=== PATIENT | male | born 1950 | race Caucasian/White ===

== ENCOUNTER 2020-04-03 20:34 | Inpatient (IN) | payer OTHER, SELFPAY ==
[~2020-04-03] VITALS: Ht 160 cm; Wt 62.6 kg
--- NOTE | 2020-04-03 20:36 | NUR ---
Placed in room 08 . Placed on psychology department chair, blood pressure machine and pulse oximeter. To gown for exam. Side rails up. Report given to Jaleesa YBARRA
[2020-04-03 20:43] VITALS: BP_SYST 131
--- NOTE | 2020-04-03 20:50 | NUR ---
# 20 gauge angiocath placed to LAC. Use of asceptic technique. Opsite placed over site. Blood return noted. Blood for lab drawn from site. Flushed with 10 cc of normal saline. No evidence of infiltration noted. Patient tolerated well.
--- NOTE | 2020-04-03 20:55 | NUR ---
PT PLACED ON OXIMIZER @ 10L, PT TOLERATED WELL. O2 SAT 92%
--- NOTE | 2020-04-03 21:01 | NUR ---
ER Dr. Velazquez at bedside examining patient.
--- NOTE | 2020-04-03 21:17 | NUR ---
RT AT BEDSIDE FOR ABG
[2020-04-03 21:28] LABS: BASOPHILS % (AUTO) 0.2 % (0.0-2.0); HEMATOCRIT 44.6 % (36-54); HEMOGLOBIN 15.4 g/dL (14.0-18.0); LYMPHOCYTES # (AUTO) 0.4 K/uL (1.0-5.5); LYMPHOCYTES % (AUTO) 7.5 % (20.5-51.5); MEAN CORPUSCULAR HEMOGLOBIN 30 pg (27-31); MEAN CORPUSCULAR HGB CONC 35 % (32-36); MEAN CORPUSCULAR VOLUME 86 fL (79.0-98.0); MONOCYTES # (AUTO) 0.3 K/uL (0.0-1.0); MONOCYTES % (AUTO) 4.9 % (1.7-9.3); NEUTROPHILS # (AUTO) 4.9 K/uL (1.8-7.7); NEUTROPHILS % (AUTO) 87.4 % (40.0-70.0); PLATELET COUNT (AUTO) 218 K/uL (130-430); RED BLOOD CELL COUNT(AUTO) 5.19 MIL/uL (4.2-6.2); RED CELL DISTRIBUTION WIDTH 13.5 % (9.0-15.0); WHITE BLOOD COUNT (AUTO) 5.6 K/uL (4.8-10.8)
[2020-04-03 21:38] LABS: CALCIUM 8.3 mg/dL (8.4-11.0); CREATININE 0.9 mg/dL (0.55-1.30); POTASSIUM 3.4 mmol/L (3.5-5.1); PROTHROMBIN TIME 10.3 SECS (9.5-12.5)
[2020-04-03 21:44] LABS: TOTAL BILIRUBIN 1.3 mg/dL (0.0-1.0)
--- NOTE | 2020-04-03 21:50 | NUR ---
PT PRESENTS FROM HOME WITH C/O SOB X 1 WEEK. REPORTS THAT HE WAS [facility]ST W[facility] AND HAD DX OF PNA. REPORTS HOWEVER, THAT HE WAS NO GIVEN ABX. COVID TEST NEGATIVE AT THAT TIME. PRESENTS WITH O2 SAT AT 88-89, O2 NC STARTED AT 5L. O2 SAT INCREASED TO 92%. PT DENIES ANY CP, DIZZINESS, OR PAIN. AAOX4
[2020-04-03] MEDS ORDERED: MORPHINE 2 MG/ML INJ. SYRINGE IVP ONE (22:00)
--- NOTE | 2020-04-03 22:00 | NUR ---
TITRATED 02 DOWN TO 5L, CURRENT O2 SAT 92%. PT TOLERATED WELL
[2020-04-03] MEDS ORDERED: SYN75 PO (22:33)
[2020-04-03] MEDS ORDERED: ALBMDI INH (22:33)
[2020-04-03] MEDS ORDERED: AMOX500C2 PO (22:33)
[2020-04-03] MEDS ORDERED: TAMS-11 PO (22:33)
[2020-04-03 22:35] LABS: BILIRUBIN,URINE NEGATIVE (NEGATIVE); BLOOD, URINE 1+ (NEGATIVE); CLARITY/URINE CLEAR (CLEAR); COLOR,URINE YELLOW (YELLOW); GLUCOSE,URINE NEGATIVE (NEGATIVE); KETONES,URINE 1+ (NEGATIVE); LEUKOCYTE ESTERASE ,URINE NEGATIVE (NEGATIVE); NITRITE, URINE NEGATIVE (NEGATIVE); PROTEIN URINE 2+ (NEGATIVE)
[2020-04-03] MEDS ORDERED: cefTRIAXone 1 GM IVPB PREMIX 50 ML IV ONE (22:45)
[2020-04-03] MEDS ORDERED: ALBUTEROL MDI INHALATION 8 GM INH INH PRN (22:45)
--- NOTE | 2020-04-03 23:05 | NUR ---
Patient will be admitted to care of DR. IZQUIERDO. Admitted to TELE unit. Will go to room 122B. Belongings list completed. Complete and up to date summary report printed. SBAR report to be given at bedside with opportunity for questions.
[2020-04-03 23:18] LABS: BACTERIA,URINE FEW /HPF (None Seen); RBC,URINE 0-3 /HPF (0-3); WBC,URINE 0-3 /HPF (0-3)
[2020-04-03 23:19] LABS: MUCUS,URINE None Seen /LPF (None Seen)
--- NOTE | 2020-04-03 23:25 | NUR ---
ADMISSION NOTE Received patient from ER via jaqueline, received report from AMADA Brown. Patient admitted with diagnosis of PNA. Patient oriented to hospital routine, call light, toileting and safety-patient verbalized understanding.
[2020-04-03 23:32] VITALS: BP_SYST 119
[2020-04-03] MEDS ORDERED: FLU VACC QS2020-21(65UP)/PF 0.7 ML/SYRINGE I.M. PRN (23:45)
--- NOTE | 2020-04-03 23:48 | NUR ---
PHYSICIAN CALL SPOKE TO DR. IZQUIERDO REGARDING PT'S LOW OXYGEN SATURATION DESPITE BEING ON 10 L O2 VIA OXYMIZER. ORDER RECEIVED TO TRANSFER PT TO ICU. WILL CARRY OUT.
[2020-04-04] VITALS (24 sets, daily range): BP systolic 95–113
[2020-04-04] MEDS ORDERED: AZITHROMYCIN 500 MG in NS 250 ML IV SCH ×2
--- NOTE | 2020-04-04 00:10 | NUR ---
Transfer Patient is transferred from [facility] due to shortness of breath. Patient was on 5L NC and was increased to 7 L then 10 L on oximizer. Patient presents AAO x3, states no shortness of breath or distress. O2 saturation is 94 on the monitor. Patient verbalizes that he feels fine right now. Bed is locked in lowest position, call light within reach, and urinal is bedside within reach.
--- NOTE | 2020-04-04 00:26 | NUR ---
TRANSFERRED TO ICU PT TRANSFERRED TO ICU. REPORT GIVEN TO ICU NURSE FOR CONTINUITY OF CARE.
[2020-04-04] MEDS: DEXAMETHASONE SOD PHOSPHATE 10 MG/ML VIAL IVP SCH ×2 (00:51→23:43)
[2020-04-04] MEDS ORDERED: PIPERACILLIN/TAZO 3.375/DEX-IS 50 ML IV SCH (05:45)
[2020-04-04] MEDS: LEVOTHYROXINE SODIUM 0.075 MG TABLET PO SCH (07:22)
[2020-04-04] MEDS ORDERED: ALBUTEROL SULFATE 0.083% 2.5 MG/3 ML VIAL.NEB INH PRN (07:30)
--- NOTE | 2020-04-04 07:45 | NUR ---
Opening Notes Patient AOx4 with no signs of distress at this time. Patient connected to monitoring specialist with NSR. Patient placed on 40L oxygen, FiO2 80% high flow at this time, O2 saturation at 94%. Patient has a LAC 20 patent, flushing well, and saline locked. Patient uses urinal to void. Bedside commode at bedside. Use of call light reinforced. Safety precautions enforced.
[2020-04-04] MEDS: ENOXAPARIN SODIUM 40 MG/0.4 ML SYRINGE SUBCUT SCH ×3 (09:00→12:32)
[2020-04-04] MEDS ORDERED: cefTRIAXone 1 GM IVPB PREMIX 50 ML IV SCH (09:00)
--- NOTE | 2020-04-04 09:26 | NUR ---
Nutrition Update Cristhian Scale 17 noted. Pt admitted for pneumonia. Diet: regular BMI: 28.7 kg/m2 RD to follow per nutrition care standards.
[2020-04-04] MEDS: TAMSULOSIN HCL 0.4 MG CAP PO SCH (09:54)
--- NOTE | 2020-04-04 09:54 | NUR ---
CONSULT ID. CONSULTING MD: DR. HARRINGTON SPOKE TO: PEDRO DIALED: [phone] ORDERED BY: DR. IZQUIERDO
--- NOTE | 2020-04-04 10:00 | NUR ---
IV placement refusal Patient refused another IV insertion at this time.
--- NOTE | 2020-04-04 10:08 | NUR ---
0800 PT PLACED ON HI FLOW 40L 80% FIO2 PER DR MULLINS. AMADA AWARE. SAT 93% 72 HR 23 RR.WILL CONT TO MONITOR. Addendum: 04/04/20 at 1009 by Arianne Albarran RT Amended: Links added.
[2020-04-04] MEDS ORDERED: CHOLECALCIFEROL (VITAMIN D3) 2,000 UNIT TABLET PO ONE (11:45)
[2020-04-04] MEDS ORDERED: IVERMECTIN 3 MG TABLET PO ONE (11:45)
[2020-04-04] MEDS ORDERED: ASCORBIC ACID 500 MG TABLET PO ONE (11:45)
--- NOTE | 2020-04-04 12:01 | NUR ---
1130 FIO2 TO 90% FLOW 35L. SAT 92%. WILL CONT TO MONITOR. Addendum: 04/04/20 at 1201 by Arianne Albarran RT Amended: Links added.
--- NOTE | 2020-04-04 14:00 | NUR ---
RN Rounds Patient resting in bed at this time. Patient assisted to sit on the edge of the bed. Per patient, "it helps me breathe better." Patient provided with oral care kit and wipes material. Reinforced education regarding the use of call light. Safety precautions enforced.
--- NOTE | 2020-04-04 16:00 | NUR ---
RN Rounds Patient sleeping at this time with no signs of distress noted. Safety precautions enforced.
--- NOTE | 2020-04-04 19:23 | NUR ---
Closing Notes Endorsed patient to night warehouse manager RN using SBAR format. No signs of distress noted.
--- NOTE | 2020-04-04 19:25 | NUR ---
Opening Note Received report from AM nurse using SBAR approach.
[2020-04-04] MEDS: DOXYCYCLINE HYCLATE 100 MG CAPSULE PO SCH (20:16)
[2020-04-05] VITALS (19 sets, daily range): BP systolic 98–120
--- NOTE | 2020-04-05 01:00 | NUR ---
Patient refused CHG bath at this time. changed all linens and made patient comfortable. Stated he feels comfortable and wants to rest.
[2020-04-05] MEDS: LEVOTHYROXINE SODIUM 0.075 MG TABLET PO SCH (07:00)
--- NOTE | 2020-04-05 07:20 | NUR ---
MD Rounds Dr. Rosa at bedside for examination. No new orders received.
--- NOTE | 2020-04-05 07:30 | NUR ---
Opening Notes Patient received awake in bed, able to follow commands. Patient connected to public health dietitian with NSR. Patient on high flow, FiO2 increased to 100% and 40L oxygen. Patient with peripheral IV patent and saline-locked. Patient able to eat independently. Assisted patient with breakfast preparation. Patient able to use urinal. Safety precautions enforced. Use of call light reinforced.
--- NOTE | 2020-04-05 07:45 | NUR ---
RT NOTES FIO2 TO 0.100 and flow to 40L. will monitor pt
--- NOTE | 2020-04-05 08:40 | NUR ---
Patient requested to take his medications at a later time. Patient educated regarding medications. Patient verbalized understanding of education.
[2020-04-05] MEDS: ASCORBIC ACID 500 MG TABLET PO SCH ×2 (08:57→09:00)
[2020-04-05] MEDS: DOXYCYCLINE HYCLATE 100 MG CAPSULE PO SCH ×2 (08:57→20:56)
[2020-04-05] MEDS: TAMSULOSIN HCL 0.4 MG CAP PO SCH ×2 (08:57→09:00)
[2020-04-05] MEDS: CHOLECALCIFEROL (VITAMIN D3) 2,000 UNIT TABLET PO SCH ×2 (08:58→09:00)
--- NOTE | 2020-04-05 09:00 | NUR ---
RT NOTES Pt's current sat 93% no distress noted
[2020-04-05 09:25] LABS: POTASSIUM 3.4 mmol/L (3.5-5.1)
[2020-04-05 09:26] LABS: CALCIUM 8.2 mg/dL (8.4-11.0); CREATININE 0.88 mg/dL (0.55-1.30)
[2020-04-05 09:29] LABS: ALBUMIN 2.7 g/dL (3.4-4.8); TOTAL BILIRUBIN 1.3 mg/dL (0.0-1.0)
[2020-04-05 09:48] LABS: HEMOGLOBIN 14.5 g/dL (14.0-18.0); RED BLOOD CELL COUNT(AUTO) 4.87 MIL/uL (4.2-6.2); WHITE BLOOD COUNT (AUTO) 8.4 K/uL (4.8-10.8)
[2020-04-05 09:49] LABS: HEMATOCRIT 41.8 % (36-54); MEAN CORPUSCULAR HEMOGLOBIN 30 pg (27-31); MEAN CORPUSCULAR HGB CONC 35 % (32-36); MEAN CORPUSCULAR VOLUME 86 fL (79.0-98.0); PLATELET COUNT (AUTO) 279 K/uL (130-430); RED CELL DISTRIBUTION WIDTH 13.7 % (9.0-15.0)
[2020-04-05 09:50] LABS: BASOPHILS % (AUTO) 0.1 % (0.0-2.0); LYMPHOCYTES # (AUTO) 0.4 K/uL (1.0-5.5); LYMPHOCYTES % (AUTO) 4.4 % (20.5-51.5); MONOCYTES # (AUTO) 0.4 K/uL (0.0-1.0); MONOCYTES % (AUTO) 4.7 % (1.7-9.3); NEUTROPHILS # (AUTO) 7.6 K/uL (1.8-7.7); NEUTROPHILS % (AUTO) 90.8 % (40.0-70.0)
--- NOTE | 2020-04-05 10:31 | NUR ---
Dietitian Recommendations *Recommend continue Regular Diet *Recommend Ensure Enlive BID to provide additional 700 kcal, 40 g protein to promote PO intake Please see Nutrition Assessment for details. EP,RD
--- NOTE | 2020-04-05 12:00 | NUR ---
MD Rounds Dr. Hay at bedside for examination.
--- NOTE | 2020-04-05 12:00 | NUR ---
RN Rounds Patient able to use the commode at bedside with minimum assist. Patient placed back on bed and educated regarding relaxation techniques. Patient verbalized understanding of teaching. Ensured safety precautions in place. No signs of distress noted at this time.
--- NOTE | 2020-04-05 12:50 | NUR ---
MD Rounds Dr. Muse at bedside for examination.
--- NOTE | 2020-04-05 13:00 | NUR ---
MD Rounds Dr. Short at bedside for examination. No new orders received.
--- NOTE | 2020-04-05 13:30 | NUR ---
MD Rounds Dr. Blackburn at bedside for examination. No new orders received.
--- NOTE | 2020-04-05 19:30 | NUR ---
PM SHIFT ASSESSMENT Pt is alert and oriented. Pt is on high flow, RR even and unlabored. SR on monitor. Skin warm and dry. IVSL to LFA, no signs of infiltration. Safety precautions in place, call light within reach. Will continue to monitor.
--- NOTE | 2020-04-05 19:35 | NUR ---
Closing Notes Endorsed to vest busheler RN using SBAR format. No signs of distress noted at this time.
--- NOTE | 2020-04-05 20:15 | NUR ---
ASSISTED PATIENT TO WASH UP WITH WARM WATER AND TOWELS. CHG WIPES REFUSED. PATIENT EDUCATED ON CHG WIPE IMPORTANCE. WILL REATTEMPT BATH AT A LATER TIME.
[2020-04-05] MEDS: FAMOTIDINE PF 20 MG/2 ML VIAL IVP SCH (20:56)
[2020-04-06] VITALS (17 sets, daily range): BP systolic 109–124
[2020-04-06] MEDS: DEXAMETHASONE SOD PHOSPHATE 10 MG/ML VIAL IVP SCH (00:41)
[2020-04-06] MEDS: LEVOTHYROXINE SODIUM 0.075 MG TABLET PO SCH (07:03)
--- NOTE | 2020-04-06 07:10 | NUR ---
ENDORSEMENT Pt care endorsed to dayshift RN using nursing SBAR.
--- NOTE | 2020-04-06 08:00 | NUR ---
AM ASSESSMENT. PT ALERT, ON O2 HIGH FLOW, SITTING UP IN BED, TACHYPNEIC, AFEBRILE THIS AM, CHECKS HIS CELL PHONE FOR MESSAGES, BROUGHT IN HIS BREAKFAST TRAY, NEEDS ASSESSED AND ATTENDED, WILL CONTINUE TO MONITOR.
[2020-04-06] MEDS: TAMSULOSIN HCL 0.4 MG CAP PO SCH (08:32)
[2020-04-06] MEDS: FAMOTIDINE PF 20 MG/2 ML VIAL IVP SCH ×2 (08:32→21:01)
[2020-04-06] MEDS: DOXYCYCLINE HYCLATE 100 MG CAPSULE PO SCH ×2 (08:33→21:01)
[2020-04-06] MEDS: CHOLECALCIFEROL (VITAMIN D3) 2,000 UNIT TABLET PO SCH (08:33)
[2020-04-06] MEDS: ASCORBIC ACID 500 MG TABLET PO SCH (08:33)
[2020-04-06] MEDS: ENOXAPARIN SODIUM 40 MG/0.4 ML SYRINGE SUBCUT SCH (08:34)
[2020-04-06] MEDS ORDERED: IVERMECTIN 3 MG TABLET PO ONE (11:30)
[2020-04-06] MEDS ORDERED: TOCILIZUMAB 400 MG in NS 100 ML IV ONE (12:30)
--- NOTE | 2020-04-06 14:20 | NUR ---
PAI GOW DEALER. DR MULLINS CAME IN AND EXAMINED PT. EDUCATION ON PRONING GIVEN. PT UNDERSTANDS.
--- NOTE | 2020-04-06 16:05 | NUR ---
PRONING. DISCUSSED WITH PATIENT PLAN OF CARE, PILLOWS PROVIDED, DEMONSTRATION GIVEN AND PATIENT COOPERATED, HE TURNED AND LAYED HIS FACE DOWN, PILLOWS UNDER HIS CHEST, BOTH ARMS, LOWER ABDOMEN, KNEES AND FEET. CALL LIGHT PLACED IN REACH.
--- NOTE | 2020-04-06 16:18 | NUR ---
SATURATION. PT REMAINS ON THE SAME POSITION, O2 SAT 98%.
--- NOTE | 2020-04-06 16:42 | NUR ---
ACTIVITY. PT SEEN SITTING AT THE EDGE OF HIS BED, WILL CONTINUE TO MONITOR.
--- NOTE | 2020-04-06 17:45 | NUR ---
NURSING PT EXPRESSED WILLINGNESS TO DO PRONING LATER AFTER HIS DINNER, WILL CONTINUE TO MONITOR.
--- NOTE | 2020-04-06 20:45 | NUR ---
ASSISTED PATIENT TO WASH UP WITH WARM WATER AND TOWELS. PATIENT STATED HE WAS GOING TO BED. ALL NEEDS MET. SAFETY PRECAUTIONS IN PLACE, CALL LIGHT WITHIN REACH. WILL CONTINUE TO MONITOR.
[2020-04-06 21:10] LABS: MYCOPLASMA PNEUMONIAE IgM <770 U/mL (0-769)
[2020-04-07] VITALS (14 sets, daily range): BP systolic 101–154
--- NOTE | 2020-04-07 00:10 | NUR ---
PATIENT HAD PERIOD OF CONFUSION AND WAS ABLE TO GET OUT OF BED. PATIENT STATED, "I WOKE UP FROM A BAD DREAM AND I HAD TO USE THE RESTROOM." PATIENT EDUCATED AND ESCORTED BACK TO BED, RT AT BEDSIDE FOR ASSISTANCE. WILL CONTINUE TO MONITOR.
[2020-04-07] MEDS: DEXAMETHASONE SOD PHOSPHATE 10 MG/ML VIAL IVP SCH (00:15)
--- NOTE | 2020-04-07 00:30 | NUR ---
VSS, SPO2 88%. PATIENT IS ALERT AND ORIENTED, PT STATES HE WAS CONFUSED AND WAS NOT AWARE OF HIS ACTIONS. WILL CONTINUE TO MONITOR.
--- NOTE | 2020-04-07 01:25 | NUR ---
SPOKE TO DR. SUSANNA MD MADE AWARE THAT PATIENT HAD A PERIOD OF HYPOXEMIA AND DESATURATING TO LOW 80'S BUT CURRENT SATURATION IS 88%. NO NEW ORDERS GIVEN PER MD. WILL CONTINUE TO MONITOR.
--- NOTE | 2020-04-07 02:30 | NUR ---
ASKED PATIENT IF HE WOULD LIKE TO BE PRONED AT THIS TIME FOR RESPIRATORY BENEFITS. PATIENT REFUSED TREATMENT, PATIENT STATED, "IM TOO TIRED RIGHT NOW, NOT NOW." PATIENT EDUCATED ON POSITIVE EFFECTS PRONING CAN HAVE, PATIENT STILL REFUSED INTERVENTION. WILL REASSESS.
--- NOTE | 2020-04-07 04:25 | NUR ---
REATTEMPTED TO ASK PATIENT IF HE WOULD LIKE TO BE PRONED AT THIS TIME FOR RESPIRATORY BENEFITS. PATIENT REFUSED TREATMENT, PATIENT STATED, "IM STILL TOO TIRED RIGHT NOW." PATIENT EDUCATED ON POSITIVE EFFECTS PRONING CAN HAVE, PATIENT STILL REFUSED INTERVENTION. WILL REASSESS.
--- NOTE | 2020-04-07 07:14 | NUR ---
ENDORSEMENT Pt care endorsed to dayshift RN using nursing SBAR.
--- NOTE | 2020-04-07 07:50 | NUR ---
AM ASSESSMENT. APPROACHED PT, SITTING UP IN BED, LOOKING DEPRESSED, BROUGHT IN HIS BREAKFAST TRAY, NEEDS ASSESSED, HE SHOOK HIS HEAD, STATED "I'M STILL UPSET, TAKE MY BREAKFAST AWAY, I'M NOT GOING TO EAT", ENCOURAGED PT TO TAKE SOME SIPS OF ENSURE DRINK, HE SHOOK HIS HEAD, "MY BODY ACHES", HE STATED. WILL CONTINUE TO MONITOR.
[2020-04-07] MEDS: ASCORBIC ACID 500 MG TABLET PO SCH (09:08)
[2020-04-07] MEDS: FAMOTIDINE PF 20 MG/2 ML VIAL IVP SCH ×2 (09:08→21:56)
[2020-04-07] MEDS: CHOLECALCIFEROL (VITAMIN D3) 2,000 UNIT TABLET PO SCH (09:08)
[2020-04-07] MEDS: TAMSULOSIN HCL 0.4 MG CAP PO SCH (09:08)
[2020-04-07] MEDS: traMADol HCL HCL 50 MG TABLET (ULTRAM) PO PRN (09:09)
[2020-04-07] MEDS: DOXYCYCLINE HYCLATE 100 MG CAPSULE PO SCH ×2 (09:10→21:56)
[2020-04-07] MEDS: ENOXAPARIN SODIUM 40 MG/0.4 ML SYRINGE SUBCUT SCH (09:10)
--- NOTE | 2020-04-07 09:25 | NUR ---
LAB DRAW. CASING COOKER CAME IN WITH CHEERFUL WORDS, SHE EXPLAINED HER TASK TO DRAW BLOOD, PT SHOOK HIS HEAD, "NO, I DON'T LIKE YOU TO DO THAT", SHE SHOWED HIM THE VIALS, "I KNOW THIS IS FOR CBC", HE STATED. WE EXPLAINED THE LAB ORDERS HE IS ABOUT TO GET TESTED, HE THEN ALLOWED HER TO TAKE BLOOD SAMPLES.
[2020-04-07 09:54] LABS: BASOPHILS % (AUTO) 0.1 % (0.0-2.0); HEMATOCRIT 45.6 % (36-54); HEMOGLOBIN 15.1 g/dL (14.0-18.0); LYMPHOCYTES # (AUTO) 0.2 K/uL (1.0-5.5); LYMPHOCYTES % (AUTO) 1.8 % (20.5-51.5); MEAN CORPUSCULAR HEMOGLOBIN 29 pg (27-31); MEAN CORPUSCULAR HGB CONC 33 % (32-36); MEAN CORPUSCULAR VOLUME 87 fL (79.0-98.0); MONOCYTES # (AUTO) 0.2 K/uL (0.0-1.0); MONOCYTES % (AUTO) 1.6 % (1.7-9.3); NEUTROPHILS # (AUTO) 12.1 K/uL (1.8-7.7); NEUTROPHILS % (AUTO) 96.5 % (40.0-70.0); PLATELET COUNT (AUTO) 324 K/uL (130-430); RED BLOOD CELL COUNT(AUTO) 5.25 MIL/uL (4.2-6.2); RED CELL DISTRIBUTION WIDTH 13.2 % (9.0-15.0); WHITE BLOOD COUNT (AUTO) 12.6 K/uL (4.8-10.8)
[2020-04-07 10:07] LABS: ALBUMIN 2.7 g/dL (3.4-4.8); CALCIUM 7.9 mg/dL (8.4-11.0); CREATININE 0.77 mg/dL (0.55-1.30); POTASSIUM 3.4 mmol/L (3.5-5.1); TOTAL BILIRUBIN 1.3 mg/dL (0.0-1.0)
[2020-04-07 10:14] LABS: C-REACTIVE PROTEIN QUANT 3.5 mg/dL (0-0.5)
--- NOTE | 2020-04-07 13:25 | NUR ---
HAIRCUTTER DR MULLINS AT BEDSIDE, EXAMINING PATIENT.
--- NOTE | 2020-04-07 14:30 | NUR ---
ACTIVITY. PT SITTING AT THE SIDE OF HIS BED, STATED "I'VE BEEN SHIFTING MY POSITION FROM THIS BED TO THAT CHAIR", HELPING MYSELF BREATHE WHILE MY ARMS CLAMPED TO THE BACK OF THE CHAIR. ASSISTED PT TO A PRONING POSITION AT THIS HOUR, PILLOWS ON THE BED TO PROTECT BONY PROMINENCES FROM INJURY, WILL CONTINUE TO MONITOR.
[2020-04-07] MEDS ORDERED: POTASSIUM CHLORIDE 20 MEQ/PKT PACKET PO ONE (15:45)
[2020-04-07] MEDS ORDERED: FUROSEMIDE 20 MG/2 ML VIAL IVP ONE (15:45)
--- NOTE | 2020-04-07 16:10 | NUR ---
ACTIVITY. PT CALLED AND RESPONDED, HE STATED "I WANT TO SIT UP NOW", LED PT GENTLY TO A CHAIR, WITH HIGH FLOW O2, SKIN CHECKED AROUND HIS EARS, SKIN PURPLISH, NO OPENED SORES. DISCUSSED TO PATIENT PRONING TIMES, HE WILL TRY AGAIN AT ABOUT BEDTIME TONIGHT.
--- NOTE | 2020-04-07 18:00 | NUR ---
NURSING. WENT TO SPEAK TO PATIENT AGAIN, NEEDS ASSESSED, PT REFUSED TO HAVE DINNER, "I DON'T EAT IN THE EVENING" PT STATED.
--- NOTE | 2020-04-07 19:30 | NUR ---
Opening note Received report and assumed care. patient in isolation for PUI Covid19. High flow canula in place 100% FIO2 with low sats 87%. SOB with minimal exertion noted. Using urinal and reported lasix is making him restless due to frequency of urination. Cooperative with staff; self proning. will continue to monitor as per unit protocol.
--- NOTE | 2020-04-07 20:30 | NUR ---
Patient's assessment completed. Self prone position; tolerating well.
[2020-04-07] MEDS ORDERED: FUROSEMIDE 20 MG/2 ML VIAL IVP SCH (21:00)
--- NOTE | 2020-04-07 22:30 | NUR ---
Prone position for two hours. patient tolerated well.
--- NOTE | 2020-04-07 23:13 | NUR ---
Resting comfortably VSS. No signs of distress noted or reported. O2 sats 90%, RR 22
[2020-04-08] VITALS (11 sets, daily range): BP systolic 105–134
[2020-04-08] MEDS: DEXAMETHASONE SOD PHOSPHATE 10 MG/ML VIAL IVP SCH ×2 (00:32→23:01)
[2020-04-08] MEDS: LEVOTHYROXINE SODIUM 0.075 MG TABLET PO SCH (06:25)
--- NOTE | 2020-04-08 07:20 | NUR ---
CLOSING NOTE Endorsed SBAR report to oncoming RN for continuity of care.
--- NOTE | 2020-04-08 07:45 | NUR ---
Opening Notes Pt received from night RN using SBAR.
--- NOTE | 2020-04-08 08:20 | NUR ---
Right Upper Leg Pt has complaints of right upper leg pain, ice pack requested and provided to pt. Assisted pt with repositioning in bed and partial linen change provided.
[2020-04-08] MEDS: ASCORBIC ACID 500 MG TABLET PO SCH ×2 (08:23→09:20)
[2020-04-08] MEDS: TAMSULOSIN HCL 0.4 MG CAP PO SCH (08:23)
[2020-04-08] MEDS: POTASSIUM CHLORIDE 20 MEQ/PKT PACKET PO SCH (08:23)
[2020-04-08] MEDS: CHOLECALCIFEROL (VITAMIN D3) 2,000 UNIT TABLET PO SCH ×2 (08:23→09:20)
[2020-04-08] MEDS: FAMOTIDINE PF 20 MG/2 ML VIAL IVP SCH ×2 (08:24→20:31)
[2020-04-08] MEDS: ENOXAPARIN SODIUM 40 MG/0.4 ML SYRINGE SUBCUT SCH (08:24)
[2020-04-08] MEDS: DOXYCYCLINE HYCLATE 100 MG CAPSULE PO SCH ×2 (08:24→20:31)
--- NOTE | 2020-04-08 08:30 | NUR ---
Medication Refusal Pt refused Medication Vit C, Vit D-3, pt is aware of benefits and is refusing.
[2020-04-08] MEDS: traMADol HCL HCL 50 MG TABLET (ULTRAM) PO PRN (08:31)
--- NOTE | 2020-04-08 09:55 | NUR ---
Blood Pressure Pt refused blood pressure cuff at this time.
--- NOTE | 2020-04-08 10:08 | NUR ---
Resting Pt observed to be resting in bed with eyes closed. No complaints of pain at this moment.
--- NOTE | 2020-04-08 10:35 | NUR ---
Right Foot Pt is complaining of right toes "feeling cold". Upon palpation toes are cold to the touch, right great toe capillary refill <3 seconds, positive for normal pulse dorsalis pedis and popliteal. Pt requested a foot massage to generate circulation. Provided pt with massage, warmth has returned to toe, pt has no impairment to move extremity. Applied socks and provided blanket per pts request. Addendum: 04/08/20 at 1353 by Celestina Langford RN Pt denies any numbness or tingling at this time.
--- NOTE | 2020-04-08 12:15 | NUR ---
[employer] windshield technician at bedside with pt.
--- NOTE | 2020-04-08 13:40 | NUR ---
Chair Assisted pt to bedside chair, no complaints of pain or distress at this time. Pt was able to ambulate to chair. Pt provided call light and cell phone. Will continue to monitor. Pt confirms education provided to call to have stand by assistance from chair to bed.
--- NOTE | 2020-04-08 14:12 | NUR ---
BED Pt assisted back to bed from chair. Pt educated again about the benefits of prone position. Pt stated that he will do side laying position. Pt currently side laying on left side with an oxygen saturation of 91% on in room monitor. Will continue to monitor.
--- NOTE | 2020-04-08 16:14 | NUR ---
Resting Pt sleeping in side laying position on right side, max oxygen saturation 93%. Will continue to monitor.
--- NOTE | 2020-04-08 18:00 | NUR ---
Dinner Pt refused dinner tray stating "I don't eat at night", pt provided two jello's on bedside.
--- NOTE | 2020-04-08 19:11 | NUR ---
Closing Notes All needs meet through duration of shift. Pt endorsed to night RN using SBAR.
--- NOTE | 2020-04-08 19:15 | NUR ---
OPENING NOTE Received SBAR report from off coming RN for continuity of care.
[2020-04-08] MEDS: ENOXAPARIN SODIUM 80 MG/0.8 ML SYRINGE SUBCUT SCH (20:39)
--- NOTE | 2020-04-08 20:45 | NUR ---
Pt resting in bed, a/o x 4, able to follow commands and make needs known. Pt on 50 L O2 via high flow NC with 100% FiO2. Pt's oxygen saturations between 70's-80's. Pt refusing to wear blood pressure cuff all night, will go and check BP throughout the night without disturbance. Encouraged pt prone and turn on sides to help increase his O2 saturations and improve oxygenation, pt refusing at the moment. Assisted pt up to chair with standby assistance, pt ambulating well with steady gait. Provided partial linen change. PIV flushing well. Bed locked and in lowest position. Provided call light within reach. Will continue to monitor and assess.
[2020-04-09] VITALS (14 sets, daily range): BP systolic 109–131
[2020-04-09 07:20] LABS: ALBUMIN 3.1 g/dL (3.4-4.8); BILIRUBIN,DIRECT 0.3 mg/dL (0.0-0.3); TOTAL BILIRUBIN 1.3 mg/dL (0.0-1.0)
--- NOTE | 2020-04-09 07:20 | NUR ---
Received patient and endorsed report. Patient in bed sleeping with side rails x 3 up. Call light with in reach.
[2020-04-09 07:34] LABS: C-REACTIVE PROTEIN QUANT 1.3 mg/dL (0-0.5)
[2020-04-09] MEDS: LEVOTHYROXINE SODIUM 0.075 MG TABLET PO SCH (07:55)
--- NOTE | 2020-04-09 08:30 | NUR ---
MD Hay at bedside assessing patient.
[2020-04-09] MEDS: TAMSULOSIN HCL 0.4 MG CAP PO SCH (09:00)
--- NOTE | 2020-04-09 09:30 | NUR ---
Encouraged patient to prone and reminded MD Hay wants patient to prone for 18 hours, refused despite education and offering to assist to turn x 3.
[2020-04-09] MEDS: DOXYCYCLINE HYCLATE 100 MG CAPSULE PO SCH ×2 (09:50→20:44)
[2020-04-09] MEDS: ENOXAPARIN SODIUM 80 MG/0.8 ML SYRINGE SUBCUT SCH ×2 (09:51→20:45)
[2020-04-09] MEDS: FAMOTIDINE PF 20 MG/2 ML VIAL IVP SCH ×2 (09:53→20:44)
[2020-04-09] MEDS: POTASSIUM CHLORIDE 20 MEQ/PKT PACKET PO SCH (09:54)
--- NOTE | 2020-04-09 10:02 | NUR ---
0950 WATER BOTTLE CHANGED ON HIGH FLOW. WILL CONT. TO MONITOR Addendum: 04/09/20 at 1008 by Arianne Albarran RT Amended: Links added.
[2020-04-09 10:32] LABS: BASOPHILS # (AUTO) 0.1 K/uL (0.0-0.2); BASOPHILS % (AUTO) 0.6 % (0.0-2.0); EOSINOPHILS # (AUTO) 0.1 K/uL (0.0-0.4); EOSINOPHILS % (AUTO) 1.4 % (0.0-4.0); HEMATOCRIT 49.9 % (36-54); HEMOGLOBIN 17.1 g/dL (14.0-18.0); LYMPHOCYTES # (AUTO) 0.3 K/uL (1.0-5.5); LYMPHOCYTES % (AUTO) 2.7 % (20.5-51.5); MEAN CORPUSCULAR HEMOGLOBIN 30 pg (27-31); MEAN CORPUSCULAR HGB CONC 34 % (32-36); MEAN CORPUSCULAR VOLUME 88 fL (79.0-98.0); MONOCYTES # (AUTO) 0.2 K/uL (0.0-1.0); NEUTROPHILS # (AUTO) 9.4 K/uL (1.8-7.7); NEUTROPHILS % (AUTO) 93.3 % (40.0-70.0); PLATELET COUNT (AUTO) 234 K/uL (130-430); RED BLOOD CELL COUNT(AUTO) 5.69 MIL/uL (4.2-6.2); RED CELL DISTRIBUTION WIDTH 13.8 % (9.0-15.0); WHITE BLOOD COUNT (AUTO) 10.1 K/uL (4.8-10.8)
[2020-04-09 10:35] LABS: CALCIUM 8.5 mg/dL (8.4-11.0); CREATININE 1.22 mg/dL (0.55-1.30); POTASSIUM 4.5 mmol/L (3.5-5.1)
--- NOTE | 2020-04-09 13:35 | NUR ---
Prone Position Assisted pt to prone position, pt tolerated well. Pillows placed underneath all bony and weightbearing areas. Bed in lowest position and call light placed in pts hand. Will continue to monitor.
--- NOTE | 2020-04-09 15:10 | NUR ---
Patient request to lay back in bed semi-fowlers despite encouraging patient and education to stay prone.
--- NOTE | 2020-04-09 19:15 | NUR ---
change of shift.pt.presents isolation status;droplet;2/t covid 19;pui status.pt.presents o2-therapy via high flow intervention;flow rate=50% fio2%=100%.o2-sat%=82%.pt.capable to reposition self.pt.presents iv access lock location;lt.antecubital.pt.utilizing the urinal w/in access of the pt.general status stable.respiratory status labored.call light/telephone placed w/in access of the pt.
--- NOTE | 2020-04-09 19:25 | NUR ---
Endorsed patient and report to [facility] shift nurse. Patient sleeping in bed with side rails x 3 up. Call light with in reach.
--- NOTE | 2020-04-09 20:00 | NUR ---
pt.assessed.v/s assessed values w/in normal limits.o2-sat%=78%.pt.presents seated position;bed.re-iterated to the pt.that the prone position enables the pt.to breath w some more ease improving the o2-sat%.pt.refused to re-position to the prone position @this hour.i have apprised the pt.that i may provide snacks/beverages w/in the shift.diet status;regular;puree.pt.requested jellos/fresh water.i have provided the jellos/water.pt.capable to reposition self.no c/o pain,nausea.general status stable.call light/telephone w/in access of the pt.
--- NOTE | 2020-04-09 21:00 | NUR ---
2100pmedications administered.pt.capable to ingest po medications slight difficulty.2/t respiratory status labored. no requests posited@this hour.
--- NOTE | 2020-04-09 22:00 | NUR ---
pt.assessed.v/s assessed values w/in normal limits.no c/o pain,nausea.no requests posited@this hour.o2-sat%=82%.respiratory status labored.general status stable.i have attended to the urinal:measured/cleaned placed w/in access of the pt.
[2020-04-10] VITALS (18 sets, daily range): BP systolic 105–129
--- NOTE | 2020-04-10 | NUR ---
pt.assessed.v/s assessed values w/in normal limits.no c/o pain,nausea.pt.assisted to the prone position.o2-sat%=84%in prone position.pt.assistd per roxy rn/chg. i have administered decadron;6mg ivp via peripheral iv access.no requests posited.urinal w/in access of the pt.general status stable.respiratory status labored.call light/telephone w/in access of the pt.
[2020-04-10] MEDS: DEXAMETHASONE SOD PHOSPHATE 10 MG/ML VIAL IVP SCH (00:06)
--- NOTE | 2020-04-10 02:00 | NUR ---
pt.assessed.v/s assessed values w/in normal limits.per flacc pain mgx pt. absent facial grimaces/body posturing.o2 sat%=80%. seated position;bed.general status stable.respiratory status labored.i have attended to the urinal:measured/cleaned placed w/in access of the pt.call light/telephone w/in access of the pt.
--- NOTE | 2020-04-10 04:00 | NUR ---
pt.assessed.v/s assessed values w/in normal limits.pt.presents o2-sat%=80%per sitting position;bed.pt.capable to reposition self. i have attended to the urinal measured/cleaned placed w/in access of the pt.per flacc pain mgx pt.absent facial grimaces/body posturing.general status stable.respiratory status;labored.call light/telephone w/in reach of the pt.
[2020-04-10] MEDS: LEVOTHYROXINE SODIUM 0.075 MG TABLET PO SCH (06:02)
--- NOTE | 2020-04-10 06:16 | NUR ---
pt.assessed.v/s assessed.o2-sat%=82%.i have attended to the bed linen/gown changed.no c/o pain,nausea.i have set-up the pt. for oral care. no requests posited@this hour.general status stable.respiratory status labored.call light/telephone placed w/in access of the pt. pt.refused synthroid adminstration 0700a dose.
--- NOTE | 2020-04-10 07:00 | NUR ---
Opening note Received report from SANJUANA YBARRA.
[2020-04-10] MEDS: ASCORBIC ACID 500 MG TABLET PO SCH ×2 (08:16→09:00)
[2020-04-10] MEDS: TAMSULOSIN HCL 0.4 MG CAP PO SCH ×2 (08:16→08:56)
[2020-04-10] MEDS: POTASSIUM CHLORIDE 20 MEQ/PKT PACKET PO SCH ×2 (08:16→09:00)
[2020-04-10] MEDS: DOXYCYCLINE HYCLATE 100 MG CAPSULE PO SCH ×2 (08:16→21:00)
[2020-04-10] MEDS: FAMOTIDINE PF 20 MG/2 ML VIAL IVP SCH ×2 (08:16→21:16)
[2020-04-10] MEDS: CHOLECALCIFEROL (VITAMIN D3) 2,000 UNIT TABLET PO SCH ×2 (08:16→09:00)
[2020-04-10] MEDS: ENOXAPARIN SODIUM 80 MG/0.8 ML SYRINGE SUBCUT SCH ×2 (08:18→21:21)
[2020-04-10] MEDS: methylPREDNISolone SOD SUCC 40 MG/ML VIAL IVP SCH ×2 (08:20→21:16)
[2020-04-10 08:41] LABS: BASOPHILS % (AUTO) 0.4 % (0.0-2.0); EOSINOPHILS % (AUTO) 0.5 % (0.0-4.0); HEMATOCRIT 48.4 % (36-54); HEMOGLOBIN 16.7 g/dL (14.0-18.0); LYMPHOCYTES # (AUTO) 0.2 K/uL (1.0-5.5); LYMPHOCYTES % (AUTO) 2.6 % (20.5-51.5); MEAN CORPUSCULAR HEMOGLOBIN 30 pg (27-31); MEAN CORPUSCULAR HGB CONC 34 % (32-36); MEAN CORPUSCULAR VOLUME 88 fL (79.0-98.0); MONOCYTES # (AUTO) 0.2 K/uL (0.0-1.0); MONOCYTES % (AUTO) 1.9 % (1.7-9.3); NEUTROPHILS # (AUTO) 7.4 K/uL (1.8-7.7); NEUTROPHILS % (AUTO) 94.6 % (40.0-70.0); PLATELET COUNT (AUTO) 206 K/uL (130-430); RED BLOOD CELL COUNT(AUTO) 5.53 MIL/uL (4.2-6.2); RED CELL DISTRIBUTION WIDTH 13.5 % (9.0-15.0); WHITE BLOOD COUNT (AUTO) 7.8 K/uL (4.8-10.8)
--- NOTE | 2020-04-10 08:45 | NUR ---
Nursing rounds Pt room cleaned and bed made. Pt sitting in chair at bedside with call light in reach. Pt educated on IS and verbalized understanding.
[2020-04-10] MEDS: MICAFUNGIN SODIUM 100 MG in NS 100 ML IV SCH (09:04)
--- NOTE | 2020-04-10 09:10 | NUR ---
Nursing Rounds Pt ambulated back to bed.
--- NOTE | 2020-04-10 09:30 | NUR ---
at bedside Dr. Pineda at bedside.
[2020-04-10 10:30] LABS: CREATININE 1.17 mg/dL (0.55-1.30); POTASSIUM 4.9 mmol/L (3.5-5.1); TOTAL BILIRUBIN 1.2 mg/dL (0.0-1.0)
[2020-04-10 10:31] LABS: ALBUMIN 2.8 g/dL (3.4-4.8)
--- NOTE | 2020-04-10 10:47 | NUR ---
PICC Dr. Mancilla spoke to pt about getting a PICC line. Pt educated on a PICC. Pt refusing PICC line at this time.
--- NOTE | 2020-04-10 12:00 | NUR ---
Position Assisted pt with side laying position. Pt tolerated well will continue to monitor.
--- NOTE | 2020-04-10 13:08 | NUR ---
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 Subjective Information: Pt is in ICU and RD visit was deferred d/t COVID-19 Isolation per ID MD. Per EMR review, pt remians hypoxic and on HFNC. Clinically, pt remains compatible w/ COVID-19 although pt had tested negative several times. Per MD notes,pt is a/w IGM and IGG COVID-[address] s/w pt's RN in ICU and she reported that pt has been drinking 100% of Ensure, 0% of the pureed diet and is being offered w/ snacks in between meals like jello. PO intake w/ supplement alone provides <75% of est needs. Encourage pt to increase PO intake. PO intake records incomplete. Nursing staff to record PO intake religiously. Current Diet Order/Nutrition Support: Regular Pureed Diet Pertinent Medications: Zinc, VIT C, VIT D3, Synthroid, Lovenox, Solu-medrol, KCl packet Pertinent Labs 04/10 Na 134L, K 4.9 WNL, BUN 24H, CRE 1.17 WNL, BG 127H Current % PO Poor (26% average of 9 meals) ---Incomplete PO intake records. Estimated Energy Expenditure (kcals/day) 2405-2159 kcal/day (25-30 kcal/kg adj IBW for maintenance) Estimated Protein Required (g/day) 60-72 g pro/day (1.0-1.2 g pro/kg adj IBW for maintenance) Estimated Fluid Required (l/day) 4414-8086 ml/day (1 ml/kcal/day for maintenance) Problem/Etiology/Signs/Symptoms Inadequate oral/beverage intake r/t inadequate energy intake and decreased appetite AEB pt w/ no appetite and PO intake meets <75% of est needs x 4 days (*modified 04/10) Altered nutrition related labs r/t medication interaction AEB elevated BG and steroid therapy. (*new 04/10) Expected Outcomes/Goals -Will monitor diet tolerance and PO intake w/ goal of pt meeting at least 75% of estimated nutritional needs, labs trending WNL, normal GI function, skin integrity, and weight maintenance. Dietitian Recommendations *Recommend continue Regular pureed diet as ordered. *Supplement Ensure Enlive comes standard w/ diet and provides 1050 calories and 60gm protein daily. *Consider adding CCHO diet if BG continues to elevate. Mod Risk: F/U in 3-5 days
--- NOTE | 2020-04-10 13:20 | NUR ---
Dietitian Recommendations *Recommend continue Regular pureed diet as ordered. *Supplement Ensure Enlive comes standard w/ diet and provides 1050 calories and 60gm protein daily. *Consider adding CCHO diet if BG continues to elevate. Please see Nutrition F/U notes for details. UMM SALINAS
--- NOTE | 2020-04-10 17:15 | NUR ---
Nursing rounds Pt ambulated to bedside chair. Pt resting comfortably, call light in reach.
--- NOTE | 2020-04-10 18:15 | NUR ---
Nursing Rounds Dinner tray provided to patient. Patient states he is not too hungry today d/t respiratory fatigue. Provided patient with shower cap. Educated patient on importance of IS, verbalized understanding with return demonstration.
--- NOTE | 2020-04-10 19:20 | NUR ---
Opening note Received report and assumed care. Patient in isolation for PUI Covid19. Short of breath with minimal exertion; requires assistance for ADL's. Saline lock L arm continues to flush well; patient refuses to have it replaced. educated on use of IS; verbalized understanding. will continue to monitor patient as per unit protocol.
--- NOTE | 2020-04-10 20:20 | NUR ---
Patient sitting in chair. Bath given; linen changed and patient repositioned back in bed. Patient tolerated poorly; SOB with minimal exertion. Recuperation time to pre activity O2 Sats 85-87% 10-15 minutes. No signs of altered mental status. Tachypneic RR 35-40. will continue to monitor.
[2020-04-11] VITALS (22 sets, daily range): BP systolic 82–154
--- NOTE | 2020-04-11 01:05 | NUR ---
"I am ok with intubation" As per patient, "I am ok with intubation" statement has been the result of not being able to sleep, unable to lower respiratory rate and becoming SOB with minimal exertion along with episodes of low O2 saturations with simple tasks like using the urinal. After this nurse was checking on patient, he reported being ok with intubation and would like to speak to disc pad knockout worker for further information. Charge nurse was made aware.
--- NOTE | 2020-04-11 05:18 | NUR ---
AM LABS PT REFUSING TO HAVE BLOOD DRAWN AT THIS TIME FOR AM LABS. PER FOUNTAIN VENDING MECHANIC BENJY PT STATES "I'M FEELING BETTER, I'M GOING TO TALK TO MY DOCTORS, AND I DON'T NEED ANY BLOOD DRAWN RIGHT NOW". PT EDUCATED ON THE IMPORTANCE OF LAB WORK FOR PTS PLAN OF CARE. PT STILL REFUSES. WILL CONTINUE TO MONITOR.
[2020-04-11] MEDS: LEVOTHYROXINE SODIUM 0.075 MG TABLET PO SCH (06:13)
[2020-04-11] MEDS: DOXYCYCLINE HYCLATE 100 MG CAPSULE PO SCH (09:00)
[2020-04-11] MEDS: POTASSIUM CHLORIDE 20 MEQ/PKT PACKET PO SCH (09:00)
[2020-04-11] MEDS: TAMSULOSIN HCL 0.4 MG CAP PO SCH (09:00)
[2020-04-11] MEDS: CHOLECALCIFEROL (VITAMIN D3) 2,000 UNIT TABLET PO SCH (09:00)
[2020-04-11] MEDS: ASCORBIC ACID 500 MG TABLET PO SCH (09:00)
--- NOTE | 2020-04-11 09:00 | NUR ---
FAMILY. PT'S AT BEDSIDE, LORELEI, UPDATED ON PT'S STATUS. SHE STATED THAT HE ASKED HER TO COME IN SO HE CAN SIGN PERSONAL CHECKS.
[2020-04-11] MEDS: MICAFUNGIN SODIUM 100 MG in NS 100 ML IV SCH (09:14)
[2020-04-11] MEDS: FAMOTIDINE PF 20 MG/2 ML VIAL IVP SCH ×2 (09:16→22:11)
[2020-04-11] MEDS: methylPREDNISolone SOD SUCC 40 MG/ML VIAL IVP SCH ×2 (09:16→22:11)
--- NOTE | 2020-04-11 09:55 | NUR ---
RT NOTES Pt was intubated by dr Vigil with 7.5 ETT secured @25cm lipline. Bilateral b/s/ chest rise noted. Colorimetric changed to yellow. Placed on vent ac 16 450 +5 100, saturation did not improve, dr boykin order to change to PC 18 RR 20 i-time 1.1 peep 8 100%. Alarms are set and audible, saturation appears to be improving. will monitor pt. per dr vigil hold off on sputum collection, since pt is going to be bronch.
[2020-04-11] MEDS ORDERED: PROPOFOL DRIP 100 ML IV ONE (10:23)
--- NOTE | 2020-04-11 10:40 | NUR ---
RT NOTES Called to bedside for bronchoscopy, dr vigil collected sputum, instructed RN to pull ETT 1 cm out secured @ 24cm. no adverse reactions noted. will monitor pt.
[2020-04-11] MEDS ORDERED: MORPHINE I.V. DRIP 100 ML IV ONE (10:57)
[2020-04-11] MEDS ORDERED: fentaNYL CITRATE/PF 100 MCG/2 ML AMP ONE (10:59)
[2020-04-11] MEDS ORDERED: MIDAZOLAM HCL 5 MG/5 ML VIAL ONE (10:59)
[2020-04-11] MEDS ORDERED: LIDOCAINE 1%, 20 ML MDV 0 ML ONE (10:59)
[2020-04-11] MEDS ORDERED: LIDOCAINE 2% JELLY UROJECT 10 ML MM ONE (10:59)
[2020-04-11] MEDS ORDERED: TOCILIZUMAB 400 MG in NS 100 ML IV ONE (11:00)
--- NOTE | 2020-04-11 11:25 | NUR ---
CENTRAL LINE. DR HDEZ INSERTED TRIPLE CATHETER INTO RIGHT INTERNAL JUGULAR AREA. BIOPATCH PLACED ONTO THE SITE, TRANSPARENT DRESSING APPLIED TO COVER.
[2020-04-11] MEDS ORDERED: NALOXONE HCL 0.4 MG/ML AMP (NARCAN) IVP PRN (11:30)
[2020-04-11] MEDS ORDERED: NACL 0.9% 1,000 ML IV ONE (11:30)
--- NOTE | 2020-04-11 11:35 | NUR ---
OGT. ENID UPTON INSERTED ORALLY, MANY ATTEMPTS INTO BOTH NARES, PLACEMENT CHECKED THROUGH AUSCULTATION OVER ABDOMEN, GAS HEARD PASSING INTO THE STOMACH.
--- NOTE | 2020-04-11 11:40 | NUR ---
RT NOTES Vent settings to PC 18 RR 22 Peep 10 I-Time 1.[address] De León's order. Will monitor pt.
--- NOTE | 2020-04-11 11:50 | NUR ---
XRAY. TRUSS PULLER HELPER AT BEDSIDE, XRAY MACHINE BROUGHT INTO PT'S ROOM.
--- NOTE | 2020-04-11 12:00 | NUR ---
BELONGINGS. 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
[2020-04-11] MEDS ORDERED: ROCURONIUM BROMIDE 10 MG/ML (ZEMURON) IV ONE (12:04)
[2020-04-11] MEDS ORDERED: ETOMIDATE 20 MG/ 10 ML VIAL (AMIDATE) IVP ONE (12:04)
[2020-04-11] MEDS ORDERED: SUCCINYLCHOLINE CHLORIDE 20 MG/ML(QUELICIN) IVP ONE (12:04)
[2020-04-11] MEDS: MIDAZOLAM HCL IN 0.9 % NACL/PF 50 ML IV PRN (12:40)
[2020-04-11] MEDS: NACL 0.9% 1,000 ML IV SCH (12:45)
--- NOTE | 2020-04-11 13:30 | NUR ---
COUDET. ATTEMPTED TO INSERT ALVARADO CATHETER WITH DIFFICULTY. COUDET CATHETER USED INSTEAD, YELLOW URINE OBTAINED. SECUREMENT DEVICE ATTACHED TO PT'S THIGH.
[2020-04-11] MEDS: ENOXAPARIN SODIUM 80 MG/0.8 ML SYRINGE SUBCUT SCH ×2 (14:38→22:14)
[2020-04-11] MEDS: NOREPINEPHRINE BITARTRATE 4 MG in NS 246 ML IV PRN (14:40)
--- NOTE | 2020-04-11 14:40 | NUR ---
IV DRIPS. LEVOPHED DRIP INITIATED AT 0.1 MCG/KG/MIN, MAP 64, CONTINUE TO MONITOR PT.
--- NOTE | 2020-04-11 15:30 | NUR ---
TUBE FEEDING. STARTED OGT FEEDING AT 10 ML PER HR, HEAD OF BED ELEVATED TO PREVENT ASPIRATION. ORAL CARE DONE, SUCTIONED PT NEEDED.
[2020-04-11] MEDS: PROPOFOL DRIP 100 ML IV PRN (16:32)
--- NOTE | 2020-04-11 17:04 | NUR ---
ABG. PAGED DR HDEZ FOR LATEST ABG RESULT. NO NEW ORDERS RECEIVED.
[2020-04-11] MEDS: MORPHINE I.V. DRIP 100 ML IV PRN (18:16)
--- NOTE | 2020-04-11 19:30 | NUR ---
Opening note Received report and assumed care. Patient s/p intubation tolerating settings on Pressure control 18, Rate 22, FIO2 100%, Peep 10. I time 1.2 sec. Right IJ central line infusing Morphine drip, Versed drip, Diprivan drip and Levophed drip with VSS and sedated adequately. Tube feeding to OGT infusing Vital AF 1.2 at 10 cc/h and will increase until reaching goal of 30 cc/h. Patient will require to be positioned in prone position starting at 0200 and for next 18 hrs as tolerated. will continue to monitor patient as per unit protocol.
--- NOTE | 2020-04-11 20:00 | NUR ---
DIPRIVAN TITRATION COREY DAVILA RN TITRATE DIPRIVAN DRIP TO 40 MCG/KG/HR PER ORDERS. WILL CONTINUE TO MONITOR PT.
--- NOTE | 2020-04-11 20:00 | NUR ---
MORPHINE TITRATION COREY DAVILA RN TITRATE MORPHINE DRIP TO 10 MG/HR PER ORDERS. WILL CONTINUE TO MONITOR PT.
--- NOTE | 2020-04-11 21:30 | NUR ---
DIPRIVAN TITRATION COREY DAVILA RN TITRATE DIPRIVAN DRIP TO 35 MCG/KG/HR PER ORDERS. WILL CONTINUE TO MONITOR PT.
--- NOTE | 2020-04-11 23:30 | NUR ---
MORPHINE TITRATION COREY DAVILA RN TITRATE MORPHINE DRIP TO 8 MG/HR PER ORDERS. WILL CONTINUE TO MONITOR PT.
[2020-04-12] VITALS (36 sets, daily range): BP systolic 89–126
--- NOTE | 2020-04-12 00:30 | NUR ---
MORPHINE TITRATION COREY DAVILA RN TITRATE MORPHINE DRIP TO 6 MG/HR PER ORDERS. WILL CONTINUE TO MONITOR PT.
--- NOTE | 2020-04-12 00:30 | NUR ---
DIPRIVAN TITRATION COREY DAVILA RN TITRATE DIPRIVAN DRIP TO 30 MCG/KG/HR PER ORDERS. WILL CONTINUE TO MONITOR PT.
--- NOTE | 2020-04-12 02:30 | NUR ---
DIPRIVAN TITRATION COREY DAVILA RN TITRATE DIPRIVAN DRIP TO 25 MCG/KG/HR PER ORDERS. WILL CONTINUE TO MONITOR PT.
--- NOTE | 2020-04-12 02:30 | NUR ---
MORPHINE TITRATION COREY DAVILA RN TITRATE MORPHINE DRIP TO 5 MG/HR PER ORDERS. WILL CONTINUE TO MONITOR PT.
[2020-04-12] MEDS: LEVOTHYROXINE SODIUM 0.075 MG TABLET PO SCH (06:07)
[2020-04-12] MEDS: NOREPINEPHRINE BITARTRATE 4 MG in NS 246 ML IV PRN (06:09)
[2020-04-12] MEDS: PROPOFOL DRIP 100 ML IV PRN ×2 (06:19→16:12)
--- NOTE | 2020-04-12 08:00 | NUR ---
AM ASSESSMENT. PT SEDATED, MECHANICALLY INTUBATED, ORAL CARE DONE, GRIMACING, MOVED HIS MOUTH, LIKE COUGHING, OGT INTACT, FEEDING AT 30 ML PER HR, ABDOMEN SOFT ON PALPATION, NO GASTRIC RESIDUAL WHEN GTUBE ASPIRATED, URINARY CATHETER DRAINING WELL, JUSTYN URINE, WILL CONTINUE TO MONITOR PT.
[2020-04-12] MEDS: methylPREDNISolone SOD SUCC 40 MG/ML VIAL IVP SCH ×2 (08:43→20:52)
[2020-04-12] MEDS: FAMOTIDINE PF 20 MG/2 ML VIAL IVP SCH ×2 (08:43→20:52)
[2020-04-12] MEDS: MICAFUNGIN SODIUM 100 MG in NS 100 ML IV SCH (08:43)
[2020-04-12] MEDS: CHOLECALCIFEROL (VITAMIN D3) 2,000 UNIT TABLET PO SCH (08:59)
[2020-04-12] MEDS: POTASSIUM CHLORIDE 20 MEQ/PKT PACKET PO SCH (09:00)
[2020-04-12] MEDS: TAMSULOSIN HCL 0.4 MG CAP PO SCH (09:00)
[2020-04-12] MEDS: ASCORBIC ACID 500 MG TABLET PO SCH (09:00)
[2020-04-12] MEDS: ENOXAPARIN SODIUM 80 MG/0.8 ML SYRINGE SUBCUT SCH ×2 (10:08→20:52)
[2020-04-12] MEDS: MIDAZOLAM HCL IN 0.9 % NACL/PF 50 ML IV PRN (10:34)
[2020-04-12] MEDS: MORPHINE I.V. DRIP 100 ML IV PRN (10:35)
--- NOTE | 2020-04-12 11:30 | NUR ---
BLOOD AND SPUTUM COLLECTION. BLOOD SAMPLE TAKEN FROM [place] THRU CENTRAL LINE, FLUSHED LINE WITH 10 ML SALINE AFTER COLLECTION. R.T AT BEDSIDE, SPUTUM INDUCED THRU ET TUBE. ALL FLUID SAMPLE SENT TO LAB FOR TESTS.
[2020-04-12 11:45] LABS: BASOPHILS # (AUTO) 0.1 K/uL (0.0-0.2); BASOPHILS % (AUTO) 0.5 % (0.0-2.0); EOSINOPHILS % (AUTO) 0.2 % (0.0-4.0); HEMATOCRIT 45.2 % (36-54); HEMOGLOBIN 14.9 g/dL (14.0-18.0); LYMPHOCYTES # (AUTO) 0.3 K/uL (1.0-5.5); LYMPHOCYTES % (AUTO) 2.9 % (20.5-51.5); MEAN CORPUSCULAR HEMOGLOBIN 29 pg (27-31); MEAN CORPUSCULAR HGB CONC 33 % (32-36); MEAN CORPUSCULAR VOLUME 88 fL (79.0-98.0); MONOCYTES # (AUTO) 0.2 K/uL (0.0-1.0); MONOCYTES % (AUTO) 1.6 % (1.7-9.3); NEUTROPHILS # (AUTO) 9.4 K/uL (1.8-7.7); NEUTROPHILS % (AUTO) 94.8 % (40.0-70.0); PLATELET COUNT (AUTO) 198 K/uL (130-430); RED BLOOD CELL COUNT(AUTO) 5.12 MIL/uL (4.2-6.2); RED CELL DISTRIBUTION WIDTH 13.8 % (9.0-15.0)
[2020-04-12 12:03] LABS: ALBUMIN 2.7 g/dL (3.4-4.8); CALCIUM 7.8 mg/dL (8.4-11.0); CREATININE 0.85 mg/dL (0.55-1.30); POTASSIUM 4.8 mmol/L (3.5-5.1); TOTAL BILIRUBIN 0.7 mg/dL (0.0-1.0)
[2020-04-12] MEDS: PIPERACILLIN/TAZO 2.25G/DEX-IS 50 ML IV SCH ×3 (12:10→23:37)
--- NOTE | 2020-04-12 12:15 | NUR ---
. DR HDEZ WENT TO EXAMINE PT. SHE TURNED THE VENTILATOR TO 95% FIO2.
[2020-04-12] MEDS: NACL 0.9% 1,000 ML IV SCH (12:22)
--- NOTE | 2020-04-12 14:45 | NUR ---
ACTIVITY. TURNED PT CAREFULLY, STOMACH DOWN, ASSISTED BY 7 STAFF, SHEETS CHANGED, HEAD TURNED SIDEWAYS, ORAL CARE DONE, PILLOW UNDER HIS ARMS, STOMACH, LOWER LEGS. R.T CHANGED FIO2 TO 90%, PT SATURATION 96%.
--- NOTE | 2020-04-12 14:45 | NUR ---
PLACED PT PRONE POSITION. ABLE TO INSERT SUCTION CATHETER THROUGH ETT. TITRATED FIO2 DOWN TO 90%. SPO2 97%, HR 64.
--- NOTE | 2020-04-12 17:15 | NUR ---
REPOSITIONED PT. PT STAY PRONE POSITION. TURNED HEAD FROM RIGHT TO LEFT SIDE. ABLE TO INSERT SUCTION CATHETER THROUGH ETT. SPO2 96%, HR 80.
--- NOTE | 2020-04-12 18:18 | NUR ---
IV MED. 1ST DOSE REMDESIVIR PALMER. POSITIVE SARS COV ANTIBODIES.
--- NOTE | 2020-04-12 18:35 | NUR ---
FAMILY. CALL RECEIVED FROM PT'S SPOUSE LORELEI. UPDATE ON PT'S STATUS GIVEN.
--- NOTE | 2020-04-12 19:30 | NUR ---
Opening Note Received report from AM nurse using SBAR approach.
--- NOTE | 2020-04-12 20:00 | NUR ---
PM assessment Patient is sedated, proned, and mechanically intubated. OGT is intact with feeding at a rate of 30 ml per hour. No gastric residuals. Urinary catheter is draining via gravity. Bed is locked in lowest position, safety precautions in place. Will continue to monitor the patient.
--- NOTE | 2020-04-12 21:00 | NUR ---
Proned patient RT at bedside and another RN. Repositioned patient and turned patient's head from the left side to the right side. Switched patient's arm on opposite side. Patient tolerated well. Vital signs stable. No signs or symptoms of distress. Will continue to monitor.
[2020-04-13] VITALS (36 sets, daily range): BP systolic 86–152
[2020-04-13] MEDS: NOREPINEPHRINE BITARTRATE 4 MG in NS 246 ML IV PRN ×2 (00:08→18:13)
--- NOTE | 2020-04-13 02:00 | NUR ---
Central Dressing Changed Changed the central dressing on the patient's IJ. Sterile procedure performed. Dressing is dry clean and intact.
[2020-04-13] MEDS: PIPERACILLIN/TAZO 2.25G/DEX-IS 50 ML IV SCH ×4 (04:57→23:24)
[2020-04-13 05:37] LABS: BASOPHILS % (AUTO) 0.1 % (0.0-2.0); EOSINOPHILS % (AUTO) 0.3 % (0.0-4.0); HEMATOCRIT 42.4 % (36-54); HEMOGLOBIN 13.9 g/dL (14.0-18.0); LYMPHOCYTES # (AUTO) 0.2 K/uL (1.0-5.5); LYMPHOCYTES % (AUTO) 2.2 % (20.5-51.5); MEAN CORPUSCULAR HEMOGLOBIN 29 pg (27-31); MEAN CORPUSCULAR HGB CONC 33 % (32-36); MEAN CORPUSCULAR VOLUME 89 fL (79.0-98.0); MONOCYTES # (AUTO) 0.2 K/uL (0.0-1.0); NEUTROPHILS # (AUTO) 9.1 K/uL (1.8-7.7); NEUTROPHILS % (AUTO) 95.4 % (40.0-70.0); PLATELET COUNT (AUTO) 186 K/uL (130-430); RED BLOOD CELL COUNT(AUTO) 4.77 MIL/uL (4.2-6.2); RED CELL DISTRIBUTION WIDTH 13.6 % (9.0-15.0); WHITE BLOOD COUNT (AUTO) 9.6 K/uL (4.8-10.8)
[2020-04-13 05:59] LABS: ANION GAP 6 (5-15); CALCIUM 7.3 mg/dL (8.4-11.0); CHLORIDE 107 mmol/L (98-107); GLUCOSE 141 mg/dL (70-99); POTASSIUM 4.3 mmol/L (3.5-5.1); SODIUM SERUM 143 mmol/L (136-145); UREA NITROGEN, BLOOD 26 mg/dL (8-21)
[2020-04-13] MEDS: LEVOTHYROXINE SODIUM 0.075 MG TABLET PO SCH (06:32)
[2020-04-13 06:35] LABS: GFR AFRICAN AMERICAN 107 mL/min (>90)
--- NOTE | 2020-04-13 07:15 | NUR ---
Opening Note Patient report received via SBAR from endorsing RN
[2020-04-13] MEDS: MORPHINE I.V. DRIP 100 ML IV PRN (07:30)
[2020-04-13 08:12] LABS: ALBUMIN 2.5 g/dL (3.4-4.8); TOTAL BILIRUBIN 0.5 mg/dL (0.0-1.0)
--- NOTE | 2020-04-13 08:15 | NUR ---
ROUND Dr. De León in to see patient, prone position order clarified. Patient's position to be alternated between supine and prone every 12 hours. Patient should be in reverse Trendelenburg when in prone position, patient's TubeFeeding should run at 10mL/Hr when on prone position. New orders entered
[2020-04-13 08:20] LABS: CREATININE 0.9 mg/dL (0.55-1.30)
[2020-04-13 08:21] LABS: POTASSIUM 4.3 mmol/L (3.5-5.1)
[2020-04-13 08:23] LABS: CALCIUM 7.6 mg/dL (8.4-11.0)
[2020-04-13 08:28] LABS: C-REACTIVE PROTEIN QUANT < 0.2 mg/dL (0-0.5)
--- NOTE | 2020-04-13 08:45 | NUR ---
DECREASED FIO2 TO 70% PER ABG RESULT, PO2 125.4mmHg.
[2020-04-13] MEDS: TAMSULOSIN HCL 0.4 MG CAP PO SCH (08:55)
[2020-04-13] MEDS: FAMOTIDINE PF 20 MG/2 ML VIAL IVP SCH ×2 (08:55→21:08)
[2020-04-13] MEDS: ENOXAPARIN SODIUM 80 MG/0.8 ML SYRINGE SUBCUT SCH ×2 (08:55→21:11)
[2020-04-13] MEDS: methylPREDNISolone SOD SUCC 40 MG/ML VIAL IVP SCH ×2 (08:55→21:08)
[2020-04-13] MEDS: CHOLECALCIFEROL (VITAMIN D3) 2,000 UNIT TABLET PO SCH (08:55)
[2020-04-13] MEDS: ASCORBIC ACID 500 MG TABLET PO SCH (08:55)
[2020-04-13] MEDS: MICAFUNGIN SODIUM 100 MG in NS 100 ML IV SCH (08:59)
[2020-04-13] MEDS: POTASSIUM CHLORIDE 20 MEQ/PKT PACKET PO SCH (09:00)
--- NOTE | 2020-04-13 10:00 | NUR ---
Nursing Note Patient changed to Supine position with assistance from 3 RNs and 2 RTs. Patient pulled up in bed and repositioned. Patient's saturation at 91% on 70% FiO2, ET size 7.5, lip line 24
--- NOTE | 2020-04-13 10:10 | NUR ---
REPOSITIONED PT TO SUPINE POSITION. SECURED ETT 7.5/24CM AT LIP LINE WITH COLLEEN ANCHOR FAST. SPO2 92%, HR65.
--- NOTE | 2020-04-13 10:30 | NUR ---
Diprivan drip titrated to 20mcg/min. Witnessed IV drip titration.
[2020-04-13] MEDS: NACL 0.9% 1,000 ML IV SCH (10:40)
--- NOTE | 2020-04-13 11:00 | NUR ---
Diprivan drip titrated to 15 mcg/min. Morphine drip titrated to 4 mg/hr. Witnessed IV drip titration.
--- NOTE | 2020-04-13 11:20 | NUR ---
INCREASED FIO2 TO 80%. SPO2 93%, HR 70.
[2020-04-13] MEDS: PROPOFOL DRIP 100 ML IV PRN (11:55)
--- NOTE | 2020-04-13 15:45 | NUR ---
Central Dressing Changed The dressing on the patient's right IJ central line was changed using sterile technique, patient tolerated well
--- NOTE | 2020-04-13 18:00 | NUR ---
Nursing Note Patient cleaned and repositioned, patient tolerated well
--- NOTE | 2020-04-13 19:08 | NUR ---
Closing Note Patient report given to nightshift RN via SBAR
--- NOTE | 2020-04-13 19:23 | NUR ---
Opening Note: Received report from AM nurse using SBAR approach.
--- NOTE | 2020-04-13 21:00 | NUR ---
RN Rounds: Patient vitals stable, patient afebrile and vital stable, no acute distress noted. bed in lowest locked position, all safety checks in place.
--- NOTE | 2020-04-13 22:20 | NUR ---
PRONED: RT at bedside and additional RN's x4. Repositioned patient and turned patient's head to left side, Switched patient's arm on opposite side. New leads applied to posterior, SR noted. OG tube feed restarted at a rate of 10 ml/hr, Patient tolerated well. Vital signs stable. No signs or symptoms of distress. Will continue to monitor.
--- NOTE | 2020-04-13 23:41 | NUR ---
RN Rounds: Patient remains proned, tolerating well. Antibiotics running IVPB, no adverse effects noted. Mouth suctioned, airway remains patent. All safety measures in place. Monitoring at this time.
[2020-04-14] VITALS (33 sets, daily range): BP systolic 69–126
--- NOTE | 2020-04-14 01:30 | NUR ---
RN Rounds: Patient's head repositioned by RT, tolerated well. Vitals stable, patient afebrile, no acute distress noted. bed in lowest locked position, all safety checks in place.
[2020-04-14] MEDS: PROPOFOL DRIP 100 ML IV PRN (02:39)
--- NOTE | 2020-04-14 02:58 | NUR ---
RN Rounds: Patient vitals stable, patient afebrile, no acute distress noted. bed in lowest locked position, all safety checks in place.
--- NOTE | 2020-04-14 04:38 | NUR ---
RN Rounds: Patient remains proned, tolerating well with no adverse effects at this time. IV tubing changed and labeled. Patient remains sedated on Diprivan 15 mcg/kg/min. All safety precautions in place, bed in lowest locked position. Continuing to monitor at this time.
[2020-04-14] MEDS: PIPERACILLIN/TAZO 2.25G/DEX-IS 50 ML IV SCH ×4 (05:09→23:42)
[2020-04-14] MEDS: LEVOTHYROXINE SODIUM 0.075 MG TABLET PO SCH (06:00)
[2020-04-14 06:08] LABS: ALANINE AMINOTRANSFERASE 66 U/L (12-78); ALBUMIN 2.3 g/dL (3.4-4.8); ASPARTATE AMINOTRANSFERASE 55 U/L (10-37); BILIRUBIN,DIRECT 0.2 mg/dL (0.0-0.3); TOTAL BILIRUBIN 0.8 mg/dL (0.0-1.0)
--- NOTE | 2020-04-14 07:00 | NUR ---
Closing Note: Patient report given to AM RN via SBAR report.
[2020-04-14] MEDS: methylPREDNISolone SOD SUCC 40 MG/ML VIAL IVP SCH ×2 (09:12→21:00)
[2020-04-14] MEDS: ASCORBIC ACID 500 MG TABLET PO SCH (09:12)
[2020-04-14] MEDS: POTASSIUM CHLORIDE 20 MEQ/PKT PACKET PO SCH (09:12)
[2020-04-14] MEDS: FAMOTIDINE PF 20 MG/2 ML VIAL IVP SCH ×2 (09:12→21:01)
[2020-04-14] MEDS: TAMSULOSIN HCL 0.4 MG CAP PO SCH (09:12)
[2020-04-14] MEDS: CHOLECALCIFEROL (VITAMIN D3) 2,000 UNIT TABLET PO SCH (09:13)
[2020-04-14] MEDS: MICAFUNGIN SODIUM 100 MG in NS 100 ML IV SCH (09:14)
[2020-04-14] MEDS: ENOXAPARIN SODIUM 80 MG/0.8 ML SYRINGE SUBCUT SCH ×2 (09:14→21:00)
[2020-04-14 09:24] LABS: C-REACTIVE PROTEIN QUANT < 0.2 mg/dL (0-0.5)
--- NOTE | 2020-04-14 10:25 | NUR ---
RT NOTES Assisted in unproning pt, ETT remains secure. Soon after pt is supine, spo2 dropped to 87%. had to increase fio2 to 0.95 to maintain target saturation. rn made aware.
[2020-04-14] MEDS: NACL 0.9% 1,000 ML IV SCH (12:00)
[2020-04-14] MEDS: MORPHINE I.V. DRIP 100 ML IV PRN (13:30)
--- NOTE | 2020-04-14 15:30 | NUR ---
RT NOTES FIO2 to 0.80 per titration order, will monitor pt. rn made aware.
--- NOTE | 2020-04-14 15:42 | NUR ---
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 Pt was intubated and started on EN support 04/11. Per pt's RN yesterday, geologist petroleum would like for pt's TF rate to increase when pt is supine. Pt is in prone position for 12 hours/day per RN report. RD spoke w/ Dr. De León (geologist petroleum) via phone call this afternoon, who confirmed that pt should be in proning position 12 hours/day, and she stated that she would like to increase pt's TF to 50 ml/hr while supine. Pt's TF has been infusing at 10 ml/hr while pt is proned per RN report. Per EMR review, pt has been tolerating TF well -- confirmed by pharmacist in charge today. Last BM x2 04/[address] to implement new TF order per physician via TO/RB. Current Diet Order/Nutrition Support: Vital AF 1.2 Pertinent Medications: remdesivir, piperacillin/tazobactam IV, propofol at 6.613 ml/hr (175 kcal/day), solu-medrol, zinc sulfate, VIT C, VIT D3, synthroid Pertinent Labs: Na 143 WNL (improved), BUN 26 H, BG 141 H Current % PO N/A, now on EN support NEW Estimated Energy Expenditure (kcals/day) 8950-0399 kcal/day (15-20 kcal/kg adj IBWfor maintenance) Estimated Protein Required (g/day) 60-72 g pro/day (1.0-1.2 g pro/kg adj IBW for maintenance) Estimated Fluid Required (l/day) 5155-3606 ml/day (1 ml/kcal/day for maintenance) Problem/Etiology/Signs/Symptoms Inadequate oral/beverage intake r/t inadequate energy intake and decreased appetite AEB pt w/ no appetite and PO intake meets <75% of est needs x 4 days (*modified 04/10) Altered nutrition related labs r/t medication interaction AEB elevated BG and steroid therapy. (*new 04/10) Expected Outcomes/Goals -Will monitor diet tolerance and PO intake w/ goal of pt meeting at least 75% of estimated nutritional needs, labs trending WNL, normal GI function, skin integrity, and weight maintenance. Dietitian Recommendations *Recommend continue Regular pureed diet as ordered. *Supplement Ensure Enlive comes standard w/ diet and provides 1050 calories and 60gm protein daily. *Consider adding CCHO diet if BG continues to elevate. Mod Risk: F/U in 3-5 days Addendum: 04/14/20 at [address] PLEASE DISREGARD. ENTERED IN ERROR.
--- NOTE | 2020-04-14 15:55 | NUR ---
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 Pt was intubated and started on EN support 04/11. Per pt's RN yesterday, panel coverer would like for pt's TF rate to increase when pt is supine. Pt is in prone position for 12 hours/day per RN report. RD spoke w/ Dr. De León (panel coverer) via phone call this afternoon, who confirmed that pt should be in proning position 12 hours/day. She also stated that she would like to increase pt's TF to 50 ml/hr while supine (12 hours/day). Care Support Representative reported she may want to increase to 60 ml/hr if pt tolerates 50 ml/hr well. Pt's TF has been infusing at 10 ml/hr while pt is proned per RN report. Per EMR review, pt has been tolerating TF well -- confirmed by insulation cupola charger today. Last BM x2 04/[address] to implement new TF order per physician via TO/RB. Current Diet Order/Nutrition Support: Vital AF 1.2 Pertinent Medications: remdesivir, piperacillin/tazobactam IV, propofol at 6.613 ml/hr (175 kcal/day), solu-medrol, zinc sulfate, VIT C, VIT D3, synthroid Pertinent Labs: Na 143 WNL (improved), BUN 26 H, BG 141 H Current % PO N/A, now on EN support NEW Estimated Energy Expenditure (kcals/day) 2453-1130 kcal/day (15-20 kcal/kg CBW for COVID-19 Dz requiring ICU care per ASPEN/SCCM) NEW Estimated Protein Required (g/day) 89-148 gm pro/day (1.2-1 gm protein/kg CBW for COVID-19 Dz requiring ICU care per ASPEN/SCCM) NEW Estimated Fluid Required (l/day) 1.1-1.5 L/day (1 ml/kcal/day for maintenance) Problem/Etiology/Signs/Symptoms Inadequate oral/beverage intake r/t inadequate energy intake and decreased appetite AEB pt w/ no appetite and PO intake meets <75% of est needs x 4 days. *no longer applicable Altered nutrition related labs r/t medication interaction AEB elevated BG and steroid therapy. *ongoing Inadequate EN support related to metabolic demands as evidenced by estimated nutritional requirements for COVID-19 Dz requiring ICU care. Expected Outcomes/Goals -Will monitor diet tolerance and PO intake w/ goal of pt meeting at least 80% of estimated nutritional needs, labs trending WNL, normal GI function, skin integrity, and weight maintenance. Dietitian Recommendations * Recommend Vital AF 1.2 at 50 ml/hr (while supine), Prosource TD, Free Water Flush: 50 ml Q6h via OGT -- 12 hours/day Provides: 780 kcal/12 hours, 90 gm protein/day, and 1273 ml free water/day * Recommend Vital AF 1.2 at 10 ml/hr (while prone) via OGT -- 12 hours/day Provides: 144 kcal/12 hours, 9 gm protein/12 hours Total EN Support/Day Provides: 924 kcal/day, 99 gm protein/day, 1273 ml free water/day Meets: 84% of lower end of estimated caloric needs and 111% of lower end of estimated caloric needs High Risk: F/U in 2-3 days Addendum: 04/14/20 at [address] CORRECTION: Current Diet Order/Nutrition Support: Vital AF 1.2 at 30 ml/hr (max), Free Water Flush: 50 ml Q4H via OGT x3 days Dietitian Recommendations * Recommend Vital AF 1.2 at 50 ml/hr (while supine), Prosource TID, Free Water Flush: 50 ml Q6h via OGT -- 12 hours/day Provides: 780 kcal/12 hours, 90 gm protein/day, and 1273 ml free water/day * Recommend Vital AF 1.2 at 10 ml/hr (while prone) via OGT -- 12 hours/day Provides: 144 kcal/12 hours, 9 gm protein/12 hours Total EN Support/Day Provides: 924 kcal/day, 99 gm protein/day, 1273 ml free water/day Meets: 84% of lower end of estimated caloric needs and 111% of lower end of estimated caloric Addendum: 04/20/20 at [address] CORRECTION: NEW Estimated Protein Required (g/day) 89-148 gm pro/day (1.2-2 gm protein/kg CBW for COVID-19 Dz requiring ICU care per ASPEN/SCCM)
--- NOTE | 2020-04-14 16:09 | NUR ---
Dietitian Recommendations * Recommend Vital AF 1.2 at 50 ml/hr (while supine), Prosource TD, Free Water Flush: 50 ml Q6h via OGT -- 12 hours/day Provides: 780 kcal/12 hours, 90 gm protein/day, and 1273 ml free water/day * Recommend Vital AF 1.2 at 10 ml/hr (while prone) via OGT -- 12 hours/day Provides: 144 kcal/12 hours, 9 gm protein/12 hours Total EN Support/Day Provides: 924 kcal/day, 99 gm protein/day, 1273 ml free water/day Meets: 84% of lower end of estimated caloric needs and 111% of lower end of estimated caloric needs LP, RD Please refer to Nutrition F/U for details. Addendum: 04/14/20 at [address] CORRECTION: Prosandrésce TID Addendum: 04/14/20 at [address] [facility]/ allie YBARRA and relayed new TF orders
--- NOTE | 2020-04-14 19:20 | NUR ---
Endorsed patient and gave report to NOC. Side rails x 3 up. Call light with in reach.
--- NOTE | 2020-04-14 19:28 | NUR ---
Opening Note: Received report from AM nurse using SBAR approach.
--- NOTE | 2020-04-14 20:18 | NUR ---
Nsg Rounds: Patient repositioned for comfort, bed in lowest locked position. All safety precautions in place. IV lines patent and infusing appropriately. No acute distress and or discomfort noted. Patient will be placed into the Prone position at 2200, RT dept aware.
--- NOTE | 2020-04-14 21:30 | NUR ---
Central Dsg: Central Line Dsg soiled and partially dislodged, Dsg change completed using sterile technique. Patient tolerated well, dressing is clean dry and intact.
--- NOTE | 2020-04-14 22:00 | NUR ---
Prone: Patient proned per order, tolerated well. Optimal head placement preformed by RT, all leads applied and SR noted on screen. No acute distress noted at this time. Will monitor, all safety precautions in place.
[2020-04-15] VITALS (35 sets, daily range): BP systolic 80–121
--- NOTE | 2020-04-15 00:27 | NUR ---
RN Rounds: Patient vitals stable, patient afebrile, no acute distress noted. bed in lowest locked position, all safety checks in place.
--- NOTE | 2020-04-15 02:10 | NUR ---
RN Rounds: Patient vitals stable, patient afebrile, no acute distress noted. bed in lowest locked position, all safety checks in place.
[2020-04-15] MEDS: PIPERACILLIN/TAZO 2.25G/DEX-IS 50 ML IV SCH ×4 (05:04→23:31)
[2020-04-15 06:24] LABS: BASOPHILS % (AUTO) 0.1 % (0.0-2.0); EOSINOPHILS % (AUTO) 0.1 % (0.0-4.0); HEMATOCRIT 45.6 % (36-54); LYMPHOCYTES # (AUTO) 0.2 K/uL (1.0-5.5); LYMPHOCYTES % (AUTO) 2.1 % (20.5-51.5); MEAN CORPUSCULAR HEMOGLOBIN 29 pg (27-31); MEAN CORPUSCULAR HGB CONC 33 % (32-36); MEAN CORPUSCULAR VOLUME 90 fL (79.0-98.0); MONOCYTES # (AUTO) 0.1 K/uL (0.0-1.0); MONOCYTES % (AUTO) 1.2 % (1.7-9.3); NEUTROPHILS # (AUTO) 11.4 K/uL (1.8-7.7); NEUTROPHILS % (AUTO) 96.5 % (40.0-70.0); PLATELET COUNT (AUTO) 190 K/uL (130-430); RED BLOOD CELL COUNT(AUTO) 5.09 MIL/uL (4.2-6.2); RED CELL DISTRIBUTION WIDTH 14.3 % (9.0-15.0); WHITE BLOOD COUNT (AUTO) 11.8 K/uL (4.8-10.8)
[2020-04-15] MEDS: LEVOTHYROXINE SODIUM 0.075 MG TABLET PO SCH (06:44)
--- NOTE | 2020-04-15 06:50 | NUR ---
Closing Note: Patient report given to AM RN via SBAR report.
[2020-04-15 07:10] LABS: ALANINE AMINOTRANSFERASE 70 U/L (12-78); ALBUMIN 2.6 g/dL (3.4-4.8); ANION GAP 7 (5-15); ASPARTATE AMINOTRANSFERASE 60 U/L (10-37); BILIRUBIN,DIRECT 0.3 mg/dL (0.0-0.3); CALCIUM 7.5 mg/dL (8.4-11.0); CHLORIDE 105 mmol/L (98-107); CREATININE 0.71 mg/dL (0.55-1.30); GLUCOSE 132 mg/dL (70-99); POTASSIUM 4.5 mmol/L (3.5-5.1); SODIUM SERUM 141 mmol/L (136-145); TOTAL BILIRUBIN 0.8 mg/dL (0.0-1.0); UREA NITROGEN, BLOOD 26 mg/dL (8-21)
--- NOTE | 2020-04-15 07:30 | NUR ---
Opening Note Received plan of care via sbar from endorsing RN.
[2020-04-15 08:26] LABS: GFR AFRICAN AMERICAN 141 mL/min (>90)
[2020-04-15 08:27] LABS: C-REACTIVE PROTEIN QUANT < 0.2 mg/dL (0-0.5)
[2020-04-15] MEDS: POTASSIUM CHLORIDE 20 MEQ/PKT PACKET PO SCH (09:21)
[2020-04-15] MEDS: ASCORBIC ACID 500 MG TABLET PO SCH (09:21)
[2020-04-15] MEDS: MICAFUNGIN SODIUM 100 MG in NS 100 ML IV SCH (09:21)
[2020-04-15] MEDS: methylPREDNISolone SOD SUCC 40 MG/ML VIAL IVP SCH ×2 (09:22→20:35)
[2020-04-15] MEDS: TAMSULOSIN HCL 0.4 MG CAP PO SCH (09:22)
[2020-04-15] MEDS: FAMOTIDINE PF 20 MG/2 ML VIAL IVP SCH ×2 (09:22→20:35)
[2020-04-15] MEDS: CHOLECALCIFEROL (VITAMIN D3) 2,000 UNIT TABLET PO SCH (09:22)
[2020-04-15] MEDS: ENOXAPARIN SODIUM 80 MG/0.8 ML SYRINGE SUBCUT SCH ×2 (09:23→20:33)
--- NOTE | 2020-04-15 09:45 | NUR ---
RT NOTES Dr De León made aware of pt desaturating on supine position. Ordered to do ABG 1 hour post supine placement. @0950 Dr De León changd fio2 to 0.75. Will monitor pt.
--- NOTE | 2020-04-15 10:00 | NUR ---
Dr. De León at bedside. Provided patient update. No new orders.
--- NOTE | 2020-04-15 10:50 | NUR ---
RT NOTES Assisted in unproning pt. ETT remains secure/patent. Will monitor pt. Will draw ABG 1 hour on supine position.
[2020-04-15] MEDS: NACL 0.9% 1,000 ML IV SCH (12:28)
--- NOTE | 2020-04-15 12:44 | NUR ---
Called Dr. De León and reported ABGs. Received orders to increase rate to 24 and FIO2 to 80%.
--- NOTE | 2020-04-15 13:25 | NUR ---
RT NOTES VENT SETTINGS TO RR [address] HDEZ'S ORDER
[2020-04-15] MEDS: MORPHINE I.V. DRIP 100 ML IV PRN (16:56)
[2020-04-15] MEDS: PROPOFOL DRIP 100 ML IV PRN (17:00)
--- NOTE | 2020-04-15 19:25 | NUR ---
Opening note: Rc'vd report from AM nurse, patient in bed with optimal HOB placement, bed in lowest locked position with all safety precautions in place. All IV lines patent and infusing.
--- NOTE | 2020-04-15 19:30 | NUR ---
Closing Note Provided plan of care via sbar to receiving RN.
--- NOTE | 2020-04-15 21:00 | NUR ---
RN Rounds: Patient remains proned, tolerating well. Mouth suctioned, airway remains patent. All safety measures in place. Monitoring at this time. Addendum: 04/15/20 at 2307 by Deann Moffett RN Proned at 2200 per MD order
[2020-04-15] MEDS: NOREPINEPHRINE BITARTRATE 4 MG in NS 246 ML IV PRN (23:37)
[2020-04-16] VITALS (34 sets, daily range): BP systolic 92–122
--- NOTE | 2020-04-16 | NUR ---
Witnessed Deann RN titrate versed to 1 mcg/kg/min.
--- NOTE | 2020-04-16 | NUR ---
Witnessed Deann RN titrate morphine to 4 mg/hr.
--- NOTE | 2020-04-16 00:51 | NUR ---
RN Rounds: Patient vitals stable, patient afebrile, no acute distress noted. Bed in lowest locked position, all safety checks in place. Patient remains in Proned position with good tolerance, oxygen saturation 97% via monitor.
[2020-04-16] MEDS: MIDAZOLAM HCL IN 0.9 % NACL/PF 50 ML IV PRN (01:46)
--- NOTE | 2020-04-16 02:20 | NUR ---
RN Rounds: Patient vitals stable, patient afebrile, no acute distress noted. bed in lowest locked position, all safety checks in place.
[2020-04-16] MEDS: PIPERACILLIN/TAZO 2.25G/DEX-IS 50 ML IV SCH ×4 (05:10→23:10)
[2020-04-16] MEDS: LEVOTHYROXINE SODIUM 0.075 MG TABLET PO SCH (06:04)
--- NOTE | 2020-04-16 06:33 | NUR ---
RN Rounds: Patient's head repositioned by RT, tolerated well. Vitals stable, patient afebrile, no acute distress noted. Bed in lowest locked position, all safety checks in place.
--- NOTE | 2020-04-16 06:54 | NUR ---
Closing Note: Patient report given to AM RN via SBAR report.
--- NOTE | 2020-04-16 07:21 | NUR ---
Opening Note Received plan of care via sbar from endorsing RN.
[2020-04-16] MEDS: MICAFUNGIN SODIUM 100 MG in NS 100 ML IV SCH (08:36)
[2020-04-16] MEDS: FAMOTIDINE PF 20 MG/2 ML VIAL IVP SCH ×2 (08:37→20:10)
[2020-04-16] MEDS: POTASSIUM CHLORIDE 20 MEQ/PKT PACKET PO SCH (08:37)
[2020-04-16] MEDS: ENOXAPARIN SODIUM 80 MG/0.8 ML SYRINGE SUBCUT SCH ×2 (08:38→20:10)
[2020-04-16] MEDS: TAMSULOSIN HCL 0.4 MG CAP PO SCH (08:38)
[2020-04-16] MEDS: CHOLECALCIFEROL (VITAMIN D3) 2,000 UNIT TABLET PO SCH (08:38)
[2020-04-16] MEDS: ASCORBIC ACID 500 MG TABLET PO SCH (08:38)
[2020-04-16 08:39] LABS: BASOPHILS # (AUTO) 0.2 K/uL (0.0-0.2); BASOPHILS % (AUTO) 1.5 % (0.0-2.0); EOSINOPHILS # (AUTO) 0.1 K/uL (0.0-0.4); EOSINOPHILS % (AUTO) 0.5 % (0.0-4.0); HEMATOCRIT 45.1 % (36-54); LYMPHOCYTES # (AUTO) 0.3 K/uL (1.0-5.5); MEAN CORPUSCULAR HEMOGLOBIN 30 pg (27-31); MEAN CORPUSCULAR HGB CONC 33 % (32-36); MEAN CORPUSCULAR VOLUME 90 fL (79.0-98.0); MONOCYTES # (AUTO) 0.1 K/uL (0.0-1.0); PLATELET COUNT (AUTO) 183 K/uL (130-430); RED BLOOD CELL COUNT(AUTO) 5.03 MIL/uL (4.2-6.2); RED CELL DISTRIBUTION WIDTH 14.2 % (9.0-15.0); WHITE BLOOD COUNT (AUTO) 10.7 K/uL (4.8-10.8)
--- NOTE | 2020-04-16 09:00 | NUR ---
Dr. De León at bedside. Provided patient update. No new orders.
[2020-04-16] MEDS: methylPREDNISolone SOD SUCC 40 MG/ML VIAL IVP SCH ×2 (09:03→20:10)
[2020-04-16 09:22] LABS: ALBUMIN 2.5 g/dL (3.4-4.8); CALCIUM 7.6 mg/dL (8.4-11.0); CREATININE 0.69 mg/dL (0.55-1.30); POTASSIUM 4.2 mmol/L (3.5-5.1)
[2020-04-16] MEDS: PROPOFOL DRIP 100 ML IV PRN (10:46)
--- NOTE | 2020-04-16 10:50 | NUR ---
Dr. Adams at bedside. Provided patient update. to place orders.
--- NOTE | 2020-04-16 11:25 | NUR ---
RT NOTES Assisted in unproning pt, ETT remains secure/patent. @1205 saturation remains lower than target, increased FIO2 to 0.90, saturation improved 91-92%. will monitor pt.
[2020-04-16] MEDS: NACL 0.9% 1,000 ML IV SCH (12:23)
[2020-04-16] MEDS: MORPHINE I.V. DRIP 100 ML IV PRN (16:11)
--- NOTE | 2020-04-16 19:15 | NUR ---
PM SHIFT ASSESSMENT Pt is sedated on the vent, tolerating current vent settings. SR on monitor. Skin warm and dry. IVF infusing, no signs of infiltration noted. Ferrara catheter in place, draining to gravity. Tubefeeding infusing. Safety precautions in place, call light within reach. Will continue to monitor.
--- NOTE | 2020-04-16 22:05 | NUR ---
rt notes 2205 pt was proned. followed by putting pt on trendelenberg position. ETT secured/patent. pt was sxn'd prior to proning. pt saturation increased to 96%. will try to titrate fio2. will turn head at 0200am. will continue to monitor pt.
--- NOTE | 2020-04-16 22:05 | NUR ---
PRONE Pt placed in prone position per MD order. ETT in place and secured. VSS. Pt tolerated intervention well. Will continue to monitor.
[2020-04-16] MEDS: NOREPINEPHRINE BITARTRATE 4 MG in NS 246 ML IV PRN (23:11)
[2020-04-17] VITALS (30 sets, daily range): BP systolic 92–123
--- NOTE | 2020-04-17 01:03 | NUR ---
rt notes 0103 titrated fio2 to 80% saturation 96%. rn aden aware. will continue to monitor pt. no resp distress noted.
[2020-04-17] MEDS: PIPERACILLIN/TAZO 2.25G/DEX-IS 50 ML IV SCH ×4 (05:12→23:01)
[2020-04-17] MEDS: PROPOFOL DRIP 100 ML IV PRN ×3 (05:13→22:58)
[2020-04-17 06:08] LABS: BASOPHILS % (AUTO) 0.2 % (0.0-2.0); EOSINOPHILS % (AUTO) 0.1 % (0.0-4.0); HEMATOCRIT 46.4 % (36-54); HEMOGLOBIN 15.1 g/dL (14.0-18.0); LYMPHOCYTES # (AUTO) 0.2 K/uL (1.0-5.5); LYMPHOCYTES % (AUTO) 1.7 % (20.5-51.5); MEAN CORPUSCULAR HEMOGLOBIN 29 pg (27-31); MEAN CORPUSCULAR HGB CONC 33 % (32-36); MEAN CORPUSCULAR VOLUME 90 fL (79.0-98.0); MONOCYTES # (AUTO) 0.1 K/uL (0.0-1.0); MONOCYTES % (AUTO) 0.9 % (1.7-9.3); NEUTROPHILS # (AUTO) 12.5 K/uL (1.8-7.7); NEUTROPHILS % (AUTO) 97.1 % (40.0-70.0); PLATELET COUNT (AUTO) 184 K/uL (130-430); RED BLOOD CELL COUNT(AUTO) 5.15 MIL/uL (4.2-6.2); RED CELL DISTRIBUTION WIDTH 14.1 % (9.0-15.0); WHITE BLOOD COUNT (AUTO) 12.9 K/uL (4.8-10.8)
[2020-04-17] MEDS: LEVOTHYROXINE SODIUM 0.075 MG TABLET PO SCH (06:20)
[2020-04-17 06:34] LABS: ALBUMIN 2.6 g/dL (3.4-4.8); CALCIUM 7.4 mg/dL (8.4-11.0); CREATININE 0.59 mg/dL (0.55-1.30); POTASSIUM 4.2 mmol/L (3.5-5.1)
--- NOTE | 2020-04-17 07:00 | NUR ---
Opening Note Received report from SANJUANA YBARRA.
--- NOTE | 2020-04-17 07:28 | NUR ---
ENDORSEMENT Pt care endorsed to dayshift RN using nursing SBAR.
[2020-04-17] MEDS: ENOXAPARIN SODIUM 80 MG/0.8 ML SYRINGE SUBCUT SCH ×2 (08:04→20:53)
[2020-04-17] MEDS: methylPREDNISolone SOD SUCC 40 MG/ML VIAL IVP SCH ×2 (08:04→20:53)
[2020-04-17] MEDS: ASCORBIC ACID 500 MG TABLET PO SCH (08:05)
[2020-04-17] MEDS: CHOLECALCIFEROL (VITAMIN D3) 2,000 UNIT TABLET PO SCH (08:05)
[2020-04-17] MEDS: FAMOTIDINE PF 20 MG/2 ML VIAL IVP SCH ×2 (08:05→20:53)
[2020-04-17] MEDS: TAMSULOSIN HCL 0.4 MG CAP PO SCH (08:05)
[2020-04-17] MEDS: POTASSIUM CHLORIDE 20 MEQ/PKT PACKET PO SCH (08:05)
[2020-04-17] MEDS: MICAFUNGIN SODIUM 100 MG in NS 100 ML IV SCH (08:08)
--- NOTE | 2020-04-17 09:15 | NUR ---
MD Rounds Dr. Pineda at bedside- updated on patient. No new orders received.
--- NOTE | 2020-04-17 10:35 | NUR ---
MD Rounds Dr. Ling at bedside- updated on patient. No new orders received.
--- NOTE | 2020-04-17 10:45 | NUR ---
Supine Patient turned in supine position with RT at the head of the bed and RNs. Patient tolerated well. Patient suctioned orally. Saturations greater than 92%. Safety precautions enforced.
[2020-04-17] MEDS: NACL 0.9% 1,000 ML IV SCH (11:34)
--- NOTE | 2020-04-17 12:00 | NUR ---
RN Rounds Patient remains sedated in bed with no signs of active distress noted. VSS. Safety precautions enforced.
--- NOTE | 2020-04-17 12:17 | NUR ---
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 RD s/w AMADA Dunne who reported that EN has been well tolerated and that EN has been infusing as ordered for the supine and prone position. During ICU visit, pt was seen through window and RD noted that pt was on prone position. RD notified RN that last BM was 4 days ago, RN to ask MD for stool regimen. Current Diet Order/Nutrition Support: Vital AF 1.2 at 50 ml/hr (while supine), Prosource TID, Free Water Flush: 50 ml Q6h via OGT -- 12 hours/day Vital AF 1.2 at 10 ml/hr (while prone) via OGT -- 12 hours/day Pertinent Medications: remdesivir IV, piperacillin/tazobactam IV, propofol at 15 mcg/kg/min (173 kcal/day), solu-medrol, zinc sulfate, VIT C, VIT D3, synthroid Pertinent Labs: 04/17 Na 140WNL, K 4.2WNL, BG 126H, BUN 24H, CRE 0.59WNL Current % PO N/A, now on EN support Estimated Energy Expenditure (kcals/day) 6981-0949 kcal/day (15-20 kcal/kg CBW for COVID-19 Dz requiring ICU care per ASPEN/SCCM) Estimated Protein Required (g/day) 89-148 gm pro/day (1.2-1 gm protein/kg CBW for COVID-19 Dz requiring ICU care per ASPEN/SCCM) Estimated Fluid Required (l/day) 1.1-1.5 L/day (1 ml/kcal/day for maintenance) Problem/Etiology/Signs/Symptoms Inadequate oral/beverage intake r/t inadequate energy intake and decreased appetite AEB pt w/ no appetite and PO intake meets <75% of est needs x 4 days. *no longer applicable Altered nutrition related labs r/t medication interaction AEB elevated BG and steroid therapy. *ongoing Inadequate EN support related to metabolic demands as evidenced by estimated nutritional requirements for COVID-19 Dz requiring ICU care. (*ongoing) Expected Outcomes/Goals -Will monitor EN toleance and intake w/ goal of pt meeting at least 80% of estimated nutritional needs, labs trending WNL, normal GI function, skin integrity, and weight maintenance. Dietitian Recommendations * Recommend: continue: Vital AF 1.2 at 50 ml/hr (while supine), Prosource TID, Free Water Flush: 50 ml Q6h via OGT -- 12 hours/day Provides: 780 kcal/12 hours, 90 gm protein/day, and 1273 ml free water/day * Recommend continue Vital AF 1.2 at 10 ml/hr (while prone) via OGT -- 12 hours/day Provides: 144 kcal/12 hours, 9 gm protein/12 hours Total EN Support/Day Provides: 924 kcal/day, 99 gm protein/day, 1273 ml free water/day Meets: 84% of lower end of estimated caloric needs and 111% of lower end of estimated caloric High Risk: F/U in 2-3 days Addendum: 04/20/20 at [address] CORRECTION: Estimated Protein Required (g/day) 89-148 gm pro/day (1.2-2 gm protein/kg CBW for COVID-19 Dz requiring ICU care per ASPEN/SCCM)
--- NOTE | 2020-04-17 12:24 | NUR ---
Dietitian Recommendations * Recommend: continue: Vital AF 1.2 at 50 ml/hr (while supine), Prosource TID, Free Water Flush: 50 ml Q6h via OGT -- 12 hours/day Provides: 780 kcal/12 hours, 90 gm protein/day, and 1273 ml free water/day * Recommend continue Vital AF 1.2 at 10 ml/hr (while prone) via OGT -- 12 hours/day Provides: 144 kcal/12 hours, 9 gm protein/12 hours Total EN Support/Day Provides: 924 kcal/day, 99 gm protein/day, 1273 ml free water/day Meets: 84% of lower end of estimated caloric needs and 111% of lower end of estimated caloric Please see Nutrition F/U note for details. RITA, RD
--- NOTE | 2020-04-17 16:00 | NUR ---
RN Rounds Patient still being sedated at this time, no signs of distress noted. Patient turned and repositioned. Patient tolerated well. Safety precautions enforced.
--- NOTE | 2020-04-17 16:00 | NUR ---
RN rounds Oral/jamee care done. Changed PIV dressing, +biopatch.
[2020-04-17] MEDS: MIDAZOLAM HCL IN 0.9 % NACL/PF 50 ML IV PRN (18:24)
[2020-04-17] MEDS: MORPHINE I.V. DRIP 100 ML IV PRN (18:26)
--- NOTE | 2020-04-17 19:00 | NUR ---
closing note Report given to SANJUANA YBARRA
--- NOTE | 2020-04-17 19:05 | NUR ---
Closing Notes Endorsed patient to supervisor cigar making machine RN using SBAR. Patient in no signs of distress. Safety precautions enforced.
--- NOTE | 2020-04-17 19:17 | NUR ---
Opening Note Received plan of care via sbar from endorsing RN.
--- NOTE | 2020-04-17 21:20 | NUR ---
PRONE: Patient placed to prone position, patient tolerated well in no acute distress and or discomfort. Will monitor, RT at bedside performing vent check.
[2020-04-17] MEDS: NOREPINEPHRINE BITARTRATE 4 MG in NS 246 ML IV PRN (22:59)
[2020-04-18] VITALS (30 sets, daily range): BP systolic 90–121
--- NOTE | 2020-04-18 00:04 | NUR ---
RN Rounds Patient remains sedated in bed with no signs of active distress noted. VSS. Safety precautions enforced. Bed in lowest locked position for safety.
--- NOTE | 2020-04-18 01:00 | NUR ---
RN Rounds: Patient's head repositioned by RT, denuded redness noted to left ear lobe, area cleansed with NS, dry dressing applied, will notify wound nurse, charge aware. Vitals stable, patient afebrile, no acute distress noted. Bed in lowest locked position, all safety checks in place.
--- NOTE | 2020-04-18 02:25 | NUR ---
Wound Consult: Wound consult order placed for ear lobe breakdown, will endorse to AM nurse.
--- NOTE | 2020-04-18 03:00 | NUR ---
Earlobe : Photos taken of Left Earlobe, Optifoam dressing applied. Pending wound consult to assess site.
--- NOTE | 2020-04-18 03:55 | NUR ---
RT NOTES [id number] PT WAS PRONE & REVERSE TRENDELENBURG. SATURATION 96%. ETT STILL AT 23 LIP LINE. SXN'D ORAL/ ETT PRIOR PRONING. NO RESP DISTRESS NOTED. 04-18-20114 PT HEAD TURN TO LEFT SIDE. NO RESP DISTRESS NOTED. SATURATION 95%. PT TOLERATING PRONE POS. WILL Q4 TURN PT HEAD AT 5AM. WILL CONTINUE TO MONITOR PT.
--- NOTE | 2020-04-18 05:02 | NUR ---
WITNESS Witnessed Jordyn, RN titrate Levophed Drip to 0.01mcg/kg/min.
[2020-04-18] MEDS: PIPERACILLIN/TAZO 2.25G/DEX-IS 50 ML IV SCH ×4 (05:21→23:10)
--- NOTE | 2020-04-18 05:56 | NUR ---
RN Rounds: Patient's head repositioned by RT, Vitals stable, patient afebrile, no acute distress noted. Bed in lowest locked position, all safety checks in place.
--- NOTE | 2020-04-18 07:15 | NUR ---
Opening Notes Patient received in bed sedated at this time. Patient connected to night monitor with NSR. Patient orally intubated with settings PC 18, rate 24, FiO2 80%, PEEP 5, breathing evenly and unlabored. Patient with central line receiving NS at 30 ml/hr, versed at 1 mg/hr, diprivan at 15 mcg/kg/min, morphine at 4 mg/hr, and levophed at 0.01 mcg/kg/hr. Patient with OGT receiving Vital AF 10 ml/hr. Patient has a villalpando catheter draining dark-colored urine. Safety precautions enforced.
[2020-04-18 07:56] LABS: ALBUMIN 2.4 g/dL (3.4-4.8); CALCIUM 7.7 mg/dL (8.4-11.0); CREATININE 0.63 mg/dL (0.55-1.30)
[2020-04-18] MEDS: POTASSIUM CHLORIDE 20 MEQ/PKT PACKET PO SCH (08:05)
[2020-04-18] MEDS: TAMSULOSIN HCL 0.4 MG CAP PO SCH (08:06)
[2020-04-18] MEDS: ASCORBIC ACID 500 MG TABLET PO SCH (08:06)
[2020-04-18] MEDS: methylPREDNISolone SOD SUCC 40 MG/ML VIAL IVP SCH ×2 (08:06→20:08)
[2020-04-18] MEDS: CHOLECALCIFEROL (VITAMIN D3) 2,000 UNIT TABLET PO SCH (08:06)
[2020-04-18] MEDS: FAMOTIDINE PF 20 MG/2 ML VIAL IVP SCH ×2 (08:06→20:08)
[2020-04-18] MEDS: LEVOTHYROXINE SODIUM 0.075 MG TABLET PO SCH (08:07)
[2020-04-18] MEDS: ENOXAPARIN SODIUM 80 MG/0.8 ML SYRINGE SUBCUT SCH ×2 (08:08→20:07)
[2020-04-18] MEDS: MICAFUNGIN SODIUM 100 MG in NS 100 ML IV SCH (09:30)
--- NOTE | 2020-04-18 10:00 | NUR ---
Repositioning Assisted RT with turning patient's head while proned. Patient tolerated well.
[2020-04-18] MEDS: NACL 0.9% 1,000 ML IV SCH (12:00)
--- NOTE | 2020-04-18 12:00 | NUR ---
RN Rounds Patient still proned at this time, no signs of distress noted. Patient remains to be on multiple drips. Safety precautions enforced.
--- NOTE | 2020-04-18 15:09 | NUR ---
1345 PT TURNED TO SUPINE. 3CC AIR ADDED TO CUFF FOR LEAK. 1440 ORDERED ET TUBE TO BE PUSHED DOWN 2 CM. ETT AT 26CM LL. WILL CONT TO MONITOR. Addendum: 04/18/20 at 1514 by Arianne Albarran RT Amended: Links added.
--- NOTE | 2020-04-18 15:20 | NUR ---
NGT insertion OG TUBE PLACEMENT: # 16 FR NG tube placed orally. Placement checked by auscultation of instilled air into stomach and aspiration of gastric contents. Tubing taped in place to prevent dislodging. Patient tolerated well.
--- NOTE | 2020-04-18 15:25 | NUR ---
Central line dressing change Right IJ central line dressing changed using aseptic technique. Patient tolerated well.
[2020-04-18] MEDS: MORPHINE I.V. DRIP 100 ML IV PRN (15:31)
--- NOTE | 2020-04-18 19:05 | NUR ---
Closing Notes Endorsed to machinist 2nd shift RN using SBAR format. No signs of distress noted.
--- NOTE | 2020-04-18 19:22 | NUR ---
Opening Note Received plan of care via sbar from endorsing RN.
--- NOTE | 2020-04-18 21:30 | NUR ---
PRONE: Patient placed to prone position, patient tolerated well in no acute distress and or discomfort. Will monitor, RT at bedside performing vent check.
--- NOTE | 2020-04-18 22:20 | NUR ---
RN Rounds: Patient vitals stable, patient afebrile, no acute distress noted. bed in lowest locked position, all safety checks in place.
[2020-04-18] MEDS: MIDAZOLAM HCL IN 0.9 % NACL/PF 50 ML IV PRN (23:12)
--- NOTE | 2020-04-18 23:30 | NUR ---
FiO2 Increase: FiO2 increased to 95% by RT, monitoring.
[2020-04-19] VITALS (34 sets, daily range): BP systolic 91–149
--- NOTE | 2020-04-19 00:19 | NUR ---
CHG: CHG bath given, all linens changed, jamee-care / villalpando catheter care preformed. Patient tolerated well. Urine noted to be dark lazaro in color with sediment, MD aware from AM shift, pending UA results at this time. Patient afebrile and VSS. Will continue to monitor output.
--- NOTE | 2020-04-19 01:00 | NUR ---
FiO2 Taper: FiO2 tapered to 90% by RT, monitoring patient tolerating with Oxygen saturation at 97% on Monitor.
--- NOTE | 2020-04-19 01:30 | NUR ---
RN Rounds: Patient's head repositioned by RT, Vitals stable, patient afebrile, no acute distress noted. Bed in lowest locked position, all safety checks in place.
--- NOTE | 2020-04-19 03:37 | NUR ---
FiO2 Taper: FiO2 tapered to 80% by RT, monitoring patient tolerating with Oxygen saturation at 98% on Monitor.
--- NOTE | 2020-04-19 04:18 | NUR ---
RN Rounds: Patient vitals stable, patient afebrile, no acute distress noted. bed in lowest locked position, all safety checks in place.
[2020-04-19] MEDS: PIPERACILLIN/TAZO 2.25G/DEX-IS 50 ML IV SCH ×4 (05:07→23:10)
[2020-04-19] MEDS: PROPOFOL DRIP 100 ML IV PRN ×2 (05:09→17:31)
--- NOTE | 2020-04-19 05:42 | NUR ---
IJ Line: Went to room with RT to turn patients head while patient remained prone, assisted RT with head placement, RT noted bleeding to IJ Site, upon assessment bleeding noted to site. Pressure applied and dressing removed, catheter hub intact, catheter noted to had broken off at hub site. IV Drip lines stopped, Diprivan line attached to Left 20G at a rate of 15 mcg/kg/min to maintain sedation. Charge and nursing supervisor fur dressing assessed site. ED Physician came to room assessed patient, STAT Cxr ordered to determine placement. Patient in no acute distress remained stable throughout, RT and Primary RN remained at bedside.
--- NOTE | 2020-04-19 06:10 | NUR ---
X-ray X-ray at bedside with ED MD
--- NOTE | 2020-04-19 06:22 | NUR ---
Per MD: Per ED Physician catheter noted near insertion site on x-ray, stated to contact attending MD Dr. Pineda .
--- NOTE | 2020-04-19 06:25 | NUR ---
Dr. Pineda Spoke with Primary MD, STAT orders rc'vd fro CBC, PT/INR/ PTT. orders transcribed, Dr. Pineda stated to notify MD who inserted IJ central line.
--- NOTE | 2020-04-19 06:31 | NUR ---
Gilmar NYE: Dr. Pineda pending return call.
[2020-04-19] MEDS: LEVOTHYROXINE SODIUM 0.075 MG TABLET PO SCH (06:33)
--- NOTE | 2020-04-19 06:41 | NUR ---
LAB: Lab at bedside, patient remains stable in no acute distress. VSS. IJ Insertion site shows no signs of bleeding, sterile dressing remains in place and intact. Monitoring, pending return call from Dr. Pineda at this time.
--- NOTE | 2020-04-19 06:49 | NUR ---
Dr. Pineda: Spoke with Dr. Pineda, he stated he is on his way to hospital to assess patient. Dr. Pineda stated to keep patient sedated.
[2020-04-19 07:10] LABS: EOSINOPHILS # (AUTO) 0.1 K/uL (0.0-0.4); LYMPHOCYTES # (AUTO) 0.2 K/uL (1.0-5.5); LYMPHOCYTES % (AUTO) 1.6 % (20.5-51.5); MEAN CORPUSCULAR HGB CONC 33 % (32-36)
--- NOTE | 2020-04-19 07:11 | NUR ---
Closing note: SBAR report given to AM nurse, all cares assumed by AM nurse. Patient Stable, VSS, in no acute distress.
[2020-04-19 07:18] LABS: ALBUMIN 2.6 g/dL (3.4-4.8); CALCIUM 7.6 mg/dL (8.4-11.0); CREATININE 0.59 mg/dL (0.55-1.30); POTASSIUM 3.8 mmol/L (3.5-5.1); TOTAL BILIRUBIN 1.2 mg/dL (0.0-1.0)
[2020-04-19 07:20] LABS: INR 1.1 (0.80-1.20); PROTHROMBIN TIME 11.6 SECS (9.5-12.5)
--- NOTE | 2020-04-19 07:30 | NUR ---
Opening Note Received plan of care via sbar from endorsing RN.
[2020-04-19 07:46] LABS: BASOPHILS % (AUTO) 0.1 % (0.0-2.0); EOSINOPHILS % (AUTO) 0.6 % (0.0-4.0); HEMATOCRIT 45.8 % (36-54); MEAN CORPUSCULAR HEMOGLOBIN 30 pg (27-31); MEAN CORPUSCULAR VOLUME 91 fL (79.0-98.0); MONOCYTES # (AUTO) 0.2 K/uL (0.0-1.0); MONOCYTES % (AUTO) 1.6 % (1.7-9.3); NEUTROPHILS # (AUTO) 11.1 K/uL (1.8-7.7); NEUTROPHILS % (AUTO) 96.1 % (40.0-70.0); PLATELET COUNT (AUTO) 149 K/uL (130-430); RED BLOOD CELL COUNT(AUTO) 5.04 MIL/uL (4.2-6.2); RED CELL DISTRIBUTION WIDTH 14.3 % (9.0-15.0); WHITE BLOOD COUNT (AUTO) 11.6 K/uL (4.8-10.8)
--- NOTE | 2020-04-19 07:50 | NUR ---
Dr. Pineda at bedside examining right IJ. Determined that catheter is still intact. sutured catheter and Central Line dressing change complete. Ordered chest xray and to monitor. Okay to use and start NS 30cc/hr, versed, and morphine drip.
--- NOTE | 2020-04-19 08:00 | NUR ---
Witnessed IV drip titration: Morphine drip @ 2 mg/hr. / Versed drip @ 1 mg/hr
--- NOTE | 2020-04-19 08:15 | NUR ---
Dr. Pineda at bedside. No new orders.
[2020-04-19] MEDS: CHOLECALCIFEROL (VITAMIN D3) 2,000 UNIT TABLET PO SCH (08:17)
[2020-04-19] MEDS: TAMSULOSIN HCL 0.4 MG CAP PO SCH (08:18)
[2020-04-19] MEDS: POTASSIUM CHLORIDE 20 MEQ/PKT PACKET PO SCH (08:18)
[2020-04-19] MEDS: methylPREDNISolone SOD SUCC 40 MG/ML VIAL IVP SCH ×2 (08:18→20:18)
[2020-04-19] MEDS: ASCORBIC ACID 500 MG TABLET PO SCH (08:18)
[2020-04-19] MEDS: FAMOTIDINE PF 20 MG/2 ML VIAL IVP SCH ×2 (08:18→20:17)
[2020-04-19] MEDS: MICAFUNGIN SODIUM 100 MG in NS 100 ML IV SCH (08:19)
[2020-04-19] MEDS: ENOXAPARIN SODIUM 80 MG/0.8 ML SYRINGE SUBCUT SCH ×2 (08:19→20:18)
--- NOTE | 2020-04-19 10:00 | NUR ---
Witnessed IV drip titration: Morphine drip @ 4 mg/hr / Versed drip @ 2 mg/hr / Propofol drip @ 20 mcg/min.
--- NOTE | 2020-04-19 10:30 | NUR ---
Witnessed IV drip titration: Propofol drip titrated to 15 mcg/min.
--- NOTE | 2020-04-19 11:00 | NUR ---
Wound Evaluation: Wound Consult ordered for Low Cristhian Score. Patient evaluated for a low Cristhian score of an 11. Patient was obtunded and received in a [place] Bed with an Isoflex MARGAUX mattress with low air loss therapy initiated. Patient needs to be turned in bed. Skin assessment: 1. Left Ear Concord: Scar tissue. No odor, no drainage. 2. Left Ear Lobule: Scar tissue. No odor, no drainage. Recommend: Cleanse involved areas with mild soap and water. Pat dry. Apply moisture barrier cream to involved areas. Cover entire ear with foam dressing cut to size for protection. Secure with OpSite. 3. Right Ear: Blanchable red erythema. No odor, no drainage. Recommend: Cover entire ear with foam dressing cut to size for protection. Secure with OpSite. Patient tends to lie in a position where his ears are always on the bed. Try the following to project the ears: Placed towel folded into thirds underneath the patient's head. Fold another towel lengthwise into a thin band and slide underneath tri-folded towel and wrap around patient's head. Tape towel on the forehead to itself (do not apply tape to patient's skin). Adjust towel as needed to keep ears off of bed or other surfaces, and floating at all times. Recommend reposition patient every 2 hours with pillow support. Elevate, off-load and float bilateral heels with one pillow lengthwise under each extremity at all times. Offload pressure areas with pillows for pressure re-distribution. Perform skin care and monitor skin integrity Q shift. Use moisture barrier cream on moisture susceptible areas QID and PRN for soiling. Maintain patient on a low air-loss mattress. Addendum: 04/19/20 at 1413 by Saulo Anderson RN Addendum: Concord area scar tissue site measures 0.3 cm x 0.3 cm. Lobule area scar tissue site measures 0.5 cm x 0.3 cm.
--- NOTE | 2020-04-19 11:03 | NUR ---
Wound Care Consult. Saulo at bedside completing assessment and treatment of bilateral ears.
[2020-04-19] MEDS: NACL 0.9% 1,000 ML IV SCH (12:51)
--- NOTE | 2020-04-19 19:18 | NUR ---
Closing Note Provided plan of care via sbar to receiving RN.
--- NOTE | 2020-04-19 19:20 | NUR ---
Opening Note Received plan of care via sbar from endorsing RN.
--- NOTE | 2020-04-19 20:00 | NUR ---
Oral Care: Oral care provided, patient tolerated well. Mouth suctioned, ET tube repositioned by RT.
--- NOTE | 2020-04-19 20:10 | NUR ---
Nsg Round: Patient in bed with HOB elevated 30 degrees, OG tube in place, Vital AF running at 50 ml/hr. Patient remains on vent PC with FIO2 of 100%, saturation reading 95% via monitor. Equal chest rise and fall with no acute distress present, ETT 7.5, 25cm at the lip line. Patient SR, with BP stable, levophed off at this time MAP>65. IJ triple lumen Central line infusing Diprivan at 15 mcg, Versed at 1mg, and Morphine at 4mg. Ferrara catheter in place draining below the level of the bladder, urine dark lazaro with sediment noted, MD aware. Site clean dry and dressing intact. Patient will be placed to prone position as ordered by MD for 12 hours at 2200. All safety precautions in place, bed in lowest locked position.
--- NOTE | 2020-04-19 21:45 | NUR ---
CHG: CHG bath given, all linens changed, new gown placed onto patient, tolerated well. Skin remains intact, jamee-area clean and dry with no redness noted to coccyx/sacrum. Will continue with positioning to maintain skin integrity.
--- NOTE | 2020-04-19 22:00 | NUR ---
PRONE: Patient placed to prone position, patient tolerated well in no acute distress and or discomfort. Pressure areas relieved with pillows and head roll.
[2020-04-19] MEDS: MORPHINE I.V. DRIP 100 ML IV PRN (22:31)
[2020-04-20] VITALS (34 sets, daily range): BP systolic 93–155
--- NOTE | 2020-04-20 01:17 | NUR ---
RN Rounds: Patient vitals stable, patient afebrile, no acute distress noted. Patient remains on FIO2 of 100% at this time, bed in lowest locked position, all safety checks in place. All needs met at this time, will monitor for changes.
--- NOTE | 2020-04-20 02:06 | NUR ---
RN Rounds: Patient's head repositioned by RT and primary RN, Vitals stable, no acute distress noted. Bed in lowest locked position, all safety checks in place.
--- NOTE | 2020-04-20 03:16 | NUR ---
VERSED DRIP I witnessed Deann YBARRA decrease Versed to 1 mg.
[2020-04-20] MEDS: PROPOFOL DRIP 100 ML IV PRN ×2 (04:21→13:08)
--- NOTE | 2020-04-20 04:45 | NUR ---
RN Rounds: Patient vitals stable, patient afebrile, no acute distress noted. bed in lowest locked position, all safety checks in place.
[2020-04-20] MEDS: PIPERACILLIN/TAZO 2.25G/DEX-IS 50 ML IV SCH ×3 (05:42→17:59)
--- NOTE | 2020-04-20 05:45 | NUR ---
RN Rounds: Patient's head repositioned by RT and primary RN, Vitals stable, no acute distress noted. Bed in lowest locked position, all safety checks in place.
--- NOTE | 2020-04-20 07:05 | NUR ---
Closing Notes Endorsed to AM shift RN using SBAR format. No signs of distress noted.
[2020-04-20 07:53] LABS: ALBUMIN 2.8 g/dL (3.4-4.8); CALCIUM 7.6 mg/dL (8.4-11.0); CREATININE 0.55 mg/dL (0.55-1.30); POTASSIUM 3.7 mmol/L (3.5-5.1); TOTAL BILIRUBIN 1.3 mg/dL (0.0-1.0)
--- NOTE | 2020-04-20 08:00 | NUR ---
AM ASSESSMENT. PT RECEIVING PROPOFOL DRIP AT 15 MCG/KG/MIN, VERSED AT 1 MG , MORPHINE DRIP AT 4 MG THRU RIGHT INTERNAL JUGULAR LINE, ADULT SECONDARY EDUCATION INSTRUCTOR ON NSR, PERIPHERAL PULSES GOOD, NON PITTING EDEMA TO LOWER EXTREMITIES, PT PRONED AND FACED TURNED TO SIDE WITH CUSHION TO PROTECT SKIN, LEFT EAR NOTED WITH ERYTHEMA, SCANT BLEEDING, MOISTENED WOUND WITH SALINE, PAT DRY, FOAM DRESSING TO COVER.
[2020-04-20] MEDS: FAMOTIDINE PF 20 MG/2 ML VIAL IVP SCH ×2 (08:11→21:25)
[2020-04-20] MEDS: TAMSULOSIN HCL 0.4 MG CAP PO SCH (08:11)
[2020-04-20] MEDS: ASCORBIC ACID 500 MG TABLET PO SCH (08:11)
[2020-04-20] MEDS: POTASSIUM CHLORIDE 20 MEQ/PKT PACKET PO SCH (08:11)
[2020-04-20] MEDS: methylPREDNISolone SOD SUCC 40 MG/ML VIAL IVP SCH ×2 (08:11→21:25)
[2020-04-20] MEDS: CHOLECALCIFEROL (VITAMIN D3) 2,000 UNIT TABLET PO SCH (08:11)
[2020-04-20] MEDS: MICAFUNGIN SODIUM 100 MG in NS 100 ML IV SCH (08:13)
[2020-04-20] MEDS: ENOXAPARIN SODIUM 80 MG/0.8 ML SYRINGE SUBCUT SCH ×2 (08:16→21:26)
--- NOTE | 2020-04-20 10:00 | NUR ---
RT NOTES Changed head position from right to left with RN's assistance. ETT remains secure. No resistance noted when sxn catheter was advanced. Bilateral b/s/chest rise noted. Will monitor pt.
[2020-04-20] MEDS: MIDAZOLAM HCL IN 0.9 % NACL/PF 50 ML IV PRN (10:06)
--- NOTE | 2020-04-20 10:20 | NUR ---
FAMILY. PT'S LORELEI CALLED, AND UPDATED HER ON PT'S STATUS.
[2020-04-20] MEDS: NACL 0.9% 1,000 ML IV SCH (11:41)
--- NOTE | 2020-04-20 13:15 | NUR ---
Nutrition F/U Admitting Diagnosis: Pneumonia Medical History Comment: PMH: BPH, hypothyroidism, s/p cholecystectomy Pt also found w/ 3 negative test for COVID-19 PCR as an outpatient [employer] per previous physician notes Per EMR review 04/14, pt tested positive for COVID w/ bronchoscopy PCR Subjective Information: RD visit deferred d/t isolation precautions and PPE conservation efforts. RD spoke w/ pt's primary RN who verified pt's TF regimen. She reported that pt has been tolerating TF well, no residuals -- confirmed via EMR review. RD asked RN to weigh and document next time she is in pt's room to get a more accurate representation of pt's CBW. Current TF regimen remains adequate/appropriate at this time. Current Diet Order/Nutrition Support: Vital AF 1.2 at 50 ml/hr (while supine), Prosource TID, Free Water Flush: 50 ml Q6h via OGT -- 12 hours/day & Vital AF 1.2 at 10 ml/hr (while prone) via OGT -- 12 hours/day x6 days Pertinent Medications: remdesivir IV, piperacillin/tazobactam IV, propofol at 8.818 ml/hr (233 kcal/day), solu-medrol, zinc sulfate, VIT C, VIT D3, synthroid Pertinent Labs: BG 117 H, BUN 22 H, WBC 11.6 H, AST 42 H, ALT 80 H, ALB 2.8 L Current % PO N/A, now on EN support Estimated Energy Expenditure (kcals/day) 5470-7493 kcal/day (15-20 kcal/kg CBW for COVID-19 Dz requiring ICU care per ASPEN/SCCM) Estimated Protein Required (g/day) 89-148 gm pro/day (1.2-2 gm protein/kg CBW for COVID-19 Dz requiring ICU care per ASPEN/SCCM) Estimated Fluid Required (l/day) 1.1-1.5 L/day (1 ml/kcal/day for maintenance) Problem/Etiology/Signs/Symptoms Inadequate oral/beverage intake r/t inadequate energy intake and decreased appetite AEB pt w/ no appetite and PO intake meets <75% of est needs x 4 days. *no longer applicable Altered nutrition related labs r/t medication interaction AEB elevated BG and steroid therapy. *ongoing Inadequate EN support related to metabolic demands as evidenced by estimated nutritional requirements for COVID-19 Dz requiring ICU care. (*ongoing) Expected Outcomes/Goals -Will monitor EN toleance and intake w/ goal of pt meeting at least 80% of estimated nutritional needs, labs trending WNL, normal GI function, skin integrity, and weight maintenance. Dietitian Recommendations * Recommend: continue: Vital AF 1.2 at 50 ml/hr (while supine), Prosource TID, Free Water Flush: 50 ml Q6h via OGT -- 12 hours/day Provides: 780 kcal/12 hours, 90 gm protein/day, and 1273 ml free water/day * Recommend continue Vital AF 1.2 at 10 ml/hr (while prone) via OGT -- 12 hours/day Provides: 144 kcal/12 hours, 9 gm protein/12 hours Total EN Support/Day Provides: 924 kcal/day, 99 gm protein/day, 1273 ml free water/day Meets: 84% of lower end of estimated caloric needs and 111% of lower end of estimated caloric High Risk: F/U in 2-3 days Addendum: 04/20/20 at [address] Nutrition Consult received for Cristhian Score 11/immobile.
--- NOTE | 2020-04-20 13:25 | NUR ---
Dietitian Recommendations * Recommend: continue: Vital AF 1.2 at 50 ml/hr (while supine), Prosource TID, Free Water Flush: 50 ml Q6h via OGT -- 12 hours/day Provides: 780 kcal/12 hours, 90 gm protein/day, and 1273 ml free water/day * Recommend continue Vital AF 1.2 at 10 ml/hr (while prone) via OGT -- 12 hours/day Provides: 144 kcal/12 hours, 9 gm protein/12 hours Total EN Support/Day Provides: 924 kcal/day, 99 gm protein/day, 1273 ml free water/day Meets: 84% of lower end of estimated caloric needs and 111% of lower end of estimated protein needs LP, RD Please refer to Nutrition F/U for details.
[2020-04-20] MEDS ORDERED: COMMUNICATION ORDER XX ONE ×2 (13:45)
--- NOTE | 2020-04-20 14:10 | NUR ---
RT NOTES Assisted in unproning pt, ETT remained secure/patent. bilat. b/s/chest rise noted @[address] order PEEP to 9. will monitor pt.
--- NOTE | 2020-04-20 14:30 | NUR ---
CENTRAL LINE. TRANSPARENT DRESSING REMOVED BY CHARGE NURSE, DRESSING ALMOST OFF THE SKIN, WITH SOME BLOODY STAIN. CLEANSED SITE WITH CHG STICKS, BIOPATCH TO SITE, AND COVERED WITH TRANSPARENT DRESSING.
--- NOTE | 2020-04-20 18:30 | NUR ---
NURSING. PT COMFORTABLE AT THIS HOUR, FEEDING VIA OGT AT 50 ML PER HR, HEAD OF BED ELEVATED.
--- NOTE | 2020-04-20 19:25 | NUR ---
OPENING NOTE: Received SBAR report from off coming RN for continuity of care. Pt supine in bed, no s/s of acute distress noted. Pt remains sedated and intubated and on ventilator. Morphine gtt infusing @ 4mg/hr, Versed gtt infusing @ 1 mg/hr, Diprivan gtt infusing @ 15 mcg/kg/min. NS infusing @ 30 ml/hr. Ferrara catheter infusing and draining to gravity, laazro urine output noted. Bed locked and in lowest position, safety precautions in place.
--- NOTE | 2020-04-20 21:00 | NUR ---
Pt laying in bed, sedated. Pt intubated and on ventilator, pressure control 8, rate of 24, FiO2 80%, PEEP 9. Tube feeding infusing @ 50 ml/hr (while pt supine). R) IJ CVC in place with Diprivan gtt infusing @ 15 mcg/kg/min, Versed gtt infusing @ 1 mg/hr, Morphine gtt infusing @ 4 mg/hr. Ferrara catheter in place and draining to gravity. Turned and repositioned pt, pt tolerated well. Will continue to monitor and assess.
--- NOTE | 2020-04-20 22:15 | NUR ---
PRONING Pt proned @ 2200 per orders. Pt tolerated repositioning well. Will continue to monitor and assess.
[2020-04-21] VITALS (35 sets, daily range): BP systolic 93–149
[2020-04-21] MEDS: PIPERACILLIN/TAZO 2.25G/DEX-IS 50 ML IV SCH ×5 (00:32→23:03)
[2020-04-21] MEDS: MORPHINE I.V. DRIP 100 ML IV PRN (00:35)
--- NOTE | 2020-04-21 01:30 | NUR ---
VERSED TITRATION WITNESSED RHIANNON YBARRA TITRATE VERSED DRIP TO 2 MG/HR PER ORDERS. WILL CONTINUE TO MONITOR PT.
--- NOTE | 2020-04-21 04:30 | NUR ---
CHG/DRESSING CHANGE CHG bath done, pt tolerated well. Applied new foam dressing to L) ear, provided care per EMAR.
[2020-04-21] MEDS: PROPOFOL DRIP 100 ML IV PRN ×2 (04:34→17:26)
[2020-04-21] MEDS: LEVOTHYROXINE SODIUM 0.075 MG TABLET PO SCH (06:19)
[2020-04-21 07:18] LABS: ALBUMIN 2.3 g/dL (3.4-4.8); CALCIUM 7.2 mg/dL (8.4-11.0); CREATININE 0.48 mg/dL (0.55-1.30); POTASSIUM 3.7 mmol/L (3.5-5.1); TOTAL BILIRUBIN 1.2 mg/dL (0.0-1.0)
--- NOTE | 2020-04-21 07:27 | NUR ---
CLOSING NOTE Endorsed SBAR report to oncoming RN for continuity of care.
--- NOTE | 2020-04-21 08:00 | NUR ---
AM ASSESSMENT. PT LYING ON HIS STOMACH, OGT FEEDING IN PROGRESS, PROPOFOL DRIP AT 15 MCG/KG/MIN, VERSED DRIP AT 2 MG/HR, MORPHINE DRIP AT 4 MG/HR, MECHANICALLY INTUBATED, URINARY CATHETER DRAINING JUSTYN COLOR URINE.
[2020-04-21] MEDS: POTASSIUM CHLORIDE 20 MEQ/PKT PACKET PO SCH (08:50)
[2020-04-21] MEDS: ASCORBIC ACID 500 MG TABLET PO SCH (08:50)
[2020-04-21] MEDS: CHOLECALCIFEROL (VITAMIN D3) 2,000 UNIT TABLET PO SCH (08:50)
[2020-04-21] MEDS: TAMSULOSIN HCL 0.4 MG CAP PO SCH (08:50)
[2020-04-21] MEDS: FAMOTIDINE PF 20 MG/2 ML VIAL IVP SCH ×2 (08:51→21:52)
[2020-04-21] MEDS: MICAFUNGIN SODIUM 100 MG in NS 100 ML IV SCH (08:51)
[2020-04-21] MEDS: methylPREDNISolone SOD SUCC 40 MG/ML VIAL IVP SCH ×2 (08:51→21:52)
[2020-04-21] MEDS: ENOXAPARIN SODIUM 80 MG/0.8 ML SYRINGE SUBCUT SCH ×2 (08:53→21:55)
[2020-04-21] MEDS ORDERED: FUROSEMIDE 20 MG/2 ML VIAL IVP ONE (09:45)
[2020-04-21] MEDS: NACL 0.9% 1,000 ML IV SCH (12:11)
--- NOTE | 2020-04-21 14:00 | NUR ---
REPOSITIONED PT TO SUPINE POSITION. 1525 TITRATED FIO2 DOWN TO 75%. 1550 PUSHED ETT DOWN 2cm, 28cm AT LIP LINE. SPO2 92%, HR 91.
--- NOTE | 2020-04-21 14:05 | NUR ---
NURSING. POSITIONED PATIENT TO HIS BACK, BLEEDING NOTED FROM RIGHT IJ, PRESSURE DRESSING APPLIED, CLEANSED SITE WITH ANTISEPTIC APPLICATOR, BIOPATCH TO SITE, TRANSPARENT DRESSING. DR FINN (E.R. PHYSICIAN) WAS CALLED AND HE CAME TO EVALUATE PATIENT, TO GET CHEST XRAY FOR CORRECT POSITION OF ETT.
--- NOTE | 2020-04-21 18:30 | NUR ---
NURSING. PT CALM, REMAINS ON DIPRIVAN DRIP AT 15 MCG/KG/MIN, TURNED AND REPOSITIONED TO HIS SIDE, PILLOW PLACED UNDER HIS LEGS, AND HIS BACK.
--- NOTE | 2020-04-21 19:30 | NUR ---
OPENING NOTE: Received SBAR report from off coming RN for continuity of care. Pt laying in bed in supine position and sedated. No s/s of acute distress noted. Pt on ventilator with O2 saturations above 90%. Diprivan gtt infusing @ 15 mcg/kg/min, Versed gtt infusing @ 2 mg/hr, Morphine gtt infusing @ 4 mg/hr. Ferrara catheter in place and draining to gravity, lazaro urine output noted. Will continue to monitor and assess.
--- NOTE | 2020-04-21 21:30 | NUR ---
Pt laying in bed, sedated in supine position. Pt intubated on ventilator on pressure control 8, FiO2 75%, rate 24, PEEP 9, oxygen saturations above 90%. Provided PO care and suctioning, pt tolerated well. OGT in place with Vital AF infusing @ 50 ml/hr, pt tolerating well. R) IJ CVC in place with Diprivan gtt infusing @ 15 mcg/kg/min, Versed gtt infusing @ 2mg/hr, Morphine gtt infusing @ 4 mg/hr, NS infusing @ 30 ml/hr. Two PIVs in place, they are patent and saline locked (left AC and right AC). Ferrara catheter in place and draining to gravity, lazaro urine output noted. Turned and repositioned pt, pt tolerated well. Elevated heels with pillow. Bed locked and in lowest position, safety precautions in place. Will continue to monitor and assess.
--- NOTE | 2020-04-21 22:30 | NUR ---
PRONING: Pt placed in prone position per orders. Pt tolerated well. Will continue to monitor.
--- NOTE | 2020-04-21 23:00 | NUR ---
CHG/BM CHG bath done, pt tolerated well. Full linen change done. Pt had small loose BM, provided jamee care and applied barrier cream to bottom.
[2020-04-22] VITALS (37 sets, daily range): BP systolic 98–148
--- NOTE | 2020-04-22 03:30 | NUR ---
MORPHINE DRIP TITRATION WITNESSED RHIANNON YBARRA TITRATE MORPHINE DRIP TO 5 MG/HR PER ORDERS. WILL CONTINUE TO MONITOR PT.
[2020-04-22] MEDS: LEVOTHYROXINE SODIUM 0.075 MG TABLET PO SCH (06:12)
[2020-04-22] MEDS: PIPERACILLIN/TAZO 2.25G/DEX-IS 50 ML IV SCH ×3 (06:12→17:56)
[2020-04-22] MEDS: PROPOFOL DRIP 100 ML IV PRN ×2 (06:19→21:02)
--- NOTE | 2020-04-22 07:00 | NUR ---
MORPHINE DRIP TITRATION WITNESSED RHIANNON YBARRA TITRATE MORPHINE DRIP TO 6 MG/HR PER ORDERS. WILL CONTINUE TO MONITOR PT.
--- NOTE | 2020-04-22 07:30 | NUR ---
CLOSING NOTE: Endorsed SBAR report to oncoming RN for continuity of care.
--- NOTE | 2020-04-22 07:34 | NUR ---
Opening Note Received plan of care via sbar from endorsing RN.
[2020-04-22 07:42] LABS: BASOPHILS # (AUTO) 0.1 K/uL (0.0-0.2); BASOPHILS % (AUTO) 0.8 % (0.0-2.0); EOSINOPHILS # (AUTO) 0.1 K/uL (0.0-0.4); EOSINOPHILS % (AUTO) 0.6 % (0.0-4.0); HEMATOCRIT 41.9 % (36-54); HEMOGLOBIN 13.8 g/dL (14.0-18.0); LYMPHOCYTES # (AUTO) 0.2 K/uL (1.0-5.5); LYMPHOCYTES % (AUTO) 1.7 % (20.5-51.5); MEAN CORPUSCULAR HEMOGLOBIN 30 pg (27-31); MEAN CORPUSCULAR HGB CONC 33 % (32-36); MEAN CORPUSCULAR VOLUME 90 fL (79.0-98.0); MONOCYTES % (AUTO) 0.1 % (1.7-9.3); NEUTROPHILS # (AUTO) 14.3 K/uL (1.8-7.7); NEUTROPHILS % (AUTO) 96.8 % (40.0-70.0); PLATELET COUNT (AUTO) 141 K/uL (130-430); RED BLOOD CELL COUNT(AUTO) 4.64 MIL/uL (4.2-6.2); RED CELL DISTRIBUTION WIDTH 15.2 % (9.0-15.0); WHITE BLOOD COUNT (AUTO) 14.8 K/uL (4.8-10.8)
[2020-04-22 08:05] LABS: ALANINE AMINOTRANSFERASE 66 U/L (12-78); ALBUMIN 2.5 g/dL (3.4-4.8); ASPARTATE AMINOTRANSFERASE 35 U/L (10-37); BILIRUBIN,DIRECT 0.3 mg/dL (0.0-0.3); TOTAL BILIRUBIN 1.2 mg/dL (0.0-1.0)
[2020-04-22 08:07] LABS: C-REACTIVE PROTEIN QUANT < 0.2 mg/dL (0-0.5)
[2020-04-22] MEDS: CHOLECALCIFEROL (VITAMIN D3) 2,000 UNIT TABLET PO SCH (08:21)
[2020-04-22] MEDS: TAMSULOSIN HCL 0.4 MG CAP PO SCH (08:21)
[2020-04-22] MEDS: methylPREDNISolone SOD SUCC 40 MG/ML VIAL IVP SCH ×2 (08:21→20:53)
[2020-04-22] MEDS: ASCORBIC ACID 500 MG TABLET PO SCH (08:21)
[2020-04-22] MEDS: FAMOTIDINE PF 20 MG/2 ML VIAL IVP SCH ×2 (08:21→20:54)
[2020-04-22] MEDS: POTASSIUM CHLORIDE 20 MEQ/PKT PACKET PO SCH (08:22)
[2020-04-22] MEDS: ENOXAPARIN SODIUM 80 MG/0.8 ML SYRINGE SUBCUT SCH ×2 (08:24→21:02)
[2020-04-22] MEDS: MICAFUNGIN SODIUM 100 MG in NS 100 ML IV SCH (08:24)
--- NOTE | 2020-04-22 09:15 | NUR ---
TITRATED FIO2 DOWN TO 60%. PT PRONE POSITION AT THIS TIME. SPO2 95%, HR 79. PT TOLERATING WELL. WILL CONTINUE TO MONITOR PT.
--- NOTE | 2020-04-22 10:00 | NUR ---
Dr. Pineda at bedside. No new orders received.
[2020-04-22] MEDS: NACL 0.9% 1,000 ML IV SCH (11:41)
--- NOTE | 2020-04-22 14:12 | NUR ---
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 RD spoke w/ pt's primary RN who verified pt's TF regimen. RN reported that pt has been tolerating TF well while both in prone/supine positions. He also reported that pt is now prone for 16 hours/day and supine for 8 hours/day, instead of 12 hours/day for each, respectively -- which may have initiated within the past couple of days per RN report. RN also stated that pt had 2 BMs last night, and 1 BM this morning (loose). Pt is still receiving Prosource TID. RD paged Dr. De León to inquire about increasing TF rate while pt is supine; awaiting call back. Pt is not meeting optimal nutritional needs w/ current TF prescription. Current Diet Order/Nutrition Support: Vital AF 1.2 at 50 ml/hr (while supine), Prosource TID, Free Water Flush: 50 ml Q6h via OGT -- 8 hours/day & Vital AF 1.2 at 10 ml/hr (while prone) via OGT -- 16 hours/day x8 days Provides: 670 kcal/day, 87 gm protein/day, and 654 ml free water/day Meets: 61% of lower end of estimated caloric needs and 98% of lower end of estimated protein needs Pertinent Medications: piperacillin/tazobactam IV, propofol at 6.613 ml/hr (175 kcal/day), solu-medrol, zinc sulfate, VIT C, VIT D3, synthroid Pertinent Labs: BG 122 H, BUN 22 H, WBC 14.8 H, AST 35 H, ALT 66 WNL (improved), ALB 2.5 L Skin Integrity: Cristhian Scale: 12; per Emergency Medical Technician note 04/19: 1. Left Ear [place]: Scar tissue. No odor, no drainage. 2. Left Ear Lobule: Scar tissue. No odor, no drainage. 3. Right Ear: Blanchable red erythema. No odor, no drainage. Current % PO N/A, now on EN support Estimated Energy Expenditure (kcals/day) 3997-3787 kcal/day (15-20 kcal/kg CBW for COVID-19 Dz requiring ICU care per ASPEN/SCCM) Estimated Protein Required (g/day) 89-148 gm pro/day (1.2-2 gm protein/kg CBW for COVID-19 Dz requiring ICU care per ASPEN/SCCM) Estimated Fluid Required (l/day) 1.1-1.5 L/day (1 ml/kcal/day for maintenance) Problem/Etiology/Signs/Symptoms Inadequate oral/beverage intake r/t inadequate energy intake and decreased appetite AEB pt w/ no appetite and PO intake meets <75% of est needs x 4 days. *no longer applicable Altered nutrition related labs r/t medication interaction AEB elevated BG and steroid therapy. *ongoing Inadequate EN support related to metabolic demands as evidenced by estimated nutritional requirements for COVID-19 Dz requiring ICU care. (*ongoing) Expected Outcomes/Goals -Will monitor EN toleance and intake w/ goal of pt meeting at least 80% of estimated nutritional needs, labs trending WNL, normal GI function, skin integrity, and weight maintenance. Dietitian Recommendations * Recommend Vital AF 1.2 at 80 ml/hr (while supine), Prosource TID, Free Water Flush: 50 ml Q6h via OGT -- 8 hours/day Provides: 768 kcal/8 hours, 93 gm protein/8 hours, and 719 ml free water/8 hours * Recommend continue Vital AF 1.2 at 10 ml/hr (while prone) via OGT -- 16 hours/day Provides: 192 kcal/16 hours, 12 gm protein/16 hours, and 130 ml free water/16 hours Total EN Support/Day Provides: 960 kcal/day, 105 gm protein/day, 849 ml free water/day Meets: 87% of lower end of estimated caloric needs and 118% of lower end of estimated caloric High Risk: F/U in 2-3 days Addendum: 04/22/20 at [address] CORRECTION: Dietitian Recommendations * Recommend Vital AF 1.2 at 80 ml/hr (while supine), Prosource TID, Free Water Flush: 50 ml Q6h via OGT -- 8 hours/day Provides: 768 kcal/8 hours, 93 gm protein/8 hours, and 719 ml free water/8 hours * Recommend continue Vital AF 1.2 at 10 ml/hr (while prone) via OGT -- 16 hours/day Provides: 192 kcal/16 hours, 12 gm protein/16 hours, and 130 ml free water/16 hours Total EN Support/Day Provides: 960 kcal/day, 105 gm protein/day, 849 ml free water/day Meets: 87% of lower end of estimated caloric needs and 118% of lower end of estimated protein needs Addendum: 04/22/20 at 14[address] Dr. De León returned call -- she stated to speak w/ Dr. Pineda for orders as he is the tree marker rounding today. Addendum: 04/22/20 at [address] [facility]MM Pineda -- awaiting call back for orders. Addendum: 04/22/20 at [address] Noted 8# unintentional wt loss since RD initial Nutrition Assessment 04/05/20, at which time, wt was noted: 162#/73 kg. Last documented wt: 154#/70 kg (04/20). Addendum: 04/22/20 at [address] RD spoke w/ Dr. Pineda (tree marker) via phone call regarding RD rec for increasing pt's TF to Vital AF 1.2 at 80 ml/hr (while supine x8 hours/day), and physician was agreeable w/ RD rec. UMM spoke w/ ICU inorganic chemical technician via phone call who stated she would relay message to pt's primary RN who was fully gowned up in pt's room at time of phone call. RD to modify TF order via [employer] as a TO/RB order.
--- NOTE | 2020-04-22 14:26 | NUR ---
Dietitian Recommendations * Recommend Vital AF 1.2 at 80 ml/hr (while supine), Prosource TID, Free Water Flush: 50 ml Q6h via OGT -- 8 hours/day Provides: 768 kcal/8 hours, 93 gm protein/8 hours, and 719 ml free water/8 hours * Recommend continue Vital AF 1.2 at 10 ml/hr (while prone) via OGT -- 16 hours/day Provides: 192 kcal/16 hours, 12 gm protein/16 hours, and 130 ml free water/16 hours Total EN Support/Day Provides: 960 kcal/day, 105 gm protein/day, 849 ml free water/day Meets: 87% of lower end of estimated caloric needs and 118% of lower end of estimated protein needs [facility] Please refer to Nutrition F/U for details. Addendum: 04/22/20 at [address] UMM spoke w/ Dr. Pineda (juke box servicer) via phone call regarding RD rec for increasing pt's TF to Vital AF 1.2 at 80 ml/hr (while supine x8 hours/day), and physician was agreeable w/ UMM rec. UMM spoke w/ ICU monitor technician via phone call who stated she would relay message to pt's primary RN who was fully gowned up in pt's room at time of phone call. UMM to modify TF order via [id number] as a TO/RB order.
--- NOTE | 2020-04-22 14:45 | NUR ---
REPOSITIONED PT TO SUPINE POSITION. CHANGED PEEP +8. 1535 INCREASED FIO2 90% DUE TO PT DESAT. SPO2 93%, HR 78. WILL CONTINUE TO MONITOR PT.
--- NOTE | 2020-04-22 19:02 | NUR ---
Closing Note Provided plan of care via sbar to receiving RN.
--- NOTE | 2020-04-22 19:20 | NUR ---
OPENING NOTE: Received SBAR report from off coming RN for continuity of care. Pt laying in bed in supine position and sedated. No s/s of acute distress noted. Pt on ventilator with O2 saturations above 90%. Diprivan gtt infusing @ 15 mcg/kg/min, Versed gtt infusing @ 2 mg/hr, Morphine gtt infusing @ 6mg/hr, NS infusing @ 30 ml/hr. Ferrara catheter in place and draining to gravity, lazaro urine output noted. Will continue to monitor and assess.
--- NOTE | 2020-04-22 21:00 | NUR ---
Pt laying in bed, sedated in supine position. Pt intubated on ventilator on pressure control 8, FiO2 90%, rate 24, PEEP 8, oxygen saturations above 90%. Provided PO care and suctioning, pt tolerated well. OGT in place with Vital AF infusing @ 80 ml/hr, pt tolerating well. R) IJ CVC in place with Diprivan gtt infusing @ 15 mcg/kg/min, Versed gtt infusing @ 2mg/hr, Morphine gtt infusing @ 6 mg/hr, NS infusing @ 30 ml/hr. PIV in place to L) AC, patent and saline locked. Ferrara catheter in place and draining to gravity, lazaro urine output noted. Turned and repositioned pt, pt tolerated well. Elevated heels with pillow. Bed locked and in lowest position, safety precautions in place. Will continue to monitor and assess.
[2020-04-22] MEDS: MORPHINE I.V. DRIP 100 ML IV PRN (21:02)
--- NOTE | 2020-04-22 21:30 | NUR ---
CHG: CHG bath given, pt tolerated well. Full linen change provided.
--- NOTE | 2020-04-22 21:30 | NUR ---
VERSED DRIP TITRATION WITNESSED RHIANNON YBARRA TITRATE VERSED DRIP TO 3 MG/HR PER ORDERS. WILL CONTINUE TO MONITOR PT.
--- NOTE | 2020-04-22 21:45 | NUR ---
CVC DRESSING CHANGE: R) IJ CVC dressing soiled, provided dressing change using sterile technique. Pt tolerated well.
--- NOTE | 2020-04-22 21:45 | NUR ---
MORPHINE DRIP TITRATION WITNESSED RHIANNON YBARRA TITRATE MORPHINE DRIP TO 6.5 MG/HR PER ORDERS. WILL CONTINUE TO MONITOR PT.
--- NOTE | 2020-04-22 22:00 | NUR ---
PRONING: Pt placed in prone position per orders. Pt tolerated well. Will continue to monitor.
[2020-04-23] VITALS (34 sets, daily range): BP systolic 92–137
[2020-04-23] MEDS: PIPERACILLIN/TAZO 2.25G/DEX-IS 50 ML IV SCH ×4 (00:03→17:57)
[2020-04-23] MEDS: MIDAZOLAM HCL IN 0.9 % NACL/PF 50 ML IV PRN ×2 (05:18→12:38)
[2020-04-23] MEDS: LEVOTHYROXINE SODIUM 0.075 MG TABLET PO SCH (06:00)
--- NOTE | 2020-04-23 07:15 | NUR ---
Received patient and endorsed report. Patient in prone position in bed with side rails x 3 up. Call light with in reach.
--- NOTE | 2020-04-23 07:20 | NUR ---
CLOSING NOTE: Endorsed SBAR report to oncoming RN for continuity of care.
--- NOTE | 2020-04-23 07:40 | NUR ---
TITRATED FIO2 DOWN TO 70%. SPO2 96%, HR 74.
[2020-04-23] MEDS: methylPREDNISolone SOD SUCC 40 MG/ML VIAL IVP SCH ×2 (08:18→21:22)
[2020-04-23] MEDS: CHOLECALCIFEROL (VITAMIN D3) 2,000 UNIT TABLET PO SCH (08:18)
[2020-04-23] MEDS: ASCORBIC ACID 500 MG TABLET PO SCH (08:18)
[2020-04-23] MEDS: POTASSIUM CHLORIDE 20 MEQ/PKT PACKET PO SCH (08:19)
[2020-04-23] MEDS: TAMSULOSIN HCL 0.4 MG CAP PO SCH (08:20)
[2020-04-23] MEDS: FAMOTIDINE PF 20 MG/2 ML VIAL IVP SCH ×2 (08:20→21:22)
[2020-04-23] MEDS: ENOXAPARIN SODIUM 80 MG/0.8 ML SYRINGE SUBCUT SCH (08:21)
[2020-04-23 09:10] LABS: CALCIUM 7.4 mg/dL (8.4-11.0); CREATININE 0.52 mg/dL (0.55-1.30); POTASSIUM 3.7 mmol/L (3.5-5.1)
[2020-04-23] MEDS: MICAFUNGIN SODIUM 100 MG in NS 100 ML IV SCH (09:22)
[2020-04-23 09:29] LABS: BASOPHILS % (AUTO) 0.1 % (0.0-2.0); EOSINOPHILS # (AUTO) 0.1 K/uL (0.0-0.4); EOSINOPHILS % (AUTO) 0.8 % (0.0-4.0); HEMATOCRIT 39.7 % (36-54); HEMOGLOBIN 12.9 g/dL (14.0-18.0); LYMPHOCYTES # (AUTO) 0.2 K/uL (1.0-5.5); LYMPHOCYTES % (AUTO) 1.4 % (20.5-51.5); MEAN CORPUSCULAR HEMOGLOBIN 30 pg (27-31); MEAN CORPUSCULAR HGB CONC 33 % (32-36); MEAN CORPUSCULAR VOLUME 91 fL (79.0-98.0); MONOCYTES # (AUTO) 0.2 K/uL (0.0-1.0); MONOCYTES % (AUTO) 1.6 % (1.7-9.3); NEUTROPHILS % (AUTO) 96.1 % (40.0-70.0); PLATELET COUNT (AUTO) 116 K/uL (130-430); RED BLOOD CELL COUNT(AUTO) 4.37 MIL/uL (4.2-6.2); RED CELL DISTRIBUTION WIDTH 15.3 % (9.0-15.0); WHITE BLOOD COUNT (AUTO) 11.4 K/uL (4.8-10.8)
--- NOTE | 2020-04-23 10:00 | NUR ---
PROSOURCE GIVEN THROUGH OGT.
--- NOTE | 2020-04-23 10:12 | NUR ---
MD IZQUIERDO AT BEDSIDE ASSESSING PATIENT.
--- NOTE | 2020-04-23 11:10 | NUR ---
MD SCHILLING AT BEDSIDE ASSESSING PATIENT.
[2020-04-23] MEDS ORDERED: FUROSEMIDE 20 MG/2 ML VIAL IVP ONE (11:15)
--- NOTE | 2020-04-23 12:30 | NUR ---
MD NATION AT BEDSIDE ASSESSING PATIENT.
[2020-04-23] MEDS: PROPOFOL DRIP 100 ML IV PRN (12:33)
[2020-04-23] MEDS: MORPHINE I.V. DRIP 100 ML IV PRN (12:35)
--- NOTE | 2020-04-23 14:50 | NUR ---
REPOSITIONED PT TO SUPINE POSITION. INCREASED FIO2 TO 100% WHILE RN ESTEPHANIA CLEANING PT, SPO2 94%. 1600 TITRATED FIO2 DOWN TO 65%. SPO2 94%, HR 88.
--- NOTE | 2020-04-23 17:30 | NUR ---
PROSOURCE GIVEN THROUGH OGT.
--- NOTE | 2020-04-23 18:42 | NUR ---
Paged Dr. Pineda for orders, spoke with exchange.
--- NOTE | 2020-04-23 19:05 | NUR ---
Reported to respiratory therapist 02 saturation of patient range in the mid to high 80s, increased FI02 to 80%.
--- NOTE | 2020-04-23 19:11 | NUR ---
MD Pineda called back, informed right IJ CVC dressing was changed after blood soiled through dressing which made the blood leak even more, approximately 10 cc. Placed gauze and pressure on site, 5 pound sandbag also added to site. new order to discontinue lovenox and STAT CBC, orders placed.
--- NOTE | 2020-04-23 19:15 | NUR ---
Endorsed patient and report to NOC shift nurse. Patient in bed with side rails x 3 up. Call light with in reach.
--- NOTE | 2020-04-23 19:30 | NUR ---
Opening note: Report received from previous RN. Assuming care now.
--- NOTE | 2020-04-23 19:35 | NUR ---
As reported by previous RN, patient continues to bleed from IJ TLC. IVF moved to PIV in left arm for now while continuing to assess.
[2020-04-23 19:43] LABS: BASOPHILS % (AUTO) 0.1 % (0.0-2.0); EOSINOPHILS # (AUTO) 0.2 K/uL (0.0-0.4); EOSINOPHILS % (AUTO) 1.4 % (0.0-4.0); HEMOGLOBIN 12.8 g/dL (14.0-18.0); LYMPHOCYTES # (AUTO) 0.2 K/uL (1.0-5.5); LYMPHOCYTES % (AUTO) 1.8 % (20.5-51.5); MEAN CORPUSCULAR HEMOGLOBIN 30 pg (27-31); MEAN CORPUSCULAR HGB CONC 33 % (32-36); MEAN CORPUSCULAR VOLUME 90 fL (79.0-98.0); MONOCYTES # (AUTO) 0.2 K/uL (0.0-1.0); MONOCYTES % (AUTO) 1.9 % (1.7-9.3); NEUTROPHILS # (AUTO) 10.5 K/uL (1.8-7.7); NEUTROPHILS % (AUTO) 94.8 % (40.0-70.0); PLATELET COUNT (AUTO) 114 K/uL (130-430); RED BLOOD CELL COUNT(AUTO) 4.32 MIL/uL (4.2-6.2); RED CELL DISTRIBUTION WIDTH 15.1 % (9.0-15.0); WHITE BLOOD COUNT (AUTO) 11.1 K/uL (4.8-10.8)
--- NOTE | 2020-04-23 20:00 | NUR ---
WITNESSED LÁZARO RN DECREASE DIPRIVAN DRIP FROM 20 MCG/KG/MIN TO 15 MCG/KG/MIN, VERSED DRIP FROM 3 MG/HR TO 2 MG/HR AND MORPHINE DRIP FROM 6.5 MG/HR TO 5 MG/HR.
--- NOTE | 2020-04-23 22:00 | NUR ---
Patient proned with RN/RT support without incident, undersigned being mindful of IJ position as it continues to bleed, dressing changed now.
[2020-04-24] VITALS (34 sets, daily range): BP systolic 79–153
--- NOTE | 2020-04-24 00:30 | NUR ---
While assessed, patient continues to bleed from IJ and prone position appears to be making it worse. RT in room and increased PEEP to 10 and fio2 to 100% as patient began to desaturate to 70% suring assessment of ETT and IJ line.
[2020-04-24] MEDS: PIPERACILLIN/TAZO 2.25G/DEX-IS 50 ML IV SCH ×4 (00:45→17:46)
--- NOTE | 2020-04-24 00:50 | NUR ---
Dr De León returned call and ordered titration of fio2 when tolerated and okayed IJ to be removed as well as patient returned to supine position PRN until IJ can be removed and adequate pressure applied to clot.
[2020-04-24] MEDS ORDERED: COMMUNICATION ORDER XX ONE (00:51)
--- NOTE | 2020-04-24 02:20 | NUR ---
IJ catheter removed without incident, pressure applied for 10 minutes and dressing applied directly after.
[2020-04-24] MEDS: PROPOFOL DRIP 100 ML IV PRN ×2 (02:33→18:12)
[2020-04-24] MEDS: NACL 0.9% 1,000 ML IV SCH ×3 (02:38→18:04)
--- NOTE | 2020-04-24 07:15 | NUR ---
Opening note Received report from outgoing RN.
[2020-04-24 08:22] LABS: BASOPHILS # (AUTO) 0.2 K/uL (0.0-0.2); BASOPHILS % (AUTO) 1.1 % (0.0-2.0); EOSINOPHILS # (AUTO) 0.1 K/uL (0.0-0.4); EOSINOPHILS % (AUTO) 0.8 % (0.0-4.0); HEMATOCRIT 41.8 % (36-54); HEMOGLOBIN 13.7 g/dL (14.0-18.0); LYMPHOCYTES # (AUTO) 0.4 K/uL (1.0-5.5); LYMPHOCYTES % (AUTO) 2.9 % (20.5-51.5); MEAN CORPUSCULAR HEMOGLOBIN 30 pg (27-31); MEAN CORPUSCULAR HGB CONC 33 % (32-36); MEAN CORPUSCULAR VOLUME 91 fL (79.0-98.0); MONOCYTES # (AUTO) 0.1 K/uL (0.0-1.0); MONOCYTES % (AUTO) 0.8 % (1.7-9.3); NEUTROPHILS % (AUTO) 94.4 % (40.0-70.0); PLATELET COUNT (AUTO) 125 K/uL (130-430); RED CELL DISTRIBUTION WIDTH 15.1 % (9.0-15.0); WHITE BLOOD COUNT (AUTO) 13.8 K/uL (4.8-10.8)
[2020-04-24] MEDS: MICAFUNGIN SODIUM 100 MG in NS 100 ML IV SCH (08:44)
[2020-04-24] MEDS: ASCORBIC ACID 500 MG TABLET PO SCH (08:45)
[2020-04-24] MEDS: methylPREDNISolone SOD SUCC 40 MG/ML VIAL IVP SCH ×2 (08:45→20:44)
[2020-04-24] MEDS: POTASSIUM CHLORIDE 20 MEQ/PKT PACKET PO SCH (08:45)
[2020-04-24] MEDS: CHOLECALCIFEROL (VITAMIN D3) 2,000 UNIT TABLET PO SCH (08:45)
[2020-04-24] MEDS: FAMOTIDINE PF 20 MG/2 ML VIAL IVP SCH ×2 (08:46→20:44)
[2020-04-24] MEDS: TAMSULOSIN HCL 0.4 MG CAP PO SCH (08:46)
[2020-04-24 08:49] LABS: CALCIUM 7.9 mg/dL (8.4-11.0); CREATININE 0.44 mg/dL (0.55-1.30); POTASSIUM 3.4 mmol/L (3.5-5.1)
[2020-04-24 09:06] LABS: ALBUMIN 2.6 g/dL (3.4-4.8); TOTAL BILIRUBIN 1.1 mg/dL (0.0-1.0)
--- NOTE | 2020-04-24 09:35 | NUR ---
RT at bedside RT increased FiO2 to 100% d/t pt desaturating.
--- NOTE | 2020-04-24 09:35 | NUR ---
INCREASED FIO2 100% DUE TO PT DESAT 84-88%. WILL CONTINUE TO MONITOR PT.
[2020-04-24 13:13] LABS: PROTHROMBIN TIME 9.9 SECS (9.5-12.5)
--- NOTE | 2020-04-24 13:21 | NUR ---
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 Pt is on vent, last BM 04/24. RD s/w pt's primary RN in unit who reported tolerance to EN, no residual. Prosource was delivered w/ EN formula this morning but has not been administered yet at time of RD visit. RN to administer later today. Current Diet Order/Nutrition Support: Vital AF 1.2 at 80 ml/hr (while supine), Prosource TID, Free Water Flush: 50 ml Q6h via OGT -- 8 hours/day & Vital AF 1.2 at 10 ml/hr (while prone) via OGT -- 16 hours/day x2 days Provides: 1080 kcal/day, 90 gm protein/day, and 1009 ml free water/day Meets: 98% of lower end of estimated caloric needs and 101% of lower end of estimated protein needs Pertinent Medications: piperacillin/tazobactam IV, propofol at 15 ml/hr (396 kcal/day), solu-medrol, zinc sulfate, VIT C, VIT D3, synthroid, KCl packet Pertinent Labs: 04/24 BG 146 H, BUN 18 WNL, CRE 0.44L, Na 136WNL, K 3.4L Skin Integrity: Cristhian Scale: 11; per Lpn Or Medical Assistant note 04/19: 1. Left Ear [place]: Scar tissue. No odor, no drainage. 2. Left Ear Lobule: Scar tissue. No odor, no drainage. 3. Right Ear: Blanchable red erythema. No odor, no drainage. Current % PO N/A, now on EN support Estimated Energy Expenditure (kcals/day) 5676-1779 kcal/day (15-20 kcal/kg CBW for COVID-19 Dz requiring ICU care per ASPEN/SCCM) Estimated Protein Required (g/day) 89-148 gm pro/day (1.2-2 gm protein/kg CBW for COVID-19 Dz requiring ICU care per ASPEN/SCCM) Estimated Fluid Required (l/day) 1.1-1.5 L/day (1 ml/kcal/day for maintenance) Problem/Etiology/Signs/Symptoms Inadequate oral/beverage intake r/t inadequate energy intake and decreased appetite AEB pt w/ no appetite and PO intake meets <75% of est needs x 4 days. *no longer applicable Altered nutrition related labs r/t medication interaction AEB elevated BG and steroid therapy. *ongoing Inadequate EN support related to metabolic demands as evidenced by estimated nutritional requirements for COVID-19 Dz requiring ICU care. (*ongoing) Expected Outcomes/Goals -Will monitor EN tolerance and intake w/ goal of pt meeting at least 80% of estimated nutritional needs, labs trending WNL, normal GI function, skin integrity, and weight maintenance. Dietitian Recommendations * Recommend continue: Vital AF 1.2 at 80 ml/hr (while supine), Prosource TID, Free Water Flush: 50 ml Q6h via OGT -- 8 hours/day * Recommend continue Vital AF 1.2 at 10 ml/hr (while prone) via OGT -- 16 hours/day Total EN Support/Day Provides: 1080 kcal/day, 90 gm protein/day, 1009 ml free water/day Meets: 98% of lower end of estimated caloric needs and 101% of lower end of estimated protein needs. High Risk: F/U in 2-3 days
--- NOTE | 2020-04-24 13:31 | NUR ---
Dietitian Recommendations * Recommend continue: Vital AF 1.2 at 80 ml/hr (while supine), Prosource TID, Free Water Flush: 50 ml Q6h via OGT -- 8 hours/day * Recommend continue Vital AF 1.2 at 10 ml/hr (while prone) via OGT -- 16 hours/day Total EN Support/Day Provides: 1080 kcal/day, 90 gm protein/day, 1009 ml free water/day Meets: 98% of lower end of estimated caloric needs and 101% of lower end of estimated protein needs. Please see Nutrition F/U note for details. RITA, RD
--- NOTE | 2020-04-24 16:10 | NUR ---
TITRATED FIO2 DOWN TO 90%. SPO2 93%, HR 96.
[2020-04-24] MEDS: MIDAZOLAM HCL IN 0.9 % NACL/PF 50 ML IV PRN (18:08)
[2020-04-24] MEDS: MORPHINE I.V. DRIP 100 ML IV PRN (18:10)
--- NOTE | 2020-04-24 18:50 | NUR ---
Witness Witnessed Nabor YBARRA titrate Diprivan to 25 mcg/kg/min
--- NOTE | 2020-04-24 19:04 | NUR ---
WITNESS Witnessed Celestina RN titrate Versed to 5mg/hr and morphine to 7 mg/hr.
--- NOTE | 2020-04-24 19:20 | NUR ---
Closing note Report given to oncoming RN.
--- NOTE | 2020-04-24 21:30 | NUR ---
DRIP TITRATIONS WITNESSED MELISSA RN TITRATE MORPHINE DRIP TO 6 MG/HR AND VERSED DRIP TO 4 MG/HR PER ORDERS. WILL CONTINUE TO MONITOR PT.
--- NOTE | 2020-04-24 22:00 | NUR ---
Pt placed in prone position. Will be proned for 16hrs and placed supine at 1400. Pt tolerated well. Maximal oxygenation provided. All IV lines and tubing readjusted and are away from skin. Pt EKg patches removed from chest and placed to back. Pillows provided for support to chest, pelvis and below knees. C-spine precautions taken. VSS. Will continue to monitor.
[2020-04-25] VITALS (34 sets, daily range): BP systolic 95–154
[2020-04-25] MEDS: PIPERACILLIN/TAZO 2.25G/DEX-IS 50 ML IV SCH ×2 (00:25→06:09)
[2020-04-25] MEDS ORDERED: MIDAZOLAM HCL 5 MG/5 ML VIAL ONE ×3 (01:22→01:29)
[2020-04-25] MEDS: MIDAZOLAM HCL IN 0.9 % NACL/PF 50 ML IV PRN (01:58)
--- NOTE | 2020-04-25 02:00 | NUR ---
MORPHINE DRIP TITRATION WITNESSED MELISSA YBARRA TITRATE MORPHINE DRIP TO 5 MG/HR PER ORDERS. WILL CONTINUE TO MONITOR PT.
--- NOTE | 2020-04-25 05:00 | NUR ---
MORPHINE DRIP TITRATION WITNESSED MELISSA YBARRA TITRATE MORPHINE DRIP TO 4 MG/HR PER ORDERS. WILL CONTINUE TO MONITOR PT.
[2020-04-25 06:04] LABS: EOSINOPHILS % (AUTO) 0.2 % (0.0-4.0); HEMOGLOBIN 10.7 g/dL (14.0-18.0); LYMPHOCYTES # (AUTO) 0.1 K/uL (1.0-5.5); MONOCYTES # (AUTO) 0.1 K/uL (0.0-1.0); RED CELL DISTRIBUTION WIDTH 15.3 % (9.0-15.0)
[2020-04-25] MEDS: LEVOTHYROXINE SODIUM 0.075 MG TABLET PO SCH (06:09)
[2020-04-25 06:15] LABS: BASOPHILS % (AUTO) 0.3 % (0.0-2.0); HEMATOCRIT 32.2 % (36-54); LYMPHOCYTES % (AUTO) 1.2 % (20.5-51.5); MEAN CORPUSCULAR HEMOGLOBIN 30 pg (27-31); MEAN CORPUSCULAR HGB CONC 33 % (32-36); MEAN CORPUSCULAR VOLUME 91 fL (79.0-98.0); NEUTROPHILS # (AUTO) 11.7 K/uL (1.8-7.7); NEUTROPHILS % (AUTO) 97.3 % (40.0-70.0); RED BLOOD CELL COUNT(AUTO) 3.55 MIL/uL (4.2-6.2)
[2020-04-25 06:19] LABS: PLATELET COUNT (AUTO) 93 K/uL (130-430)
[2020-04-25 06:37] LABS: ALBUMIN 2.1 g/dL (3.4-4.8); CALCIUM 7.2 mg/dL (8.4-11.0); CREATININE 0.34 mg/dL (0.55-1.30); POTASSIUM 3.5 mmol/L (3.5-5.1); TOTAL BILIRUBIN 0.8 mg/dL (0.0-1.0)
--- NOTE | 2020-04-25 07:19 | NUR ---
Endorsement Report given to oncoming RN at bedside via SBAR approach.
--- NOTE | 2020-04-25 08:00 | NUR ---
AM ASSESSMENT PATIENT ON PRONE POSITION, ON VENTILATOR, SATURATION 97% TO 98%, FIO2 70%, OGT FEEDING AT 10 ML PER HR, PROPOFOL DRIP AT 25 MCG/KG/MIN, MORPHINE DRIP AT 4 MG/HR, VERSED DRIP AT 4 MG/HR, THRU PICC PORTS.
[2020-04-25] MEDS: MICAFUNGIN SODIUM 100 MG in NS 100 ML IV SCH (08:35)
[2020-04-25] MEDS: TAMSULOSIN HCL 0.4 MG CAP PO SCH (08:36)
[2020-04-25] MEDS: ASCORBIC ACID 500 MG TABLET PO SCH (08:36)
[2020-04-25] MEDS: POTASSIUM CHLORIDE 20 MEQ/PKT PACKET PO SCH (08:36)
[2020-04-25] MEDS: methylPREDNISolone SOD SUCC 40 MG/ML VIAL IVP SCH ×2 (08:36→20:47)
[2020-04-25] MEDS: FAMOTIDINE PF 20 MG/2 ML VIAL IVP SCH ×2 (08:36→20:47)
[2020-04-25] MEDS: CHOLECALCIFEROL (VITAMIN D3) 2,000 UNIT TABLET PO SCH (08:36)
--- NOTE | 2020-04-25 10:00 | NUR ---
RT NOTES With RN, repositioned pt's head. ETT remains secure. No resistance noted when advancing sxn catheter.
[2020-04-25] MEDS: PROPOFOL DRIP 100 ML IV PRN ×2 (14:29→23:14)
[2020-04-25] MEDS: MORPHINE I.V. DRIP 100 ML IV PRN (14:30)
--- NOTE | 2020-04-25 14:45 | NUR ---
RT NOTES Assisted in unproning pt. ETT remains secure/patent. Pt appears restless and feels warm to the touch before putting on supine position, rn aware. FIO2 to 0.100, saturation improved to 92%
--- NOTE | 2020-04-25 14:50 | NUR ---
HYGIENE. PT LAYING ON HIS BACK, TEMP 100, LINEN CHANGED, COLD PACKS TO EXTREMITIES APPLIED, BLANKETS OFF FOR PT'S COMFORT.
--- NOTE | 2020-04-25 18:15 | NUR ---
NURSING. PT MADE COMFORTABLE, TURNED TO HIS SIDE, PILLOW SUPPORTING HIS BACK, TEMP IN NORMAL RANGE.
--- NOTE | 2020-04-25 19:15 | NUR ---
OPENING NOTE: Received SBAR report from off coming RN for continuity of care. Pt laying in bed in supine position and sedated. No s/s of acute distress noted. Pt on ventilator with O2 saturations above 90%. Diprivan gtt infusing @ 25 mcg/kg/min, Versed gtt infusing @ 4 mg/hr, Morphine gtt infusing @ 4mg/hr, NS infusing @ 30 ml/hr. Ferrara catheter in place and draining to gravity, lazaro urine output noted. Will continue to monitor and assess.
[2020-04-25] MEDS: CEFEPIME 0.5 GM in D5W 50 ML IV SCH (20:47)
--- NOTE | 2020-04-25 21:16 | NUR ---
CHG: CHG bath given, pt tolerated well. Full linen change provided.
--- NOTE | 2020-04-25 21:17 | NUR ---
DRIP TITRATIONS WITNESSED TALON YBARRA TITRATE VERSED DRIP TO 3 MG/HR MORPHINE DRIP TO 3 MG/HR DIPRIVAN DRIP TO 20 MCG/KG/MIN PER ORDERS. WILL CONTINUE TO MONITOR PTS.
--- NOTE | 2020-04-25 22:52 | NUR ---
PRONE: PATIENT PLACED TO PRONE POSITION, TOLERATED WELL WITH NO ADVERSE EFFECTS. ALL SAFETY PRECAUTIONS IN PLACE, BED LOW AND LOCKED. MONITORING AT THIS TIME.
--- NOTE | 2020-04-25 23:00 | NUR ---
MORPHINE GTT WITNESSED TALON RN TITRATE MORPHINE DRIP TO 4 MG/HR PER ORDERS. WILL CONTINUE TO MONITOR PT.
--- NOTE | 2020-04-25 23:50 | NUR ---
GTT TITRATIONS WITNESSED TALON RN TITRATE VERSED DRIP TO 4 MG/HR MORPHINE DRIP TO 5 MG/HR DIPRIVAN DRIP TO 25 MCG/KG/MIN PER ORDERS. WILL CONTINUE TO MONITOR PT.
[2020-04-26] VITALS (35 sets, daily range): BP systolic 82–161
--- NOTE | 2020-04-26 00:23 | NUR ---
GTT TITRATION WITNESSED TALON YBARRA TITRATE MORPHINE DRIP TO 6 MG/HR VERSED DRIP TO 5 MG/HR PER ORDERS. WILL CONTINUE TO MONITOR PT.
--- NOTE | 2020-04-26 00:26 | NUR ---
RN ROUNDS: PATIENT TACHYPNEIC WITH A RATE OF 35-40, HR SINUS TACH 125-130S, VERSED TITRATED, MORPHINE TITRATED. BP 150/97, PATIENT REMAINS PRONED, ETT SUCTIONED COPIOUS AMOUNT OF THICK SECRETIONS NOTED.
--- NOTE | 2020-04-26 01:18 | NUR ---
GTT TITRATIONS WITNESSED TALON YBARRA TITRATE MORPHINE DRIP TO 7 MG/HR VERSED DRIP TO 6 MG/HR PER ORDERS. WILL CONTINUE TO MONITOR PT.
--- NOTE | 2020-04-26 02:17 | NUR ---
RN Rounds: Patient's head repositioned by RT and primary RN, Vitals stable, no acute distress noted. Bed in lowest locked position, all safety checks in place.
--- NOTE | 2020-04-26 03:37 | NUR ---
RN Rounds: Patient positioned for comfort, Vitals stable, no acute distress noted. Bed in lowest locked position, all safety checks in place.
--- NOTE | 2020-04-26 05:18 | NUR ---
DRIP TITRATIONS WITNESSED TALON YBARRA TITRATE VERSED DRIP TO 3 MG/HR MORPHINE DRIP TO 3 MG/HR DIPRIVAN DRIP TO 20 MCG/KG/MIN PER ORDERS. WILL CONTINUE TO MONITOR PTS. Addendum: 04/26/20 at 0520 by Kyung Santos RN ENTERED FOR WRONG TIME.
--- NOTE | 2020-04-26 05:21 | NUR ---
RN Rounds: Patient positioned for comfort, Vitals stable, no acute distress noted. Bed in lowest locked position, all safety checks in place.
[2020-04-26] MEDS: LEVOTHYROXINE SODIUM 0.075 MG TABLET PO SCH (06:10)
--- NOTE | 2020-04-26 07:03 | NUR ---
Closing note Report given to oncoming RN.
--- NOTE | 2020-04-26 07:30 | NUR ---
RT NOTES FIO2 to 0.80. will monitor pt.
--- NOTE | 2020-04-26 07:30 | NUR ---
Opening Notes Patient received in prone position, connected to hall monitor with NSR. Patient orally intubated with settings pressure control rate 24, FiO2 100%, PEEP 8, no signs of distress noted. Patient with ISRAEL PICC receiving NS at 30 ml/hr, diprivan at 25 mcg/kg/min, versed at 6 mg/hr, and morphine at 7 mg/hr. Patient with OGT receiving Vital AF at 10 ml/hr. Patient with villalpando catheter draining urine. Safety precautions enforced.
[2020-04-26] MEDS: MICAFUNGIN SODIUM 100 MG in NS 100 ML IV SCH (08:10)
[2020-04-26] MEDS: methylPREDNISolone SOD SUCC 40 MG/ML VIAL IVP SCH ×2 (08:10→21:44)
[2020-04-26] MEDS: FAMOTIDINE PF 20 MG/2 ML VIAL IVP SCH ×2 (08:10→21:44)
[2020-04-26] MEDS: POTASSIUM CHLORIDE 20 MEQ/PKT PACKET PO SCH (08:10)
[2020-04-26] MEDS: ASCORBIC ACID 500 MG TABLET PO SCH (08:10)
[2020-04-26] MEDS: TAMSULOSIN HCL 0.4 MG CAP PO SCH (08:11)
[2020-04-26] MEDS: CHOLECALCIFEROL (VITAMIN D3) 2,000 UNIT TABLET PO SCH (08:11)
[2020-04-26 08:24] LABS: CREATININE 0.32 mg/dL (0.55-1.30); POTASSIUM 4.3 mmol/L (3.5-5.1)
[2020-04-26 08:30] LABS: ALBUMIN 2.2 g/dL (3.4-4.8); TOTAL BILIRUBIN 0.8 mg/dL (0.0-1.0)
[2020-04-26] MEDS: PROPOFOL DRIP 100 ML IV PRN (08:40)
[2020-04-26 09:08] LABS: BASOPHILS # (AUTO) 0.1 K/uL (0.0-0.2); BASOPHILS % (AUTO) 0.9 % (0.0-2.0); EOSINOPHILS % (AUTO) 0.3 % (0.0-4.0); HEMATOCRIT 39.2 % (36-54); HEMOGLOBIN 12.8 g/dL (14.0-18.0); LYMPHOCYTES # (AUTO) 0.5 K/uL (1.0-5.5); LYMPHOCYTES % (AUTO) 3.5 % (20.5-51.5); MEAN CORPUSCULAR HEMOGLOBIN 30 pg (27-31); MEAN CORPUSCULAR HGB CONC 33 % (32-36); MEAN CORPUSCULAR VOLUME 91 fL (79.0-98.0); MONOCYTES # (AUTO) 0.2 K/uL (0.0-1.0); MONOCYTES % (AUTO) 1.6 % (1.7-9.3); NEUTROPHILS # (AUTO) 13.3 K/uL (1.8-7.7); NEUTROPHILS % (AUTO) 93.7 % (40.0-70.0); PLATELET COUNT (AUTO) 107 K/uL (130-430); RED BLOOD CELL COUNT(AUTO) 4.29 MIL/uL (4.2-6.2); RED CELL DISTRIBUTION WIDTH 16.4 % (9.0-15.0); WHITE BLOOD COUNT (AUTO) 14.1 K/uL (4.8-10.8)
[2020-04-26] MEDS: CEFEPIME 0.5 GM in D5W 50 ML IV SCH ×2 (09:43→21:44)
--- NOTE | 2020-04-26 10:00 | NUR ---
RN Rounds Patient remains to be sedated at this time. No signs of distress noted. Safety precautions enforced.
[2020-04-26] MEDS: MORPHINE I.V. DRIP 100 ML IV PRN (11:36)
[2020-04-26] MEDS: NACL 0.9% 1,000 ML IV SCH (12:00)
--- NOTE | 2020-04-26 12:00 | NUR ---
RN Rounds Patient in prone position, no signs of distress noted. Safety precautions enforced.
[2020-04-26] MEDS: MIDAZOLAM HCL IN 0.9 % NACL/PF 50 ML IV PRN (13:53)
--- NOTE | 2020-04-26 14:18 | NUR ---
MD Rounds Dr. Wilson at bedside for examination. No new orders received. Provided Dr. Wilson with 's phone number for updates.
[2020-04-26] MEDS ORDERED: APIXABAN 2.5 MG TABLET PO ONE (14:45)
--- NOTE | 2020-04-26 15:30 | NUR ---
Supine Patient turned on supine position per MD order. Patient tolerated well. No signs of distress noted.
--- NOTE | 2020-04-26 15:30 | NUR ---
RT NOTES Assisted in unproning pt. ETT remains secure/patent. @1540 FIO2 to 0.90 due to low saturation
--- NOTE | 2020-04-26 16:00 | NUR ---
RN Rounds Patient in no signs of distress at this time. Oral care provided. Patient turned and repositioned. Safety precautions enforced.
--- NOTE | 2020-04-26 19:32 | NUR ---
Closing Notes Patient endorsed to slot shift manager RN using SBAR format. No signs of distress at this time.
--- NOTE | 2020-04-26 19:40 | NUR ---
Opening note Received report and assumed care. Patient resting in bed; sedated; no signs of distress noted, VSS. Isolation precautions in place for droplets. Vent to ETT in place tolerating settings Pressure control 18 rate 24, FIO2 90%. ISRAEL picc in place; patent. IV drips infusing as per MD orders. Ferrara catheter in place and draining urine to gravity. will continue to monitor patien as per unit protocol.
[2020-04-26] MEDS: APIXABAN 2.5 MG TABLET PO SCH (21:44)
[2020-04-26] MEDS ORDERED: MIDAZOLAM HCL 5 MG/5 ML VIAL ONE ×3 (22:22→22:34)
--- NOTE | 2020-04-26 22:30 | NUR ---
Prone Position As per MD orders and following guidelines, patient was placed in prone position. tolerating well.
[2020-04-27] VITALS (33 sets, daily range): BP systolic 93–164
--- NOTE | 2020-04-27 00:30 | NUR ---
Assessment completed and repositioned for comfort as patient continues in prone position.
[2020-04-27] MEDS: PROPOFOL DRIP 100 ML IV PRN ×2 (04:02→16:26)
[2020-04-27] MEDS: MORPHINE I.V. DRIP 100 ML IV PRN (06:09)
[2020-04-27] MEDS: LEVOTHYROXINE SODIUM 0.075 MG TABLET PO SCH (06:11)
--- NOTE | 2020-04-27 07:15 | NUR ---
Opening note Received report from Bright YBARRA.
[2020-04-27 08:01] LABS: BASOPHILS # (AUTO) 0.1 K/uL (0.0-0.2); BASOPHILS % (AUTO) 0.4 % (0.0-2.0); EOSINOPHILS # (AUTO) 0.4 K/uL (0.0-0.4); EOSINOPHILS % (AUTO) 2.5 % (0.0-4.0); HEMATOCRIT 40.2 % (36-54); HEMOGLOBIN 13.2 g/dL (14.0-18.0); LYMPHOCYTES # (AUTO) 0.5 K/uL (1.0-5.5); LYMPHOCYTES % (AUTO) 2.8 % (20.5-51.5); MEAN CORPUSCULAR HEMOGLOBIN 30 pg (27-31); MEAN CORPUSCULAR HGB CONC 33 % (32-36); MEAN CORPUSCULAR VOLUME 91 fL (79.0-98.0); MONOCYTES # (AUTO) 0.2 K/uL (0.0-1.0); MONOCYTES % (AUTO) 1.2 % (1.7-9.3); NEUTROPHILS # (AUTO) 15.7 K/uL (1.8-7.7); NEUTROPHILS % (AUTO) 93.1 % (40.0-70.0); PLATELET COUNT (AUTO) 114 K/uL (130-430); RED BLOOD CELL COUNT(AUTO) 4.43 MIL/uL (4.2-6.2); RED CELL DISTRIBUTION WIDTH 16.5 % (9.0-15.0); WHITE BLOOD COUNT (AUTO) 16.8 K/uL (4.8-10.8)
[2020-04-27 08:18] LABS: CALCIUM 8.3 mg/dL (8.4-11.0); CREATININE 0.49 mg/dL (0.55-1.30); POTASSIUM 3.4 mmol/L (3.5-5.1)
[2020-04-27 08:29] LABS: ALBUMIN 2.5 g/dL (3.4-4.8)
[2020-04-27 08:34] LABS: TOTAL BILIRUBIN 1.5 mg/dL (0.0-1.0)
--- NOTE | 2020-04-27 09:20 | NUR ---
MD Rounds Dr. Wilson at bedside- updated on patient.
[2020-04-27] MEDS: CEFEPIME 0.5 GM in D5W 50 ML IV SCH ×2 (09:46→22:03)
[2020-04-27] MEDS: MICAFUNGIN SODIUM 100 MG in NS 100 ML IV SCH (09:46)
[2020-04-27] MEDS: methylPREDNISolone SOD SUCC 40 MG/ML VIAL IVP SCH ×2 (09:46→22:03)
[2020-04-27] MEDS: NACL 0.9% 1,000 ML IV SCH (09:46)
[2020-04-27] MEDS: ASCORBIC ACID 500 MG TABLET PO SCH (09:47)
[2020-04-27] MEDS: FAMOTIDINE PF 20 MG/2 ML VIAL IVP SCH ×2 (09:47→22:03)
[2020-04-27] MEDS: APIXABAN 2.5 MG TABLET PO SCH ×2 (09:48→22:05)
[2020-04-27] MEDS: CHOLECALCIFEROL (VITAMIN D3) 2,000 UNIT TABLET PO SCH (09:48)
[2020-04-27] MEDS: POTASSIUM CHLORIDE 20 MEQ/PKT PACKET PO SCH (09:48)
[2020-04-27] MEDS: TAMSULOSIN HCL 0.4 MG CAP PO SCH (09:49)
--- NOTE | 2020-04-27 10:00 | NUR ---
MD Rounds Dr. Pineda at bedside.
--- NOTE | 2020-04-27 12:40 | NUR ---
MD Rounds Dr. Ling at bedside- updated on patient. No new orders.
--- NOTE | 2020-04-27 14:37 | NUR ---
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 RN reported that pt has been tolerating TF well, no residual today. BM x2 noted 04/26; no BM yet today per RN report. RN stated that pt has no pending plans/procedures; anticipating physician to speak w/ pt's family about possible trach placement. Pt has been intubated since 04/11 -- 15 days w/ ETT to vent. Current TF regimen remains adequate/appropriate. Current Diet Order/Nutrition Support: Vital AF 1.2 at 80 ml/hr (while supine), Prosource TID, Free Water Flush: 50 ml Q6h via OGT -- 8 hours/day & Vital AF 1.2 at 10 ml/hr (while prone) via OGT -- 16 hours/day x5 days Provides: 1080 kcal/day, 90 gm protein/day, and 1009 ml free water/day Meets: 98% of lower end of estimated caloric needs and 101% of lower end of estimated protein needs Pertinent Medications: propofol at 15 ml/hr (396 kcal/day), solu-medrol, zinc sulfate, VIT C, VIT D3, synthroid, KCl packet Pertinent Labs: BG 88 WNL (improved), CRE 0.49 L, Na 135 L, K 3.4 L Skin Integrity: Cristhian Scale: 12; per Color Worker note 04/19: 1. Left Ear [place]: Scar tissue. No odor, no drainage. 2. Left Ear Lobule: Scar tissue. No odor, no drainage. 3. Right Ear: Blanchable red erythema. No odor, no drainage. Current % PO N/A, now on EN support Estimated Energy Expenditure (kcals/day) 4635-8267 kcal/day (15-20 kcal/kg CBW for COVID-19 Dz requiring ICU care per ASPEN/SCCM) Estimated Protein Required (g/day) 89-148 gm pro/day (1.2-2 gm protein/kg CBW for COVID-19 Dz requiring ICU care per ASPEN/SCCM) Estimated Fluid Required (l/day) 1.1-1.5 L/day (1 ml/kcal/day for maintenance) Problem/Etiology/Signs/Symptoms Inadequate oral/beverage intake r/t inadequate energy intake and decreased appetite AEB pt w/ no appetite and PO intake meets <75% of est needs x 4 days. *no longer applicable Altered nutrition related labs r/t medication interaction AEB elevated BG and steroid therapy. *ongoing Inadequate EN support related to metabolic demands as evidenced by estimated nutritional requirements for COVID-19 Dz requiring ICU care. (*ongoing) Expected Outcomes/Goals -Will monitor EN tolerance and intake w/ goal of pt meeting at least 80% of estimated nutritional needs, labs trending WNL, normal GI function, skin integrity, and weight maintenance. Dietitian Recommendations * Recommend continuing Vital AF 1.2 at 80 ml/hr (while supine), Prosource TID, Free Water Flush: 50 ml Q6h via OGT -- 8 hours/day * Recommend continuing Vital AF 1.2 at 10 ml/hr (while prone) via OGT -- 16 hours/day Total EN Support/Day Provides: 1080 kcal/day, 90 gm protein/day, 1009 ml free water/day Meets: 98% of lower end of estimated caloric needs and 101% of lower end of estimated protein needs. High Risk: F/U in 2-3 days
--- NOTE | 2020-04-27 14:48 | NUR ---
Dietitian Recommendations * Recommend continuing Vital AF 1.2 at 80 ml/hr (while supine), Prosource TID, Free Water Flush: 50 ml Q6h via OGT -- 8 hours/day * Recommend continuing Vital AF 1.2 at 10 ml/hr (while prone) via OGT -- 16 hours/day Total EN Support/Day Provides: 1080 kcal/day, 90 gm protein/day, 1009 ml free water/day Meets: 98% of lower end of estimated caloric needs and 101% of lower end of estimated protein needs. LP, RD Please refer to Nutrition F/U for details.
--- NOTE | 2020-04-27 15:30 | NUR ---
Witness Witness Nabor RN titrate Propofol to 25 mcg/kg/min.
[2020-04-27] MEDS: MIDAZOLAM HCL IN 0.9 % NACL/PF 50 ML IV PRN (16:24)
--- NOTE | 2020-04-27 16:29 | NUR ---
1550 ET TUBE PUSHED DOWN TO 25CM LL POST SUPINE PLACEMENT. SAT 92% VOLUMES ACHIEVED WILL CONT TO MONITOR. Addendum: 04/27/20 at 1631 by Arianne Albarran RT Amended: Links added.
--- NOTE | 2020-04-27 17:51 | NUR ---
1740 ETT PUSHED DOWN TO 28CM LL. SAT 94% VOLUMES ACHIEVED. WILL CONT TO MONITOR.
--- NOTE | 2020-04-27 18:00 | NUR ---
Witness Witness Nabor RN taper Propofol to 20 mcg/kg/min.
--- NOTE | 2020-04-27 19:30 | NUR ---
Opening note Received report and assumed care. Patient resting in bed on supine position. Isolation for droplet in place. Vent to ETT tolerating settings. Ferrara catheter draining urine to gravity. ISRAEL picc line patent. will continue to monitor as per unit protocol.
--- NOTE | 2020-04-27 19:36 | NUR ---
Closing note Report given to Bright YBARRA
--- NOTE | 2020-04-27 22:30 | NUR ---
Patient was placed on prone position following protocol and precautions. Karina RT at bedside for procedure. Patient tolerated well.
[2020-04-28] VITALS (36 sets, daily range): BP systolic 93–136
[2020-04-28 05:30] LABS: BASOPHILS % (AUTO) 0.2 % (0.0-2.0); EOSINOPHILS # (AUTO) 0.3 K/uL (0.0-0.4); EOSINOPHILS % (AUTO) 2.4 % (0.0-4.0); LYMPHOCYTES # (AUTO) 0.4 K/uL (1.0-5.5); LYMPHOCYTES % (AUTO) 2.6 % (20.5-51.5); MEAN CORPUSCULAR HEMOGLOBIN 31 pg (27-31); MEAN CORPUSCULAR HGB CONC 33 % (32-36); MEAN CORPUSCULAR VOLUME 91 fL (79.0-98.0); MONOCYTES # (AUTO) 0.2 K/uL (0.0-1.0); MONOCYTES % (AUTO) 1.2 % (1.7-9.3); NEUTROPHILS # (AUTO) 12.5 K/uL (1.8-7.7); NEUTROPHILS % (AUTO) 93.6 % (40.0-70.0); PLATELET COUNT (AUTO) 108 K/uL (130-430); RED BLOOD CELL COUNT(AUTO) 3.29 MIL/uL (4.2-6.2); RED CELL DISTRIBUTION WIDTH 16.4 % (9.0-15.0); WHITE BLOOD COUNT (AUTO) 13.3 K/uL (4.8-10.8)
[2020-04-28 05:52] LABS: ALBUMIN 1.9 g/dL (3.4-4.8); CREATININE 0.39 mg/dL (0.55-1.30); POTASSIUM 3.2 mmol/L (3.5-5.1)
[2020-04-28] MEDS: LEVOTHYROXINE SODIUM 0.075 MG TABLET PO SCH (06:25)
--- NOTE | 2020-04-28 07:20 | NUR ---
Opening note Received report from Bright YBARRA.
--- NOTE | 2020-04-28 07:27 | NUR ---
Received patient and endorsed report from [facility] shift nurse. Side rails x 3 up. Patient currently in prone position. Call light with in reach.
[2020-04-28] MEDS: methylPREDNISolone SOD SUCC 40 MG/ML VIAL IVP SCH ×2 (08:34→21:05)
[2020-04-28] MEDS: CEFEPIME 0.5 GM in D5W 50 ML IV SCH (08:35)
[2020-04-28] MEDS: POTASSIUM CHLORIDE 20 MEQ/PKT PACKET PO SCH (08:35)
[2020-04-28] MEDS: MICAFUNGIN SODIUM 100 MG in NS 100 ML IV SCH (08:35)
[2020-04-28] MEDS: APIXABAN 2.5 MG TABLET PO SCH ×2 (08:36→21:06)
[2020-04-28] MEDS: MIDAZOLAM HCL IN 0.9 % NACL/PF 50 ML IV PRN ×2 (08:37→15:05)
[2020-04-28] MEDS: TAMSULOSIN HCL 0.4 MG CAP PO SCH (08:37)
[2020-04-28] MEDS: CHOLECALCIFEROL (VITAMIN D3) 2,000 UNIT TABLET PO SCH (08:37)
[2020-04-28] MEDS: ASCORBIC ACID 500 MG TABLET PO SCH (08:37)
[2020-04-28] MEDS: FAMOTIDINE PF 20 MG/2 ML VIAL IVP SCH ×2 (08:38→21:05)
--- NOTE | 2020-04-28 09:40 | NUR ---
MD Rounds Dr. Pineda at bedside- updated on patient.
[2020-04-28] MEDS ORDERED: POTASSIUM CHLORIDE 40 MEQ in NS 250 ML IV ONE (09:45)
--- NOTE | 2020-04-28 09:46 | NUR ---
Informed MD Pineda potassium from morning labs 3.2, new order k-rider 40 mEq. Orders placed.
[2020-04-28] MEDS: cefTRIAXone 1 GM in D5W 50 ML IV SCH (10:08)
[2020-04-28] MEDS: NACL 0.9% 1,000 ML IV SCH (12:00)
--- NOTE | 2020-04-28 15:29 | NUR ---
Wound Re-Evaluation: Late note for 04/28/20 at 1529 secondary to patient care. Wound Consult ordered for Low Cristhian Score. Patient re-evaluated for a low Cristhian score of an 11. Patient was obtunded and received in a Lucas Bed with an Isoflex MARGAUX mattress with low air loss therapy initiated. Patient needs to be turned in bed. Skin assessment: 1. Left Ear [place]: Scab, 100% brown. No odor, no drainage. Scab measures 0.2 cm x 0.2 cm. 2. Left Ear Lobule: Scar tissue. No odor, no drainage. site measures 0.5 cm x 0.3 cm Recommend: Cover entire ear with foam dressing cut to size for protection. Secure with OpSite. Offload sites at all times with towel rolls. 3. Right Ear: Blanchable pink erythema. No odor, no drainage. Recommend continue: Cover entire ear with foam dressing cut to size for protection. Secure with OpSite. Patient tends to lie in a position where his ears are always on the bed. Try the following to project the ears: Placed towel folded into thirds underneath the patient's head. Fold another towel lengthwise into a thin band and slide underneath tri-folded towel and wrap around patient's head. Tape towel on the forehead to itself (do not apply tape to patient's skin). Adjust towel as needed to keep ears off of bed or other surfaces, and floating at all times. 4. Anterior Chest Ecchymosis. No odor, no drainage. 5. Anterior Right Lateral Neck and Right Pectoral areas: Ecchymosis. Dry abrasion with red tissue. No odor, no drainage. Recommend: No dressings needed. Continue to monitor sites qshift. Recommend reposition patient every 2 hours with pillow support. Elevate, off-load and float bilateral heels with one pillow lengthwise under each extremity at all times. Offload pressure areas with pillows for pressure re-distribution. Perform skin care and monitor skin integrity Q shift. Use moisture barrier cream on moisture susceptible areas QID and PRN for soiling. Maintain patient on a low air-loss mattress.
--- NOTE | 2020-04-28 15:57 | NUR ---
Witness nurse titrate Diprivan to 15 mcg/kg/min.
--- NOTE | 2020-04-28 16:00 | NUR ---
MD Rounds Dr. Wilson at bedside- updated on patient.
--- NOTE | 2020-04-28 16:31 | NUR ---
Witness nurse titrate Diprivan to 15 mcg/kg/min. Addendum: 04/28/20 at 1639 by Patt Ward RN incorrect time
--- NOTE | 2020-04-28 18:23 | NUR ---
Second witness nurse titrate drip to versed 4 mg/hr.
--- NOTE | 2020-04-28 19:13 | NUR ---
OPENING NOTE: RC'VD REPORT FROM AM RN VIA SBAR FORMAT, PATIENT IN BED IN NO ACUTE DISTRESS AND OR DISCOMFORT.
--- NOTE | 2020-04-28 19:17 | NUR ---
Closing Note Report given to Deann YBARRA.
[2020-04-28] MEDS: PROPOFOL DRIP 100 ML IV PRN (21:27)
--- NOTE | 2020-04-28 21:50 | NUR ---
RN Rounds: Patient remains to be sedated at this time. No signs of distress noted. Safety precautions enforced.
--- NOTE | 2020-04-28 22:30 | NUR ---
PRONE: PATIENT PRONED, TOLERATED WELL WITH NO ADVERSE EFFECT.
--- NOTE | 2020-04-28 22:53 | NUR ---
WITNESS Witnessed Jordyn, RN titrate Diprivan Drip to 20mcg/kg/min and Versed Drip to 5mg/hr.
--- NOTE | 2020-04-28 23:37 | NUR ---
RN Rounds: Patient in prone position, no signs of distress noted. Safety precautions enforced.
[2020-04-29] VITALS (33 sets, daily range): BP systolic 85–136
--- NOTE | 2020-04-29 01:18 | NUR ---
RN Rounds: Patient remains in prone position, no signs of acute distress and or discomfort noted. Bed in lowest locked position for safety, all safety precautions in place. Will continue to monitor at this time. RT at bedside performing vent check, patient continues on 90% FIO2 with saturation of 92% via monitor.
--- NOTE | 2020-04-29 03:12 | NUR ---
LOC: Patient is in bed with eyes closed, no response to voice, no spontaneous eye opening, withdraws to pain. No apparent distress present, all safety precautions in place.
[2020-04-29] MEDS: MIDAZOLAM HCL IN 0.9 % NACL/PF 50 ML IV PRN ×3 (03:42→23:13)
[2020-04-29] MEDS: MORPHINE I.V. DRIP 100 ML IV PRN ×2 (03:43→22:01)
--- NOTE | 2020-04-29 05:40 | NUR ---
RN ROUNDS: HEAD REPOSITIONED BY RT AND PRIMARY RN, BODY PLACED INTO PROPER ALIGNMENT, PT TOLERATED WELL WITH NO ACUTE DISTRESS AND DISCOMFORT NOTED.
[2020-04-29] MEDS: LEVOTHYROXINE SODIUM 0.075 MG TABLET PO SCH (06:21)
--- NOTE | 2020-04-29 06:37 | NUR ---
RN Rounds: Patient remains in prone position, no signs of distress noted, jamee-care performed, large loose BM, skin clean dry and intact, Safety precautions enforced.
--- NOTE | 2020-04-29 06:56 | NUR ---
Closing Notes Patient endorsed to AM shift RN using SBAR format. No signs of distress at this time.
--- NOTE | 2020-04-29 08:00 | NUR ---
AM ASSESSMENT. PT FACING SIDE , ON HIS STOMACH, VENTILATED, OGT TO FEEDING AT 10 ML PER HR, COVID 19, AFEBRILE, DIPRIVAN DRIP AT 20 MCG/KG/MIN, VERSED AT 5 MG PER HR, MORPHINE DRIP AT 5 MG PER HR. PLAYED HIS TAPE RECORDER CLOSE TO HIS EAR REQUESTED BY HIS FAMILY.
[2020-04-29] MEDS: FAMOTIDINE PF 20 MG/2 ML VIAL IVP SCH ×2 (08:18→20:13)
[2020-04-29] MEDS: CHOLECALCIFEROL (VITAMIN D3) 2,000 UNIT TABLET PO SCH (08:18)
[2020-04-29] MEDS: methylPREDNISolone SOD SUCC 40 MG/ML VIAL IVP SCH ×2 (08:18→20:13)
[2020-04-29] MEDS: ASCORBIC ACID 500 MG TABLET PO SCH (08:18)
[2020-04-29] MEDS: POTASSIUM CHLORIDE 20 MEQ/PKT PACKET PO SCH (08:19)
[2020-04-29] MEDS: TAMSULOSIN HCL 0.4 MG CAP PO SCH (08:19)
[2020-04-29] MEDS: APIXABAN 2.5 MG TABLET PO SCH ×2 (08:19→20:14)
[2020-04-29] MEDS: cefTRIAXone 1 GM in D5W 50 ML IV SCH (09:46)
[2020-04-29] MEDS: PROPOFOL DRIP 100 ML IV PRN ×2 (09:48→20:42)
[2020-04-29 10:05] LABS: BASOPHILS % (AUTO) 0.2 % (0.0-2.0); EOSINOPHILS % (AUTO) 0.1 % (0.0-4.0); HEMATOCRIT 33.6 % (36-54); HEMOGLOBIN 11.2 g/dL (14.0-18.0); LYMPHOCYTES # (AUTO) 0.4 K/uL (1.0-5.5); LYMPHOCYTES % (AUTO) 2.8 % (20.5-51.5); MEAN CORPUSCULAR HEMOGLOBIN 30 pg (27-31); MEAN CORPUSCULAR HGB CONC 33 % (32-36); MEAN CORPUSCULAR VOLUME 91 fL (79.0-98.0); MONOCYTES # (AUTO) 0.3 K/uL (0.0-1.0); MONOCYTES % (AUTO) 2.1 % (1.7-9.3); NEUTROPHILS # (AUTO) 14.2 K/uL (1.8-7.7); NEUTROPHILS % (AUTO) 94.8 % (40.0-70.0); PLATELET COUNT (AUTO) 154 K/uL (130-430); RED BLOOD CELL COUNT(AUTO) 3.69 MIL/uL (4.2-6.2); RED CELL DISTRIBUTION WIDTH 16.5 % (9.0-15.0)
[2020-04-29 10:28] LABS: ALBUMIN 2.1 g/dL (3.4-4.8); CALCIUM 8.3 mg/dL (8.4-11.0); CREATININE 0.35 mg/dL (0.55-1.30); POTASSIUM 4.4 mmol/L (3.5-5.1); TOTAL BILIRUBIN 0.9 mg/dL (0.0-1.0)
[2020-04-29 10:50] LABS: C-REACTIVE PROTEIN QUANT 17.3 mg/dL (0-0.5)
[2020-04-29] MEDS: NACL 0.9% 1,000 ML IV SCH (13:11)
[2020-04-29] MEDS ORDERED: COMMUNICATION ORDER XX ONE (14:15)
--- NOTE | 2020-04-29 14:30 | NUR ---
HYGIENE. PT HAD A LOOSE BOWEL MOVEMENT, GOOD PERINEAL CARE DONE, SHEETS CHANGED. MORE ICU STAFF CAME TO HELP IN TURNING AND BRINGING PATIENT TO HIS BACK, PILLOW PLACED TO SUPPORT HIS BACK AMD LEGS.
--- NOTE | 2020-04-29 14:52 | NUR ---
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 RD bedside visit was deferred d/t isolation precautions and PPE conservation efforts. RD spoke w/ pt's primary RN via phone call this afternoon -- RN reported that pt has been tolerating TF well, no residuals. She also confirmed administration of Prosource during her shift; RD verified that order is for Prosource TID. RN also confirmed water flush order of 50 ml Q6h. RN stated that pt has been having loose stools, however, she stated that she does not feel pt would benefit from Banatrol at this time as it is too thick to mix and pour into thin tubing. Pt may benefit from Timothy for lean muscle mass preservation. Note: pt has been intubated since 04/11 -- 17 days w/ ETT to vent -- trach may be done soon as per physician notes. Current TF regimen remains adequate/appropriate. Last recorded wt: 154#/70 kg (04/20) -- RD asked primary RN to weigh pt sometime today when convenient -- RN stated she would try to remember. Current Diet Order/Nutrition Support: Vital AF 1.2 at 80 ml/hr (while supine), Prosource TID, Free Water Flush: 50 ml Q6h via OGT -- 8 hours/day & Vital AF 1.2 at 10 ml/hr (while prone) via OGT -- 16 hours/day x7 days Provides: 1080 kcal/day, 90 gm protein/day, and 1009 ml free water/day Meets: 98% of lower end of estimated caloric needs and 101% of lower end of estimated protein needs Pertinent Medications: propofol at 8.818 ml/hr (233 kcal/day), solu-medrol, zinc sulfate, VIT C, VIT D3, synthroid, KCl packet Pertinent Labs: BG 118 H, CRE 0.35 L, Na 139 WNL (improved), K 4.4 L, WBC 15 H, CRP 17.3 H, ALB 2.1 L Skin Integrity: Cristhian Scale: 11; per [facility] note 04/19: 1. Left Ear [place]: Scar tissue. No odor, no drainage. 2. Left Ear Lobule: Scar tissue. No odor, no drainage. 3. Right Ear: Blanchable red erythema. No odor, no drainage. Current % PO N/A, now on EN support Estimated Energy Expenditure (kcals/day) 0524-2418 kcal/day (15-20 kcal/kg CBW for COVID-19 Dz requiring ICU care per ASPEN/SCCM) Estimated Protein Required (g/day) 89-148 gm pro/day (1.2-2 gm protein/kg CBW for COVID-19 Dz requiring ICU care per ASPEN/SCCM) Estimated Fluid Required (l/day) 1.1-1.5 L/day (1 ml/kcal/day for maintenance) Problem/Etiology/Signs/Symptoms Inadequate oral/beverage intake r/t inadequate energy intake and decreased appetite AEB pt w/ no appetite and PO intake meets <75% of est needs x 4 days. *no longer applicable Altered nutrition related labs r/t medication interaction AEB elevated BG and steroid therapy. *ongoing Inadequate EN support related to metabolic demands as evidenced by estimated nutritional requirements for COVID-19 Dz requiring ICU care. (*ongoing) Expected Outcomes/Goals -Will monitor EN tolerance and intake w/ goal of pt meeting at least 80% of estimated nutritional needs, labs trending WNL, normal GI function, skin integrity, and weight maintenance. Dietitian Recommendations * RecommendVital AF 1.2 at 80 ml/hr (while supine), Prosource TID, Timothy BID, Free Water Flush: 50 ml Q6h via OGT -- 8 hours/day * Recommend continuing Vital AF 1.2 at 10 ml/hr (while prone) via OGT -- 16 hours/day Total EN Support/Day Provides: 1240 kcal/day, 95 gm protein/day, 1009 ml free water/day Meets: 85% of upper end of estimated caloric needs and 107% of lower end of estimated protein needs High Risk: F/U in 2-3 days
--- NOTE | 2020-04-29 15:10 | NUR ---
Dietitian Recommendations * Recommend Vital AF 1.2 at 80 ml/hr (while supine), Prosource TID, Timothy BID, Free Water Flush: 50 ml Q6h via OGT -- 8 hours/day * Recommend continuing Vital AF 1.2 at 10 ml/hr (while prone) via OGT -- 16 hours/day Total EN Support/Day Provides: 1240 kcal/day, 95 gm protein/day, 1009 ml free water/day Meets: 85% of upper end of estimated caloric needs and 107% of lower end of estimated protein needs LP, RD Please refer to Nutrition F/U for details.
--- NOTE | 2020-04-29 16:24 | NUR ---
Case mgt: Remains intubated on mechanical vent w/FIO2 at 90%--per pulm notes, plan is recommending tracheostomy once FIO2 improves. ELIESER YBARRA
--- NOTE | 2020-04-29 17:00 | NUR ---
FAMILY. PT'S DAUGHTER AND HIS CAME IN. UPDATE GIVEN ON HIS CURRENT STATUS. TOOK THE TAPE RECORDER HOME TO RECORD NEW MESSAGES.
--- NOTE | 2020-04-29 19:24 | NUR ---
OPENING NOTE: REPORT RC'VD FROM AM RN USING SBAR FORMAT, PATIENT IN BED WITH NO SIGNS OF ACUTE DISTRESS PRESENT. ALL SAFETY PRECAUTIONS IN PLACE.
--- NOTE | 2020-04-29 22:30 | NUR ---
PRONED: Patient placed into prone position, no signs of acute distress and or discomfort noted. Bed in lowest locked position for safety, all safety precautions in place. Will continue to monitor at this time. RT at bedside performing vent check, patient continues on 90% FIO2 with saturation of 92% via monitor.
[2020-04-30] VITALS (35 sets, daily range): BP systolic 13–144
--- NOTE | 2020-04-30 01:15 | NUR ---
RN Rounds: Patient remains in prone position, no signs of acute distress and or discomfort noted. Bed in lowest locked position for safety, all safety precautions in place. Will continue to monitor at this time.
--- NOTE | 2020-04-30 03:28 | NUR ---
RN ROUNDS: HEAD REPOSITIONED BY PRIMARY RN, BODY PLACED INTO PROPER ALIGNMENT, PT TOLERATED WELL WITH NO ACUTE DISTRESS AND DISCOMFORT NOTED.
[2020-04-30] MEDS: LEVOTHYROXINE SODIUM 0.075 MG TABLET PO SCH (06:06)
--- NOTE | 2020-04-30 07:06 | NUR ---
Closing Notes Patient endorsed to AM shift RN using SBAR format. No signs of distress at this time.
--- NOTE | 2020-04-30 08:00 | NUR ---
AM ASSESSMENT. PT INTUBATED, PROPOFOL DRIP AT 20 MCG/KG/MIN, VERSED AND MORPHINE DRIP INFUSING, FACE TURNED TO THE SIDE, ETT AND OGT IN PLACE, FEEDING VIA GTUBE AT 10 ML PER HR, TOLERATING WELL, WILL CONTINUE TO MONITOR PT.
[2020-04-30] MEDS: FAMOTIDINE PF 20 MG/2 ML VIAL IVP SCH ×2 (09:04→20:24)
[2020-04-30] MEDS: POTASSIUM CHLORIDE 20 MEQ/PKT PACKET PO SCH (09:04)
[2020-04-30] MEDS: ASCORBIC ACID 500 MG TABLET PO SCH (09:04)
[2020-04-30] MEDS: methylPREDNISolone SOD SUCC 40 MG/ML VIAL IVP SCH ×2 (09:04→20:24)
[2020-04-30] MEDS: TAMSULOSIN HCL 0.4 MG CAP PO SCH (09:04)
[2020-04-30] MEDS: APIXABAN 2.5 MG TABLET PO SCH ×2 (09:08→20:24)
[2020-04-30] MEDS: CHOLECALCIFEROL (VITAMIN D3) 2,000 UNIT TABLET PO SCH (09:09)
[2020-04-30] MEDS: cefTRIAXone 1 GM in D5W 50 ML IV SCH (09:23)
--- NOTE | 2020-04-30 09:40 | NUR ---
HYGIENE. PT INCONTINENT OF BOWEL MOVEMENT, LOOSE STOOL, CLEANSED BUTTOCKS/RECTAL AREA WITH WET WIPES, MADE PT CLEAN.
--- NOTE | 2020-04-30 09:55 | NUR ---
RT NOTES With RN, repositioned pt's head, which he tolerated well. ETT remains secure, no resistance noted when sxn catheter was advanced. will monitor pt.
[2020-04-30] MEDS: MIDAZOLAM HCL IN 0.9 % NACL/PF 50 ML IV PRN (11:19)
[2020-04-30] MEDS: PROPOFOL DRIP 100 ML IV PRN (11:21)
[2020-04-30] MEDS: NACL 0.9% 1,000 ML IV SCH (13:37)
--- NOTE | 2020-04-30 14:10 | NUR ---
RT NOTES Assisted in unproning pt, ETT remains secure. FIO2 to .100 due to low saturation, improvement noted.
--- NOTE | 2020-04-30 14:15 | NUR ---
NURSING. CAREFULLY TURNED PATIENT TO HIS BACK, FACING SIDE, PILLOW UNDER UPPER AND LOWER EXTREMITIES AND TO HIS BACK, HEAD OF BED AT 35 DEGREE ANGLE, FEEDING INCREASED TO 80 ML PER HR, ABDOMEN NON DISTENDED, URINARY CATHETER DRAINING ADEQUATE AMOUNT OF URINE.
--- NOTE | 2020-04-30 16:15 | NUR ---
RT NOTES Pt's saturation 97%, FIO2 to 0.90. will monitor pt.
--- NOTE | 2020-04-30 18:19 | NUR ---
NURSING ROUNDS. REPOSITIONED PT, PROPOFOL DRIP AT 20 MCG/KG/MIN, VERSED AT 5 MG PER HR, MORPHINE DRIP AT 5 MG/HR, PICC INTACT TO RIGHT UPPER ARM.
--- NOTE | 2020-04-30 19:02 | NUR ---
OPENING NOTE: REPORT RC'VD FROM AM RN USING SBAR FORMAT, PATIENT IN BED WITH NO SIGNS OF ACUTE DISTRESS PRESENT. ALL SAFETY PRECAUTIONS IN PLACE.
--- NOTE | 2020-04-30 20:37 | NUR ---
RN ROUNDS: REPOSITIONED PT, PROPOFOL DRIP AT 20 MCG/KG/MIN, VERSED AT 5 MG PER HR, MORPHINE DRIP AT 5 MG/HR, ALL IV LINES CHANGED, PICC INTACT TO RIGHT UPPER ARM, DRESSING CLEAN DRY AND INTACT.
--- NOTE | 2020-04-30 22:00 | NUR ---
PRONING: PATIENT WAS PRONED BY RT AND 5 RN'S, RIGHT SHOULDER NOTED TO HAVE DECREASED ROM, UNABLE TO EXTEND ARM ABOVE HEAD WITH PRONING, HR TACHY 130-140S, RESP 26, OXYGEN SATURATION 90%, FIO2 ON 100%. PATIENT PLACED BACK INTO SUPINE POSITION. MD DR. IZQUIERDO PAGED R/T SHOULDER, PENDING RETURN CALL AT THIS TIME, CHARGE AWARE.
--- NOTE | 2020-04-30 22:15 | NUR ---
rt notes 2215 wasnt able to prone pt due to probable right shoulder dislocation. HR was at 130's and saturation at 88-89%. increased fio2 to 100%, sat still fluctuating. ett patent/secured. will continue to monitor pt. jacinta valle at bedside.
--- NOTE | 2020-04-30 22:34 | NUR ---
Witnessed RN change Diprivan gtt to 25 mcg/kg/min, Versed 6mg/hr, and Morphine 6mg/hr.
--- NOTE | 2020-04-30 22:48 | NUR ---
MD: NO RETURN CALL AT THIS TIME FROM DR. IZQUIERDO, PATIENT STABLE WITH HR 86 RRR, O2 92%, RESP 26. MONITORING AT THIS TIME, WILL KEEP PATIENT IN SUPINE AT THIS TIME.
[2020-05-01] VITALS (31 sets, daily range): BP systolic 91–138
--- NOTE | 2020-05-01 00:12 | NUR ---
RN ROUNDS: REPOSITIONED BY PRIMARY RN, BODY PLACED INTO PROPER ALIGNMENT, PT TOLERATED WELL WITH NO ACUTE DISTRESS AND DISCOMFORT NOTED.
--- NOTE | 2020-05-01 02:00 | NUR ---
RN Rounds: Repositioned for comfort, small loose BM noted, jamee-care preformed, pt tolerated well. All safety measures in place, bed in lowest locked position.
--- NOTE | 2020-05-01 03:30 | NUR ---
rt notes 0330 pt still on supine pos. titrated fio2 to 90%. saturaton 94%. pt tolerating well. no resp distress noted. rn leonard aware. will continue to monitor pt.
--- NOTE | 2020-05-01 04:58 | NUR ---
RN Rounds: No signs of acute distress and or discomfort noted. Bed in lowest locked position for safety, all safety precautions in place. Will continue to monitor at this time. RT at bedside performing vent check, patient continues on 90% FIO2 with saturation of 94% via monitor.
[2020-05-01] MEDS: MIDAZOLAM HCL IN 0.9 % NACL/PF 50 ML IV PRN ×3 (05:39→22:29)
[2020-05-01] MEDS: PROPOFOL DRIP 100 ML IV PRN ×2 (05:40→14:09)
[2020-05-01] MEDS: MORPHINE I.V. DRIP 100 ML IV PRN (05:40)
--- NOTE | 2020-05-01 05:44 | NUR ---
Witnessed RN change Diprivan gtt to 20mcg/kg/min, Versed to 5mg/hr, Morphine 5mg/hr.
--- NOTE | 2020-05-01 06:24 | NUR ---
RN Rounds: Oral care provided, patient repositioned for comfort, all safety checks in place bed in lowest locked position, patient stable at this time in no acute distress and or discomfort.
[2020-05-01] MEDS: LEVOTHYROXINE SODIUM 0.075 MG TABLET PO SCH (06:37)
--- NOTE | 2020-05-01 06:57 | NUR ---
Closing Notes: Patient endorsed to AM shift RN using SBAR format. No signs of distress at this time.
--- NOTE | 2020-05-01 07:15 | NUR ---
Opening note Received report from Tonja YBARRA. Pt remains intubated 7.5 ETT, 28 @lip, Pressure control FiO2 @90%, PEEP @8. Pt on Propofol, morphine, versed and NS.
--- NOTE | 2020-05-01 08:00 | NUR ---
MD Rounds Dr. Lopez at bedside- updated on patient.
[2020-05-01 08:58] LABS: BASOPHILS % (AUTO) 0.4 % (0.0-2.0); EOSINOPHILS # (AUTO) 0.1 K/uL (0.0-0.4); EOSINOPHILS % (AUTO) 0.8 % (0.0-4.0); HEMATOCRIT 32.7 % (36-54); HEMOGLOBIN 11.2 g/dL (14.0-18.0); LYMPHOCYTES # (AUTO) 0.4 K/uL (1.0-5.5); LYMPHOCYTES % (AUTO) 3.3 % (20.5-51.5); MEAN CORPUSCULAR HEMOGLOBIN 31 pg (27-31); MEAN CORPUSCULAR HGB CONC 34 % (32-36); MEAN CORPUSCULAR VOLUME 90 fL (79.0-98.0); MONOCYTES # (AUTO) 0.4 K/uL (0.0-1.0); MONOCYTES % (AUTO) 2.9 % (1.7-9.3); NEUTROPHILS # (AUTO) 11.5 K/uL (1.8-7.7); PLATELET COUNT (AUTO) 176 K/uL (130-430); RED BLOOD CELL COUNT(AUTO) 3.63 MIL/uL (4.2-6.2); RED CELL DISTRIBUTION WIDTH 15.8 % (9.0-15.0); WHITE BLOOD COUNT (AUTO) 12.4 K/uL (4.8-10.8)
[2020-05-01 09:14] LABS: CREATININE 0.39 mg/dL (0.55-1.30); POTASSIUM 3.3 mmol/L (3.5-5.1)
[2020-05-01 09:19] LABS: ALBUMIN 2.1 g/dL (3.4-4.8); TOTAL BILIRUBIN 0.6 mg/dL (0.0-1.0)
--- NOTE | 2020-05-01 09:30 | NUR ---
MD Rounds Dr. Pineda at bedside.
[2020-05-01] MEDS: cefTRIAXone 1 GM in D5W 50 ML IV SCH (09:54)
[2020-05-01] MEDS: methylPREDNISolone SOD SUCC 40 MG/ML VIAL IVP SCH ×2 (09:54→21:18)
[2020-05-01] MEDS: FAMOTIDINE PF 20 MG/2 ML VIAL IVP SCH ×2 (09:54→21:18)
[2020-05-01] MEDS: POTASSIUM CHLORIDE 20 MEQ/PKT PACKET PO SCH (09:54)
[2020-05-01] MEDS: CHOLECALCIFEROL (VITAMIN D3) 2,000 UNIT TABLET PO SCH (09:55)
[2020-05-01] MEDS: ASCORBIC ACID 500 MG TABLET PO SCH (09:55)
[2020-05-01] MEDS: TAMSULOSIN HCL 0.4 MG CAP PO SCH (09:55)
[2020-05-01] MEDS: APIXABAN 2.5 MG TABLET PO SCH ×2 (09:56→21:21)
--- NOTE | 2020-05-01 10:30 | NUR ---
Witness Witness Nabor RN titrate Propofol to 25 mcg/kg/min
--- NOTE | 2020-05-01 11:09 | NUR ---
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 RD spoke w/ pt's primary RN Nabor who reported that EN has been tolerated well, Prosource has been administered this morning and RN to administer Timothy at a later time. Propofol infusing at 30mcg/kg/min. Per EMR review, noted plan for trach placement once pt's FiO2 improves. Last BM was today x2. Current Diet Order/Nutrition Support: Vital AF 1.2 at 80 ml/hr (while supine), Prosource TID, Timothy BID Free Water Flush: 50 ml Q6h via OGT -- 8 hours/day & Vital AF 1.2 at 10 ml/hr (while prone) via OGT -- 16 hours/day x7 days Provides: 1300 kcal/day, 110 gm protein/day, and 939 ml free water/day Meets: 88% of upper end of estimated caloric needs and 74% of upper end of estimated protein needs Pertinent Medications: propofol at 12.6 ml/hr, solu-medrol, zinc sulfate, VIT C, VIT D3, synthroid, KCl packet, Eliquis Pertinent Labs: BG 118 H, CRE 0.35 L, Na 139 WNL (improved), K 4.4 L, WBC 15 H, CRP 17.3 H, ALB 2.1 L ---No new labs. Skin Integrity: Cristhian Scale: 11; per Ic Designer Gate Arrays note 04/19: 1. Left Ear [place]: Scar tissue. No odor, no drainage. 2. Left Ear [place]ob[place]: Scar tissue. No odor, no drainage. 3. Right Ear: Blanchable red erythema. No odor, no drainage. Current % PO N/A, now on EN support Estimated Energy Expenditure (kcals/day) 8983-0698 kcal/day (15-20 kcal/kg CBW for COVID-19 Dz requiring ICU care per ASPEN/SCCM) Estimated Protein Required (g/day) 89-148 gm pro/day (1.2-2 gm protein/kg CBW for COVID-19 Dz requiring ICU care per ASPEN/SCCM) Estimated Fluid Required (l/day) 1.1-1.5 L/day (1 ml/kcal/day for maintenance) Problem/Etiology/Signs/Symptoms Inadequate oral/beverage intake r/t inadequate energy intake and decreased appetite AEB pt w/ no appetite and PO intake meets <75% of est needs x 4 days. *no longer applicable Altered nutrition related labs r/t medication interaction AEB elevated BG and steroid therapy. *ongoing Inadequate EN support related to metabolic demands as evidenced by estimated nutritional requirements for COVID-19 Dz requiring ICU care. (*ongoing) Expected Outcomes/Goals -Will monitor EN tolerance and intake w/ goal of pt meeting at least 80% of estimated nutritional needs, labs trending WNL, normal GI function, skin integrity, and weight maintenance. Dietitian Recommendations * Recommend: continue: Vital AF 1.2 at 80 ml/hr (while supine), Prosource TID, Timothy BID, Free Water Flush: 50 ml Q6h via OGT -- 8 hours/day * Recommend continuing Vital AF 1.2 at 10 ml/hr (while prone) via OGT -- 16 hours/day Total EN Support/Day Provides: 1300 kcal/day, 110 gm protein/day, 939 ml free water/day Meets: 88% of upper end of estimated caloric needs and 74% of upper end of estimated protein needs High Risk: F/U in 2-3 days
--- NOTE | 2020-05-01 11:20 | NUR ---
Dietitian Recommendations * Recommend: continue: Vital AF 1.2 at 80 ml/hr (while supine), Prosource TID, Timothy BID, Free Water Flush: 50 ml Q6h via OGT -- 8 hours/day * Recommend continuing Vital AF 1.2 at 10 ml/hr (while prone) via OGT -- 16 hours/day Total EN Support/Day Provides: 1300 kcal/day, 110 gm protein/day, 939 ml free water/day Meets: 88% of upper end of estimated caloric needs and 74% of upper end of estimated protein needs Please see Nutrition F/U SHELTER, RD
[2020-05-01] MEDS: NACL 0.9% 1,000 ML IV SCH (12:00)
[2020-05-01 12:12] LABS: NEUTROPHILS % (AUTO) 92.6 % (40.0-70.0)
--- NOTE | 2020-05-01 13:40 | NUR ---
Witness Witness Nabor RN titrate Propofol to 30 mcg/kg/min.
[2020-05-01] MEDS: FLUCONAZOLE 200 mg/ NS 100 ML IV SCH (14:15)
--- NOTE | 2020-05-01 14:24 | NUR ---
P.T. NOTES P.T. EVAL COMPLETED; REFER TO EVAL FOR DETAILS.
[2020-05-01 17:10] LABS: BASOPHILS # (AUTO) 0.2 K/uL (0.0-0.2); BASOPHILS % (AUTO) 1.1 % (0.0-2.0); EOSINOPHILS % (AUTO) 0.4 % (0.0-4.0); HEMATOCRIT 32.1 % (36-54); HEMOGLOBIN 10.6 g/dL (14.0-18.0); LYMPHOCYTES # (AUTO) 0.2 K/uL (1.0-5.5); LYMPHOCYTES % (AUTO) 1.5 % (20.5-51.5); MEAN CORPUSCULAR HEMOGLOBIN 31 pg (27-31); MEAN CORPUSCULAR HGB CONC 33 % (32-36); MEAN CORPUSCULAR VOLUME 92 fL (79.0-98.0); MONOCYTES # (AUTO) 0.2 K/uL (0.0-1.0); MONOCYTES % (AUTO) 1.2 % (1.7-9.3); NEUTROPHILS # (AUTO) 12.7 K/uL (1.8-7.7); NEUTROPHILS % (AUTO) 95.8 % (40.0-70.0); PLATELET COUNT (AUTO) 173 K/uL (130-430); RED BLOOD CELL COUNT(AUTO) 3.49 MIL/uL (4.2-6.2); RED CELL DISTRIBUTION WIDTH 16.2 % (9.0-15.0); WHITE BLOOD COUNT (AUTO) 13.3 K/uL (4.8-10.8)
[2020-05-01 18:06] LABS: CALCIUM 7.8 mg/dL (8.4-11.0); CREATININE 0.47 mg/dL (0.55-1.30); POTASSIUM 3.9 mmol/L (3.5-5.1); TOTAL BILIRUBIN 0.4 mg/dL (0.0-1.0)
--- NOTE | 2020-05-01 19:12 | NUR ---
Closing note Report given to Morteza YBARRA.
--- NOTE | 2020-05-01 19:30 | NUR ---
Opening note: Report received from day RN. Assuming care now.
--- NOTE | 2020-05-01 22:00 | NUR ---
Patient placed in prone position. No incidents.
[2020-05-02] VITALS (32 sets, daily range): BP systolic 82–132
[2020-05-02] MEDS: MORPHINE I.V. DRIP 100 ML IV PRN ×2 (02:19→16:00)
--- NOTE | 2020-05-02 07:20 | NUR ---
Opening Received report from endorsing RN. Pt intubated on ventilator, currently prone position. Pt sedated with diprivan, morphine, and versed drips, unable to follow commands. No signs of pain or distress noted currently. Saturating in 90s with fiO2 90%. Noted ecchymosis on right neck and right shoulder. Ferrara draining yellow urine to gravity. Afebrile.
[2020-05-02] MEDS: cefTRIAXone 1 GM in D5W 50 ML IV SCH (08:04)
[2020-05-02] MEDS: APIXABAN 2.5 MG TABLET PO SCH ×2 (08:04→20:16)
[2020-05-02] MEDS: FAMOTIDINE PF 20 MG/2 ML VIAL IVP SCH ×2 (08:04→20:14)
[2020-05-02] MEDS: methylPREDNISolone SOD SUCC 40 MG/ML VIAL IVP SCH ×2 (08:04→20:14)
[2020-05-02] MEDS: ASCORBIC ACID 500 MG TABLET PO SCH (08:05)
[2020-05-02] MEDS: TAMSULOSIN HCL 0.4 MG CAP PO SCH (08:05)
[2020-05-02] MEDS: POTASSIUM CHLORIDE 20 MEQ/PKT PACKET PO SCH (08:06)
[2020-05-02] MEDS: CHOLECALCIFEROL (VITAMIN D3) 2,000 UNIT TABLET PO SCH (08:06)
[2020-05-02] MEDS: PROPOFOL DRIP 100 ML IV PRN ×2 (08:09→16:36)
--- NOTE | 2020-05-02 10:00 | NUR ---
Witnessed Diprivan titration to 30 mcgs/kgs/min on pump.
[2020-05-02] MEDS: MIDAZOLAM HCL IN 0.9 % NACL/PF 50 ML IV PRN ×3 (10:28→20:13)
[2020-05-02] MEDS: LEVOTHYROXINE SODIUM 0.075 MG TABLET PO SCH (11:29)
[2020-05-02] MEDS: NACL 0.9% 1,000 ML IV SCH (11:34)
--- NOTE | 2020-05-02 12:54 | NUR ---
1152 titrated fi02 to 80%. turned pt head to face rght. ett secure and patent. volumes achieved, will cont to monitor. Addendum: 05/02/20 at 1318 by Arianne Albarran RT Amended: Links added.
[2020-05-02] MEDS: FLUCONAZOLE 200 mg/ NS 100 ML IV SCH (14:00)
--- NOTE | 2020-05-02 14:30 | NUR ---
Patient placed in supine position from prone with respiratory and RN team. Tolerated well. Also performed jamee care.
--- NOTE | 2020-05-02 16:00 | NUR ---
Witnessed Diprivan titration to 25 mcgs/kgs/min on pump.
--- NOTE | 2020-05-02 16:00 | NUR ---
Witnessed versed infusing at 5mg/hr on the pump.
--- NOTE | 2020-05-02 16:00 | NUR ---
Witnessed Morphine titrated to 6mg/hr on pump.
--- NOTE | 2020-05-02 16:27 | NUR ---
1440 pt turned supine. air added to cuff. et tube retaped at 28cm ll. secure and patent. volumes achieved. Addendum: 05/02/20 at 1629 by Arianne Albarran RT Amended: Links added.
--- NOTE | 2020-05-02 18:13 | NUR ---
Witnessed diprivan infusing at 30 mcgs/kg/min , Morphine at 7 mg/hr and versed infusing at 6 mg/hr.
--- NOTE | 2020-05-02 18:13 | NUR ---
Closing/Titrate FiO2 Pt noted with fluctuating O2 saturation from between 78-90%. Titrated fiO2 to 95% as well as drips. Informed RT of change.
--- NOTE | 2020-05-02 19:30 | NUR ---
Opening note Received report and assumed care. Isolation for Covid19 in [address]. Vent to ETT tolerating settings on Pressure control. Patient sedated. ISRAEL picc in place and patent. Ferrara catheter draining to gravity. will continue to monitor as per unit protocol.
--- NOTE | 2020-05-02 22:15 | NUR ---
Proned Patient was placed in prone position following guidelines and precautions. RT at bedside. patient tolerated well.
[2020-05-03] VITALS (28 sets, daily range): BP systolic 87–135
--- NOTE | 2020-05-03 05:00 | NUR ---
FIO2 reduced to 80% by RT. Patient's O2 saturations 100% with previous settings.
[2020-05-03] MEDS: MIDAZOLAM HCL IN 0.9 % NACL/PF 50 ML IV PRN ×2 (05:03→14:52)
[2020-05-03] MEDS: LEVOTHYROXINE SODIUM 0.075 MG TABLET PO SCH (06:45)
--- NOTE | 2020-05-03 08:20 | NUR ---
RT NOTES Per RN, Dr De León changed FIO2 to 0.70
[2020-05-03] MEDS ORDERED: methylPREDNISolone SOD SUCC/PF 62.5 MG/ML VIAL IVP ONE (08:30)
--- NOTE | 2020-05-03 08:30 | NUR ---
Opening note: Received report and assumed care. Isolation for Covid19 in [address]. Vent to ETT 7.5 ssize, lipline 24.tolerating settings on Pressure control. 70% fio2 MD vigil changed setting earlier.Patient sedated. ISRAEL picc in place and patent. IVF and drips infusing. ogt vital AF @ 10ml/hr while prone position. q 4 hrs water flush. no residual noted. Ferrara catheter draining to gravity.yellow with sediment noted 250ml emptied. small pasty bm yellow/brownish noted.good pericare provided. will continue to monitor as per unit protocol.
[2020-05-03] MEDS: cefTRIAXone 1 GM in D5W 50 ML IV SCH (09:10)
[2020-05-03] MEDS: MORPHINE I.V. DRIP 100 ML IV PRN (09:10)
[2020-05-03] MEDS: ASCORBIC ACID 500 MG TABLET PO SCH (09:10)
[2020-05-03] MEDS: APIXABAN 2.5 MG TABLET PO SCH ×2 (09:10→21:00)
[2020-05-03] MEDS: CHOLECALCIFEROL (VITAMIN D3) 2,000 UNIT TABLET PO SCH (09:11)
[2020-05-03] MEDS: TAMSULOSIN HCL 0.4 MG CAP PO SCH (09:11)
[2020-05-03] MEDS: POTASSIUM CHLORIDE 20 MEQ/PKT PACKET PO SCH (09:11)
[2020-05-03] MEDS: FAMOTIDINE PF 20 MG/2 ML VIAL IVP SCH ×2 (09:11→21:00)
--- NOTE | 2020-05-03 10:05 | NUR ---
RT NOTES Assisted in repositioning pt's head. Ett remains secure, no resistance noted when sxn catheter was advanced.
[2020-05-03] MEDS: NACL 0.9% 1,000 ML IV SCH (11:55)
--- NOTE | 2020-05-03 14:05 | NUR ---
RT NOTES Assisted in unproning pt. ETt remains secure. FIO2 to .90 due to low saturation. Improvement noted.
--- NOTE | 2020-05-03 14:20 | NUR ---
Turn and reposition: Patient placed in supine position from prone with respiratory and RN team. Tolerated well. Also performed jamee care.
[2020-05-03] MEDS: methylPREDNISolone SOD SUCC/PF 62.5 MG/ML VIAL IVP SCH ×2 (14:48→22:00)
[2020-05-03] MEDS: FLUCONAZOLE 200 mg/ NS 100 ML IV SCH (14:48)
[2020-05-03] MEDS: PROPOFOL DRIP 100 ML IV PRN (14:51)
--- NOTE | 2020-05-03 15:45 | NUR ---
RT NOTES FIO2 to 0.70 per titration order. will monitor pt.
--- NOTE | 2020-05-03 16:30 | NUR ---
bladder scanner done. 625ml of urine noted. will informed MD. Addendum: 05/03/20 at 1727 by Regan Cat RN please disregard wrong entry to wrong patient.
--- NOTE | 2020-05-03 18:42 | NUR ---
notes: all needs mets, vss, afebrile. no s/s of distress,ivf and drips infusing. picc line patent, no swelling or infiltration. will endorsed to incoming nurse.
--- NOTE | 2020-05-03 19:00 | NUR ---
Opening note: Report received from day RN via SBAR format.
[2020-05-03] MEDS: metroNIDAZOLE 500 mg/NS 100 ML IV SCH (21:00)
[2020-05-04] VITALS (24 sets, daily range): BP systolic 83–144
--- NOTE | 2020-05-04 05:29 | NUR ---
APPLICATION SPEC DOWN: PAPER CHARTING COMPLETED AND PLACED INTO CHART
[2020-05-04] MEDS: methylPREDNISolone SOD SUCC/PF 62.5 MG/ML VIAL IVP SCH ×3 (05:33→20:56)
--- NOTE | 2020-05-04 05:42 | NUR ---
STOOL: STOOL SAMPLE COLLECTED AND SENT TO LAB
[2020-05-04] MEDS: LEVOTHYROXINE SODIUM 0.075 MG TABLET PO SCH (06:08)
[2020-05-04 06:44] LABS: BASOPHILS % (AUTO) 0.2 % (0.0-2.0); EOSINOPHILS % (AUTO) 0.2 % (0.0-4.0); HEMATOCRIT 36.2 % (36-54); HEMOGLOBIN 11.9 g/dL (14.0-18.0); LYMPHOCYTES # (AUTO) 0.5 K/uL (1.0-5.5); LYMPHOCYTES % (AUTO) 3.1 % (20.5-51.5); MEAN CORPUSCULAR HEMOGLOBIN 30 pg (27-31); MEAN CORPUSCULAR HGB CONC 33 % (32-36); MEAN CORPUSCULAR VOLUME 92 fL (79.0-98.0); MONOCYTES # (AUTO) 0.2 K/uL (0.0-1.0); MONOCYTES % (AUTO) 1.4 % (1.7-9.3); NEUTROPHILS # (AUTO) 14.5 K/uL (1.8-7.7); NEUTROPHILS % (AUTO) 95.1 % (40.0-70.0); PLATELET COUNT (AUTO) 256 K/uL (130-430); RED BLOOD CELL COUNT(AUTO) 3.94 MIL/uL (4.2-6.2); RED CELL DISTRIBUTION WIDTH 16.7 % (9.0-15.0); WHITE BLOOD COUNT (AUTO) 15.3 K/uL (4.8-10.8)
--- NOTE | 2020-05-04 07:28 | NUR ---
Opening Note Received plan of care via sbar from endorsing RN.
--- NOTE | 2020-05-04 08:15 | NUR ---
Dr. De León at bedside. Provided patient update. No new orders. Requested to speak to ID to see when isolation can be removed.
[2020-05-04] MEDS: ASCORBIC ACID 500 MG TABLET PO SCH (08:31)
[2020-05-04] MEDS: FAMOTIDINE PF 20 MG/2 ML VIAL IVP SCH ×2 (08:31→20:56)
[2020-05-04] MEDS: POTASSIUM CHLORIDE 20 MEQ/PKT PACKET PO SCH (08:31)
[2020-05-04] MEDS: TAMSULOSIN HCL 0.4 MG CAP PO SCH (08:31)
[2020-05-04] MEDS: metroNIDAZOLE 500 mg/NS 100 ML IV SCH ×2 (08:31→20:56)
[2020-05-04] MEDS: APIXABAN 2.5 MG TABLET PO SCH ×2 (08:32→20:53)
[2020-05-04] MEDS: CHOLECALCIFEROL (VITAMIN D3) 2,000 UNIT TABLET PO SCH (08:32)
[2020-05-04] MEDS: MIDAZOLAM HCL IN 0.9 % NACL/PF 50 ML IV PRN ×2 (08:52→17:58)
--- NOTE | 2020-05-04 10:40 | NUR ---
RT NOTES Repositioned pt's head w/ rn's help. ETT remains secure. No resistance noted when sxn catheter was advanced.
[2020-05-04] MEDS: cefTRIAXone 1 GM in D5W 50 ML IV SCH (10:56)
--- NOTE | 2020-05-04 11:49 | NUR ---
Dr. Ling at bedside. Discussed removal of droplet isolation. Per MD isolation is still required because patient is still symptomatic.
[2020-05-04] MEDS: NACL 0.9% 1,000 ML IV SCH (12:06)
--- NOTE | 2020-05-04 13:30 | NUR ---
Witnessed IV drip titration: Propofol drip titrated to 20 mc/kg/min.
--- NOTE | 2020-05-04 14:00 | NUR ---
Witnessed IV drip titration: Propofol drip titrated to 15 mcg/kg/min.
--- NOTE | 2020-05-04 14:00 | NUR ---
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 RD called and spoke w/ pt's primary RN. RN reported that pt is currently in supine position, receiving Vital AF at 80 ml/hr -- he reported pt has been tolerating TF well, and has received Prosource supplement, and pending Timothy supplement later today. He also confirmed pt's water flush order. RD asked RN to weigh pt for more current weight status; RN stated bedscale read 138.4# -- which is 15.6# less than last previously documented wt of 154# on 04/20. RD to update pt's wt via EMR. RN stated pt also had a BM today. RN stated pt is in the pre-planning stages for trach/PEG. Current TF regimen continues adequate/appropriate. Current Diet Order/Nutrition Support: Vital AF 1.2 at 80 ml/hr (while supine), Prosource TID, Timothy BID Free Water Flush: 50 ml Q6h via OGT -- 8 hours/day & Vital AF 1.2 at 10 ml/hr (while prone) via OGT -- 16 hours/day x5 days Provides: 1300 kcal/day, 110 gm protein/day, and 949 ml free water/day Meets: 88% of upper end of estimated caloric needs and 74% of upper end of estimated protein needs Pertinent Medications: propofol at 2.204 ml/hr (58 kcal/day), solu-medrol, zinc sulfate, VIT C, VIT D3, synthroid, KCl packet, Eliquis Pertinent Labs: 05/01: BG 151 H, CRE 0.47 L, K 3.9 WNL (improved), WBC 15.3 H, CRP 5.9 H, ALB 2 L Skin Integrity: Cristhian Scale: 13; per Safety Equipment Tester note 04/28: 1. Left Ear [place]: Scab, 100% brown. No odor, no drainage. 2. Left Ear [place]ob[place]: Scar tissue. 3. Right Ear: Blanchable pink erythema. No odor, no drainage. 4. Anterior Chest Ecchymosis. No odor, no drainage. Current % PO N/A, now on EN support Estimated Energy Expenditure (kcals/day) 0912-7543 kcal/day (15-20 kcal/kg CBW for COVID-19 Dz requiring ICU care per ASPEN/SCCM) Estimated Protein Required (g/day) 89-148 gm pro/day (1.2-2 gm protein/kg CBW for COVID-19 Dz requiring ICU care per ASPEN/SCCM) Estimated Fluid Required (l/day) 1.1-1.5 L/day (1 ml/kcal/day for maintenance) Problem/Etiology/Signs/Symptoms Inadequate oral/beverage intake r/t inadequate energy intake and decreased appetite AEB pt w/ no appetite and PO intake meets <75% of est needs x 4 days. *no longer applicable Altered nutrition related labs r/t medication interaction AEB elevated BG and steroid therapy. *ongoing Inadequate EN support related to metabolic demands as evidenced by estimated nutritional requirements for COVID-19 Dz requiring ICU care. (*ongoing) Expected Outcomes/Goals -Will monitor EN tolerance and intake w/ goal of pt meeting at least 80% of estimated nutritional needs, labs trending WNL, normal GI function, skin integrity, and weight maintenance. Dietitian Recommendations * Recommend: continue: Vital AF 1.2 at 80 ml/hr (while supine), Prosource TID, Timothy BID, Free Water Flush: 50 ml Q6h via OGT -- 8 hours/day * Recommend continuing Vital AF 1.2 at 10 ml/hr (while prone) via OGT -- 16 hours/day Total EN Support/Day Provides: 1300 kcal/day, 110 gm protein/day, 949 ml free water/day Meets: 88% of upper end of estimated caloric needs and 74% of upper end of estimated protein needs High Risk: F/U in 2-3 days Addendum: 05/04/20 at [address] *NOTE: 10% wt change within 2 weeks
--- NOTE | 2020-05-04 14:10 | NUR ---
Dietitian Recommendations * Recommend: continue: Vital AF 1.2 at 80 ml/hr (while supine), Prosource TID, Timothy BID, Free Water Flush: 50 ml Q6h via OGT -- 8 hours/day * Recommend continuing Vital AF 1.2 at 10 ml/hr (while prone) via OGT -- 16 hours/day Total EN Support/Day Provides: 1300 kcal/day, 110 gm protein/day, 949 ml free water/day Meets: 88% of upper end of estimated caloric needs and 74% of upper end of estimated protein needs LP, RD Please refer to Nutrition F/U for details.
[2020-05-04] MEDS: FLUCONAZOLE 200 mg/ NS 100 ML IV SCH (14:55)
[2020-05-04] MEDS: MORPHINE I.V. DRIP 100 ML IV PRN (17:35)
[2020-05-04] MEDS: PROPOFOL DRIP 100 ML IV PRN (17:37)
--- NOTE | 2020-05-04 19:26 | NUR ---
oPENING NOTE: Report received from previous nurse. Assuming care now.
--- NOTE | 2020-05-04 19:34 | NUR ---
Closing Note Provided plan of care via sbar from endorsing RN.
--- NOTE | 2020-05-04 22:00 | NUR ---
Patient proned without incident. RT here to support.
[2020-05-05] VITALS (30 sets, daily range): BP systolic 96–153
[2020-05-05] MEDS: MIDAZOLAM HCL IN 0.9 % NACL/PF 50 ML IV PRN ×3 (04:25→22:10)
[2020-05-05] MEDS: PROPOFOL DRIP 100 ML IV PRN ×2 (04:26→21:19)
[2020-05-05] MEDS: methylPREDNISolone SOD SUCC/PF 62.5 MG/ML VIAL IVP SCH ×3 (06:30→21:15)
--- NOTE | 2020-05-05 07:15 | NUR ---
OPENING NOTE SBAR REPORT RECEIVED FROM ALBAN YBARRA. CARE ASSUMED. PT LAYING IN BED. PT SEDATED AND INTUBATED. ETT SIZE 7.5 LIP LINE 26. VENT SETTINGS PRESSURE CONTROL 18, PEEP 8, FIO2 100%. PT SINUS RHYTHM ON MONITOR. PT HAS RUE PICC LINE RUNNING DIPRIVAN @ 15 MCG/KG/MIN, MORPHINE 5 MG/HR, VERSED @ 5 MG/HR AND NS @ 30 ML/HR. RADIAL AND PEDAL PULSES PRESENT. NO EDEMA NOTED. OG TUBE IN PLACE RUNNING VITAL AF @ 80 ML/HR. NO RESIDUAL NOTED. ABDOMEN SOFT NON DISTENDED. ALVARADO CATHETER IN PLACE FLOWING TO GRAVITY. CLEAR YELLOW URINE PRESENT IN ALVARADO BAG. BLEEDING TO UPPER LIP NOTED. BILATERAL HEEL BOOTS IN PLACE. DIFFUSE ECCHYMOSIS TO RIGHT AC. BED LOCKED IN LOWEST POSITION. CALL LIGHT WITHIN REACH. SAFETY PRECAUTIONS IN PLACE. WILL CONTINUE TO MONITOR.
--- NOTE | 2020-05-05 07:15 | NUR ---
Opening note Received report from Morteza YBARRA
[2020-05-05] MEDS: LEVOTHYROXINE SODIUM 0.075 MG TABLET PO SCH (07:28)
--- NOTE | 2020-05-05 08:00 | NUR ---
MD Regina De León at bedside- updated on patient. plan to do bronchoscopy today. Addendum: 05/05/20 at 1601 by Nabor Angelo RN Dr. De León titrated FiO2 to 80%
[2020-05-05] MEDS: CHOLECALCIFEROL (VITAMIN D3) 2,000 UNIT TABLET PO SCH (08:55)
[2020-05-05] MEDS: metroNIDAZOLE 500 mg/NS 100 ML IV SCH ×2 (08:55→21:13)
[2020-05-05] MEDS: POTASSIUM CHLORIDE 20 MEQ/PKT PACKET PO SCH (08:55)
[2020-05-05] MEDS: ASCORBIC ACID 500 MG TABLET PO SCH (08:56)
[2020-05-05] MEDS: TAMSULOSIN HCL 0.4 MG CAP PO SCH (08:56)
[2020-05-05] MEDS: FAMOTIDINE PF 20 MG/2 ML VIAL IVP SCH ×2 (08:56→21:14)
[2020-05-05] MEDS: APIXABAN 2.5 MG TABLET PO SCH ×2 (08:57→21:14)
--- NOTE | 2020-05-05 09:40 | NUR ---
RN Rounds RT at bedside to titrate FiO2 per Dr. De León order- FiO2 now 75%
--- NOTE | 2020-05-05 10:12 | NUR ---
MD Rounds Dr. Pineda at bedside- updated on patient and plan for bronchoscopy. No orders received.
[2020-05-05] MEDS: MORPHINE I.V. DRIP 100 ML IV PRN (11:02)
[2020-05-05] MEDS: NACL 0.9% 1,000 ML IV SCH (12:00)
[2020-05-05] MEDS: FLUCONAZOLE 200 mg/ NS 100 ML IV SCH (14:21)
--- NOTE | 2020-05-05 14:30 | NUR ---
RN Rounds Pt supined- RT at bedside for assistance.
[2020-05-05] MEDS ORDERED: ACETYLCYSTEINE 20% 4 ML VIAL (RT) INH ONE (15:00)
--- NOTE | 2020-05-05 15:00 | NUR ---
Procedure Dr. De León at bedside for bronchoscopy, pt FiO2 titrated to 100%. Per Dr. De León- remove ETT 1 cm. ETT now 27 @lip. Received order for stat CXR and Symbicort.
[2020-05-05] MEDS ORDERED: ACETYLCYSTEINE 20% 4 ML VIAL (RT) ONE (15:12)
--- NOTE | 2020-05-05 15:20 | NUR ---
Witness Witnessed Nabor titrate Propofol to 20 mcg/kg/min.
--- NOTE | 2020-05-05 16:00 | NUR ---
Wound Re-Evaluation: Late note for 05/05/20 at 1600 secondary to patient care. Patient is in a Bronchoscopy procedure. Integumentary assessment provided by AMADA Oscar. Patient re-evaluated for a low Cristhian score of an 11. Patient was obtunded and received in a Bond Bed with an Isoflex MARGAUX mattress with low air loss therapy initiated. Patient needs to be turned in bed. Skin assessment: 1. Left Ear [place]: Scab, 100% brown. No odor, no drainage. 2. Left Ear [place]: Scar tissue. No odor, no drainage. Recommend continue: Cover entire ear with foam dressing cut to size for protection. Secure with OpSite. Offload sites at all times with towel rolls. 3. Right Ear: Blanchable pink erythema. No odor, no drainage. Recommend continue: Cover entire ear with foam dressing cut to size for protection. Secure with OpSite. Patient tends to lie in a position where his ears are always on the bed. Try the following to project the ears: Placed towel folded into thirds underneath the patient's head. Fold another towel lengthwise into a thin band and slide underneath tri-folded towel and wrap around patient's head. Tape towel on the forehead to itself (do not apply tape to patient's skin). Adjust towel as needed to keep ears off of bed or other surfaces, and floating at all times. 4. Anterior Chest Ecchymosis. No odor, no drainage. 5. Anterior Right Lateral Neck and Right Pectoral areas: Ecchymosis. Dry abrasion with red tissue. No odor, no drainage. Recommend continue: No dressings needed. Continue to monitor sites qshift. Recommend continue: Reposition patient every 2 hours with pillow support. Elevate, off-load and float bilateral heels with one pillow lengthwise under each extremity at all times. Offload pressure areas with pillows for pressure re-distribution. Perform skin care and monitor skin integrity Q shift. Use moisture barrier cream on moisture susceptible areas QID and PRN for soiling. Maintain patient on a low air-loss mattress.
--- NOTE | 2020-05-05 16:40 | NUR ---
Witness Witness Nabor adjusting propofol to 15 mcg/kg/min and Versed to 5 mg/hr.
--- NOTE | 2020-05-05 18:45 | NUR ---
Witness Witness Nabor RN change Morphine to 5mg/hr
[2020-05-05] MEDS ORDERED: ALBUTEROL SULFATE 0.083% 2.5 MG/3 ML VIAL.NEB INH SCH (19:00)
--- NOTE | 2020-05-05 19:20 | NUR ---
Closing note Report given to Hina YBARRA.
[2020-05-05] MEDS ORDERED: BUDESONIDE/FORMOTEROL 160-4.5 mCg, 6 GM INHALER INH SCH (21:00)
[2020-05-05] MEDS: ALBUTEROL MDI INHALATION 8 GM INH INH SCH (21:14)
--- NOTE | 2020-05-05 22:50 | NUR ---
RN UPDATE PT UNSTABLE UNABLE TO PRONE. PT TACHYPNEIC AND TACHYCARDIC. WILL ATTEMPT TO PRONE AGAIN AT 0200. WILL CONTINUE TO MONITOR.
[2020-05-06] VITALS (36 sets, daily range): BP systolic 91–199
[2020-05-06] MEDS: MORPHINE I.V. DRIP 100 ML IV PRN ×2 (01:00→18:38)
[2020-05-06] MEDS: MIDAZOLAM HCL IN 0.9 % NACL/PF 50 ML IV PRN ×3 (02:05→22:30)
[2020-05-06 05:35] LABS: CALCIUM 7.9 mg/dL (8.4-11.0); CREATININE 0.41 mg/dL (0.55-1.30); POTASSIUM 4.2 mmol/L (3.5-5.1); TOTAL BILIRUBIN 0.5 mg/dL (0.0-1.0)
[2020-05-06 05:46] LABS: BASOPHILS % (AUTO) 0.2 % (0.0-2.0); HEMATOCRIT 36.8 % (36-54); HEMOGLOBIN 12.3 g/dL (14.0-18.0); LYMPHOCYTES # (AUTO) 0.4 K/uL (1.0-5.5); LYMPHOCYTES % (AUTO) 2.5 % (20.5-51.5); MEAN CORPUSCULAR HEMOGLOBIN 30 pg (27-31); MEAN CORPUSCULAR HGB CONC 33 % (32-36); MEAN CORPUSCULAR VOLUME 91 fL (79.0-98.0); MONOCYTES # (AUTO) 0.2 K/uL (0.0-1.0); MONOCYTES % (AUTO) 1.6 % (1.7-9.3); NEUTROPHILS # (AUTO) 15.2 K/uL (1.8-7.7); NEUTROPHILS % (AUTO) 95.7 % (40.0-70.0); PLATELET COUNT (AUTO) 290 K/uL (130-430); RED BLOOD CELL COUNT(AUTO) 4.03 MIL/uL (4.2-6.2); RED CELL DISTRIBUTION WIDTH 16.1 % (9.0-15.0); WHITE BLOOD COUNT (AUTO) 15.8 K/uL (4.8-10.8)
[2020-05-06] MEDS: LEVOTHYROXINE SODIUM 0.075 MG TABLET PO SCH (06:06)
[2020-05-06] MEDS: methylPREDNISolone SOD SUCC/PF 62.5 MG/ML VIAL IVP SCH ×2 (06:07→13:56)
--- NOTE | 2020-05-06 07:15 | NUR ---
Opening note Received report from Jesica YBARRA.
--- NOTE | 2020-05-06 07:40 | NUR ---
CLOSING NOTE PT IN PRONE POSITION. NO SIGNS OR SYMPTOMS OF DISTRESS NOTED. SBAR REPORT GIVEN TO ALBAN YBARRA. CARE ENDORSED
--- NOTE | 2020-05-06 07:50 | NUR ---
MD Rounds Dr. De León at bedside- updated on patient. Notified her of vomiting last night when proning patient. verbal order to restart tubefeeding and change positioning to prone for 12 hours and supine 12 hours.
--- NOTE | 2020-05-06 07:55 | NUR ---
TITRATED FIO2 DOWN TO 80%. SPO2 96%, HR 68.
[2020-05-06] MEDS: POTASSIUM CHLORIDE 20 MEQ/PKT PACKET PO SCH (08:25)
[2020-05-06] MEDS: metroNIDAZOLE 500 mg/NS 100 ML IV SCH ×2 (08:25→22:00)
[2020-05-06] MEDS: CHOLECALCIFEROL (VITAMIN D3) 2,000 UNIT TABLET PO SCH (08:26)
[2020-05-06] MEDS: FAMOTIDINE PF 20 MG/2 ML VIAL IVP SCH ×2 (08:26→22:00)
[2020-05-06] MEDS: APIXABAN 2.5 MG TABLET PO SCH ×2 (08:26→22:01)
[2020-05-06] MEDS: TAMSULOSIN HCL 0.4 MG CAP PO SCH (08:26)
[2020-05-06] MEDS: ASCORBIC ACID 500 MG TABLET PO SCH (08:26)
[2020-05-06] MEDS: ALBUTEROL MDI INHALATION 8 GM INH INH SCH ×3 (09:00→20:07)
--- NOTE | 2020-05-06 10:02 | NUR ---
MD Rounds Dr. Pineda at bedside- updated on patient. Notified him of coffee ground drainage from NGT. No new orders at this time.
--- NOTE | 2020-05-06 11:30 | NUR ---
TITRATED FIO2 DOWN TO 70%. SPO2 93%, HR 59.
--- NOTE | 2020-05-06 11:54 | NUR ---
DIANE HDEZ Addendum: 05/06/20 at 1154 by Pamela Gaston NE/
--- NOTE | 2020-05-06 11:56 | NUR ---
MD Communication Received call from Dr. De León- notified of ABG results. No new orders.
[2020-05-06] MEDS: NACL 0.9% 1,000 ML IV SCH (12:00)
[2020-05-06] MEDS: FLUCONAZOLE 200 mg/ NS 100 ML IV SCH (13:56)
--- NOTE | 2020-05-06 14:25 | NUR ---
HIGH ALERT NOTE: Called Dr. De León back, identified within the medical roster to verify physician authenticity.
[2020-05-06] MEDS ORDERED: ALBUTEROL MDI INHALATION 8 GM INH INH SCH (15:30)
--- NOTE | 2020-05-06 16:40 | NUR ---
RN Rounds Pt desaturating to 87%- RT titrating FiO2 to 90%. Pt now with SpO2 93%.
--- NOTE | 2020-05-06 18:00 | NUR ---
Witness Witness Nabor RN titrate Versed to 4mg/hr.
--- NOTE | 2020-05-06 18:30 | NUR ---
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 RD spoke w/ pt's primary RN in ICU nursing station. RN reported that pt had some coffee-ground emesis from NGT, and that pt had a lot of BM last night. Per EMR review, plans for bronchoscopy to r/o mucus plugging per consulting manager; TF Intakes: 230 ml 05/06; GRV: 35 ml 05/06; abd is soft and non-distended w/ active bowel sounds; last BM x1 05/06. RN also reported that consulting manager would like for pt to be supine/prone 12 hours/day each to increase pt's nutrition, therefore, TF will be running at 80 ml/hr x12 hours and 10 ml/hr x12 hours starting today. RD input most recent bedscale wt that was taken by bedside RN on 05/04: 138#/63 kg. Current TF regimen continues adequate/appropriate. Current Diet Order/Nutrition Support: Vital AF 1.2 at 80 ml/hr (while supine), Prosource TID, Timothy BID Free Water Flush: 50 ml Q6h via OGT -- 8 hours/day & Vital AF 1.2 at 10 ml/hr (while prone) via OGT -- 16 hours/day x7 days Provides: 1300 kcal/day, 110 gm protein/day, and 949 ml free water/day Meets: 88% of upper end of estimated caloric needs and 74% of upper end of estimated protein needs Pertinent Medications: propofol, solu-medrol, zinc sulfate, VIT C, VIT D3, eliquis, pepcid Pertinent Labs: BG 135 H, CRE 0.41 L, WBC 15.8 H, CRP 5.9 H, ALB 2 L Skin Integrity: Cristhian Scale: 11; per Spar Finisher note 05/05: 1. Left Ear [place]: Scab, 100% brown. 2. Left Ear [place]: Scar tissue. No odor, no drainage. 3. Right Ear: Blanchable pink erythema. No odor, no drainage. 4. Anterior Chest Ecchymosis. No odor, no drainage. 5. Anterior Right Lateral Neck and Right Pectoral areas: Ecchymosis. Current % PO N/A, now on EN support Estimated Energy Expenditure (kcals/day) 7055-7491 kcal/day (15-20 kcal/kg CBW for COVID-19 Dz requiring ICU care per ASPEN/SCCM) Estimated Protein Required (g/day) 89-148 gm pro/day (1.2-2 gm protein/kg CBW for COVID-19 Dz requiring ICU care per ASPEN/SCCM) Estimated Fluid Required (l/day) 1.1-1.5 L/day (1 ml/kcal/day for maintenance) Problem/Etiology/Signs/Symptoms Inadequate oral/beverage intake r/t inadequate energy intake and decreased appetite AEB pt w/ no appetite and PO intake meets <75% of est needs x 4 days. *no longer applicable Altered nutrition related labs r/t medication interaction AEB elevated BG and steroid therapy. *ongoing Inadequate EN support related to metabolic demands as evidenced by estimated nutritional requirements for COVID-19 Dz requiring ICU care. (*ongoing) Expected Outcomes/Goals -Will monitor EN tolerance and intake w/ goal of pt meeting at least 80% of estimated nutritional needs, labs trending WNL, normal GI function, skin integrity, and weight maintenance. Dietitian Recommendations * Recommend Vital AF 1.2 at 80 ml/hr (while supine), Prosource TID, Timothy BID, Free Water Flush: 50 ml Q6h via OGT -- 12 hours/day * Recommend Vital AF 1.2 at 10 ml/hr (while prone) via OGT -- 12 hours/day Total EN Support/Day Provides: 1636 kcal/day, 131 gm protein/day, 1176 ml free water/day Meets: 111% of upper end of estimated caloric needs and 89% of upper end of estimated protein needs High Risk: F/U in 2-3 days Addendum: 05/06/20 at [address] RN verified supplements/modulars and water flush orders. Pt was seen through glass window receiving Vital AF 1.2 at 10 ml/hr while prone.
--- NOTE | 2020-05-06 18:37 | NUR ---
Dietitian Recommendations * Recommend Vital AF 1.2 at 80 ml/hr (while supine), Prosource TID, Timothy BID, Free Water Flush: 50 ml Q6h via OGT -- 12 hours/day * Recommend Vital AF 1.2 at 10 ml/hr (while prone) via OGT -- 12 hours/day Total EN Support/Day Provides: 1636 kcal/day, 131 gm protein/day, 1176 ml free water/day Meets: 111% of upper end of estimated caloric needs and 89% of upper end of estimated protein needs LP, RD Please refer to Nutrition F/U for details.
--- NOTE | 2020-05-06 19:20 | NUR ---
OPENING NOTE SBAR REPORT RECEIVED FROM ALBAN YBARRA. CARE ASSUMED. PT LAYING IN BED. PT SEDATED AND INTUBATED. ETT SIZE 7.5 LIP LINE 26. VENT SETTINGS PRESSURE CONTROL 18, PEEP 8, FIO2 90%. PT SINUS RHYTHM ON MONITOR. PT HAS RUE PICC LINE RUNNING DIPRIVAN @ 15 MCG/KG/MIN, MORPHINE 5 MG/HR, VERSED @ 5 MG/HR AND NS @ 30 ML/HR. RADIAL AND PEDAL PULSES PRESENT. NO EDEMA NOTED. OG TUBE IN PLACE RUNNING VITAL AF @ 80 ML/HR. NO RESIDUAL NOTED. ABDOMEN SOFT NON DISTENDED. ALVARADO CATHETER IN PLACE FLOWING TO GRAVITY. CLEAR YELLOW URINE PRESENT IN ALVARADO BAG. BLEEDING TO UPPER LIP NOTED. BILATERAL HEEL BOOTS IN PLACE. DIFFUSE ECCHYMOSIS TO RIGHT AC. BED LOCKED IN LOWEST POSITION. CALL LIGHT WITHIN REACH. SAFETY PRECAUTIONS IN PLACE. WILL CONTINUE TO MONITOR. Addendum: 05/06/20 at 2007 by Celina Guerin RN PT COVID (+). ISOLATION PRECAUTIONS INITIATED.
--- NOTE | 2020-05-06 19:24 | NUR ---
Closing note Report given to Jesica YBARRA.
[2020-05-06] MEDS: BUDESONIDE 0.5 MG/2 ML AMPUL.NEB INH SCH (20:06)
[2020-05-06] MEDS ORDERED: methylPREDNISolone SOD SUCC/PF 62.5 MG/ML VIAL IVP SCH (21:00)
[2020-05-07] VITALS (32 sets, daily range): BP systolic 83–112
[2020-05-07] MEDS: ALBUTEROL MDI INHALATION 8 GM INH INH SCH ×3 (01:40→19:38)
--- NOTE | 2020-05-07 02:00 | NUR ---
RN UPDATE PT PLACED IN PRONE POSITION. PT TOLERATED PROCEDURE WELL. WILL CONTINUE TO MONITOR.
[2020-05-07] MEDS ORDERED: MIDAZOLAM HCL IN 0.9 % NACL/PF 50 ML IV ONE (04:57)
[2020-05-07] MEDS: MIDAZOLAM HCL IN 0.9 % NACL/PF 50 ML IV PRN ×3 (05:00→19:59)
[2020-05-07] MEDS: LEVOTHYROXINE SODIUM 0.075 MG TABLET PO SCH (06:43)
--- NOTE | 2020-05-07 07:15 | NUR ---
Opening note Received report from Jesica YBARRA. Pt is proned, FiO2 @100%, SpO2 @100%
--- NOTE | 2020-05-07 07:16 | NUR ---
CLOSING NOTE PT PRONE. NO SIGNS OR SYMPTOMS OF DISTRESS NOTED. SBAR REPORT GIVEN TO ALBAN YBARRA. CARE ENDORSED.
--- NOTE | 2020-05-07 07:50 | NUR ---
MD Rounds Dr. De Lóen at bedside- updated on patient. Verbal orders received for daily CBC, CMP, CXR (supined) as needed.
--- NOTE | 2020-05-07 08:00 | NUR ---
RN Rounds RT at bedside for breathing tx. FiO2 titrated down to 75%. SpO2 now 93%.
[2020-05-07] MEDS: POTASSIUM CHLORIDE 20 MEQ/PKT PACKET PO SCH (09:06)
[2020-05-07] MEDS: CHOLECALCIFEROL (VITAMIN D3) 2,000 UNIT TABLET PO SCH (09:07)
[2020-05-07] MEDS: ASCORBIC ACID 500 MG TABLET PO SCH (09:16)
[2020-05-07] MEDS: TAMSULOSIN HCL 0.4 MG CAP PO SCH (09:16)
[2020-05-07] MEDS: FAMOTIDINE PF 20 MG/2 ML VIAL IVP SCH ×2 (09:16→20:05)
[2020-05-07] MEDS: metroNIDAZOLE 500 mg/NS 100 ML IV SCH ×2 (09:17→21:41)
[2020-05-07] MEDS: APIXABAN 2.5 MG TABLET PO SCH ×2 (09:18→20:06)
[2020-05-07] MEDS: PROPOFOL DRIP 100 ML IV PRN ×2 (09:19→19:56)
[2020-05-07] MEDS: MORPHINE I.V. DRIP 100 ML IV PRN ×2 (09:21→19:56)
[2020-05-07] MEDS ORDERED: methylPREDNISolone SOD SUCC 40 MG/ML VIAL IVP ONE (09:30)
[2020-05-07] MEDS: BUDESONIDE 0.5 MG/2 ML AMPUL.NEB INH SCH ×2 (10:00→19:39)
[2020-05-07 10:47] LABS: BASOPHILS % (AUTO) 0.1 % (0.0-2.0); EOSINOPHILS % (AUTO) 0.2 % (0.0-4.0); HEMATOCRIT 37.6 % (36-54); HEMOGLOBIN 12.3 g/dL (14.0-18.0); LYMPHOCYTES # (AUTO) 0.5 K/uL (1.0-5.5); LYMPHOCYTES % (AUTO) 2.3 % (20.5-51.5); MEAN CORPUSCULAR HEMOGLOBIN 30 pg (27-31); MEAN CORPUSCULAR HGB CONC 33 % (32-36); MEAN CORPUSCULAR VOLUME 91 fL (79.0-98.0); MONOCYTES # (AUTO) 0.1 K/uL (0.0-1.0); MONOCYTES % (AUTO) 0.7 % (1.7-9.3); NEUTROPHILS # (AUTO) 19.4 K/uL (1.8-7.7); NEUTROPHILS % (AUTO) 96.7 % (40.0-70.0); PLATELET COUNT (AUTO) 277 K/uL (130-430); RED BLOOD CELL COUNT(AUTO) 4.11 MIL/uL (4.2-6.2); RED CELL DISTRIBUTION WIDTH 16.4 % (9.0-15.0)
[2020-05-07 10:56] LABS: ALBUMIN 2.1 g/dL (3.4-4.8); CALCIUM 7.7 mg/dL (8.4-11.0); CREATININE 0.39 mg/dL (0.55-1.30); PHOSPHORUS 2.3 mg/dL (2.7-4.5); TOTAL BILIRUBIN 0.7 mg/dL (0.0-1.0)
[2020-05-07] MEDS: NACL 0.9% 1,000 ML IV SCH (12:08)
[2020-05-07] MEDS: FLUCONAZOLE 200 mg/ NS 100 ML IV SCH (14:00)
--- NOTE | 2020-05-07 14:10 | NUR ---
Witness Witness Nabor RN titrate Propofol to 15 mcg/kg/min.
--- NOTE | 2020-05-07 16:11 | NUR ---
PAGED PAGED EREN CHAN AT [phone] SPOKE WITH PONCE.
[2020-05-07] MEDS ORDERED: POTASSIUM CHLORIDE 40 MEQ in NS 250 ML IV ONE (16:15)
--- NOTE | 2020-05-07 16:15 | NUR ---
HIGH ALERT NOTE: Called Dr. Pineda back, identified within the medical roster to verify physician authenticity. Received order by [facility]OR[facility] for 40 mEq k-rider.
--- NOTE | 2020-05-07 19:12 | NUR ---
Closing note Report given to Paulo YBARRA.
--- NOTE | 2020-05-07 20:00 | NUR ---
Opening Note: Pt report received. Pt supine, sedated, with mechanical ventilations in progress. ETT 7.5 at 26 to lip line. Vent Settings: Pressure Control, 18, FiO2 90%, PEEP 8. OGT secure with Vital A/F 1.2 mL/Hr at 80 mL/hr, but turned off r/t residual of 350 mL partially digested stomach contents. RUE PICC patent and secure with Morphine and Versed both infusing at 6 mg/hr and Propofol at 15 mcg/kg/min. Potassium Chloride 40 mEq continues to infuse from previous shift with primary IVFs of NS at 30 mL/hr. F/C draining yellow and turbid urine. Eccymosis noted to upper chest. Cap refil < 3 sec to nail beds of all extremities. Bilatateral heel boots in place with pillow support. Addendum: 05/07/20 at 2236 by Paulo Wilhelm RN Vent settings: Rate 24.
[2020-05-07] MEDS: methylPREDNISolone SOD SUCC 40 MG/ML VIAL IVP SCH (20:04)
--- NOTE | 2020-05-07 20:10 | NUR ---
Pt coughing and moving extremities. Propofol increased to 20 mcg/kg/min. Pt becomes calm.
--- NOTE | 2020-05-07 20:15 | NUR ---
Pt coughing and moving extremities. Propofol increased to 25 mcg/kg/min. Pt becomes calm.
--- NOTE | 2020-05-07 20:30 | NUR ---
Pt desaturated to low 80s with reposition attempt. Pt coughing, no secretions suctioned per ETT. FiO2 increased to 100%, then SPO2 increases to 94%. RT aware. Propofol titrated to 30 mcg/kg/min. Pt now calm with NAD.
[2020-05-07] MEDS ORDERED: methylPREDNISolone SOD SUCC 40 MG/ML VIAL IVP SCH (21:00)
--- NOTE | 2020-05-07 21:30 | NUR ---
Pt resting comfortably. Propofol titrated to 25 mcg/kg/min. Titrated FiO2 to 98%, maintaining SPO2 at 91%. RT aware.
--- NOTE | 2020-05-07 22:00 | NUR ---
Tube feeding remains off r/t no change in residual amount of 350 mL.
[2020-05-08] VITALS (34 sets, daily range): BP systolic 83–127
[2020-05-08] MEDS: PROPOFOL DRIP 100 ML IV PRN ×2 (00:46→09:29)
[2020-05-08] MEDS: ALBUTEROL MDI INHALATION 8 GM INH INH SCH ×4 (01:08→19:43)
--- NOTE | 2020-05-08 02:30 | NUR ---
Small brown and mushy BM. Pt cleaned and CHG given. Dsg to sacrum clean, dry, intact. Clean gown, chucks, and linens placed. Pt tolerated well.
--- NOTE | 2020-05-08 02:40 | NUR ---
Pt to Prone position, tolerated well. Improvement noted to SPO2. OGT residual 20 mL digested stomach contents. H2O 50 mL flush given and OGT feedings of Vital A/F 1.2 now at 10 mL/hr.
--- NOTE | 2020-05-08 02:50 | NUR ---
FiO2 decreased to 80% per RT. SPO2 at 95%. VSS, NAD.
[2020-05-08] MEDS: MIDAZOLAM HCL IN 0.9 % NACL/PF 50 ML IV PRN ×4 (03:51→18:33)
[2020-05-08] MEDS: MORPHINE I.V. DRIP 100 ML IV PRN (03:53)
--- NOTE | 2020-05-08 04:50 | NUR ---
B/P 98/63, P 65. Pt resting calmly. Propofol decreased to 20 mcg/kg/min.
[2020-05-08] MEDS: LEVOTHYROXINE SODIUM 0.075 MG TABLET PO SCH (06:18)
--- NOTE | 2020-05-08 06:20 | NUR ---
B/P 83/53, HR 64, SPO2 93%. Pt resting calmly. Propofol decreased to 15 mcg/kg/min.
[2020-05-08 06:46] LABS: BASOPHILS # (AUTO) 0.1 K/uL (0.0-0.2); BASOPHILS % (AUTO) 0.4 % (0.0-2.0); HEMATOCRIT 35.1 % (36-54); HEMOGLOBIN 11.4 g/dL (14.0-18.0); LYMPHOCYTES # (AUTO) 0.3 K/uL (1.0-5.5); LYMPHOCYTES % (AUTO) 1.5 % (20.5-51.5); MEAN CORPUSCULAR HEMOGLOBIN 30 pg (27-31); MEAN CORPUSCULAR HGB CONC 33 % (32-36); MEAN CORPUSCULAR VOLUME 92 fL (79.0-98.0); MONOCYTES # (AUTO) 0.2 K/uL (0.0-1.0); MONOCYTES % (AUTO) 1.1 % (1.7-9.3); NEUTROPHILS # (AUTO) 18.8 K/uL (1.8-7.7); PLATELET COUNT (AUTO) 255 K/uL (130-430); RED BLOOD CELL COUNT(AUTO) 3.82 MIL/uL (4.2-6.2); RED CELL DISTRIBUTION WIDTH 16.6 % (9.0-15.0); WHITE BLOOD COUNT (AUTO) 19.4 K/uL (4.8-10.8)
[2020-05-08 07:02] LABS: ALBUMIN 1.8 g/dL (3.4-4.8); CALCIUM 7.8 mg/dL (8.4-11.0); CREATININE 0.33 mg/dL (0.55-1.30); POTASSIUM 3.8 mmol/L (3.5-5.1); TOTAL BILIRUBIN 0.6 mg/dL (0.0-1.0)
[2020-05-08] MEDS: BUDESONIDE 0.5 MG/2 ML AMPUL.NEB INH SCH ×2 (07:20→19:43)
--- NOTE | 2020-05-08 07:30 | NUR ---
Received report to assume care of the patient. Pt is currently in the prone position. VSS. 02 sats 96%. SR/SB on monitor. Pt has an ET taped at 26cm lip line. No distress on PC 24/Rate 18 80% p5. No secretions suctioned from ET. Unable to hear breath sounds due to PAPR. Morphine at 6 mg/hr, Versed at 6 mg/hr, NS at 30cc/hr and Diprivan at 15 mcgs/kg/min. Sedated to a Mcwilliams scale of 4 and a RASS -3. Pt coughs with suctioned on vent. Head turned to left side at this time. No residual from tube feeding, infusing at 10cc/hr. Ferrara cath in place with lazaro urine in bag. Right upper arm PICC line in place. Pt is trendelenburg position.
--- NOTE | 2020-05-08 07:30 | NUR ---
Closing Note: Pt report given to AMADA Salgado. Pt resting quietly and tolerating prone position well with improvement noted in SPO2. No further changes in vent settings. OGT Vital A/F 1.2 continues at 10 mL/hr without difficulty. Morphine and Versed continue to infuse at 6 mg/hr with Propofol at 15 mcg/kg/min to RUE PICC. F/C draining turbid yellow urine with total U/O 700 mL this shift.
[2020-05-08] MEDS: metroNIDAZOLE 500 mg/NS 100 ML IV SCH ×2 (09:26→21:36)
[2020-05-08] MEDS: POTASSIUM CHLORIDE 20 MEQ/PKT PACKET PO SCH (09:27)
[2020-05-08] MEDS: FAMOTIDINE PF 20 MG/2 ML VIAL IVP SCH ×2 (09:27→21:36)
[2020-05-08] MEDS: ASCORBIC ACID 500 MG TABLET PO SCH (09:27)
[2020-05-08] MEDS: TAMSULOSIN HCL 0.4 MG CAP PO SCH (09:27)
[2020-05-08] MEDS: CHOLECALCIFEROL (VITAMIN D3) 2,000 UNIT TABLET PO SCH (09:27)
[2020-05-08] MEDS: APIXABAN 2.5 MG TABLET PO SCH ×2 (09:28→21:37)
[2020-05-08] MEDS: methylPREDNISolone SOD SUCC 40 MG/ML VIAL IVP SCH ×2 (09:30→21:36)
[2020-05-08] MEDS: NACL 0.9% 1,000 ML IV SCH (11:56)
--- NOTE | 2020-05-08 12:30 | NUR ---
Wound Evaluation: Wound Consult received for low Cristhian score. Patient re-evaluated for a low Cristhian score of an 11. Patient was obtunded and received in a Keene Bed with an Isoflex MARGAUX mattress. Patient needs to be turned in bed. Skin assessment: 1. Left Ear [place]: Scab, 100% brown. No odor, no drainage. 2. Left Ear Lobule: Scar tissue. No odor, no drainage. Recommend continue: Cover entire ear with foam dressing cut to size for protection. Secure with OpSite. Offload sites at all times with towel rolls. 3. Right Ear: Blanchable pink erythema. No odor, no drainage. Recommend continue: Cover entire ear with foam dressing cut to size for protection. Secure with OpSite. Patient tends to lie in a position where his ears are always on the bed. Try the following to project the ears: Placed towel folded into thirds underneath the patient's head. Fold another towel lengthwise into a thin band and slide underneath tri-folded towel and wrap around patient's head. Tape towel on the forehead to itself (do not apply tape to patient's skin). Adjust towel as needed to keep ears off of bed or other surfaces, and floating at all times. 4. Anterior Chest Ecchymosis. No odor, no drainage. 5. Anterior Right Lateral Neck and Right Pectoral areas: Ecchymosis. Dry abrasion with red tissue. No odor, no drainage. Recommend continue: No dressings needed. Continue to monitor sites qshift. Recommend continue: Reposition patient every 2 hours with pillow support. Elevate, off-load and float bilateral heels with one pillow lengthwise under each extremity at all times. Offload pressure areas with pillows for pressure re-distribution. Perform skin care and monitor skin integrity Q shift. Use moisture barrier cream on moisture susceptible areas QID and PRN for soiling. Maintain patient on low air-loss therapy.
--- NOTE | 2020-05-08 14:13 | NUR ---
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 RD spoke w/ pt's primary RN in ICU nursing station. RN reported that pt w/ high residuals reported last night after feeding while in supine position. RD reminded RN to administer prosource as it was reported by sign out clerk that a pile stock of prosource was seen at formula cabinet after delivery of EN supplies this morning. RN stated that she will administer prosource. RN also rec to provide a more calorie dense formula. RD rec for lowering down infusion rate while in supine position. Current EN regimen is exceeding nutrient needs. If pt still w/ high residuals, then RD to make necessary changes in formula. Current Diet Order/Nutrition Support: Vital AF 1.2 at 80 ml/hr (while supine), Prosource TID, Timothy BID Free Water Flush: 50 ml Q6h via OGT -- 12 hours/day & Vital AF 1.2 at 10 ml/hr (while prone) via OGT -- 12 hours/day x 3 days Provides: 1636 kcal/day, 131 gm protein/day, and 1166 ml free water/day Meets: 111% of upper end of estimated caloric needs and 89% of upper end of estimated protein needs ---excessive Pertinent Medications: propofol, solu-medrol, zinc sulfate, VIT C, VIT D3, eliquis, pepcid Pertinent Labs: 05/08 BG 123 H, BUN 23H, CRE 0.33 L, WBC 19.4 H Skin Integrity: Cristhian Scale: 11; per Risk Management Director note 05/05: 1. Left Ear [place]: Scab, 100% brown. 2. Left Ear Lobule: Scar tissue. No odor, no drainage. 3. Right Ear: Blanchable pink erythema. No odor, no drainage. 4. Anterior Chest Ecchymosis. No odor, no drainage. 5. Anterior Right Lateral Neck and Right Pectoral areas: Ecchymosis. Current % PO N/A, now on EN support Estimated Energy Expenditure (kcals/day) 5008-6827 kcal/day (15-20 kcal/kg CBW for COVID-19 Dz requiring ICU care per ASPEN/SCCM) Estimated Protein Required (g/day) 89-148 gm pro/day (1.2-2 gm protein/kg CBW for COVID-19 Dz requiring ICU care per ASPEN/SCCM) Estimated Fluid Required (l/day) 1.1-1.5 L/day (1 ml/kcal/day for maintenance) Problem/Etiology/Signs/Symptoms Inadequate oral/beverage intake r/t inadequate energy intake and decreased appetite AEB pt w/ no appetite and PO intake meets <75% of est needs x 4 days. *no longer applicable Altered nutrition related labs r/t medication interaction AEB elevated BG and steroid therapy. *ongoing Inadequate EN support related to metabolic demands as evidenced by estimated nutritional requirements for COVID-19 Dz requiring ICU care. (*ongoing) Expected Outcomes/Goals -Will monitor EN tolerance and intake w/ goal of pt meeting at least 80% of estimated nutritional needs, labs trending WNL, normal GI function, skin integrity, and weight maintenance. Dietitian Recommendations * Recommend Vital AF 1.2 at 60 ml/hr(new goal 05/08) (while supine), Prosource TID, Timothy BID, Free Water Flush: 50 ml Q6h via OGT -- 12 hours/day * Recommend Vital AF 1.2 at 10 ml/hr (while prone) via OGT -- 12 hours/day Total EN Support/Day Provides: 1348 kcal/day, 113 gm protein/day, 971 ml free water/day Meets: 91% of upper end of estimated caloric needs and 76% of upper end of estimated protein needs High Risk: F/U in 2 days
--- NOTE | 2020-05-08 14:27 | NUR ---
Dietitian Recommendations * Recommend Vital AF 1.2 at 60 ml/hr(new goal 05/08) (while supine), Prosource TID, Timothy BID, Free Water Flush: 50 ml Q6h via OGT -- 12 hours/day * Recommend Vital AF 1.2 at 10 ml/hr (while prone) via OGT -- 12 hours/day Total EN Support/Day Provides: 1348 kcal/day, 113 gm protein/day, 971 ml free water/day Meets: 91% of upper end of estimated caloric needs and 76% of upper end of estimated protein needs Please see Nutrition F/U note for details. RITA, RD
--- NOTE | 2020-05-08 14:45 | NUR ---
Pt placed in supine position and ETT retaped. Pt noted jesus have a purple arabella on upper lip from ETT. Unable to get photo at this time as unprepared with camera and measuring tool. Only place to secure ET is to upper lip area. Will endorse to next shift both nursing and RT shifts that photos need to be take with next ET tube reposition. No tube feed residual at this time. Tube feeding continues at RT's recommended rate. 02 increased to 90% on vent for sats 86% during turining.
--- NOTE | 2020-05-08 15:43 | NUR ---
Tube feed decreased to 60c/hr per electronics technology department chair recommendations.
[2020-05-08] MEDS: FLUCONAZOLE 200 mg/ NS 100 ML IV SCH (16:20)
--- NOTE | 2020-05-08 18:30 | NUR ---
Versed decreased to 5mg/hr and morphine decreased to 5 mg/hr and diprivan at 15 mcg.kg.min.
[2020-05-08] MEDS: cefTRIAXone 1 GM in D5W 50 ML IV SCH (18:35)
--- NOTE | 2020-05-08 19:30 | NUR ---
Report given to oncoming staff to assume care of pt.
[2020-05-09] VITALS (36 sets, daily range): BP systolic 90–142
[2020-05-09] MEDS: ALBUTEROL MDI INHALATION 8 GM INH INH SCH ×4 (01:33→20:09)
[2020-05-09] MEDS: MORPHINE I.V. DRIP 100 ML IV PRN ×2 (01:46→14:07)
--- NOTE | 2020-05-09 02:00 | NUR ---
PRONE Pt in prone position per MD order for 12 hours. Will continue to monitor.
[2020-05-09] MEDS: PROPOFOL DRIP 100 ML IV PRN ×2 (05:59→14:20)
[2020-05-09] MEDS: LEVOTHYROXINE SODIUM 0.075 MG TABLET PO SCH (06:05)
[2020-05-09 06:26] LABS: HEMATOCRIT 33.5 % (36-54); HEMOGLOBIN 11.6 g/dL (14.0-18.0); MEAN CORPUSCULAR HEMOGLOBIN 31 pg (27-31); MEAN CORPUSCULAR HGB CONC 35 % (32-36); MEAN CORPUSCULAR VOLUME 90 fL (79.0-98.0); PLATELET COUNT (AUTO) 371 K/uL (130-430); RED BLOOD CELL COUNT(AUTO) 3.72 MIL/uL (4.2-6.2); RED CELL DISTRIBUTION WIDTH 16.4 % (9.0-15.0); WHITE BLOOD COUNT (AUTO) 23.4 K/uL (4.8-10.8)
[2020-05-09] MEDS: MIDAZOLAM HCL IN 0.9 % NACL/PF 50 ML IV PRN ×3 (06:44→16:44)
[2020-05-09] MEDS: NACL 0.9% 1,000 ML IV SCH (06:44)
[2020-05-09 06:47] LABS: ALBUMIN 1.9 g/dL (3.4-4.8); CALCIUM 7.9 mg/dL (8.4-11.0); CREATININE 0.32 mg/dL (0.55-1.30); POTASSIUM 3.6 mmol/L (3.5-5.1); TOTAL BILIRUBIN 0.5 mg/dL (0.0-1.0)
--- NOTE | 2020-05-09 07:15 | NUR ---
Opening note Received report from Juju YBARRA.
--- NOTE | 2020-05-09 07:25 | NUR ---
RT NOTES DR MULLINS CHANGED VENT SETTINGS AC 16 500
--- NOTE | 2020-05-09 07:26 | NUR ---
ENDORSEMENT Pt care endorsed to AMADA haile using nursing sbar.
--- NOTE | 2020-05-09 07:26 | NUR ---
MD Rounds Dr. Hay at bedside- updated on patient.
[2020-05-09] MEDS: metroNIDAZOLE 500 mg/NS 100 ML IV SCH ×2 (08:15→21:07)
[2020-05-09] MEDS: FAMOTIDINE PF 20 MG/2 ML VIAL IVP SCH ×2 (08:16→21:06)
[2020-05-09] MEDS: methylPREDNISolone SOD SUCC 40 MG/ML VIAL IVP SCH ×2 (08:16→21:06)
[2020-05-09] MEDS: ASCORBIC ACID 500 MG TABLET PO SCH (08:16)
[2020-05-09] MEDS: POTASSIUM CHLORIDE 20 MEQ/PKT PACKET PO SCH (08:16)
[2020-05-09] MEDS: CHOLECALCIFEROL (VITAMIN D3) 2,000 UNIT TABLET PO SCH (08:17)
[2020-05-09] MEDS: TAMSULOSIN HCL 0.4 MG CAP PO SCH (08:17)
[2020-05-09] MEDS: BUDESONIDE 0.5 MG/2 ML AMPUL.NEB INH SCH ×2 (08:18→20:10)
[2020-05-09] MEDS: APIXABAN 2.5 MG TABLET PO SCH ×2 (08:18→21:07)
--- NOTE | 2020-05-09 08:30 | NUR ---
Witness Witness Nabor RN titrate Morphine to 8mg/hr.
--- NOTE | 2020-05-09 08:30 | NUR ---
RN rounds Dr. Hay requested pt morphine drip to be increased. Morphine titrated to 8mg/hr
--- NOTE | 2020-05-09 09:40 | NUR ---
RT NOTES WITH ANOTHER RT REPOSITIONED HEAD. ETT REMAINS SECURED PATENT NO RESISTANCE NOTED WHEN SUCTION CATHETER WAS ADVANCED.
--- NOTE | 2020-05-09 09:45 | NUR ---
MD Rounds Dr. Pineda at bedside- updated on patient. No new orders.
--- NOTE | 2020-05-09 10:00 | NUR ---
Propofol Witness Nabor RN titrate Propofol to 20 mcg/kg/min
[2020-05-09 10:03] LABS: BAND % (MANUAL) 9 % (0-6); BASOPHILS % (MANUAL) 0 % (0-2); EOSINOPHILS % (MANUAL) 0 % (0-7); LYMPHOCYTES % (MANUAL) 1 % (20-46); MONOCYTES % (MANUAL) 1 % (0-11)
--- NOTE | 2020-05-09 10:06 | NUR ---
MD Rounds Dr. Hay at bedside- verbal order to titrate FiO2.
--- NOTE | 2020-05-09 12:14 | NUR ---
PATIENT IS UNABLE TO ACTIVELY PARTICIPATE IN TREATMENT DUE TO HIS CURRENT MEDICAL CONDITION. NURSING STAFF CONTINUE TO PERFORM PROM AND FREQUENT/SCHEDULED POSITIONING CHANGES. FURTHER PHYSICAL THERAPY, AT THIS TIME, WILL NOT BE BENEFICIAL. PLAN: RESUME PHYSICAL THERAPY, WITH NEW ORDER, WHEN THE PATIENT'S MEDICAL CONDITION IMPROVES.
--- NOTE | 2020-05-09 14:00 | NUR ---
RT NOTES Assisted in unproning pt. ETT remains secure. will monitor pt.
[2020-05-09] MEDS: FLUCONAZOLE 200 mg/ NS 100 ML IV SCH (14:08)
--- NOTE | 2020-05-09 14:45 | NUR ---
Witness Witness Nabor RN change Morphine to 10 mg/hr
[2020-05-09] MEDS: cefTRIAXone 1 GM in D5W 50 ML IV SCH (16:43)
--- NOTE | 2020-05-09 17:00 | NUR ---
Witness Witness Nabor RN titrating Propofol to 30 mcg/kg/min. Witness Nabor RN titrating Versed to 8mg/hr.
--- NOTE | 2020-05-09 19:18 | NUR ---
Closing note Report given to Juju YBARRA
[2020-05-09] MEDS ORDERED: methylPREDNISolone SOD SUCC 40 MG/ML VIAL ONE (21:05)
[2020-05-10] VITALS (34 sets, daily range): BP systolic 86–115
[2020-05-10] MEDS: MIDAZOLAM HCL IN 0.9 % NACL/PF 50 ML IV PRN ×5 (00:13→21:22)
[2020-05-10] MEDS: PROPOFOL DRIP 100 ML IV PRN ×3 (00:13→17:02)
[2020-05-10] MEDS: ALBUTEROL MDI INHALATION 8 GM INH INH SCH ×4 (01:21→19:30)
--- NOTE | 2020-05-10 02:05 | NUR ---
PRONE Pt in prone position per MD order for 12 hours. Will continue to monitor.
[2020-05-10] MEDS: MORPHINE I.V. DRIP 100 ML IV PRN ×2 (02:17→14:31)
--- NOTE | 2020-05-10 03:00 | NUR ---
DIPRIVAN TITRATION WITNESSED DENA YBARRA TITRATE DIPRIVAN DRIP FROM 30 MCG/KG/HR TO 20 MCG/KG/HR PER ORDERS. WILL CONTINUE TO MONITOR PT.
[2020-05-10 05:53] LABS: BASOPHILS # (AUTO) 0.1 K/uL (0.0-0.2); BASOPHILS % (AUTO) 0.4 % (0.0-2.0); HEMATOCRIT 33.3 % (36-54); LYMPHOCYTES # (AUTO) 0.2 K/uL (1.0-5.5); LYMPHOCYTES % (AUTO) 1.9 % (20.5-51.5); MEAN CORPUSCULAR HEMOGLOBIN 30 pg (27-31); MEAN CORPUSCULAR HGB CONC 33 % (32-36); MEAN CORPUSCULAR VOLUME 91 fL (79.0-98.0); MONOCYTES # (AUTO) 0.2 K/uL (0.0-1.0); MONOCYTES % (AUTO) 1.5 % (1.7-9.3); NEUTROPHILS # (AUTO) 12.4 K/uL (1.8-7.7); NEUTROPHILS % (AUTO) 96.2 % (40.0-70.0); PLATELET COUNT (AUTO) 255 K/uL (130-430); RED BLOOD CELL COUNT(AUTO) 3.66 MIL/uL (4.2-6.2); RED CELL DISTRIBUTION WIDTH 16.4 % (9.0-15.0); WHITE BLOOD COUNT (AUTO) 12.9 K/uL (4.8-10.8)
[2020-05-10 06:53] LABS: ALBUMIN 1.8 g/dL (3.4-4.8); CALCIUM 7.7 mg/dL (8.4-11.0); CREATININE 0.32 mg/dL (0.55-1.30); POTASSIUM 3.9 mmol/L (3.5-5.1); TOTAL BILIRUBIN 0.4 mg/dL (0.0-1.0)
[2020-05-10] MEDS: BUDESONIDE 0.5 MG/2 ML AMPUL.NEB INH SCH (07:18)
[2020-05-10] MEDS: LEVOTHYROXINE SODIUM 0.075 MG TABLET PO SCH (07:18)
--- NOTE | 2020-05-10 07:18 | NUR ---
RN Rounds RT at bedside- FiO2 titrated to 80%
--- NOTE | 2020-05-10 07:18 | NUR ---
RT NOTES FIO2 to .080 @0755 to 0.70 will monitor pt. RN made aware
--- NOTE | 2020-05-10 07:20 | NUR ---
Opening note Received report from Juju YBARRA.
--- NOTE | 2020-05-10 07:27 | NUR ---
ENDORSEMENT Pt care endorsed to AMADA haile using nursing sbar.
--- NOTE | 2020-05-10 07:55 | NUR ---
RN Rounds RT at bedside FiO2 titrated to 70%
[2020-05-10] MEDS ORDERED: methylPREDNISolone SOD SUCC 40 MG/ML VIAL ONE ×2 (08:16→21:27)
[2020-05-10] MEDS: methylPREDNISolone SOD SUCC 40 MG/ML VIAL IVP SCH ×2 (08:18→21:29)
[2020-05-10] MEDS: CHOLECALCIFEROL (VITAMIN D3) 2,000 UNIT TABLET PO SCH (08:18)
[2020-05-10] MEDS: POTASSIUM CHLORIDE 20 MEQ/PKT PACKET PO SCH (08:18)
[2020-05-10] MEDS: ASCORBIC ACID 500 MG TABLET PO SCH (08:18)
[2020-05-10] MEDS: FAMOTIDINE PF 20 MG/2 ML VIAL IVP SCH ×2 (08:18→21:28)
[2020-05-10] MEDS: TAMSULOSIN HCL 0.4 MG CAP PO SCH (08:19)
[2020-05-10] MEDS: APIXABAN 2.5 MG TABLET PO SCH (08:20)
--- NOTE | 2020-05-10 09:46 | NUR ---
RT NOTES Assisted in repositioning pt's head, ETT remains secure. no resistance noted when sxn catheter was advanced.
--- NOTE | 2020-05-10 10:00 | NUR ---
MD Rounds Dr. Hay at bedside- updated on patient. FiO2 titrated to 60% by
[2020-05-10] MEDS: NACL 0.9% 1,000 ML IV SCH (12:00)
--- NOTE | 2020-05-10 12:00 | NUR ---
RN Rounds RT at bedside FiO2 titrated to 80%
--- NOTE | 2020-05-10 12:30 | NUR ---
RN Rounds RT at bedside FiO2 titrated to 90%
--- NOTE | 2020-05-10 13:45 | NUR ---
RT NOTES Assisted in unproning pt, ETT remains secure. FIO2 TO 0.90 per low saturation. improved to 92%
[2020-05-10] MEDS: FLUCONAZOLE 200 mg/ NS 100 ML IV SCH (13:48)
--- NOTE | 2020-05-10 15:00 | NUR ---
Family update s/w patient's daughter Aurora for update.
--- NOTE | 2020-05-10 15:10 | NUR ---
RN Rounds RT at bedside FiO2 titrated to 100%, pt FiO2 86%
--- NOTE | 2020-05-10 16:04 | NUR ---
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 RD spoke w/ pt's primary RN via phone. RN reported pt vomited this morning and now TF has been on hold. RN reported pt is s/p KUB and is a/w for results. Noted propofol infusing at 11.267 ml/hr (297 kcal). If/when medically feasible, resume Vital AF 1.2 at 60 ml/hr (while supine), Prosource TID, Timothy BID. FWF 50 ml q6h via OGT x 12 hrs/day; Vital AF 1.2 at 10 ml/hr (while prone) via OGT x 12 hrs/day. RD will made adjustment to TF accordingly. Current Diet Order/Nutrition Support: NPO, TF on hold per RN Pertinent Medications: propofol, solu-medrol, zinc sulfate, VIT C, VIT D3, eliquis, pepcid Pertinent Labs: 05/10 BG 127 H, BUN 24H, CRE 0.32 L, WBC 12.9 H (trending down) Skin Integrity: Cristhian Scale: 12; reviewed Senior Net Web Developer note 05/08. Please refer to note for details. Current % PO N/A, TF on hold Estimated Energy Expenditure (kcals/day) 3749-4345 kcal/day (15-20 kcal/kg CBW for COVID-19 Dz requiring ICU care per ASPEN/SCCM) Estimated Protein Required (g/day) 89-148 gm pro/day (1.2-2 gm protein/kg CBW for COVID-19 Dz requiring ICU care per ASPEN/SCCM) Estimated Fluid Required (l/day) 1.1-1.5 L/day (1 ml/kcal/day for maintenance) Problem/Etiology/Signs/Symptoms Inadequate oral/beverage intake r/t inadequate energy intake and decreased appetite AEB pt w/ no appetite and PO intake meets <75% of est needs x 4 days. *no longer applicable Altered nutrition related labs r/t medication interaction AEB elevated BG and steroid therapy. *ongoing Inadequate EN support related to metabolic demands as evidenced by estimated nutritional requirements for COVID-19 Dz requiring ICU care. (*ongoing) Expected Outcomes/Goals -Will monitor EN re-initiation and tolerance and intake w/ goal of pt meeting at least 75% of estimated nutritional needs, labs trending WNL, normal GI function, skin integrity, and weight maintenance. Dietitian Recommendations * Recommend continue NPO for now. * If/when medically feasible, resume Vital AF 1.2 at 60 ml/hr(new goal 05/08) (while supine), Prosource TID, Timothy BID, Free Water Flush: 50 ml Q6h via OGT -- 12 hours/day * Recommend Vital AF 1.2 at 10 ml/hr (while prone) via OGT -- 12 hours/day Total EN Support/Day Provides: 1348 kcal/day, 113 gm protein/day, 971 ml free water/day Meets: 91% of upper end of estimated caloric needs and 76% of upper end of estimated protein needs High Risk: F/U in 2-3 days
--- NOTE | 2020-05-10 16:28 | NUR ---
Family update pt Raiza at bedside- updated on patient. She requested to be called by MD tomorrow.
[2020-05-10] MEDS: cefTRIAXone 1 GM in D5W 50 ML IV SCH (16:30)
--- NOTE | 2020-05-10 17:30 | NUR ---
Witnessed diprivan drip titrated to 15 mcg/kg/min.
--- NOTE | 2020-05-10 17:30 | NUR ---
RN Rounds witnessed patient attempting to vomit, gurgling heard. Attempted to suction orally and endotracheally with no significant result. Paged Dr. Hay for orders.
--- NOTE | 2020-05-10 17:40 | NUR ---
MD Communication S/w Dr. Hay- updated on patient condition and results of KUB-new orders to stop eliquis as patient now has coffee ground colored emesis, and Reglan 10 mg IVP Q6 scheduled. Addendum: 05/10/20 at 1916 by Nabor Angelo RN Per Dr. Hay- skip proning tonight, hold feeding. He Will reassess in the morning.
[2020-05-10] MEDS ORDERED: METOCLOPRAMIDE HCL 10 MG/2 ML VIAL IVP SCH (17:45)
[2020-05-10] MEDS: METOCLOPRAMIDE HCL 10 MG/2 ML VIAL IVP SCH ×2 (18:00→23:33)
--- NOTE | 2020-05-10 19:16 | NUR ---
Closing note Report given to Srinivasan YBARRA.
--- NOTE | 2020-05-10 20:00 | NUR ---
ORALLY INTUBATED SUCTIONED ETT WITH COPIOUS AMOUNTS OF THIN YELLOW MUCUS OBTAINED. SEDATED WITH PROPOFOL DRIP @ 15 MCG/KG/MIN, VERSED DRIP @ 8 MG/HR , AND MORPHINE DRIP @ 10 MG/HR. NGT CLAMPED. ISRAEL PICC LINE LAURA D/I. ALVARADO CATH PATENT DRAINING CLEAR YELLOW URINE WITH SEDIMENTS. SR.
--- NOTE | 2020-05-10 20:01 | NUR ---
MORPHINE DRIP DECREASED TO 8 MG/HR FOR LOW BP 87/51.
--- NOTE | 2020-05-10 23:30 | NUR ---
VERSED DRIP TITRATED DOWN TO 6 MG/HR AND MORPHINE DRIP TO 6 MG/HR BECAUSE OF LOW BP 88/56.
[2020-05-11] VITALS (31 sets, daily range): BP systolic 82–148
--- NOTE | 2020-05-11 | NUR ---
SUCTIONED. ORAL CARE GIVEN. TURNED.
--- NOTE | 2020-05-11 02:00 | NUR ---
REPOSITIONED. SUCTIONED.
--- NOTE | 2020-05-11 04:00 | NUR ---
ONE SMEAR OF SOFT BROWN STOOL DEFECATED. LEANDRO-CARE GIVEN. ORAL CARE DONE. CHG BATH RENDERED. BACK CARE, ALVARADO CARE, SKIN CARE DONE. COMPLETE LINEN CHANGE GIVEN. DOES NOT ASSIST WITH TURNING. TOLERATED PROCEDURE WELL.
[2020-05-11] MEDS: METOCLOPRAMIDE HCL 10 MG/2 ML VIAL IVP SCH ×3 (05:26→17:17)
[2020-05-11] MEDS: MORPHINE I.V. DRIP 100 ML IV PRN ×2 (05:27→21:27)
[2020-05-11] MEDS: MIDAZOLAM HCL IN 0.9 % NACL/PF 50 ML IV PRN ×3 (05:30→21:37)
[2020-05-11] MEDS: PROPOFOL DRIP 100 ML IV PRN ×3 (05:32→20:34)
--- NOTE | 2020-05-11 06:00 | NUR ---
SUCTIONED AND TURNED Q2 HRS AND PRN. UO GOOD. PROPOFOL AT 15 MCG/KG/MIN, VERSED AT 6 MG/HR, MORPHINE AT 6 MG/HR. REMAINS IN GUARDED CONDITION.
[2020-05-11 06:10] LABS: BASOPHILS # (AUTO) 0.1 K/uL (0.0-0.2); BASOPHILS % (AUTO) 0.5 % (0.0-2.0); HEMATOCRIT 37.9 % (36-54); HEMOGLOBIN 12.3 g/dL (14.0-18.0); LYMPHOCYTES # (AUTO) 0.4 K/uL (1.0-5.5); LYMPHOCYTES % (AUTO) 2.5 % (20.5-51.5); MEAN CORPUSCULAR HEMOGLOBIN 30 pg (27-31); MEAN CORPUSCULAR HGB CONC 32 % (32-36); MEAN CORPUSCULAR VOLUME 91 fL (79.0-98.0); MONOCYTES # (AUTO) 0.3 K/uL (0.0-1.0); MONOCYTES % (AUTO) 1.7 % (1.7-9.3); NEUTROPHILS # (AUTO) 13.9 K/uL (1.8-7.7); PLATELET COUNT (AUTO) 260 K/uL (130-430); RED BLOOD CELL COUNT(AUTO) 4.14 MIL/uL (4.2-6.2); RED CELL DISTRIBUTION WIDTH 16.2 % (9.0-15.0); WHITE BLOOD COUNT (AUTO) 14.6 K/uL (4.8-10.8)
[2020-05-11] MEDS: LEVOTHYROXINE SODIUM 0.075 MG TABLET PO SCH (06:30)
[2020-05-11 06:43] LABS: ALANINE AMINOTRANSFERASE 49 U/L (12-78); ALBUMIN 1.9 g/dL (3.4-4.8); ASPARTATE AMINOTRANSFERASE 26 U/L (10-37); CALCIUM 7.8 mg/dL (8.4-11.0); CREATININE 0.33 mg/dL (0.55-1.30); GLUCOSE 108 mg/dL (70-99); TOTAL BILIRUBIN 0.5 mg/dL (0.0-1.0); UREA NITROGEN, BLOOD 14 mg/dL (8-21)
[2020-05-11 06:59] LABS: CHLORIDE 98 mmol/L (98-107); POTASSIUM 3.8 mmol/L (3.5-5.1); SODIUM SERUM 136 mmol/L (136-145)
[2020-05-11 07:06] LABS: GFR AFRICAN AMERICAN 341 mL/min (>90)
[2020-05-11 07:07] LABS: ANION GAP < 3 (5-15)
[2020-05-11 07:53] LABS: NEUTROPHILS % (AUTO) 95.3 % (40.0-70.0)
--- NOTE | 2020-05-11 08:00 | NUR ---
AM ASSESSMENT. PT ON PROPOFOL DRIP AT 15 MCG/KG/MIN, VERSED DRIP AT 6 MG PER HR AND MORPHINE DRIP AT 6 MG/HR, FIO2 80% VIA VENTILATOR, OGT INTACT, DRY SCAB TO UPPER LIP, OGT INTACT, THICK ORAL SECRETIONS, DROOLS TO SIDE OF HIS MOUTH, ABDOMEN SOFT, EDEMA TO ARMS AND LEGS, HEELIFT BOOT IN USE.
[2020-05-11] MEDS: TAMSULOSIN HCL 0.4 MG CAP PO SCH (09:02)
[2020-05-11] MEDS: FAMOTIDINE PF 20 MG/2 ML VIAL IVP SCH ×2 (09:02→20:29)
[2020-05-11] MEDS: CHOLECALCIFEROL (VITAMIN D3) 2,000 UNIT TABLET PO SCH (09:02)
[2020-05-11] MEDS: ASCORBIC ACID 500 MG TABLET PO SCH (09:02)
[2020-05-11] MEDS: POTASSIUM CHLORIDE 20 MEQ/PKT PACKET PO SCH (09:02)
[2020-05-11] MEDS: methylPREDNISolone SOD SUCC 40 MG/ML VIAL IVP SCH (09:16)
--- NOTE | 2020-05-11 10:00 | NUR ---
HYGIENE. SKIN WARM TO FOREHEAD AND NECK, ARMS AND LEGS COOL TO THE TOUCH, TEMP 100, REPOSITIONED IN BED, SEDATED, ORAL CARE AND FACE AND EXTREMITIES GENTLY RUBBED WITH COLD TOWEL, WET TOWEL PLACED ON THE TOP OF HIS HEAD TO BRING TEMP DOWN, TOP SHEET REMOVED, HEELIFT BOOT OFF AND ON, SKIN INTACT, ALVARADO CATHETER DRAINING.
[2020-05-11] MEDS: NACL 0.9% 1,000 ML IV SCH (11:49)
--- NOTE | 2020-05-11 12:00 | NUR ---
O2 SAT LOW. SUCTIONED PT VIA ETT, HYPER OXYGENATED PRIOR TO SUCTIONING, SATURATION SEEN WITH 82% TO 86%, FIO2 CHANGED TO 90%, R.T. CAME IN TO REASSESS PT.
--- NOTE | 2020-05-11 12:10 | NUR ---
ELEV TEMP. PT'S TEMP 100, RUBBED COLD TOWEL TO PT'S FACE, NECK, CHEST AND EXTREMITIES, PLACED WET WASH CLOTH TO THE TOP OF HIS FOREHEAD TO BRING DOWN FEVER.
[2020-05-11] MEDS: BUDESONIDE 0.5 MG/2 ML AMPUL.NEB INH SCH ×2 (12:48→19:00)
[2020-05-11] MEDS: ALBUTEROL MDI INHALATION 8 GM INH INH SCH ×3 (12:49→19:00)
--- NOTE | 2020-05-11 13:00 | NUR ---
O2 SAT LOW. VENT FIO2 CHANGED TO 100%, O2 SATURATION 82%.
[2020-05-11] MEDS ORDERED: fentaNYL CITRATE/PF 100 MCG/2 ML AMP ONE (13:12)
[2020-05-11] MEDS: FLUCONAZOLE 200 mg/ NS 100 ML IV SCH (13:18)
[2020-05-11] MEDS ORDERED: MIDAZOLAM HCL 5 MG/5 ML VIAL IVP ONE ×2 (13:45)
[2020-05-11] MEDS ORDERED: fentaNYL CITRATE/PF 100 MCG/2 ML AMP IVP ONE ×2 (13:45)
--- NOTE | 2020-05-11 13:45 | NUR ---
LIBRARY PARAPROFESSIONAL. DR MULLINS ON HIS ROUNDS, MADE AWARE OF PT'S LOW O2 SAT, AND TACHYPNEA. NEW ORDERS RECEIVED. MEDICATED WITH FENTANYL 100 MCG SLOW IVP AND VERSED 4 MG SLOW IVP.
--- NOTE | 2020-05-11 14:00 | NUR ---
RE-ASSESSMENT. PT NOW CALM, DIPRIVAN DRIP AT 20 MCG/KG/MIN, VERSED DRIP AT 6 MG PER HR, MORPHINE DRIP AT 6 MG PER HR, COLD TOWEL TO TOP OF HIS HEAD, WILL CONTINUE TO MONITOR.
--- NOTE | 2020-05-11 18:30 | NUR ---
NURSING. PT'S TEMP 100, CONTINUE COOLING MEASURES. ORAL SUCTIONING DONE, TUBE FEEDING STARTED AT 60 ML PER HR ORDERED. HEAD OF BED ELEVATED TO PREVENT ASPIRATION.
--- NOTE | 2020-05-11 19:25 | NUR ---
OPENING NOTE: SBAR REPORT RECEIVED FROM AM RN. CARE ASSUMED. PT LAYING IN BED. PT SEDATED AND INTUBATED. ETT SIZE 7.5 LIP LINE 26. RT AT BEDSIDE PERFORMING VENT CHECKS. RIGHT UPPER LIP NOTED TO HAVE SCABBING, CHARGE AWARE. ALL SAFETY PRECAUTIONS IN PLACE BED IN LOWEST LOCKED POSITION. MONITORING FOR CHANGES.
--- NOTE | 2020-05-11 19:30 | NUR ---
DRIPS I witnessed Deann YBARRA change Diprivan drip to 20mcg/Kg/min I witnessed Deann YBARRA change Versed drip to 5mg/hr
--- NOTE | 2020-05-11 20:00 | NUR ---
DRIPS I witnessed Deann RN change Diprivan drip to 25mcg/Kg/min I witnessed Deann YBARRA change Morphine drip to 7mg/HR
[2020-05-11] MEDS: metroNIDAZOLE 500 mg/NS 100 ML IV SCH (20:30)
--- NOTE | 2020-05-11 20:30 | NUR ---
DRIPS I witnessed Deann YBARRA change Diprivan drip to 30mcg/Kg/min I witnessed Deann YBARRA change Versed drip to 6mg/HR
[2020-05-11] MEDS ORDERED: CEFEPIME 1 GM in D5W 50 ML IV SCH (21:00)
--- NOTE | 2020-05-11 21:00 | NUR ---
DRIPS I witnessed Deann YBARRA change Diprivan drip to 35mcg/Kg/min I witnessed Deann YBARRA change Morphine drip to 8mg/HR
--- NOTE | 2020-05-11 21:30 | NUR ---
DRIPS I witnessed Deann RN change Diprivan drip to 40mcg/Kg/min I witnessed Deann YBARRA change Versed drip to 7mg/HR
--- NOTE | 2020-05-11 22:00 | NUR ---
DRIPS I witnessed Deann YBARRA change Diprivan drip to 45mcg/Kg/min
[2020-05-12] VITALS (31 sets, daily range): BP systolic 60–145
--- NOTE | 2020-05-12 | NUR ---
DRIPS I witnessed Deann RN change Diprivan drip to 50mcg/Kg/min I witnessed Deann YBARRA change Versed drip to 8mg/HR
[2020-05-12] MEDS: METOCLOPRAMIDE HCL 10 MG/2 ML VIAL IVP SCH ×5 (00:26→23:20)
--- NOTE | 2020-05-12 00:30 | NUR ---
DRIPS I witnessed Deann YBARRA change Diprivan drip to 45mcg/Kg/min
--- NOTE | 2020-05-12 00:54 | NUR ---
RN ROUNDS: PATIENT REPOSITIONED FOR COMFORT, RT AT BEDSIDE PATIENT NOTED WITH UN-SYNCHRONIZED BREATHING, RT SUCTIONING PATIENT, MILDLY EFFECTIVE, OXYGEN SATURATION 79% ON FIO2 OF 100%.
--- NOTE | 2020-05-12 01:15 | NUR ---
PAGED DR. SUSANNA WILDER DIVIDER OPERATOR PAGER [phone]
--- NOTE | 2020-05-12 01:16 | NUR ---
DE-SATURATING: PATIENT NOTED WITH OXYGEN SATURATION OF 76%, RT AT BEDSIDE. MD DR. MEÑO CONTRERAS, PENDING RETURN CALL.
--- NOTE | 2020-05-12 01:17 | NUR ---
DRIPS I witnessed Deann RN change Diprivan drip to 40mcg/Kg/min I witnessed Deann RN change Morphine drip to 8mg/HR I witnessed Deann RN change Versed drip to 9mg/HR
--- NOTE | 2020-05-12 01:26 | NUR ---
DR. WILDER: RETURNED CALL, NEW ORDERS RC'VD, RT NOTIFIED AND ALSO RC'VD VENT ORDERS. CHARGE AWARE.
[2020-05-12] MEDS ORDERED: ROCURONIUM BROMIDE 10 MG/ML (ZEMURON) IV PRN (01:30)
--- NOTE | 2020-05-12 01:32 | NUR ---
DR MEÑO Rojo notified regarding desaturation, elevated HR. Orders received. 1.Change vent settings to AC 24, Peep 12 2.Give Rocuronium 50mg IVP Q6H PRN for respirations greater than 30. Order for Rocuronium was double checked with Dr Rojo for dose and indication.
--- NOTE | 2020-05-12 01:57 | NUR ---
ROCURONIUM 50MG: MEDICATION GIVEN IVP, RT AND PRIMARY NURSE AT BEDSIDE MONITORING PATIENT. CHARGE AWARE.
[2020-05-12] MEDS ORDERED: NOREPINEPHRINE 4 MG/4 ML VIAL IV ONE ×2 (02:00→06:13)
--- NOTE | 2020-05-12 02:05 | NUR ---
DRIPS I witnessed Deann YBARRA change Morphine drip to 9mg/HR
[2020-05-12] MEDS: NOREPINEPHRINE BITARTRATE 4 MG in NS 246 ML IV PRN ×2 (02:15→06:22)
--- NOTE | 2020-05-12 02:15 | NUR ---
DRIPS I witnessed Deann YBARRA change Diprivan drip to 45mcg/Kg/min
--- NOTE | 2020-05-12 02:42 | NUR ---
OXYGEN SATURATION: OXYGEN SATURATION CONTINUES TO DECREASE, CURRENT READING 76%, FIO2 AT 100% RATE OF 24 ON THE VENT, RT MADE AWARE. HOB REMAINS AT OPTIMAL PLACEMENT, ETT SUCTIONED, MINIMAL SECRETIONS. SHALLOW RESPIRATIONS NOTED WITH RATE OF 18.
--- NOTE | 2020-05-12 02:57 | NUR ---
DRIPS I witnessed Deann YBARRA change Diprivan drip to 50mcg/Kg/min I witnessed Deann YBARRA change Morphine drip to 10mg/HR
--- NOTE | 2020-05-12 03:07 | NUR ---
DRIPS I witnessed Deann YBARRA change Morphine drip to 11mg/HR.
--- NOTE | 2020-05-12 04:05 | NUR ---
TEMPERATURE: 100.8 TEMP, COOLING MEASURES IMPLEMENTED.
--- NOTE | 2020-05-12 04:05 | NUR ---
DRIPS I witnessed Deann YBARRA change Morphine drip to 12mg/HR
--- NOTE | 2020-05-12 04:47 | NUR ---
PAGED DR. OHARA [phone] SPOKE WITH STEWARD
--- NOTE | 2020-05-12 05:07 | NUR ---
DR. OHARA: PENDING RETURN CALL AT THIS TIME, CHARGE AWARE AND UPDATED ON PATIENT STATUS
--- NOTE | 2020-05-12 05:37 | NUR ---
PAGED DR. OHARA [phone] SPOKE WITH STEWARD
--- NOTE | 2020-05-12 05:42 | NUR ---
DR. OHARA: RETURNED CALL NEW ORDERS RC'VD FOR BLOOD CULTURES, AND START ZOSYN 4.5 GM Q 8 HOURS. CHARGE AWARE OF NEW ORDERS, TRANSCRIBED AND CARRIED OUT.
[2020-05-12] MEDS ORDERED: PIPERACILLIN/TAZOBACTAM 4.5 GM/VIAL (ZOSYN) IV ONE (06:00)
[2020-05-12] MEDS: LEVOTHYROXINE SODIUM 0.075 MG TABLET PO SCH (06:01)
[2020-05-12] MEDS: PIPERACILLIN/TAZO 4.5GM/DEX-IS 100 ML IV SCH ×3 (06:02→22:12)
[2020-05-12] MEDS: MORPHINE I.V. DRIP 100 ML IV PRN ×2 (06:05→22:14)
[2020-05-12 06:47] LABS: ALBUMIN 2.1 g/dL (3.4-4.8); CALCIUM 8.1 mg/dL (8.4-11.0); CREATININE 0.72 mg/dL (0.55-1.30); POTASSIUM 3.7 mmol/L (3.5-5.1)
[2020-05-12 06:48] LABS: HEMATOCRIT 38.4 % (36-54); HEMOGLOBIN 12.6 g/dL (14.0-18.0); MEAN CORPUSCULAR HEMOGLOBIN 30 pg (27-31); MEAN CORPUSCULAR HGB CONC 33 % (32-36); MEAN CORPUSCULAR VOLUME 92 fL (79.0-98.0); PLATELET COUNT (AUTO) 392 K/uL (130-430); RED BLOOD CELL COUNT(AUTO) 4.17 MIL/uL (4.2-6.2); RED CELL DISTRIBUTION WIDTH 16.5 % (9.0-15.0)
--- NOTE | 2020-05-12 07:02 | NUR ---
CLOSING NOTE: SBAR REPORT GIVEN TO AM RN, ALL CARE MET. ALL SAFETY PRECAUTIONS IN PLACE.
[2020-05-12 07:13] LABS: WHITE BLOOD COUNT (AUTO) 32.2 K/uL (4.8-10.8)
--- NOTE | 2020-05-12 07:14 | NUR ---
CRITICAL LAB: PAGED DR. OHRAA FOR CRITICAL LAB OF WBC 32.2, PENDING RETURN CALL.
--- NOTE | 2020-05-12 07:30 | NUR ---
Opening Received report from endorsing RN. Pt sedated and intubated, unstable vitals on diprivan, morphine, versed, and levophed. Per RN, no urine output for the last 2 hours. Pt in no signs of pain or distress at this time. Afebrile.
[2020-05-12 08:13] LABS: ATYPICAL LYMPHOCYTES % 0 % (0-0); BAND % (MANUAL) 37 % (0-6); LYMPHOCYTES % (MANUAL) 4 % (20-46)
[2020-05-12 08:14] LABS: BASOPHILS % (MANUAL) 0 % (0-2); EOSINOPHILS % (MANUAL) 0 % (0-7); MONOCYTES % (MANUAL) 1 % (0-11)
--- NOTE | 2020-05-12 08:14 | NUR ---
Witnessed IV drip titration: Morphine drip titrated to 8 mg/hr. Versed drip @ 8 mg/hr.
--- NOTE | 2020-05-12 08:14 | NUR ---
Witnessed IV drip titration: Diprivan drip titrated to 45 mcg/kg/min.
--- NOTE | 2020-05-12 08:26 | NUR ---
Dr. Ling called unit and updated on pt including pt's WBC and unstable vitals. Dr. Ling states OK to discontinue covid 19 isolation.
--- NOTE | 2020-05-12 08:40 | NUR ---
Witnessed IV drip titration Diprivan drip @ 50 mcg/kg/min. Morphine drip @ 6 mg/hr Versed drip @ 6 mg/hr
[2020-05-12] MEDS: CHOLECALCIFEROL (VITAMIN D3) 2,000 UNIT TABLET PO SCH (09:00)
[2020-05-12] MEDS ORDERED: MIDAZOLAM HCL 5 MG/5 ML VIAL ONE (09:28)
[2020-05-12] MEDS: PROPOFOL DRIP 100 ML IV PRN (09:38)
[2020-05-12] MEDS: ASCORBIC ACID 500 MG TABLET PO SCH (09:39)
[2020-05-12] MEDS: POTASSIUM CHLORIDE 20 MEQ/PKT PACKET PO SCH (09:39)
[2020-05-12] MEDS: MICAFUNGIN SODIUM 100 MG in NS 100 ML IV SCH (09:39)
[2020-05-12] MEDS: TAMSULOSIN HCL 0.4 MG CAP PO SCH (09:39)
[2020-05-12] MEDS: FAMOTIDINE PF 20 MG/2 ML VIAL IVP SCH ×2 (09:40→20:16)
[2020-05-12] MEDS: methylPREDNISolone SOD SUCC 40 MG/ML VIAL IVP SCH (09:40)
[2020-05-12] MEDS: metroNIDAZOLE 500 mg/NS 100 ML IV SCH ×2 (10:00→20:16)
--- NOTE | 2020-05-12 10:00 | NUR ---
Updates Noted pt with vitals stabilizing. Also noted no residual in OGT, started tube feeding at 15 ml/hr. No distress noted, tolerating well.
--- NOTE | 2020-05-12 10:00 | NUR ---
Witnessed IV drip titration Diprivan drip @ 45 mcg/kg/min Versed drip @ 4 mg/hr
--- NOTE | 2020-05-12 10:05 | NUR ---
Witnessed IV drip titration Diprivan drip @ 40 cg/kg/min
--- NOTE | 2020-05-12 10:15 | NUR ---
Witnessed IV drip titration Diprivan drip @ 35 mcg/kg/min
[2020-05-12] MEDS: NOREPINEPHRINE BITARTRATE 16 MG in NS 234 ML IV PRN ×2 (10:50→22:38)
[2020-05-12] MEDS: MIDAZOLAM HCL IN 0.9 % NACL/PF 50 ML IV PRN (11:00)
--- NOTE | 2020-05-12 12:00 | NUR ---
Witnessed IV drip titration Diprivan drip @ 30 mcg/kg/min Versed drip @ 3 mcg/kg/min
--- NOTE | 2020-05-12 12:00 | NUR ---
Increased tube feeding rate to 20 ml/hr. Administered Timothy. Tolerated well. Vitals stable with drips, afebrile.
[2020-05-12] MEDS: NACL 0.9% 1,000 ML IV SCH (12:58)
--- NOTE | 2020-05-12 14:00 | NUR ---
Witnessed IV drip titration Versed drip @ 2 mg/hr
[2020-05-12] MEDS: FLUCONAZOLE 200 mg/ NS 100 ML IV SCH (14:03)
--- NOTE | 2020-05-12 14:15 | NUR ---
Witnessed IV drip titration Morphine drip @ 4 mg/hr
--- NOTE | 2020-05-12 14:22 | NUR ---
Witnessed IV drip titration Diprivan drip @ 25 mcg/kg/min
--- NOTE | 2020-05-12 16:30 | NUR ---
Dr. Hay rounding on pt. Pt's also present and updated regarding pt's status. Vent settings changed by Dr. Hay to AC 18 and FiO2 90%. Pt tolerating well.
[2020-05-12 17:28] LABS: BILIRUBIN,URINE NEGATIVE (NEGATIVE); BLOOD, URINE 3+ (NEGATIVE); CLARITY/URINE CLOUDY (CLEAR); COLOR,URINE YELLOW (YELLOW); GLUCOSE,URINE NEGATIVE (NEGATIVE); KETONES,URINE NEGATIVE (NEGATIVE); LEUKOCYTE ESTERASE ,URINE 2+ (NEGATIVE); NITRITE, URINE POSITIVE (NEGATIVE); PH,URINE 5.5 (5.0-8.0); PROTEIN URINE TRACE (NEGATIVE); UROBILINOGEN,URINE 0.2 (0.2-1.0)
[2020-05-12 17:38] LABS: BACTERIA,URINE MODERATE /HPF (None Seen); MUCUS,URINE None Seen /LPF (None Seen); WBC,URINE 20-50 /HPF (0-3)
[2020-05-12] MEDS: VASOPRESSIN 20 UNITS in NS 99 ML IV PRN (18:07)
--- NOTE | 2020-05-12 19:22 | NUR ---
Closing Pt in no signs of distress, vitals stable. Started vasopressin drip. Endorsed plan of care to RN.
--- NOTE | 2020-05-12 19:25 | NUR ---
OPENING NOTE: SBAR REPORT RC'VD FROM AM NURSE, PATIENT IN BED WITH HOB IN OPTIMAL PLACEMENT. BED IN LOWEST LOCKED POSITION.
[2020-05-12] MEDS: BUDESONIDE 0.5 MG/2 ML AMPUL.NEB INH SCH (20:21)
[2020-05-12] MEDS: ALBUTEROL MDI INHALATION 8 GM INH INH SCH (20:21)
--- NOTE | 2020-05-12 21:30 | NUR ---
RN ROUNDS: CARES PROVIDED, ORAL CARE, FACE CLEANSED, LIP MOISTURIZER APPLIED. PATIENT TOLERATED WELL, TURN AND REPOSITIONED FOR COMFORT. BED IN LOWEST LOCKED POSITION, ALL SAFETY PRECAUTIONS IN PLACE. PATIENT SHOWING NO SIGNS OF DISTRESS AND OR DISCOMFORT AT THIS TIME, MAINTAINING DRIPS AT CURRENT RATES.
--- NOTE | 2020-05-12 23:26 | NUR ---
RN ROUNDS: TURN AND REPOSITIONED FOR COMFORT. BED IN LOWEST LOCKED POSITION, ALL SAFETY PRECAUTIONS IN PLACE. PATIENT SHOWING NO SIGNS OF DISTRESS AND OR DISCOMFORT AT THIS TIME.
[2020-05-13] VITALS (35 sets, daily range): BP systolic 104–147
[2020-05-13] MEDS: PROPOFOL DRIP 100 ML IV PRN ×3 (01:42→22:28)
--- NOTE | 2020-05-13 01:58 | NUR ---
RN ROUNDS: PATIENT IN BED EYES CLOSED WITH RT AT BEDSIDE, ALL CARES MET. REPOSITIONED FOR COMFORT, NO ACUTE DISTRESS NOTED. ALL SAFETY PRECAUTIONS IN PLACE.
[2020-05-13] MEDS: ALBUTEROL MDI INHALATION 8 GM INH INH SCH ×4 (02:12→19:52)
[2020-05-13] MEDS: METOCLOPRAMIDE HCL 10 MG/2 ML VIAL IVP SCH ×4 (05:23→23:08)
[2020-05-13] MEDS: PIPERACILLIN/TAZO 4.5GM/DEX-IS 100 ML IV SCH ×3 (05:23→21:13)
[2020-05-13] MEDS: LEVOTHYROXINE SODIUM 0.075 MG TABLET PO SCH (06:13)
[2020-05-13 07:01] LABS: BASOPHILS # (AUTO) 0.2 K/uL (0.0-0.2); BASOPHILS % (AUTO) 0.7 % (0.0-2.0); EOSINOPHILS # (AUTO) 0.1 K/uL (0.0-0.4); EOSINOPHILS % (AUTO) 0.6 % (0.0-4.0); HEMATOCRIT 35.3 % (36-54); HEMOGLOBIN 11.8 g/dL (14.0-18.0); LYMPHOCYTES # (AUTO) 0.5 K/uL (1.0-5.5); LYMPHOCYTES % (AUTO) 2.3 % (20.5-51.5); MEAN CORPUSCULAR HEMOGLOBIN 31 pg (27-31); MEAN CORPUSCULAR HGB CONC 34 % (32-36); MEAN CORPUSCULAR VOLUME 91 fL (79.0-98.0); MONOCYTES # (AUTO) 0.2 K/uL (0.0-1.0); MONOCYTES % (AUTO) 0.7 % (1.7-9.3); NEUTROPHILS # (AUTO) 22.8 K/uL (1.8-7.7); NEUTROPHILS % (AUTO) 95.7 % (40.0-70.0); PLATELET COUNT (AUTO) 268 K/uL (130-430); RED BLOOD CELL COUNT(AUTO) 3.89 MIL/uL (4.2-6.2); RED CELL DISTRIBUTION WIDTH 16.3 % (9.0-15.0); WHITE BLOOD COUNT (AUTO) 23.9 K/uL (4.8-10.8)
--- NOTE | 2020-05-13 07:30 | NUR ---
Opening Note Received plan of care via sbar from endorsing RN.
[2020-05-13 07:36] LABS: ALBUMIN 1.5 g/dL (3.4-4.8); CALCIUM 8.2 mg/dL (8.4-11.0); CREATININE 0.77 mg/dL (0.55-1.30); POTASSIUM 3.2 mmol/L (3.5-5.1); TOTAL BILIRUBIN 0.5 mg/dL (0.0-1.0)
--- NOTE | 2020-05-13 07:44 | NUR ---
Dr. Hay at bedside. Provided patient update. Received orders to proceed giving eliquis again, titrate up on the tubefeeding, increase Vasotec to 0.03 and titrate down on the Levophed. Addendum: 05/13/20 at 1417 by Regan Cha RN Vasopressin not Vasotec
--- NOTE | 2020-05-13 08:05 | NUR ---
Spoke to Dr. Hay and reported K of 3.2. Received order of 40 MEQ K PO once.
[2020-05-13] MEDS: BUDESONIDE 0.5 MG/2 ML AMPUL.NEB INH SCH ×3 (08:37→19:52)
[2020-05-13] MEDS ORDERED: POTASSIUM CHLORIDE 20 MEQ/PKT PACKET PO ONE (08:45)
--- NOTE | 2020-05-13 09:00 | NUR ---
Second nurse witness Diprivan drip decreased to 20 mcg/kg/min.
[2020-05-13] MEDS ORDERED: POTASSIUM CHLORIDE 20 MEQ/PKT PACKET ONE (09:13)
[2020-05-13] MEDS: methylPREDNISolone SOD SUCC 40 MG/ML VIAL IVP SCH (09:22)
[2020-05-13] MEDS: POTASSIUM CHLORIDE 20 MEQ/PKT PACKET PO SCH (09:22)
[2020-05-13] MEDS: TAMSULOSIN HCL 0.4 MG CAP PO SCH (09:23)
[2020-05-13] MEDS: metroNIDAZOLE 500 mg/NS 100 ML IV SCH ×2 (09:23→20:36)
[2020-05-13] MEDS: ASCORBIC ACID 500 MG TABLET PO SCH (09:23)
[2020-05-13] MEDS: FAMOTIDINE PF 20 MG/2 ML VIAL IVP SCH ×2 (09:24→20:36)
[2020-05-13] MEDS: MIDAZOLAM HCL IN 0.9 % NACL/PF 50 ML IV PRN (09:31)
[2020-05-13] MEDS: CHOLECALCIFEROL (VITAMIN D3) 2,000 UNIT TABLET PO SCH (09:54)
[2020-05-13] MEDS: MICAFUNGIN SODIUM 100 MG in NS 100 ML IV SCH (10:27)
[2020-05-13] MEDS: NACL 0.9% 1,000 ML IV SCH (12:50)
[2020-05-13] MEDS: NOREPINEPHRINE BITARTRATE 16 MG in NS 234 ML IV PRN (12:53)
[2020-05-13] MEDS: FLUCONAZOLE 200 mg/ NS 100 ML IV SCH (14:13)
--- NOTE | 2020-05-13 16:14 | NUR ---
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 RD spoke w/ pt's primary RN via phone call. RN reported that pt's TF of Vital AF 1.2 was reduced to 20 ml/hr since yesterday d/t concern for aspiration, however, pt's ET cuff may not have been in a proper position, and that may have caused confusion about gurgling sounds upon auscultation. RN stated that pt is no longer being proned since likely yesterday as well. He stated that he recently increased pt's TF to 40 ml/hr, and the plan is to increase to goal of 60 ml/hr per physician order. RN stated that pt is currently on 2 vasopressors, with no plans for trach/PEG at this time. Current Diet Order/Nutrition Support: Vital AF 1.2 at 10 ml/hr (while prone) x12 hours/day, 60 ml/hr (while supine) x12 hours/day, Prosource TID, Timothy BID, Free Water Flush: 50 ml Q4h via OGT x5 days Pertinent Medications: propofol, solu-medrol, zinc sulfate, VIT C, VIT D3, pepcid, reglan Pertinent Labs: BG 165 H, BUN 29 H, CRE 0.77 WNL (improved), WBC 23.9 H Skin Integrity: Cristhian Scale: 11; reviewed Wound/Ostomy Nurse note 05/08. Please refer to note for details. NEW Estimated Energy Expenditure (kcals/day) 8210-9557 kcal/day (30-35 kcal/kg CBW for acute state, catabolic illness) Estimated Protein Required (g/day) 89-148 gm pro/day (1.2-2 gm protein/kg CBW for COVID-19 Dz requiring ICU care per ASPEN/SCCM) Estimated Fluid Required (l/day) 1.1-1.5 L/day (1 ml/kcal/day for maintenance) Problem/Etiology/Signs/Symptoms Inadequate oral/beverage intake r/t inadequate energy intake and decreased appetite AEB pt w/ no appetite and PO intake meets <75% of est needs x 4 days. *no longer applicable Altered nutrition related labs r/t medication interaction AEB elevated BG and steroid therapy. *ongoing Inadequate EN support related to metabolic demands as evidenced by estimated nutritional requirements for COVID-19 Dz requiring ICU care. (*ongoing) Expected Outcomes/Goals -Will monitor EN re-initiation and tolerance and intake w/ goal of pt meeting at least 75% of estimated nutritional needs, labs trending WNL, normal GI function, skin integrity, and weight maintenance. Dietitian Recommendations * Recommend continuing Vital AF 1.2 at 60 ml/hr (goal rate), Prosource TID, Timothy BID, Free Water Flush: 50 ml Q4h via OGT Provides: 2068 kcal/day, 158 gm protein/day, 1468 ml free water/day Meets: 94% of upper end of estimated caloric needs and 108% of upper end of estimated protein needs High Risk: F/U in 2-3 days Addendum: 05/13/20 at [address] CORRECTION: Pertinent Medications: propofol at 7.512 ml/hr (198 kcal/day), solu-medrol, zinc sulfate, VIT C, VIT D3, pepcid, reglan
--- NOTE | 2020-05-13 16:27 | NUR ---
Dietitian Recommendations * Recommend continuing Vital AF 1.2 at 60 ml/hr (goal rate), Prosource TID, Timothy BID, Free Water Flush: 50 ml Q4h via OGT Provides: 2068 kcal/day, 158 gm protein/day, 1468 ml free water/day Meets: 94% of upper end of estimated caloric needs and 108% of upper end of estimated protein needs LP, RD Please refer to Nutrition F/U for details.
--- NOTE | 2020-05-13 18:04 | NUR ---
Spoke to Dr. Ling and reported Urine and Sputum culture. to review Antibiotics.
--- NOTE | 2020-05-13 19:10 | NUR ---
OPENING NOTE: SBAR REPORT RC'VD FROM AM NURSE, PATIENT IN BED WITH HOB IN OPTIMAL PLACEMENT. BED IN LOWEST LOCKED POSITION.
--- NOTE | 2020-05-13 20:00 | NUR ---
Witnessed RN increase Diprivan to 25mcg/kg/min.
--- NOTE | 2020-05-13 20:55 | NUR ---
FIO2: FIO2 INCREASED TO 80 % BY RT
--- NOTE | 2020-05-13 22:07 | NUR ---
RN ROUNDS: CARES PROVIDED, PATIENT TOLERATED WELL, TURN AND REPOSITIONED FOR COMFORT, NEW LINENS PROVIDED, BED IN LOWEST LOCKED POSITION, ALL SAFETY PRECAUTIONS IN PLACE. PATIENT SHOWING NO SIGNS OF DISTRESS AND OR DISCOMFORT AT THIS TIME, MAINTAINING DRIPS AT CURRENT RATES.
--- NOTE | 2020-05-13 22:10 | NUR ---
Witnessed RN increase Diprivan to 30mcg/kg/min.
[2020-05-13] MEDS: VASOPRESSIN 20 UNITS in NS 99 ML IV PRN (22:27)
--- NOTE | 2020-05-13 23:00 | NUR ---
Mitchel Evangelista RN titrate diprivan to 25 mcg/kg/min.
--- NOTE | 2020-05-13 23:33 | NUR ---
LEVOPHED: WEANING LEVOPHED TOLERATED, PATIENT BP REMAINS STABLE WITH MAP>65 AT THIS TIME. VASOPRESSIN INCREASED TO 0.02 UNITS/HR.
[2020-05-14] VITALS (34 sets, daily range): BP systolic 90–113
--- NOTE | 2020-05-14 01:27 | NUR ---
RN ROUNDS: CARES PROVIDED, PATIENT TOLERATED WELL, TURN AND REPOSITIONED FOR COMFORT, BED IN LOWEST LOCKED POSITION, ALL SAFETY PRECAUTIONS IN PLACE. PATIENT SHOWING NO SIGNS OF DISTRESS AND OR DISCOMFORT AT THIS TIME.
--- NOTE | 2020-05-14 02:14 | NUR ---
Mitchel Evangelista RN titrate diprivan to 20 mcg/kg/min.
--- NOTE | 2020-05-14 04:23 | NUR ---
RN ROUNDS: ORAL CARE PROVIDED, PATIENT REPOSITIONED WITH PILLOWS FOR COMFORT. HOB IN OPTIMAL PLACEMENT, NG TUBE INFUSING FEEDING AT 20ML/HR WITH NO RESIDUALS. TOLERATING FEEDING WELL AT THIS TIME, ALL SAFETY PRECAUTIONS IN PLACE, BED IN LOWEST LOCKED POSITION.
[2020-05-14] MEDS: METOCLOPRAMIDE HCL 10 MG/2 ML VIAL IVP SCH ×4 (05:07→23:50)
[2020-05-14] MEDS: PIPERACILLIN/TAZO 4.5GM/DEX-IS 100 ML IV SCH ×3 (05:07→23:00)
[2020-05-14] MEDS: LEVOTHYROXINE SODIUM 0.075 MG TABLET PO SCH (06:05)
--- NOTE | 2020-05-14 06:58 | NUR ---
CLOSING NOTE: SBAR REPORT GIVEN TO AM RN, ALL CARES MET. ALL SAFETY PRECAUTIONS IN PLACE.
--- NOTE | 2020-05-14 07:30 | NUR ---
Opening Note Received plan of care via sbar from endorsing RN.
[2020-05-14] MEDS: ALBUTEROL MDI INHALATION 8 GM INH INH SCH ×3 (07:40→19:56)
--- NOTE | 2020-05-14 08:25 | NUR ---
Morphine increased to 4mg/hr per Dr. Hay. Bedside RN aware.
--- NOTE | 2020-05-14 08:25 | NUR ---
Dr. Hay at bedside. Provided patient update. Received orders for Lovenox BID sub Q scheduled, CBC, CMP, and D-dimer the following AM.
[2020-05-14 09:16] LABS: BASOPHILS % (AUTO) 0.2 % (0.0-2.0); EOSINOPHILS % (AUTO) 0.3 % (0.0-4.0); HEMATOCRIT 31.5 % (36-54); HEMOGLOBIN 10.4 g/dL (14.0-18.0); LYMPHOCYTES # (AUTO) 0.4 K/uL (1.0-5.5); MEAN CORPUSCULAR HEMOGLOBIN 30 pg (27-31); MEAN CORPUSCULAR HGB CONC 33 % (32-36); MEAN CORPUSCULAR VOLUME 90 fL (79.0-98.0); MONOCYTES # (AUTO) 0.1 K/uL (0.0-1.0); MONOCYTES % (AUTO) 0.8 % (1.7-9.3); NEUTROPHILS % (AUTO) 95.7 % (40.0-70.0); PLATELET COUNT (AUTO) 156 K/uL (130-430); RED BLOOD CELL COUNT(AUTO) 3.49 MIL/uL (4.2-6.2); RED CELL DISTRIBUTION WIDTH 16.3 % (9.0-15.0); WHITE BLOOD COUNT (AUTO) 14.7 K/uL (4.8-10.8)
[2020-05-14] MEDS: metroNIDAZOLE 500 mg/NS 100 ML IV SCH ×2 (09:26→21:00)
[2020-05-14] MEDS: ENOXAPARIN SODIUM 40 MG/0.4 ML SYRINGE SUBCUT SCH ×2 (09:26→21:00)
[2020-05-14] MEDS: POTASSIUM CHLORIDE 20 MEQ/PKT PACKET PO SCH (09:26)
[2020-05-14] MEDS: methylPREDNISolone SOD SUCC 40 MG/ML VIAL IVP SCH (09:27)
[2020-05-14] MEDS: FAMOTIDINE PF 20 MG/2 ML VIAL IVP SCH ×2 (09:27→21:00)
[2020-05-14] MEDS: ASCORBIC ACID 500 MG TABLET PO SCH (09:27)
[2020-05-14] MEDS: TAMSULOSIN HCL 0.4 MG CAP PO SCH (09:27)
[2020-05-14 09:37] LABS: ALBUMIN 1.4 g/dL (3.4-4.8); CALCIUM 8.4 mg/dL (8.4-11.0); CREATININE 0.59 mg/dL (0.55-1.30); TOTAL BILIRUBIN 0.4 mg/dL (0.0-1.0)
[2020-05-14] MEDS: CHOLECALCIFEROL (VITAMIN D3) 2,000 UNIT TABLET PO SCH (10:27)
[2020-05-14] MEDS: MICAFUNGIN SODIUM 100 MG in NS 100 ML IV SCH (10:29)
[2020-05-14] MEDS: VASOPRESSIN 20 UNITS in NS 99 ML IV PRN (11:30)
--- NOTE | 2020-05-14 11:34 | NUR ---
Morhpine increased to 6 mg/hr for asynchronous breathing. 02 sats 82% and Fi02 increased from 80% to 100%. RT made aware.
[2020-05-14] MEDS: NACL 0.9% 1,000 ML IV SCH (12:02)
[2020-05-14] MEDS: MORPHINE I.V. DRIP 100 ML IV PRN (12:11)
[2020-05-14] MEDS: MIDAZOLAM HCL IN 0.9 % NACL/PF 50 ML IV PRN (12:12)
--- NOTE | 2020-05-14 12:41 | NUR ---
Paged Dr. Hay to provide update on labs.
--- NOTE | 2020-05-14 12:57 | NUR ---
Received call back from Dr. Hay. Provided update labs. Received order for 40 MEQ Potassium Packet PO x 2. Confirmed with pharmacy to dose 40 MEQ four hours apart.
[2020-05-14] MEDS ORDERED: POTASSIUM CHLORIDE 20 MEQ/PKT PACKET PO ONE ×2 (13:45→18:00)
[2020-05-14] MEDS: PROPOFOL DRIP 100 ML IV PRN (17:37)
--- NOTE | 2020-05-14 19:18 | NUR ---
Closing Note Provided plan of care via sbar from endorsing RN.
--- NOTE | 2020-05-14 19:30 | NUR ---
Opening note Received report and assumed care. Patient sedated; on vent tolerating settings AC 18 TV 500 FIO2 100% peep 12 +. ISRAEL picc patent and infusing IV drips as per AUG. Ferrara catheter in place and draining to gravity. will continue to monitor patient as per unit protocol.
[2020-05-14] MEDS: BUDESONIDE 0.5 MG/2 ML AMPUL.NEB INH SCH (19:56)
--- NOTE | 2020-05-14 20:30 | NUR ---
Assessment completed; repositioned for comfort. continue to monitor.
[2020-05-15] VITALS (31 sets, daily range): BP systolic 86–159
--- NOTE | 2020-05-15 | NUR ---
Assessment completed. No signs of distress noted. reposition for comfort.
[2020-05-15] MEDS: ALBUTEROL MDI INHALATION 8 GM INH INH SCH ×4 (02:23→19:47)
--- NOTE | 2020-05-15 04:32 | NUR ---
Morning care provided; patient tolerated well.
[2020-05-15] MEDS: MORPHINE I.V. DRIP 100 ML IV PRN ×2 (05:29→21:39)
[2020-05-15] MEDS: PIPERACILLIN/TAZO 4.5GM/DEX-IS 100 ML IV SCH (06:14)
[2020-05-15] MEDS: LEVOTHYROXINE SODIUM 0.075 MG TABLET PO SCH (06:16)
[2020-05-15] MEDS: METOCLOPRAMIDE HCL 10 MG/2 ML VIAL IVP SCH ×4 (06:16→23:20)
[2020-05-15 06:46] LABS: BASOPHILS # (AUTO) 0.1 K/uL (0.0-0.2); BASOPHILS % (AUTO) 0.4 % (0.0-2.0); EOSINOPHILS % (AUTO) 0.1 % (0.0-4.0); HEMOGLOBIN 10.2 g/dL (14.0-18.0); LYMPHOCYTES # (AUTO) 0.2 K/uL (1.0-5.5); LYMPHOCYTES % (AUTO) 0.7 % (20.5-51.5); MEAN CORPUSCULAR HEMOGLOBIN 30 pg (27-31); MEAN CORPUSCULAR HGB CONC 33 % (32-36); MEAN CORPUSCULAR VOLUME 91 fL (79.0-98.0); MONOCYTES # (AUTO) 0.1 K/uL (0.0-1.0); MONOCYTES % (AUTO) 0.5 % (1.7-9.3); NEUTROPHILS # (AUTO) 27.8 K/uL (1.8-7.7); NEUTROPHILS % (AUTO) 98.3 % (40.0-70.0); PLATELET COUNT (AUTO) 105 K/uL (130-430); RED CELL DISTRIBUTION WIDTH 16.6 % (9.0-15.0); WHITE BLOOD COUNT (AUTO) 28.3 K/uL (4.8-10.8)
--- NOTE | 2020-05-15 07:19 | NUR ---
Opening Note Received plan of care via sbar from endorsing RN.
--- NOTE | 2020-05-15 07:49 | NUR ---
Dr. Rojo at bedside. Provided patient update. Received orders to try sedation vacation. Titrate versed first followed by diprivan as tolerated. Chest x ray.
[2020-05-15 07:55] LABS: ALBUMIN 1.5 g/dL (3.4-4.8); CALCIUM 8.3 mg/dL (8.4-11.0); CREATININE 0.62 mg/dL (0.55-1.30); POTASSIUM 3.6 mmol/L (3.5-5.1); TOTAL BILIRUBIN 0.6 mg/dL (0.0-1.0)
--- NOTE | 2020-05-15 09:00 | NUR ---
Witness Witness Regan YBARRA turn Versed off.
[2020-05-15] MEDS: BUDESONIDE 0.5 MG/2 ML AMPUL.NEB INH SCH ×2 (09:34→19:46)
[2020-05-15] MEDS: FAMOTIDINE PF 20 MG/2 ML VIAL IVP SCH ×2 (09:36→20:35)
[2020-05-15] MEDS: methylPREDNISolone SOD SUCC 40 MG/ML VIAL IVP SCH (09:36)
[2020-05-15] MEDS: ENOXAPARIN SODIUM 40 MG/0.4 ML SYRINGE SUBCUT SCH ×2 (09:37→20:35)
[2020-05-15] MEDS: metroNIDAZOLE 500 mg/NS 100 ML IV SCH ×2 (09:37→20:35)
[2020-05-15] MEDS: ASCORBIC ACID 500 MG TABLET PO SCH (09:37)
[2020-05-15] MEDS: TAMSULOSIN HCL 0.4 MG CAP PO SCH (09:37)
[2020-05-15] MEDS: CHOLECALCIFEROL (VITAMIN D3) 2,000 UNIT TABLET PO SCH (09:37)
[2020-05-15] MEDS: POTASSIUM CHLORIDE 20 MEQ/PKT PACKET PO SCH (09:38)
[2020-05-15] MEDS: MICAFUNGIN SODIUM 100 MG in NS 100 ML IV SCH (09:41)
[2020-05-15] MEDS: VASOPRESSIN 20 UNITS in NS 99 ML IV PRN ×2 (11:05→22:26)
--- NOTE | 2020-05-15 11:15 | NUR ---
Dr. Ling at bedside. Provided patient update. to place orders.
--- NOTE | 2020-05-15 11:30 | NUR ---
Witness Witness Regan RN titrating Diprivan to 10mcg/kg/min
--- NOTE | 2020-05-15 12:00 | NUR ---
Witness Witness Regan YBARRA titrating Diprivan to 15 mcg/kg/min.
--- NOTE | 2020-05-15 12:30 | NUR ---
Witness Witness Regan RN turn Versed to 2mg/hr.
[2020-05-15] MEDS: NACL 0.9% 1,000 ML IV SCH (12:44)
--- NOTE | 2020-05-15 13:30 | NUR ---
Wound Evaluation Attempted: Wound Evaluation attempted but held by AMADA Spears secondary to patient was hemodynamically unstable. Will check on patient tomorrow.
[2020-05-15] MEDS: FLUCONAZOLE 200 mg/ NS 100 ML IV SCH (13:32)
[2020-05-15] MEDS: PROPOFOL DRIP 100 ML IV PRN ×2 (14:06→23:41)
[2020-05-15] MEDS: MIDAZOLAM HCL IN 0.9 % NACL/PF 50 ML IV PRN (14:07)
[2020-05-15] MEDS: MEROPENEM 500 MG in NS 50 ML IV SCH ×2 (15:11→21:42)
--- NOTE | 2020-05-15 19:31 | NUR ---
Closing Note Provided plan of care via sbar to receiving note.
--- NOTE | 2020-05-15 19:34 | NUR ---
WITNESSED TALON YBARRA DECREASE VERSED TO 3 MG/HR.
--- NOTE | 2020-05-15 19:38 | NUR ---
Opening note Received report via SBAR format by AM RN and assumed care. Patient sedated; on vent tolerating settings AC 18 TV 500 FIO2 100% peep 12 +. ISRAEL picc patent and infusing IV drips as per AUG. Ferrara catheter in place and draining to gravity. will continue to monitor patient as per unit protocol. All safety precautions in place, bed in lowest locked position.
--- NOTE | 2020-05-15 21:20 | NUR ---
WITNESSED TALON YBARRA DECREASE VERSED TO 2 MG/HR.
--- NOTE | 2020-05-15 21:41 | NUR ---
RESIDUAL: HOLDING FEED, RESIDUALS >200 ML, WILL RE-ASSESS IN 30 MINUTES.
--- NOTE | 2020-05-15 22:10 | NUR ---
RESIDUAL: PATIENT REMAINS TO HAVE RESIDUAL > 200, CONTINUING TO HOLD FEED AT THIS TIME. CHARGE AWARE. NO FREE WATER FLUSH GIVEN, PATIENT ON IV FLUIDS TO MEET HYDRATION NEEDS AT THIS TIME, GOOD URINE OUTPUT NOTED.
[2020-05-15] MEDS ORDERED: VASOPRESSIN 20 UNITS/ML VIAL IV ONE (22:11)
--- NOTE | 2020-05-15 22:30 | NUR ---
WITNESSED TALON YBARRA DECREASE VERSED TO 1 MG/HR.
--- NOTE | 2020-05-15 23:30 | NUR ---
WITNESSED TALON YBARRA TURN VERSED DRIP OFF.
--- NOTE | 2020-05-15 23:43 | NUR ---
LIP SCAB: MODERATE BLEEDING NOTED FROM RIGHT UPPER LIP SCAB, AREA CLEANSED AND PATTED DRY. EFFECTIVE IN STOPPING BLEEDING, MONITORING SITE AT THIS TIME.
[2020-05-16] VITALS (33 sets, daily range): BP systolic 84–171
--- NOTE | 2020-05-16 00:09 | NUR ---
WITNESSED TALON RN DECREASE MORPHINE TO 5 MG/HR AND DECREASE DIPRIVAN TO 15 MCG/KG/MIN.
--- NOTE | 2020-05-16 01:02 | NUR ---
ETT SECUREMENT DEVICE: ETT SECUREMENT DEVICE REDONE BY RT, PATIENT TOLERATED WELL.
--- NOTE | 2020-05-16 01:15 | NUR ---
WITNESSED TALON RN DECREASE MORPHINE TO 4 MG/HR.
--- NOTE | 2020-05-16 04:15 | NUR ---
RESIDUALS: RESIDUALS REMAIN > 200ML, CHARGE AWARE. CONTINUING TO HOLD FEEDING AND WATER FLUSHES, WILL ENDORSE TO AM NURSE.
--- NOTE | 2020-05-16 04:50 | NUR ---
COREY HANLEY RN INCREASE DIPRIVAN TO 20 MCG/KG/MIN.
--- NOTE | 2020-05-16 04:50 | NUR ---
WITNESSED TALON RN INCREASE MORPHINE TO 5 MG/HR.
--- NOTE | 2020-05-16 05:00 | NUR ---
RESPIRATORY CHANGE: PATIENT HAS BECOME TACHYPNEIC AT A RATE OF 42, OXYGEN SATURATION 66%, HR 93, BP 166/90. INCREASED SEDATION, RT AT SIDE, PATIENT REMAINS ON 100% FIO2 WITH A PEEP OF 12 ON VENTILATOR. CHARGE AWARE, MONITORING EFFECT OF SEDATION.
[2020-05-16] MEDS: METOCLOPRAMIDE HCL 10 MG/2 ML VIAL IVP SCH ×4 (05:01→23:53)
[2020-05-16] MEDS: MEROPENEM 500 MG in NS 50 ML IV SCH ×3 (05:01→22:37)
--- NOTE | 2020-05-16 05:10 | NUR ---
WITNESSED TALON RN INCREASE MORPHINE TO 6 MG/HR.
--- NOTE | 2020-05-16 05:10 | NUR ---
COREY HANLEY RN INCREASE DIPRIVAN TO 25 MCG/KG/MIN.
--- NOTE | 2020-05-16 05:26 | NUR ---
COREY HANLEY RN INCREASE DIPRIVAN TO 30 MCG/KG/MIN.
--- NOTE | 2020-05-16 05:26 | NUR ---
WITNESSED TALON RN INCREASE MORPHINE TO 7 MG/HR.
--- NOTE | 2020-05-16 05:34 | NUR ---
yani valle Rn titrate versed to 1 mg.
--- NOTE | 2020-05-16 05:57 | NUR ---
yani valle RN titrate diprivan to 35 mcg/kg/min.
[2020-05-16] MEDS: LEVOTHYROXINE SODIUM 0.075 MG TABLET PO SCH ×2 (06:11→08:08)
--- NOTE | 2020-05-16 06:12 | NUR ---
X-RAY: X-RAY TECH AT BEDSIDE PERFORMING CHEST X-RAY.
--- NOTE | 2020-05-16 06:13 | NUR ---
RX: HOLDING SYNTHROID, PATIENT REMAINS TO HAVE HIGH RESIDUALS > 200ML, CHARGE AWARE.
--- NOTE | 2020-05-16 06:48 | NUR ---
RESPIRATORY STATUS: OXYGEN STATUS SLIGHTLY IMPROVED, 75% ON MONITOR WITH RATE OF 27, PATIENT REMAINS TACHYCARDIC 128. CONTINUING TO MONITOR, CHARGE AWARE. RT AT BEDSIDE.
--- NOTE | 2020-05-16 06:54 | NUR ---
Closing Note Provided plan of care via sbar to receiving note.
--- NOTE | 2020-05-16 07:30 | NUR ---
rEPORT RECEIVED FROM NIGHT RN. Assuming care now.
[2020-05-16] MEDS: BUDESONIDE 0.5 MG/2 ML AMPUL.NEB INH SCH ×2 (08:03→20:00)
[2020-05-16] MEDS: ALBUTEROL MDI INHALATION 8 GM INH INH SCH ×3 (08:03→20:00)
[2020-05-16] MEDS ORDERED: COMMUNICATION ORDER XX ONE ×2 (08:30→10:45)
--- NOTE | 2020-05-16 08:30 | NUR ---
Witnessed versed at 4 mg/hr infusing on pump.
[2020-05-16] MEDS: PROPOFOL DRIP 100 ML IV PRN ×3 (08:43→22:36)
--- NOTE | 2020-05-16 08:45 | NUR ---
Dr Rojo at bedside. New orders received including 50mg Rocuronium now IV D/T saturation in 70s and asynchrony with vent. No proning nor sedation vacations until notified otherwise per Dr Rojo.
[2020-05-16] MEDS: VASOPRESSIN 20 UNITS in NS 99 ML IV PRN (08:59)
--- NOTE | 2020-05-16 09:00 | NUR ---
Witnessed versed at 5 mg/hr infusing on pump.
[2020-05-16] MEDS: FAMOTIDINE PF 20 MG/2 ML VIAL IVP SCH ×2 (09:01→21:31)
[2020-05-16] MEDS: TAMSULOSIN HCL 0.4 MG CAP PO SCH (09:01)
[2020-05-16] MEDS: methylPREDNISolone SOD SUCC 40 MG/ML VIAL IVP SCH (09:01)
[2020-05-16] MEDS: ASCORBIC ACID 500 MG TABLET PO SCH (09:02)
[2020-05-16] MEDS: POTASSIUM CHLORIDE 20 MEQ/PKT PACKET PO SCH (09:02)
[2020-05-16] MEDS: CHOLECALCIFEROL (VITAMIN D3) 2,000 UNIT TABLET PO SCH (09:02)
--- NOTE | 2020-05-16 09:03 | NUR ---
Dr Rojo rounded and discussed with Raiza, pts , DNR status and poor prognosis. Raiza will discuss with family.
[2020-05-16] MEDS: ENOXAPARIN SODIUM 40 MG/0.4 ML SYRINGE SUBCUT SCH ×2 (09:05→21:32)
[2020-05-16] MEDS: metroNIDAZOLE 500 mg/NS 100 ML IV SCH ×2 (09:07→21:31)
--- NOTE | 2020-05-16 09:30 | NUR ---
Witnessed versed at 6 mg/hr infusing on pump.
[2020-05-16] MEDS ORDERED: ROCURONIUM BROMIDE 10 MG/ML (ZEMURON) IV ONE (09:45)
--- NOTE | 2020-05-16 10:00 | NUR ---
Witnessed morphine infusing at 6 mg/hr infusing on pump.
--- NOTE | 2020-05-16 10:00 | NUR ---
Witnessed versed at 7 mg/hr infusing on pump.
--- NOTE | 2020-05-16 10:23 | NUR ---
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 Per RN note, pt's TF of Vital AF 1.2 was on hold since yesterday d/t residuals > [address] spoke w/ RN Morteza via phone, who stated that TF is still on hold but will start initiate TF Vital AF 1.2 at 10 ml/hr later today per MD's orders. Per RN, propofol is infusing at 50 mcg/kg/min (18.78 ml/hr). Noted pt remains on 2 vasopressors per EMR, and no other plans/procedures for pt at this time. 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 Please refer to note for details. Estimated Energy Expenditure (kcals/day) 7695-2688 kcal/day (30-35 kcal/kg CBW for acute state, catabolic illness) Estimated Protein Required (g/day) 89-148 gm pro/day (1.2-2 gm protein/kg CBW for COVID-19 Dz requiring ICU care per ASPEN/SCCM) Estimated Fluid Required (l/day) 1.1-1.5 L/day (1 ml/kcal/day for maintenance) Problem/Etiology/Signs/Symptoms Inadequate oral/beverage intake r/t inadequate energy intake and decreased appetite AEB pt w/ no appetite and PO intake meets <75% of est needs x 4 days. *no longer applicable Altered nutrition related labs r/t medication interaction AEB elevated BG and steroid therapy. *ongoing Inadequate EN support related to metabolic demands as evidenced by estimated nutritional requirements for COVID-19 Dz requiring ICU care. (*ongoing) Expected Outcomes/Goals -Will monitor EN re-initiation and tolerance and intake w/ goal of pt meeting at least 75% of estimated nutritional needs, labs trending WNL, normal GI function, skin integrity, and weight maintenance. Dietitian Recommendations * Recommend re-initiate Vital AF 1.2 at 10 ml/hr (goal rate), Prosource TID, Timothy BID, Free Water Flush per physician via OGT for now. Provides: 658 kcal/day, 71 gm protein/day, 201 ml free water/day Meets: 35% of upper end of estimated caloric needs and 80% of upper end of estimated protein needs * If/when medically feasible, recommend slowly increase Vital AF 1.2 goal rate to 60 ml/hr (goal rate), Prosource TID, Timothy BID, Free Water Flush per physician via OGT Provides: 2098 kcal/day, 158 gm protein/day, 1468 ml free water/day Meets: 95% of upper end of estimated caloric needs and 108% of upper end of estimated protein needs High Risk: F/U in 2-3 days
--- NOTE | 2020-05-16 10:30 | NUR ---
Witnessed versed at 8 mg/hr infusing on pump.
--- NOTE | 2020-05-16 10:53 | NUR ---
Dietitian Recommendations * Recommend re-initiate Vital AF 1.2 at 10 ml/hr (goal rate), Prosource TID, Timothy BID, Free Water Flush per physician via OGT for now. Provides: 658 kcal/day, 71 gm protein/day, 201 ml free water/day Meets: 35% of upper end of estimated caloric needs and 80% of upper end of estimated protein needs * If/when medically feasible, recommend slowly increase Vital AF 1.2 goal rate to 60 ml/hr (goal rate), Prosource TID, Timothy BID, Free Water Flush per physician via OGT Provides: 2098 kcal/day, 158 gm protein/day, 1468 ml free water/day Meets: 95% of upper end of estimated caloric needs and 108% of upper end of estimated protein needs Please see Nutrition F/U for details EP,RD
--- NOTE | 2020-05-16 11:00 | NUR ---
Witnessed morphine infusing at 5 mg/hr infusing on pump.
--- NOTE | 2020-05-16 11:00 | NUR ---
Witnessed versed at 9 mg/hr infusing on pump.
[2020-05-16] MEDS ORDERED: ROCURONIUM BROMIDE 10 MG/ML (ZEMURON) IV PRN (11:15)
[2020-05-16] MEDS: MORPHINE I.V. DRIP 100 ML IV PRN (11:23)
[2020-05-16] MEDS: MIDAZOLAM HCL IN 0.9 % NACL/PF 50 ML IV PRN ×4 (11:23→22:34)
--- NOTE | 2020-05-16 11:30 | NUR ---
Witnessed versed at 10 mg/hr infusing on pump.
--- NOTE | 2020-05-16 12:00 | NUR ---
Witnessed versed at 11 mg/hr infusing on pump.
--- NOTE | 2020-05-16 12:30 | NUR ---
Witnessed versed at 12 mg/hr infusing on pump.
--- NOTE | 2020-05-16 13:00 | NUR ---
Witnessed versed at 13 mg/hr infusing on pump.
[2020-05-16] MEDS: FLUCONAZOLE 200 mg/ NS 100 ML IV SCH (13:12)
--- NOTE | 2020-05-16 13:30 | NUR ---
Witnessed versed at 14 mg/hr infusing on pump.
--- NOTE | 2020-05-16 13:33 | NUR ---
Wound Evaluation Attempted: Wound Evaluation attempted but held by [facility] secondary to patient was hemodynamically unstable. Patient is on 0.1 mcg/minute of quad strength Levophed, max dosage on Propofol, 15 mg/hr of Versed, 0.04 of Vasopressin, and 5 mg/hr of Morphine Sulfate. Respiratory rate was in the low 70's, now 89%. Patient has blue toes on right foot per [facility] [employer]. Unable to turn patient for assessment at this time. Will check on patient tomorrow. Waiting for specialty bed to arrive.
[2020-05-16] MEDS: NOREPINEPHRINE BITARTRATE 16 MG in NS 234 ML IV PRN (13:37)
--- NOTE | 2020-05-16 14:00 | NUR ---
Witnessed versed at 15 mg/hr infusing on pump.
[2020-05-16] MEDS: NACL 0.9% 1,000 ML IV SCH (14:08)
[2020-05-17] VITALS (27 sets, daily range): BP systolic 74–134
[2020-05-17] MEDS: MIDAZOLAM HCL IN 0.9 % NACL/PF 50 ML IV PRN ×8 (01:55→22:36)
[2020-05-17] MEDS: PROPOFOL DRIP 100 ML IV PRN ×4 (02:33→20:32)
[2020-05-17] MEDS: VASOPRESSIN 20 UNITS in NS 99 ML IV PRN ×2 (05:58→13:20)
[2020-05-17] MEDS: METOCLOPRAMIDE HCL 10 MG/2 ML VIAL IVP SCH ×3 (06:44→18:19)
[2020-05-17] MEDS: MEROPENEM 500 MG in NS 50 ML IV SCH ×3 (06:44→21:51)
[2020-05-17] MEDS: LEVOTHYROXINE SODIUM 0.075 MG TABLET PO SCH (06:44)
--- NOTE | 2020-05-17 07:15 | NUR ---
ENDORSEMENT Pt care endorsed to AMADA haile using nursing sbar.
--- NOTE | 2020-05-17 07:30 | NUR ---
oPENING NOTE: Report received from night RN. Assuming care now.
[2020-05-17] MEDS: BUDESONIDE 0.5 MG/2 ML AMPUL.NEB INH SCH ×2 (07:31→20:08)
[2020-05-17] MEDS: ALBUTEROL MDI INHALATION 8 GM INH INH SCH ×3 (07:31→20:08)
--- NOTE | 2020-05-17 08:10 | NUR ---
Dr Rosa at bedside. Notified of continued decrease in urine output. Ordered labs now and for tomorrow AM.
[2020-05-17 08:31] LABS: HEMOGLOBIN 10.7 g/dL (14.0-18.0); MEAN CORPUSCULAR HEMOGLOBIN 30 pg (27-31); MEAN CORPUSCULAR HGB CONC 32 % (32-36); MEAN CORPUSCULAR VOLUME 93 fL (79.0-98.0); PLATELET COUNT (AUTO) 77 K/uL (130-430); RED BLOOD CELL COUNT(AUTO) 3.55 MIL/uL (4.2-6.2); RED CELL DISTRIBUTION WIDTH 17.5 % (9.0-15.0)
[2020-05-17 09:02] LABS: CALCIUM 7.6 mg/dL (8.4-11.0); CREATININE 0.51 mg/dL (0.55-1.30); POTASSIUM 4.4 mmol/L (3.5-5.1)
[2020-05-17 09:08] LABS: ALBUMIN 1.4 g/dL (3.4-4.8); TOTAL BILIRUBIN 0.5 mg/dL (0.0-1.0)
[2020-05-17] MEDS: TAMSULOSIN HCL 0.4 MG CAP PO SCH (09:23)
[2020-05-17] MEDS: CHOLECALCIFEROL (VITAMIN D3) 2,000 UNIT TABLET PO SCH (09:23)
[2020-05-17] MEDS: methylPREDNISolone SOD SUCC 40 MG/ML VIAL IVP SCH (09:24)
[2020-05-17] MEDS: FAMOTIDINE PF 20 MG/2 ML VIAL IVP SCH ×2 (09:24→20:27)
[2020-05-17] MEDS: ASCORBIC ACID 500 MG TABLET PO SCH (09:24)
[2020-05-17] MEDS: POTASSIUM CHLORIDE 20 MEQ/PKT PACKET PO SCH (09:24)
[2020-05-17] MEDS: metroNIDAZOLE 500 mg/NS 100 ML IV SCH ×2 (09:24→20:27)
[2020-05-17] MEDS: ENOXAPARIN SODIUM 40 MG/0.4 ML SYRINGE SUBCUT SCH ×2 (09:45→20:28)
[2020-05-17 12:20] LABS: BAND % (MANUAL) 28 % (0-6); BASOPHILS % (MANUAL) 0 % (0-2); EOSINOPHILS % (MANUAL) 0 % (0-7); LYMPHOCYTES % (MANUAL) 1 % (20-46); MONOCYTES % (MANUAL) 2 % (0-11)
[2020-05-17] MEDS: FLUCONAZOLE 200 mg/ NS 100 ML IV SCH (13:08)
[2020-05-17] MEDS: NACL 0.9% 1,000 ML IV SCH (13:08)
--- NOTE | 2020-05-17 13:15 | NUR ---
RT NOTES FIO2 to 0.90 per titration order.
--- NOTE | 2020-05-17 15:30 | NUR ---
Wound Re-Evaluation: Patient received in a [facility] bed with an IsoFlex MARGAUX mattress with low air-loss therapy. Cristhian score is a 12. Patient was obtunded and received in a [place] Bed with an Isoflex MARGAUX mattress. Patient needs to be turned in bed. Recent labs: WBC 35.0, RBC 3.55, hemoglobin 10.7, hematocrit 33.0, platelets 77, sodium 135, BUN 37, creatinine 0.51, GFR 171, glucose 146, AST 45, alkaline phosphatase 156, serum total protein 4.8, albumin 1.4, D-dimer 1130. Microbiology: Urine culture results positive for Klebsiella pneumoniae ESBL. Patient is having decreased urine output. Patient is on propofol drip at 50mcg/kg/min, morphine sulfate at 5 mg/h, Versed at 15 mg/h, vasopressin at 0.03 units/min, and Levophed at 0.16 mcg/kg/min (quad strength). Skin assessment: 1. Left Ear [place]: Scab, 100% brown. No odor, no drainage. Measures 0.2 cm x 0.4 cm. 2. Left Ear Lobule: Scar tissue. No odor, no drainage. 3. Right Ear: Blanchable pink erythema. No odor, no drainage. Recommend continue: Cover each ear with foam dressings for protection. Secure with OpSite if needed. Offload sites at all times with towel rolls. 4. Anterior Chest Ecchymosis. No odor, no drainage. Resolving. 5. Anterior Right Lateral Neck and Right Pectoral areas: Ecchymosis. Dry abrasion with red tissue. No odor, no drainage. Resolving. Recommend continue: No dressings needed. Continue to monitor sites qshift. 6. Buttocks areas: sDTI. Area has dark discoloration with blanchable red tissue. No odor, no drainage. Skin intact. Site measures 13.6 cm x 11.0 cm. Bilateral buttocks near ischii areas have speckled red areas. Recommend: Cleanse involved area with mild soap and water if soiled. Gently pat dry. Apply sacral foam dressing. Perform site care daily, and as needed for dressing soiling or dislodgment. Do not place patient on involved area, offload area at all times. 7. Left upper lip: Mucosal pressure ulcer. Site has 100% black coagulum. No odor, no drainage. Recommend: No dressing needed. Continue to monitor site every shift. Keep ET tube away from involved area and try to position so that it is not touching the mucosa tissue. 8. Right Toes and Plantar Foot: Purple discoloration with cold sensation. Possibly from COVID-19 and/or vasopressor use. Recommend: Offload site at all times. Continue to monitor every shift. Recommend: Reposition patient side to side only every 2 hours with one pillow underneath lower back area, one pillow underneath left and right trunk areas, and one pillow underneath left and right pelvic areas; reposition patient side to side by placing an additional pillow underneath left or right side. Perform skin care and monitor skin integrity Q shift. Use moisture barrier cream on moisture susceptible areas QID and PRN for soiling. Patient placed on an air-fluidized therapy bed. Dr. Rojo informed of sites 6-8.
--- NOTE | 2020-05-17 15:30 | NUR ---
Wound care nurse here to assess sacral/buttocks DTI. Skin remains intact, new dressing applied. Patient transferred to Air Fluidized Therapy Bed without incident.
--- NOTE | 2020-05-17 15:50 | NUR ---
Dr Rojo at bedside. Notified of discolored toes. No new orders. Indicated willingness to speak with family again about patient's condition and prognosis.
--- NOTE | 2020-05-17 18:09 | NUR ---
Family here to visit patient. Spoke with RN and charge nurse. Stated they are waiting until the , when daughter returns back here from [place] home to "extubate".
--- NOTE | 2020-05-17 18:10 | NUR ---
Family notified of DTI on sacral/buttocks area as requested by new vehicle sales consultant.
[2020-05-17] MEDS: MORPHINE I.V. DRIP 100 ML IV PRN (21:07)
[2020-05-17] MEDS: NOREPINEPHRINE BITARTRATE 16 MG in NS 234 ML IV PRN (22:16)
[2020-05-18] VITALS (36 sets, daily range): BP systolic 67–142
[2020-05-18] MEDS: PROPOFOL DRIP 100 ML IV PRN ×5 (00:02→23:02)
[2020-05-18] MEDS: METOCLOPRAMIDE HCL 10 MG/2 ML VIAL IVP SCH ×4 (00:54→18:23)
[2020-05-18] MEDS: ALBUTEROL MDI INHALATION 8 GM INH INH SCH ×3 (01:00→13:38)
[2020-05-18] MEDS: MIDAZOLAM HCL IN 0.9 % NACL/PF 50 ML IV PRN ×6 (01:01→21:17)
[2020-05-18] MEDS: VASOPRESSIN 20 UNITS in NS 99 ML IV PRN ×3 (01:02→23:01)
[2020-05-18] MEDS: MEROPENEM 500 MG in NS 50 ML IV SCH ×3 (05:43→21:13)
[2020-05-18] MEDS: LEVOTHYROXINE SODIUM 0.075 MG TABLET PO SCH (06:46)
[2020-05-18 07:04] LABS: BASOPHILS # (AUTO) 0.1 K/uL (0.0-0.2); BASOPHILS % (AUTO) 0.4 % (0.0-2.0); EOSINOPHILS % (AUTO) 0.1 % (0.0-4.0); HEMATOCRIT 31.3 % (36-54); HEMOGLOBIN 10.4 g/dL (14.0-18.0); LYMPHOCYTES # (AUTO) 0.6 K/uL (1.0-5.5); MEAN CORPUSCULAR HEMOGLOBIN 31 pg (27-31); MEAN CORPUSCULAR HGB CONC 33 % (32-36); MEAN CORPUSCULAR VOLUME 92 fL (79.0-98.0); MONOCYTES # (AUTO) 0.3 K/uL (0.0-1.0); MONOCYTES % (AUTO) 0.9 % (1.7-9.3); NEUTROPHILS # (AUTO) 27.5 K/uL (1.8-7.7); NEUTROPHILS % (AUTO) 96.6 % (40.0-70.0); PLATELET COUNT (AUTO) 54 K/uL (130-430); RED CELL DISTRIBUTION WIDTH 17.4 % (9.0-15.0); WHITE BLOOD COUNT (AUTO) 28.5 K/uL (4.8-10.8)
--- NOTE | 2020-05-18 07:12 | NUR ---
ENDORSEMENT Pt care endorsed to AMADA haile using nursing sbar.
--- NOTE | 2020-05-18 07:24 | NUR ---
Opening note: rEPORT RECEIVED FROM NIGHT RN. Assuming care now.
[2020-05-18 08:03] LABS: ALBUMIN 1.3 g/dL (3.4-4.8); CALCIUM 7.4 mg/dL (8.4-11.0); CREATININE 0.54 mg/dL (0.55-1.30); POTASSIUM 4.3 mmol/L (3.5-5.1); TOTAL BILIRUBIN 0.5 mg/dL (0.0-1.0)
[2020-05-18] MEDS: BUDESONIDE 0.5 MG/2 ML AMPUL.NEB INH SCH (08:05)
[2020-05-18] MEDS: ENOXAPARIN SODIUM 40 MG/0.4 ML SYRINGE SUBCUT SCH ×2 (09:49→21:17)
[2020-05-18] MEDS: POTASSIUM CHLORIDE 20 MEQ/PKT PACKET PO SCH (09:50)
[2020-05-18] MEDS: methylPREDNISolone SOD SUCC 40 MG/ML VIAL IVP SCH (09:50)
[2020-05-18] MEDS: TAMSULOSIN HCL 0.4 MG CAP PO SCH (09:50)
[2020-05-18] MEDS: ASCORBIC ACID 500 MG TABLET PO SCH (09:50)
[2020-05-18] MEDS: FAMOTIDINE PF 20 MG/2 ML VIAL IVP SCH ×2 (09:50→21:00)
[2020-05-18] MEDS: CHOLECALCIFEROL (VITAMIN D3) 2,000 UNIT TABLET PO SCH (09:50)
[2020-05-18] MEDS: NACL 0.9% 1,000 ML IV SCH (12:49)
[2020-05-18] MEDS: FLUCONAZOLE 200 mg/ NS 100 ML IV SCH (14:13)
--- NOTE | 2020-05-18 14:26 | NUR ---
Dr Rojo at bedside. Updated on patient condition. No new orders.
[2020-05-18] MEDS: MORPHINE I.V. DRIP 100 ML IV PRN (16:55)
[2020-05-18] MEDS ORDERED: VASOPRESSIN 20 UNITS/ML VIAL IV ONE (21:17)
--- NOTE | 2020-05-18 22:00 | NUR ---
TITRATION Witnessed Juju YBARRA titrate Versed gtt to 14 mg/hr per protocol.
--- NOTE | 2020-05-18 22:30 | NUR ---
TITRATION Witnessed Juju YBARRA titrate Diprivan gtt to 45 mcg/kg/min per protocol.
--- NOTE | 2020-05-18 23:00 | NUR ---
TITRATION Witnessed Juju YBARRA titrate Versed gtt to 13 mg/hr per protocol.
--- NOTE | 2020-05-18 23:00 | NUR ---
TITRATION Mitchel Matute RN titrate Diprivan gtt to 50 mcg/kg/min per protocol. Addendum: 05/19/20 at 0707 by Summer Hood RN WRONG RATE.
--- NOTE | 2020-05-18 23:00 | NUR ---
TITRATION Witnessed Juju YBARRA titrate Diprivan gtt to 40 mcg/kg/min per protocol.
[2020-05-19] VITALS (36 sets, daily range): BP systolic 75–114
[2020-05-19] MEDS: MIDAZOLAM HCL IN 0.9 % NACL/PF 50 ML IV PRN ×4 (01:57→23:07)
--- NOTE | 2020-05-19 03:00 | NUR ---
TITRATION Witnessed Juju YBARRA titrate Versed gtt to 12 mg/hr per protocol.
[2020-05-19] MEDS: METOCLOPRAMIDE HCL 10 MG/2 ML VIAL IVP SCH ×5 (06:00→23:08)
[2020-05-19] MEDS: MEROPENEM 500 MG in NS 50 ML IV SCH ×3 (06:22→21:13)
[2020-05-19] MEDS: PROPOFOL DRIP 100 ML IV PRN ×2 (06:23→13:28)
[2020-05-19] MEDS: LEVOTHYROXINE SODIUM 0.075 MG TABLET PO SCH (06:25)
--- NOTE | 2020-05-19 07:20 | NUR ---
ENDORSEMENT Pt care endorsed to AMADA haile using nursing sbar.
[2020-05-19] MEDS: BUDESONIDE 0.5 MG/2 ML AMPUL.NEB INH SCH ×2 (07:26→19:00)
[2020-05-19] MEDS: ALBUTEROL MDI INHALATION 8 GM INH INH SCH ×3 (07:26→19:00)
--- NOTE | 2020-05-19 07:50 | NUR ---
RT NOTES FIO2 to 100% due to low saturation
--- NOTE | 2020-05-19 08:40 | NUR ---
Opening Note Received plan of care via sbar from endorsing RN.
[2020-05-19 08:54] LABS: BASOPHILS # (AUTO) 0.1 K/uL (0.0-0.2); BASOPHILS % (AUTO) 0.5 % (0.0-2.0); EOSINOPHILS % (AUTO) 0.1 % (0.0-4.0); HEMOGLOBIN 11.5 g/dL (14.0-18.0); LYMPHOCYTES # (AUTO) 0.5 K/uL (1.0-5.5); LYMPHOCYTES % (AUTO) 2.5 % (20.5-51.5); MEAN CORPUSCULAR HEMOGLOBIN 30 pg (27-31); MEAN CORPUSCULAR HGB CONC 33 % (32-36); MEAN CORPUSCULAR VOLUME 92 fL (79.0-98.0); MONOCYTES # (AUTO) 0.1 K/uL (0.0-1.0); MONOCYTES % (AUTO) 0.6 % (1.7-9.3); NEUTROPHILS # (AUTO) 20.2 K/uL (1.8-7.7); NEUTROPHILS % (AUTO) 96.3 % (40.0-70.0); PLATELET COUNT (AUTO) 51 K/uL (130-430); RED BLOOD CELL COUNT(AUTO) 3.81 MIL/uL (4.2-6.2); RED CELL DISTRIBUTION WIDTH 17.2 % (9.0-15.0); WHITE BLOOD COUNT (AUTO) 20.9 K/uL (4.8-10.8)
[2020-05-19 09:20] LABS: ALBUMIN 1.5 g/dL (3.4-4.8); CALCIUM 7.8 mg/dL (8.4-11.0); CREATININE 0.5 mg/dL (0.55-1.30); POTASSIUM 4.2 mmol/L (3.5-5.1); TOTAL BILIRUBIN 0.7 mg/dL (0.0-1.0)
--- NOTE | 2020-05-19 09:30 | NUR ---
Witness Witness Regan RN titrate Versed to 10 mg/hr.
--- NOTE | 2020-05-19 09:30 | NUR ---
Witness Witness Regan RN titrate Propofol to 35 mcg/kg/min
[2020-05-19] MEDS: FAMOTIDINE PF 20 MG/2 ML VIAL IVP SCH ×2 (09:43→21:13)
[2020-05-19] MEDS: POTASSIUM CHLORIDE 20 MEQ/PKT PACKET PO SCH (09:43)
[2020-05-19] MEDS: ASCORBIC ACID 500 MG TABLET PO SCH (09:44)
[2020-05-19] MEDS: TAMSULOSIN HCL 0.4 MG CAP PO SCH (09:44)
[2020-05-19] MEDS: methylPREDNISolone SOD SUCC 40 MG/ML VIAL IVP SCH (09:44)
[2020-05-19] MEDS: NOREPINEPHRINE BITARTRATE 16 MG in NS 234 ML IV PRN (09:45)
[2020-05-19] MEDS: ENOXAPARIN SODIUM 40 MG/0.4 ML SYRINGE SUBCUT SCH ×2 (09:46→21:14)
--- NOTE | 2020-05-19 09:50 | NUR ---
RT NOTES FIO2 to 0.90 per titration order. will monitor pt.
[2020-05-19] MEDS: CHOLECALCIFEROL (VITAMIN D3) 2,000 UNIT TABLET PO SCH (10:02)
--- NOTE | 2020-05-19 10:25 | NUR ---
Dr. Pineda at bedside. Received confirmation to add CBC and CMP labs.
--- NOTE | 2020-05-19 10:30 | NUR ---
Witness Witness Regan RN titrating Diprivan to 30 mcg/kg/min Witness Regan RN titrate Versed to 8 mg/hr
[2020-05-19] MEDS: NACL 0.9% 1,000 ML IV SCH (11:36)
--- NOTE | 2020-05-19 12:30 | NUR ---
Witness Witness Regan RN titrate Diprivan to 25 mcg/kg/min Witness Regan RN titrate Versed to 6 mg/hr
[2020-05-19] MEDS: FLUCONAZOLE 200 mg/ NS 100 ML IV SCH (13:16)
[2020-05-19] MEDS: MORPHINE I.V. DRIP 100 ML IV PRN (13:29)
--- NOTE | 2020-05-19 14:30 | NUR ---
Witness Witness Regan RN titrate diprivan to 20 mcg/kg/min Witness Regan RN titrate versed to 4 mg/hr
--- NOTE | 2020-05-19 15:42 | NUR ---
Dr. Rojo at bedside. Provided patient update and informed MD of the family's request for a modified code. Intubation and ACLS drugs only. MD reviewed and signed Code Status.
--- NOTE | 2020-05-19 17:00 | NUR ---
Witness Witness Regan RN titrate versed to 2 mg/hr
--- NOTE | 2020-05-19 19:30 | NUR ---
Opening Note Resumed Care of patient.
[2020-05-19] MEDS: VASOPRESSIN 20 UNITS in NS 99 ML IV PRN (21:15)
[2020-05-20] VITALS (29 sets, daily range): BP systolic 92–136
[2020-05-20] MEDS: ALBUTEROL MDI INHALATION 8 GM INH INH SCH ×4 (02:27→19:40)
[2020-05-20] MEDS: PROPOFOL DRIP 100 ML IV PRN ×3 (03:21→21:00)
--- NOTE | 2020-05-20 04:30 | NUR ---
Opening note: Report received from night RN. Assuming care now.
[2020-05-20] MEDS: MEROPENEM 500 MG in NS 50 ML IV SCH ×3 (05:58→21:13)
[2020-05-20] MEDS: METOCLOPRAMIDE HCL 10 MG/2 ML VIAL IVP SCH ×4 (05:58→23:55)
[2020-05-20] MEDS: LEVOTHYROXINE SODIUM 0.075 MG TABLET PO SCH (07:00)
[2020-05-20] MEDS: FAMOTIDINE PF 20 MG/2 ML VIAL IVP SCH ×2 (09:25→20:42)
[2020-05-20] MEDS: POTASSIUM CHLORIDE 20 MEQ/PKT PACKET PO SCH (09:25)
[2020-05-20] MEDS: methylPREDNISolone SOD SUCC 40 MG/ML VIAL IVP SCH (09:25)
[2020-05-20] MEDS: ENOXAPARIN SODIUM 40 MG/0.4 ML SYRINGE SUBCUT SCH ×2 (09:26→20:43)
[2020-05-20] MEDS: CHOLECALCIFEROL (VITAMIN D3) 2,000 UNIT TABLET PO SCH (09:26)
[2020-05-20] MEDS: ASCORBIC ACID 500 MG TABLET PO SCH (09:26)
[2020-05-20] MEDS: TAMSULOSIN HCL 0.4 MG CAP PO SCH (09:30)
[2020-05-20] MEDS: BUDESONIDE 0.5 MG/2 ML AMPUL.NEB INH SCH ×2 (09:45→19:40)
[2020-05-20] MEDS ORDERED: BARICITINIB 2 MG PO ONE (12:00)
[2020-05-20] MEDS: MIDAZOLAM HCL IN 0.9 % NACL/PF 50 ML IV PRN ×2 (12:31→17:45)
[2020-05-20] MEDS: NACL 0.9% 1,000 ML IV SCH (12:37)
[2020-05-20] MEDS: MORPHINE I.V. DRIP 100 ML IV PRN (12:51)
[2020-05-20] MEDS: FLUCONAZOLE 200 mg/ NS 100 ML IV SCH (13:00)
[2020-05-20] MEDS: VANCOMYCIN HCL 1,500 MG in NS 250 ML IV SCH (14:42)
--- NOTE | 2020-05-20 15:29 | NUR ---
Nutrition F/U Admitting Diagnosis: Pneumonia Medical History Comment: PMH: BPH, hypothyroidism, s/p cholecystectomy Pt also found w/ 3 negative test for COVID-19 PCR as an outpatient [employer] per previous physician notes Per EMR review 04/14, pt tested positive for COVID w/ bronchoscopy PCR Subjective Information: RD bedside interview deferred d/t isolation precautions and PPE conservation efforts. Per EMR, pt continues intubated/sedated on vent support, FiO2 100%. RD spoke w/ pt's primary RN via phone call. RN reported that pt's TF has been off since midnight, and pt's family has modified pt's code status. Plan is for pt to be possibly terminally extubated 05/22 as per physician notes and RN report. Per EMR review, TF Intakes: 50 ml 05/20; GRV: 40 ml 05/20; abd is soft and non-distended w/ active bowel sounds; last BM x1 05/17. Pt has not been receiving EN support, and RN reported that physicians have stated to leave TF off for now, however, TF order is still active. Current Diet Order/Nutrition Support: Vital AF 1.2 at 60 ml/hr (goal rate), Prosource TID, Timothy BID, Free Water Flush: 50 ml Q4h via OGT x6 days Pertinent Medications: propofol at 18.78 ml/hr (496 kcal/day), solu-medrol, zinc sulfate, VIT C, VIT D3, pepcid, reglan Pertinent Labs: BG 147 H (trending up), BUN 45 H (trending up), CRE 0.5 L (trending down), WBC 20.9 H (trending down) Skin Integrity: Cristhian Scale: 12; reviewed [facility] [employer] note 05/17. Please refer to note for details. Estimated Energy Expenditure (kcals/day) 9149-0910 kcal/day (30-35 kcal/kg CBW for acute state, catabolic illness) Estimated Protein Required (g/day) 89-148 gm pro/day (1.2-2 gm protein/kg CBW for COVID-19 Dz requiring ICU care per [facility]EN/[facility]) Estimated Fluid Required (l/day) 1.1-1.5 L/day (1 ml/kcal/day for maintenance) Problem/Etiology/Signs/Symptoms Inadequate oral/beverage intake r/t inadequate energy intake and decreased appetite AEB pt w/ no appetite and PO intake meets <75% of est needs x 4 days. *no longer applicable Altered nutrition related labs r/t medication interaction AEB elevated BG and steroid therapy. *ongoing Inadequate EN support related to metabolic demands as evidenced by estimated nutritional requirements for COVID-19 Dz requiring ICU care. (*ongoing) Expected Outcomes/Goals -Will monitor EN re-initiation and tolerance and intake w/ goal of pt meeting at least 75% of estimated nutritional needs, labs trending WNL, normal GI function, skin integrity, and weight maintenance. Dietitian Recommendations * Recommend D/C TF order and implement NPO * Consider re-initiating Vital AF 1.2 at 10 ml/hr (goal rate), Prosource TID, Timothy BID, Free Water Flush per physician via OGT if/when medically appropriate Provides: 658 kcal/day, 71 gm protein/day, 201 ml free water/day Meets: 35% of upper end of estimated caloric needs and 80% of upper end of estimated protein needs High Risk: F/U in 2-3 days
--- NOTE | 2020-05-20 15:34 | NUR ---
Dietitian Recommendations * Recommend D/C TF order and implement NPO * Consider re-initiating Vital AF 1.2 at 10 ml/hr (goal rate), Prosource TID, Timothy BID, Free Water Flush per physician via OGT if/when medically appropriate Provides: 658 kcal/day, 71 gm protein/day, 201 ml free water/day Meets: 35% of upper end of estimated caloric needs and 80% of upper end of estimated protein needs LP, RD Please refer to Nutrition F/U for details.
--- NOTE | 2020-05-20 21:00 | NUR ---
GTT TITRATION WITNESSED MARLON YBARRA TITRATE DIPRIVAN DRIP TO 25 MCG/KG/HR PER ORDERS.
--- NOTE | 2020-05-20 21:15 | NUR ---
GTT TITRATION WITNESSED MARLON YBARRA TITRATE DIPRIVAN DRIP TO 20 MCG/KG/HR AND VERSED TO 5 MG/HR PER ORDERS.
--- NOTE | 2020-05-20 21:40 | NUR ---
Endorsed plan of care to receiving RN.
--- NOTE | 2020-05-20 21:55 | NUR ---
PM SHIFT ASSESSMENT Pt is sedated on the vent, tolerating current vent settings. SR on monitor. Skin warm and dry. IVF infusing, no signs of infiltration noted. Ferrara catheter in place, draining to gravity. Safety precautions in place, call light within reach. Will continue to monitor.
[2020-05-21] VITALS (28 sets, daily range): BP systolic 88–169
--- NOTE | 2020-05-21 | NUR ---
VERSED TITRATION WITNESSED DENA YBARRA TITRATE VERSED DRIP TO 6 MG/HR PER ORDERS.
--- NOTE | 2020-05-21 01:00 | NUR ---
DIPRIVAN TITRATION WITNESSED DENA YBARRA TITRATE DIPRIVAN DRIP TO 25 MCG/KG/MIN PER ORDERS.
[2020-05-21] MEDS: MIDAZOLAM HCL IN 0.9 % NACL/PF 50 ML IV PRN ×2 (02:49→10:41)
[2020-05-21] MEDS: METOCLOPRAMIDE HCL 10 MG/2 ML VIAL IVP SCH ×3 (06:00→18:14)
[2020-05-21] MEDS: MEROPENEM 500 MG in NS 50 ML IV SCH ×3 (06:21→21:29)
[2020-05-21] MEDS: NOREPINEPHRINE BITARTRATE 16 MG in NS 234 ML IV PRN (06:22)
[2020-05-21] MEDS: LEVOTHYROXINE SODIUM 0.075 MG TABLET PO SCH (06:22)
[2020-05-21] MEDS: BUDESONIDE 0.5 MG/2 ML AMPUL.NEB INH SCH ×2 (07:00→19:51)
[2020-05-21] MEDS: ALBUTEROL MDI INHALATION 8 GM INH INH SCH ×3 (07:00→19:51)
--- NOTE | 2020-05-21 07:20 | NUR ---
ENDORSEMENT Pt care endorsed to dayshift RN using nursing SBAR.
--- NOTE | 2020-05-21 07:30 | NUR ---
Opening Received report from endorsing RN. Pt in no signs of pain or distress at this time.
[2020-05-21] MEDS: PROPOFOL DRIP 100 ML IV PRN ×2 (08:52→15:10)
[2020-05-21] MEDS: ENOXAPARIN SODIUM 40 MG/0.4 ML SYRINGE SUBCUT SCH ×2 (08:52→21:24)
[2020-05-21] MEDS: FAMOTIDINE PF 20 MG/2 ML VIAL IVP SCH ×2 (08:53→21:24)
[2020-05-21] MEDS: CHOLECALCIFEROL (VITAMIN D3) 2,000 UNIT TABLET PO SCH (08:53)
[2020-05-21] MEDS: methylPREDNISolone SOD SUCC 40 MG/ML VIAL IVP SCH (08:53)
[2020-05-21] MEDS: POTASSIUM CHLORIDE 20 MEQ/PKT PACKET PO SCH (08:53)
[2020-05-21] MEDS: TAMSULOSIN HCL 0.4 MG CAP PO SCH (08:54)
[2020-05-21] MEDS: ASCORBIC ACID 500 MG TABLET PO SCH (08:54)
[2020-05-21] MEDS: BARICITINIB 2 MG PO SCH ×2 (09:00→10:21)
[2020-05-21] MEDS ORDERED: BARICITINIB -Non-Formulary 2 MG TABLET PO ONE (10:21)
[2020-05-21] MEDS: MORPHINE I.V. DRIP 100 ML IV PRN (10:42)
[2020-05-21] MEDS: NACL 0.9% 1,000 ML IV SCH (12:00)
[2020-05-21] MEDS: FLUCONAZOLE 200 mg/ NS 100 ML IV SCH (13:00)
[2020-05-21] MEDS: VANCOMYCIN HCL 1,500 MG in NS 250 ML IV SCH (14:30)
[2020-05-21] MEDS: VASOPRESSIN 20 UNITS in NS 99 ML IV PRN (16:00)
--- NOTE | 2020-05-21 19:24 | NUR ---
Closing Pt comfortable, no pain or distress noted. Pt's Raiza states they will visit around 1400 or 1500 tomorrow for terminal extubation. Endorsed plan of care to RN.
--- NOTE | 2020-05-21 19:25 | NUR ---
OPENING NOTE RECEIVED SBAR REPORT FROM OFF COMING RN FOR CONTINUITY OF CARE. PT LAYING IN BED, SEDATED AND ON VENTILATOR. NO S/S OF ACUTE DISTRESS NOTED. DIPRIVAN GTT INFUSING @ 20 MCG/KG/MIN, VERSED GTT @ 4 MG/HR, MORPHINE @ 5 MG/HR, VASOPRESSIN GTT @ 0.01 UNITS/MIN, LEVOPHED GTT @ 0.1 MCG/KG/MIN. ALVARADO CATHETER IN PLACE AND DRAINING TO GRAVITY. BED LOCKED AND IN LOWEST POSITION, SAFETY PRECAUTIONS IN PLACE.
[2020-05-22] VITALS (23 sets, daily range): BP systolic 99–130
[2020-05-22] MEDS: METOCLOPRAMIDE HCL 10 MG/2 ML VIAL IVP SCH ×3 (00:42→11:41)
[2020-05-22] MEDS: ALBUTEROL MDI INHALATION 8 GM INH INH SCH ×3 (01:00→13:36)
[2020-05-22] MEDS: PROPOFOL DRIP 100 ML IV PRN (04:34)
[2020-05-22] MEDS: MEROPENEM 500 MG in NS 50 ML IV SCH ×2 (06:24→13:36)
[2020-05-22] MEDS: LEVOTHYROXINE SODIUM 0.075 MG TABLET PO SCH (06:27)
--- NOTE | 2020-05-22 07:26 | NUR ---
CLOSING NOTE ENDORSED SBAR REPORT TO ONCOMING RN FOR CONTINUITY OF CARE.
--- NOTE | 2020-05-22 07:30 | NUR ---
Opening note: Report received from night RN. Assuming care now.
[2020-05-22] MEDS: BUDESONIDE 0.5 MG/2 ML AMPUL.NEB INH SCH (07:45)
[2020-05-22] MEDS: BARICITINIB 2 MG PO SCH (09:00)
[2020-05-22] MEDS: TAMSULOSIN HCL 0.4 MG CAP PO SCH (09:08)
[2020-05-22] MEDS: POTASSIUM CHLORIDE 20 MEQ/PKT PACKET PO SCH (09:08)
[2020-05-22] MEDS: CHOLECALCIFEROL (VITAMIN D3) 2,000 UNIT TABLET PO SCH (09:08)
[2020-05-22] MEDS: FAMOTIDINE PF 20 MG/2 ML VIAL IVP SCH (09:08)
[2020-05-22] MEDS: ASCORBIC ACID 500 MG TABLET PO SCH (09:08)
[2020-05-22] MEDS: methylPREDNISolone SOD SUCC 40 MG/ML VIAL IVP SCH (09:09)
[2020-05-22] MEDS: ENOXAPARIN SODIUM 40 MG/0.4 ML SYRINGE SUBCUT SCH (09:11)
--- NOTE | 2020-05-22 10:50 | NUR ---
Spoke with , stated she plans to come by hospital at 2-3pm for terminal extubation.
[2020-05-22] MEDS: NACL 0.9% 1,000 ML IV SCH (11:41)
[2020-05-22] MEDS: FLUCONAZOLE 200 mg/ NS 100 ML IV SCH (12:27)
--- NOTE | 2020-05-22 15:30 | NUR ---
and daughter arrived. A man is with them, daughter stAted he is family. Undersigned asked relation, and after a moment of silence and deliberation, daughter stated "fiance".
--- NOTE | 2020-05-22 15:31 | NUR ---
of patient asked if "anyone were to call and ask the status other than family, what would you guys say?". Undersigned explained due to HIPPA privacy laws, we would be unable to give the caller information on the patient.
--- NOTE | 2020-05-22 16:05 | NUR ---
Family asked to leave room. RT at bedside to extubate per family's wishes. Propofol/Levophed/Vasopressin turned off. OG removed.
--- NOTE | 2020-05-22 16:05 | NUR ---
RT NOTE: 1605 Pt terminally extubated per family's wishes. Verified with RN. Pt extubated and placed on 2LPM Nasal cannula for comfort. Addendum: 05/22/20 at 1628 by Tatyana Veras RT Amended: Links added.
--- NOTE | 2020-05-22 16:08 | NUR ---
Morphine increased to 10mg/hr as patient is having agonal breathing. Versed continues to run at 10mg/hr. Family at bedside.
--- NOTE | 2020-05-22 16:29 | NUR ---
Patient HR=0 on monitor, no electrical activity shown. Patient no longer breathing, can not visualize chest rise/fall. Breath sounds unable to be auscultated. No pulse palpable. Confirmed by second RN= Regan Cee at bedside.
--- NOTE | 2020-05-22 17:06 | NUR ---
INFORMED MD'S PATIENT DR. IZQUIERDO SPOKE TO SUSAN DIALED [phone] DR. HARRINGTON SPOKE TO SUSAN DIALED [phone] WILDER SPOKE TO DIALED [phone]
== END 2020-05-22 16:29 | disposition expired | DRG 870 ==
LOC: SED 20:34 → STU 22:41 → SIC 04-04 00:11
PROVIDERS: ADMIT Internal Medicine Hospice and Palliative Medicine; ATTEND Internal Medicine Hospice and Palliative Medicine
PROC: 0BC68ZZ Extirpation of Matter from Right Lower Lobe Bronchus, Via Natural or Artificial Opening Endoscopic (ICD-10-PCS; 2020-04-03)
PROC: 0BCB8ZZ Extirpation of Matter from Left Lower Lobe Bronchus, Via Natural or Artificial Opening Endoscopic (ICD-10-PCS; 2020-04-03)
PROC: 0BH17EZ Insertion of Endotracheal Airway into Trachea, Via Natural or Artificial Opening (ICD-10-PCS; 2020-04-11)
PROC: 5A1955Z Respiratory Ventilation, Greater than 96 Consecutive Hours (ICD-10-PCS; 2020-04-11)
PROC: B548ZZA Ultrasonography of Superior Vena Cava, Guidance (ICD-10-PCS; 2020-04-11)
PROC: 0B9D8ZX Drainage of Right Middle Lung Lobe, Via Natural or Artificial Opening Endoscopic, Diagnostic (ICD-10-PCS; 2020-04-11)
PROC: 0BC28ZZ Extirpation of Matter from Carina, Via Natural or Artificial Opening Endoscopic (ICD-10-PCS; 2020-04-11)
PROC: 0BC98ZZ Extirpation of Matter from Lingula Bronchus, Via Natural or Artificial Opening Endoscopic (ICD-10-PCS; 2020-04-11)
PROC: 0BC48ZZ Extirpation of Matter from Right Upper Lobe Bronchus, Via Natural or Artificial Opening Endoscopic (ICD-10-PCS; 2020-04-11)
PROC: 0BC88ZZ Extirpation of Matter from Left Upper Lobe Bronchus, Via Natural or Artificial Opening Endoscopic (ICD-10-PCS; 2020-04-11)
PROC: 0BC58ZZ Extirpation of Matter from Right Middle Lobe Bronchus, Via Natural or Artificial Opening Endoscopic (ICD-10-PCS; 2020-04-11)
PROC: 0BC38ZZ Extirpation of Matter from Right Main Bronchus, Via Natural or Artificial Opening Endoscopic (ICD-10-PCS; 2020-04-11)
PROC: 0BC78ZZ Extirpation of Matter from Left Main Bronchus, Via Natural or Artificial Opening Endoscopic (ICD-10-PCS; 2020-04-11)
PROC: 02HV33Z Insertion of Infusion Device into Superior Vena Cava, Percutaneous Approach (ICD-10-PCS; principal; 2020-04-11 11:00)
PROC: XW033E5 Introduction of Remdesivir Anti-infective into Peripheral Vein, Percutaneous Approach, New Technology Group 5 (ICD-10-PCS; 2020-04-13)
PROC: B548ZZA Ultrasonography of Superior Vena Cava, Guidance (ICD-10-PCS; 2020-04-24)
PROC: 02HV33Z Insertion of Infusion Device into Superior Vena Cava, Percutaneous Approach (ICD-10-PCS; 2020-04-24)
DX: A41.9 Sepsis, unspecified organism (principal); J12.89 Other viral pneumonia; J96.21 Acute and chronic respiratory failure with hypoxia; U07.1 COVID-19; J15.0 Pneumonia due to Klebsiella pneumoniae; R65.21 Severe sepsis with septic shock; E44.0 Moderate protein-calorie malnutrition; E87.3 Alkalosis; J81.1 Chronic pulmonary edema; N39.0 Urinary tract infection, site not specified; Z16.12 Extended spectrum beta lactamase (ESBL) resistance; Z16.23 Resistance to quinolones and fluoroquinolones; J45.909 Unspecified asthma, uncomplicated; N40.0 Benign prostatic hyperplasia without lower urinary tract symptoms; Z66 Do not resuscitate; Z51.5 Encounter for palliative care; D63.8 Anemia in other chronic diseases classified elsewhere; D69.6 Thrombocytopenia, unspecified; D72.810 Lymphocytopenia; F41.9 Anxiety disorder, unspecified; T38.0X5A Adverse effect of glucocorticoids and synthetic analogues, initial encounter; Y95 Nosocomial condition; B96.1 Klebsiella pneumoniae [K. pneumoniae] as the cause of diseases classified elsewhere; M79.604 Pain in right leg; E03.9 Hypothyroidism, unspecified; Z79.899 Other long term (current) drug therapy; Y92.89 Other specified places as the place of occurrence of the external cause; Z88.1 Allergy status to other antibiotic agents; Z91.041 Radiographic dye allergy status; Z90.49 Acquired absence of other specified parts of digestive tract; Z88.8 Allergy status to other drugs, medicaments and biological substances; Z68.24 Body mass index [BMI] 24.0-24.9, adult
CPT/HCPCS: 31624; 36415; 36600; 71045; 73030; 74018; 80048; 80053; 80076; 81000-TC; 82728; 82803-TC; 83605; 83615-TC; 83735-TC; 83880; 84100-TC; 84478-TC; 84484; 85007; 85025; 85027; 85379; 85610-TC; 85651-TC; 85730-TC; 86140; 86480; 86635; 86738; 87040-TC; 87070-TC; 87081; 87086; 87101; 87116; 87205-TC; 87230-TC; 87305; 87449; 88108; 88305; 93005; 93970; 94003; 94640; 96365; 97110-GP; 97163; 99285; C1751; G0378; J0330; J0456; J0692; J0696; J1030; J1100; J1450; J1650; J1940; J2001; J2185; J2248; J2250; J2270; J2543; J2704; J2765; J2930; J3010; J3262; J3370; J3480; J3490; J7030; J7042; J7050; J7060; J7608; J7613; J7626; U0003